=== PATIENT | female | born 1980 | race Caucasian/White ===

== ENCOUNTER 2023-07-13 19:59 | Outpatient (REF) | payer MEDICAID, SELFPAY ==
[2023-07-18 08:10] LABS: Age Gdln ACOG Testing Note (.); HPV Aptima Negative (Negative); IGP, Aptima HPV, rfx 16/18,45 Note (.)
== END 2023-07-13 20:00 | disposition home or self-care (01) ==
LOC: LAB 19:59
PROVIDERS: Visit Provider Obstetrics & Gynecology
DX: Z01.419 Encounter for gynecological examination (general) (routine) without abnormal findings (principal)
CPT/HCPCS: 87624; G0145

== ENCOUNTER 2024-06-13 12:45 | Outpatient (OUT) | payer MEDICAID, SELFPAY ==
--- NOTE | 2024-06-13 | XR_ITS ---
The [address] [address] Patient Name: MARY JANE EUCEDA MRN: [id number] date: 1980 Sex: F Assigned Patient Location: Current Patient Location: Accession/Order Number: [id number] Exam Date: 06/13/2024 15:10 Report Date: 06/13/2024 16:04 At the request of: PERI CLARKE Procedure: XR knee RITO 4V EXAMINATION: XR knee RITO 4V HISTORY: BILATERAL KNEE PAIN COMPARISON: No relevant comparison available. FINDINGS: RIGHT FINDINGS: BONES: Normal. No significant arthropathy or acute abnormality. SOFT TISSUES: Negative. No visible soft tissue swelling. OTHER: Negative. LEFT FINDINGS: BONES: Medial compartment chondrocalcinosis. No acute fracture or dislocation. Mild marginal osteophyte formation SOFT TISSUES: Negative. No visible soft tissue swelling. OTHER: Negative. XR/XR knee RITO 4V IMPRESSION: RIGHT CONCLUSION: Normal LEFT CONCLUSION: Mild degenerative change Electronically authenticated by: NICOLLE QUINTANA Date: 06/13/2024 16:04
--- OUTSIDE RECORDS SUMMARY | 2024-06-13 13:06 | XMS_ITS | CCD ---
Author Organization [facility] Inform ion Partnership [facility] Care Team Providers Care Remarketing Manager Name Role Phone Albino Brown Unavailable DR MENA BRIDGES Attending Unavailable DR MENA BRIDGES Consulting Unavailable DR MENA BRIDGES Admitting Unavailable JANINA DAMIAN Attending Unavailable Allergies Allergy Classification Reported Allergen(s) Allergy Type Date of Onset Reaction(s) Facility (1 source) [facility] Allergy rash Get Satisfaction Other (1 source) [facility] Drug Allergy [facility] Repository Medications Current Medications Medication Drug Class(es) Dates Sig (Normalized) Sig (Original) gabapentin (1 source) Anti-epileptic Agent Gabapentin Active ondansetron 4 mg disintegrating oral tablet (1 source) Serotonin-3 Receptor Antagonist Start: 08-03-2021 take 1 tablet by mouth every eight hours Ondansetron 4 MG 1 tablet on the tongue and allow to dissolve Orally every 8 hours for 3 day(s) Jul, Active Problems Active Problems Problem Classification Problem Date Documented Date Episodic/Chronic Immunizations and screening for infectious disease (2 sources) Contact with and (suspected) exposure to other viral communicable diseases; Translations: [Encounter for screening for human papillomavirus (HPV)] Onset: 08-03-2021 Resolved: 08-03-2021 Episodic Other screening for suspected conditions (not mental disorders or infectious disease) (4 sources) Encounter for screening for malignant neoplasm of cervix; Translations: [ENC SCREENING MALIG NEOPLASM CERV] Onset: 06-13-2022 Episodic Past or Other Problems Problem Classification Problem Date Documented Da te Episodic/Chronic Intestinal infection (1 source) Viral intestinal infection, unspecified Onset: 08-03-2021 Resolved: 08-03-2021 Episodic Results Test Name Value Interpretation Reference Range Facility PAP ACOG PANEL 2: 30 to 65on 06-19-2022 . . Normal [facility] Comment on above: Result Comment: Perf ormed at: WB Performed By: #### [id number] #### [facility] [address] [place] [address] Dr. Lina Lewis Age Gdln ACOG Testing 30-65 Normal [facility] Comment on above: Performed By: #### 4 [id number] #### [facility] [address] [place] [address] Dr. Lina Lewis DIAGNOSIS: Comment Normal [facility] Comment on above: Result Comment: NEGA TIVE FOR INTRAEPITHELIAL LESION OR MALIGNANCY. PREDOMINANCE OF COCCOBACILLI CONSISTENT WITH SHIFT IN VAGINAL YADIEL IS PRESENT. Performed at: WB Performed By: #### 4 [id number] #### [facility] [address] [place] [address] Dr. Lina Lewis HPV Aptima Negative Normal Negative [facility] Comment on above: Result Comment: This nucleic acid amplification test detects fourteen high-risk HPV types (16,18,31,33,35,39,45,51,52,56,58,59,66,68) without differentiation. Performed at: =G Performed By: #### 4 [id number] #### [facility] [address] [place] [address] Dr. Lina Lewis Methodology: Comment Normal [facility] Comment on above: Result Comment: This liquid based ThinPrep(R) pap test was screened with the use of an image guided system. Performed at: WB Performed By: #### 4 [id number] #### [facility] [address] [place] [address] Dr. Lina Lewis Note: Comment Normal [facility] Comment on above: Result Comment: The Pap smear is a screening test designed to aid in the detection of premalignant and malignant conditions of the uterine cervix. It is not a diagnostic procedure and should not be used as the sole means of detecting cervical cancer. Both false-positive and false-negative reports do occur. . Performed at: WB Performed By: #### 4 [id number] #### [facility] [address] [place] [address] Dr. Lina Lewis Performed by: Comment Normal [facility] Comment on above: Result Comment: Beulah Adames, Side Seam Envelope Machine Operator (ASCP) Performed at: WB Performed By: #### 4 [id number] #### [facility] [address] [address] [address] Lina Lewis Specimen adequacy: Comment Normal [facility] Comment on above: Result Comment: Sati sfactory for evaluation. Performed at: WB Performed By: #### 4 [id number] #### [facility] [address] [address] [address] Lina Lewis MRI Shoulder w/o Righton MRI Shoulder w/o Right HISTORY: Right posterior shoulder pain with numbness and tingling for many years. TECHNIQUE: Routine non-contrast MRI of the right shoulder COMPARISON: Radiograph 03/21/2022. RESULT: Rotator Cuff Tendons: Mild tendinosis involving supraspinatus and infraspinatus, without tear. Subscapularis and teres minor appear intact. Long Head Biceps Tendon: Intact with appropriate location. Muscle: Muscle bulk and signal intensity are within normal limits. Labrum: Appears intact. Bones and Marrow: No evidence of fracture or bone marrow replacing process. Glenohumeral Joint: Cartilage within normal limits. No joint effusion or synovitis. Acromioclavicular Joint: Mild degenerative changes. Downsloping of the acromion. Other: No other significant abnormality. IMPRESSION: Mild rotator cuff tendinosis without tear Report reported and signed by Rambo Quinones on 03/31/2022 1300 Normal [facility] [employer] XR Shoulder Complete Right*o n 03-21-2022 XR Shoulder Complete Right* HISTORY: Generalized right shoulder pain FINDINGS: Moderate to severe downsloping acromion. Mild hook morphology. Minimal osteophyte formation involves the AC joint. No fracture or dislocation or rotator cuff calcification is seen. Upper chest is clear. IMPRESSION: 1. Downsloping acromion morphology, probable impingement. 2. No significant AC separation or fracture. Report reported and signed by Tree Barahona on 03/24/2022 1032 Normal [facility] XR Spine Cervical Complete w /Flex AND [place] 03-21-2022 XR Spine Cervical Complete w/Flex AND Ext FINDINGS: Cervical vertebral bodies are preserved in height and are relatively normally aligned. Minimal disc space loss with no significant osteophyte formation throughout the cervical spine. Mild diffuse facet arthropathy. No significant neural foraminal compromise. No fracture or focal soft tissue swelling is seen. Prevertebral soft tissues are normal. FLEXION AND EXTENSION: C1/2: Normal alignment, no change. C2/3 - C5/6: 0 mm with extension, 1 mm anterolisthesis with flexion. C6/7: Normal alignment, no change. IMPRESSION: 1. Minimal arthritis, normal alignment. 2. No significant instability with flexion and extension maneuvers. Report reported and signed by Tree Barahona on 03/24/2022 1026 Normal [facility] SCREENING MAMMOGRAM W/TERESITA, BILATERAL*on 03-14-2022 SCREENING MAMMOGRAM W/TERESITA, BILATERAL* COMPARISON: Dating back to February 12, 2021 and July 23, 2020. TECHNIQUE: 2D and 3D Tomosynthesis of the right and left breasts was performed. FINDINGS: Breast composition demonstrates scattered fibroglandular densities. Stable. Typical benign calcifications. No suspicious microcalcifications, dominant mass lesions, or distortion is present. IMPRESSION: BI-RADS 2- Benign Mammogram Board Certified Radiologist. Accredited by the ACR and FDA. MAMMOGRAPHY IS VERY IMPORTANT TO YOUR HEALTH. THE CURRENT [place] [employer] AND [employer] GUIDELINES RECOMMENDS ANNUAL MAMMOGRAPHY BEGINNING AT AGE 40 THIS FACILITY USES A REMINDER SYSTEM TO ENSURE ALL PATIENTS RECEIVE REMINDER NOTIFICATIONS AT THE APPROPRIATE TIME BASED ON THE RECOMMENDATIONS OF THIS EXAM. Report reported and signed by Tree Barahona on 03/14/2022 1555 Normal [facility] Q - SUSANAN SCREEN IFA W/RFL TIT ER AND PATTERNon 12-09-2021 SUSANNA SCREEN, IFA Positive Abnormal NEGATIVE [facility] Comment on above: Order Comment: [facility] performed at: [employer] [employer] [facility], [address] [place] [address], [address] [place] [address], [phone], Client Integration Manager: Nura Saxena MD [facility] Date/Time: [id number] [facility] Results Received Date/Time: [facility] Reported Date/Time: FASTING: NO Result Comment: SUSANNA IFA is a first line screen for detecting the presence of up to approximately 150 autoantibodies in various autoimmune diseases. A positive SUSANNA IFA result is suggestive of autoimmune disease and reflexes to titer and pattern. Further laboratory testing may be considered if clinically indicated. For additional information, please refer to http://education.[place]/faq/TPN830 (This link is being provided for informational/ educational purposes only.) Performed By: #### 1 [id number], 7065X, 926 #### [facility] [address] [place] [address] Q - C-REACTIVE PROTEINon CRP [Mass/Vol] 0.6 mg/L Normal <8.0 [facility] [place] Comment on above: Order Comment: [facility] performed at: [employer], [employer] [facility], [address] [place] [address], [address] [place] [address], [phone], Client Integration Manager: Nura Saxena MD [facility] Date/Time: [facility] Results Received Date/Time: [facility] Reported Date/Time: FASTING: UNKNOWN Performed By: #### 8 99, 249, 104517X, 42989S, 61739H, ESR, 4420, 968T, 42A #### [facility] [address] [place] [address] Q - CBC W/DIFF AND PLTon BASOABS 58 cells/uL Normal 0-200 [facility] Specialist Comment on above: Order Comment: [facility] performed at: [employer] [facility], [address] [place] [address], [address] [place] [address], [phone], Client Integration Manager: Nura Saxena MD [facility] Date/Time: [facility] Results Received Date/Time: [facility] Reported Date/Time: FASTING: UNKNOWN Performed By: #### 8 99, 249, [id number], 79374X, 94948G, ESR, 4420, 968T, 42A #### [facility] [address] [place] [address] Basophils/100 WBC (Bld) 0.6 % Normal [facility] Special[facility] Comment on above: Order Comment: [facility] performed at: [employer] [facility], [address] [place] [address], [address] [place] [address], [address] [place] [address], Client Integration Manager: Nura Saxena MD [facility] Date/Time: [facility] Results Received Date/Time: [facility] Reported Date/Time: FASTING: UNKNOWN Performed By: #### 8 99, 249, [id number], 08196R, 47450A, ESR, 4420, 968T, 42A #### [facility] [address] [place] [address] EOSABS 221 cells/uL Normal 15-500 [facility] Specialist Comment on above: Order Comment: [facility] performed at: [employer], [employer] [facility], [address] [place] [address], [address] [place] [address], [address] [place] [address], Client Integration Manager: Nura Saxena MD [facility] Date/Time: [facility] Results Received Date/Time: [facility] Reported Date/Time: FASTING: UNKNOWN Performed By: #### 8 99, 249, 999267N, 64578N, 79717C, ESR, 4420, 968T, 42A #### [facility] [address] [place] [address] Eosinophils/100 WBC (Bld) 2.3 % Normal [facility] Special[facility] Comment on above: Order Comment: [facility] performed at: [employer] [facility], [facility], [address] [place] [address], [address] [place] [address], Client Integration Manager: Nura Saxena MD [facility] Date/Time: [facility] Results Received Date/Time: [facility] Reported Date/Time: FASTING: UNKNOWN Performed By: #### 8 99, 249, 418063B, 86737N, 19264M, ESR, 4420, 968T, 42A #### [facility] [address] [place] [address] Erythrocyte distribution width (RBC) [Ratio] 11.5 % Normal 11.0-15.0 [facility] Comment on above: Order Comment: [facility] performed at: [employer] [facility], [address] [place] [address], [address] [place] [address], [address] [place] [address], Client Integration Manager: Nura Saxena MD [facility] Date/Time: [facility] Results Received Date/Time: [facility] Reported Date/Time: FASTING: UNKNOWN Performed By: #### 8 99, 249, 904839V, 63218P, 40605X, ESR, 4420, 968T, 42A #### [facility] [address] [place] [address] Hematocrit (Bld) [Volume fraction] 43.8 % Normal 35.0-45.0 [facility] Comment on above: Order Comment: [facility] performed at: [employer], [employer] [facility], [address] [place] [address], [address] [place] [address], [address] [place] [address], Client Integration Manager: Nura Saxena MD [facility] Date/Time: [facility] Results Received Date/Time: [facility] Reported Date/Time: FASTING: UNKNOWN Performed By: #### 8 99, 249, 670580R, 19806Z, 84493I, ESR, 4420, 968T, 42A #### [facility] [address] [place] [address] Hemoglobin (Bld) [Mass/Vol] 14.9 g/dL Normal 11.7-15.5 [facility] [employer] Comment on above: Order Comment: [facility] performed at: [facility] [facility], [address] [place] [address], [address] [place] [address], [address] [place] [address], Client Integration Manager: Nura Saxena MD [facility] Date/Time: [facility] Results Received Date/Time: [facility] Reported Date/Time: FASTING: UNKNOWN Performed By: #### 8 99, 249, 984210D, 26895T, 02917G, ESR, 4420, 968T, 42A #### [facility] [address] [place] [address] Lymphocytes (Bld) [#/Vol] 2.947 10*3/uL Normal 850-3900 [facility] Comment on above: Order Comment: [facility] performed at: [facility], [employer] [facility], [address] [place] [address], [address] [place] [address], [address] [place] [address], Client Integration Manager: Nura Saxena MD [facility] Date/Time: [facility] Results Received Date/Time: [facility] Reported Date/Time: FASTING: UNKNOWN Performed By: #### 8 99, 249, 469288D, 86415F, 84059L, ESR, 4420, 968T, 42A #### [facility] [address] [place] [address] Lymphocytes/100 WBC (Bld) 30.7 % Normal [facility] Comment on above: Order Comment: [facility] performed at: [facility], [employer] [facility], [address] [place] [address], [address] [place] [address], [address] [place] [address], Client Integration Manager: Nura Saxena MD [facility] Date/Time: [facility] Results Received Date/Time: [facility] Reported Date/Time: FASTING: UNKNOWN Performed By: #### 8 99, 249, 399272U, 83137F, 97831C, ESR, 4420, 968T, 42A #### [facility] [address] [place] [address] MCH (RBC) [Entitic mass] 31.3 pg Normal 27.0-33.0 [facility] [employer] Comment on above: Order Comment: [facility] performed at: [employer], [employer] [facility], [address] [facility], [address] [place] [address], [address] [place] [address], Client Integration Manager: Nura Saxena MD [facility] Date/Time: [facility] Results Received Date/Time: [facility] Reported Date/Time: FASTING: UNKNOWN Performed By: #### 8 99, 249, 320920J, 90665W, 59782P, ESR, 4420, 968T, 42A #### [facility] [address] [place] [address] MCHC (RBC) [Mass/Vol] 34.0 g/dL Normal 32.0-36.0 [facility] Special[facility] Comment on above: Order Comment: [facility] performed at: [employer], [employer] [facility], [address] [place] [address], [address] [place] [address], [address] [place] [address], Client Integration Manager: Nura Saxena MD [facility] Date/Time: [facility] Results Received Date/Time: [facility] Reported Date/Time: FASTING: UNKNOWN Performed By: #### 8 99, 249, 673863Y, 28593O, 95336P, ESR, 4420, 968T, 42A #### [facility] [address] [place] [address] MCV (RBC) [Entitic vol] 92.0 fL Normal 80.0-100.0 [facility] Comment on above: Order Comment: [facility] performed at: [employer], [employer] [facility], [address] [place] [address], [address] [place] [address], [phone], Client Integration Manager: Nura Saxena MD [facility] Date/Time: [facility] Results Received Date/Time: [facility] Reported Date/Time: FASTING: UNKNOWN Performed By: #### 8 99, 249, 941961Y, 81590Z, 94048N, ESR, 4420, 968T, 42A #### [facility] [address] [place] [address] MONOABS 518 cells/uL Normal 200-950 [facility] [employer] Comment on above: Order Comment: [facility] performed at: [employer], [employer] [facility], [address] [place] [address], [address] [place] [address], [address] [place] [address], Client Integration Manager: Nura Saxena MD [facility] Date/Time: [facility] Results Received Date/Time: [facility] Reported Date/Time: FASTING: UNKNOWN Performed By: #### 8 99, 249, 241837B, 61972D, 88355A, ESR, 4420, 968T, 42A #### [facility] [address] [place] [address] Monocytes/100 WBC (Bld) 5.4 % Normal [facility] Specialist Comment on above: Order Comment: [facility] performed at: [employer], [employer] [facility], [address] , [address] [place] [address], [address] [place] [address], Client Integration Manager: Nura Saxena MD [facility] Date/Time: [facility] Results Received Date/Time: [facility] Reported Date/Time: FASTING: UNKNOWN Performed By: #### 8 99, 249, 468930Z, 58828J, 10890G, ESR, 4420, 968T, 42A #### [facility] [address] [place] [address] Neutrophils (Bld) [#/Vol] 5.856 10*3/uL Normal 6838-1078 [facility] [employer] Comment on above: Order Comment: [facility] performed at: [employer], [employer] [facility], [address] , [address] [place] [address], [address] [place] [address], Client Integration Manager: Nura Saexna MD [facility] Date/Time: [facility] Results Received Date/Time: [facility] Reported Date/Time: FASTING: UNKNOWN Performed By: #### 8 99, 249, 997354J, 90175T, 63570T, ESR, 4420, 968T, 42A #### [facility] [address] [place] [address] Neutrophils/100 WBC (Bld) 61 % Normal [facility] Specialist Comment on above: Order Comment: [facility] performed at: [employer], [employer] [facility], [address] , [address] [place] [address], [address] [place] [address], Client Integration Manager: Nura Saxena MD [facility] Date/Time: [facility] Results Received Date/Time: [facility] Reported Date/Time: [id number] FASTING: UNKNOWN Performed By: #### 8 99, 249, 911622I, 48319J, 03053Z, ESR, 4420, 968T, 42A #### [facility] [address] [place] [address] Platelet mean volume (Bld) [Entitic vol] 13.9 fL High 7.5-12.5 [facility] Comment on above: Order Comment: [facility] performed at: [employer], [employer] [facility], [address] [facility], [address] [place] [address], [address] [place] [address], Client Integration Manager: Nura Saxena MD [facility] Date/Time: [facility] Results Received Date/Time: [facility] Reported Date/Time: FASTING: UNKNOWN Performed By: #### 8 99, 249, 338437B, 17035E, 31651J, ESR, 4420, 968T, 42A #### [facility] [address] [place] [address] Platelets (Bld) [#/Vol] 195 10*3/uL Normal 140-400 [facility] Comment on above: Order Comment: [facility] performed at: [employer], [employer] [facility], [address] [facility], [address] [place] [address], [address] [place] [address], Client Integration Manager: Nura Saxena MD [facility] Date/Time: [facility] Results Received Date/Time: [facility] Reported Date/Time: FASTING: UNKNOWN Performed By: #### 8 99, 249, 002078O, 55202C, 88291Y, ESR, 4420, 968T, 42A #### [facility] [address] [place] [address] RBC (Bld) [#/Vol] 4.76 10*6/uL Normal 3.80-5.10 [facility] Specialist Comment on above: Order Comment: [facility] performed at: [employer], [employer] [facility], [address] [facility], [address] [place] [address], [address] [place] [address], Client Integration Manager: Nura Saxena MD [facility] Date/Time: [facility] Results Received Date/Time: [facility] Reported Date/Time: FASTING: UNKNOWN Performed By: #### 8 99, 249, 510473U, 78511U, 91461R, ESR, 4420, 968T, 42A #### [facility] [address] [place] [address] WBC (Bld) [#/Vol] 9.6 10*3/uL Normal 3.8-10.8 [place] [employer] Comment on above: Order Comment: [facility] performed at: [employer], [employer] [facility], [address] [place] [address], [address] [place] [address], [address] [place] [address], Client Integration Manager: Nura Saxena MD [facility] Date/Time: [facility] Results Received Date/Time: [facility] Reported Date/Time: FASTING: UNKNOWN Performed By: #### 8 99, 249, 239954O, 01944J, 41248H, ESR, 4420, 968T, 42A #### [facility] [address] [place] [address] Q - COMPREHENSIVE METABOLIC PANEL W/EGFRon 12-09-2021 Albumin [Mass/Vol] 4.3 g/dL Normal 3.6-5.1 [place] [facility] [place] [employer] Comment on above: Order Comment: [facility] performed at: [employer], [employer] [facility], [address] [facility], [address] [place] [address], [address] [place] [address], Client Integration Manager: Nura Saxena MD [facility] Date/Time: [facility] Results Received Date/Time: [facility] Reported Date/Time: FASTING: UNKNOWN Performed By: #### 8 99, 249, 588583O, 73856V, 54238U, ESR, 4420, 968T, 42A #### [facility] [address] [place] [address] Albumin/Globulin [Mass ratio] 1.6 {ratio} Normal 1.0-2.5 [facility] [place] [employer] Comment on above: Order Comment: [facility] performed at: [employer], [employer] [facility], [address] [place] [address], [address] [place] [address], [address] [place] [address], Client Integration Manager: Nura Saxena MD [facility] Date/Time: [facility] Results Received Date/Time: [facility] Reported Date/Time: FASTING: UNKNOWN Performed By: #### 8 99, 249, 338899A, 22637H, 78935V, ESR, 4420, 968T, 42A #### [facility] [address] [place] [address] ALP [Catalytic activity/Vol] 74 U/L Normal 31-125 [facility] [employer] Comment on above: Order Comment: [facility] performed at: [employer], [employer] [facility], [address] [place] [address], [address] [place] [address], [address] [place] [address], Client Integration Manager: Nura Saxena MD [facility] Date/Time: [facility] Results Received Date/Time: [facility] Reported Date/Time: FASTING: UNKNOWN Performed By: #### 8 99, 249, 781237G, 50803X, 96021J, ESR, 4420, 968T, 42A #### [facility] Default [address] [place] [address] ALT [Catalytic activity/Vol] 12 U/L Normal 6-29 [facility] [employer] Comment on above: Order Comment: [facility] Testing performed at: [employer], [employer] [facility], [address] [place] [address], [address] [place] [address], [address] [place] [address], Client Integration Manager: Nura Saxena MD [facility] Collection Date/Time: [facility] Results Received Date/Time: [facility] Reported Date/Time: FASTING: UNKNOWN Performed By: #### 8 99, 249, 124049E, 33905I, 90285Q, ESR, 4420, 968T, 42A #### [facility] Default [address] [place] [address] AST [Catalytic activity/Vol] 12 U/L Normal 10-30 [facility] Comment on above: Order Comment: [facility] Testing performed at: [employer], [employer] [facility], 5 [facility], [address] [place] [address], [address] [place] [address], Client Integration Manager: Nura Saxena MD [facility] Collection Date/Time: [facility] Results Received Date/Time: [facility] Reported Date/Time: FASTING: UNKNOWN Performed By: #### 8 99, 249, 988168F, 69020G, 19139W, ESR, 4420, 968T, 42A #### [facility] Default [address] [place] [address] BUN/CREA 14 NOT APPLICABLE Normal 6-22 [facility] [employer] Comment on above: Order Comment: [facility] Testing performed at: [employer], [employer] [facility], 5 [facility], [address] [place] [address], [address] [place] [address], Client Integration Manager: Nura Saxena MD [facility] Collection Date/Time: [facility] Results Received Date/Time: [facility] Reported Date/Time: FASTING: UNKNOWN Performed By: #### 8 99, 249, 018018W, 54419G, 56079W, ESR, 4420, 968T, 42A #### [facility] Default [address] [place] [address] Calcium [Mass/Vol] 9.8 mg/dL Normal 8.6-10.2 [facility] Specialist Comment on above: Order Comment: [facility] Testing performed at: [employer], [employer] [facility], [address] [facility], [address] [place] [address], [address] [place] [address], Client Integration Manager: Nura Saxena MD [facility] Date/Time: [facility] Results Received Date/Time: [facility] Reported Date/Time: FASTING: UNKNOWN Performed By: #### 8 99, 249, 635576F, 90376S, 24229R, ESR, 4420, 968T, 42A #### [facility] Default [address] [place] [address] Chloride [Moles/Vol] 103 mmol/L Normal 98-110 [facility] [employer] Comment on above: Order Comment: [facility] Testing performed at: [employer], [employer] [facility], [address] [place] [address], [address] [place] [address], [address] [place] [address], Client Integration Manager: Nura Saxena MD [facility] Collection Date/Time: [facility] Results Received Date/Time: [facility] Reported Date/Time: FASTING: UNKNOWN Performed By: #### 8 99, 249, 146508O, 20808L, 04177A, ESR, 4420, 968T, 42A #### [facility] Default [address] [place] [address] CO2 [Moles/Vol] 28 mmol/L Normal 20-32 [place] [employer] Comment on above: Order Comment: [facility] Testing performed at: [employer], [employer] [facility], [address] [place] [address], [address] [place] [address], [address] [place] [address], Client Integration Manager: Nura Saxena MD [facility] Collection Date/Time: [facility] Results Received Date/Time: [facility] Reported Date/Time: FASTING: UNKNOWN Performed By: #### 8 99, 249, 070887U, 98144N, 79320G, ESR, 4420, 968T, 42A #### [facility] Default [address] [place] [address] Creatinine [Mass/Vol] 0.59 mg/dL Normal 0.50-1.10 [facility] [employer] Comment on above: Order Comment: [facility] Testing performed at: [employer], [employer] [facility], [address] [place] [address], [address] [place] [address], [address] [place] [address], Client Integration Manager: Nura Saxena MD [facility] Collection Date/Time: [facility] Results Received Date/Time: [facility] Reported Date/Time: FASTING: UNKNOWN Performed By: #### 8 99, 249, 024746C, 00249I, 77955F, ESR, 4420, 968T, 42A #### [facility] Default [address] [place] [address] eGFRAA (Quest) 133 mL/min/1.73m2 Normal > OR = 60 [facility] Comment on above: Order Comment: [facility] Testing performed at: [employer] [employer] [facility], [address] [place] [address], [address] [place] [address], [phone], Client Integration Manager: Nura Saxena MD [facility] Collection Date/Time: [facility] Results Received Date/Time: [facility] Reported Date/Time: FASTING: UNKNOWN Performed By: #### 8 99, 249, 989406E, 90031L, 99776W, ESR, 4420, 968T, 42A #### [facility] Default [address] [place] [address] eGFRNAA (Quest) 115 mL/min/1.73m2 Normal > OR = 60 [facility] Comment on above: Order Comment: [facility] Testing performed at: [employer] [employer] [facility], [address] [facility], [address] [place] [address], [phone], Client Integration Manager: Nura Saxena MD [facility] Collection Date/Time: [facility] Results Received Date/Time: [facility] Reported Date/Time: FASTING: UNKNOWN Performed By: #### 8 99, 249, 900014W, 02026V, 28176L, ESR, 4420, 968T, 42A #### [facility] Default [address] [place] [address] Globulin (S) [Mass/Vol] 2.7 g/dL Normal 1.9-3.7 [facility] [employer] Comment on above: Order Comment: [facility] Testing performed at: [employer] [employer] [facility], [address] [place] [address], [address] [place] [address], [phone], Client Integration Manager: Nura Saxena MD [facility] Collection Date/Time: [facility] Results Received Date/Time: [facility] Reported Date/Time: FASTING: UNKNOWN Performed By: #### 8 99, 249, 188262S, 50118R, 93456P, ESR, 4420, 968T, 42A #### [facility] Default [address] [place] [address] Glucose [Mass/Vol] 82 mg/dL Normal 65-99 [place] [employer] Comment on above: Order Comment: [facility] Testing performed at: [employer] [employer] [facility], [address] [place] [address], [address] [place] [address], [address] [place] [address], Client Integration Manager: Nura Saxena MD [facility] Date/Time: [facility] Results Received Date/Time: [facility] Reported Date/Time: FASTING: UNKNOWN Result Comment: Fasting reference interval Performed By: #### 8 99, 249, 337209D, 42654F, 58612C, ESR, 4420, 968T, 42A #### [facility] Default [address] [place] [address] Potassium [Moles/Vol] 4.2 mmol/L Normal 3.5-5.3 [facility] [employer] Comment on above: Order Comment: [facility] Testing performed at: [employer] [facility], [address] [place] [address], [address] [place] [address], [address] [place] [address], Client Integration Manager: Nura Saxena MD [facility] Collection Date/Time: [facility] Results Received Date/Time: [facility] Reported Date/Time: FASTING: UNKNOWN Performed By: #### 8 99, 249, 005877J, 48113G, 64261E, ESR, 4420, 968T, 42A #### [facility] Default [address] [place] [address] Protein [Mass/Vol] 7.0 g/dL Normal 6.1-8.1 [place] [employer] Comment on above: Order Comment: [facility] Testing performed at: [employer] [employer] [facility], [address] [place] [address], [address] [place] [address], [address] [place] [address], Client Integration Manager: Nura Saxena MD [facility] Collection Date/Time: [facility] Results Received Date/Time: [facility] Reported Date/Time: FASTING: UNKNOWN Performed By: #### 8 99, 249, 733903Y, 21026V, 28345Z, ESR, 4420, 968T, 42A #### [facility] [address] [place] [address] Sodium [Moles/Vol] 138 mmol/L Normal 135-146 [facility] Comment on above: Order Comment: [facility] Testing performed at: [employer] [employer] [facility], [address] [place] [address], [address] [place] [address], [address] [place] [address], Client Integration Manager: Nura Saxena MD [facility] Collection Date/Time: [facility] Results Received Date/Time: [facility] Reported Date/Time: FASTING: UNKNOWN Performed By: #### 8 99, 249, 412914D, 36372F, 56469Z, ESR, 4420, 968T, 42A #### [facility] Default [address] [place] [address] TBIL <0.3 Normal 0.2-1.2 [facility] Specialist Comment on above: Order Comment: [facility] Testing performed at: [employer] [employer] [facility], [address] [place] [address], [address] [place] [address], [address] [place] [address], Client Integration Manager: Nura Saxena MD [facility] Collection Date/Time: [facility] Results Received Date/Time: [facility] Reported Date/Time: FASTING: UNKNOWN Performed By: #### 8 99, 249, 777781Q, 40548E, 29398J, ESR, 4420, 968T, 42A #### [facility] Default [address] [place] [address] Urea nitrogen [Mass/Vol] 8 mg/dL Normal 7-25 [facility] [employer] Comment on above: Order Comment: [facility] Testing performed at: [employer] [employer] [facility], [address] [place] [address], [address] [place] [address], [address] [place] [address], Client Integration Manager: Nura Saxena MD [facility] Collection Date/Time: [facility] Results Received Date/Time: [facility] Reported Date/Time: FASTING: UNKNOWN Performed By: #### 8 99, 249, 411024C, 23252S, 40051K, ESR, 4420, 968T, 42A #### [facility] Default [address] [place] [address] Q - Lipid Panelon 12-09-2021 Cholesterol [Mass/Vol] 242 mg/dL High <200 [facility] [employer] Comment on above: Order Comment: [facility] Testing performed at: [employer] [facility], [address] [place] [address], [address] [place] [address], [address] [place] [address], Client Integration Manager: Nura Saxena MD [facility] Collection Date/Time: [facility] Results Received Date/Time: [facility] Reported Date/Time: FASTING: UNKNOWN Performed By: #### 8 99, 249, 126547D, 67001L, 11378P, ESR, 4420, 968T, 42A #### [facility] Default [address] [place] [address] Cholesterol in HDL [Mass/Vol] 59 mg/dL Normal > OR = 50 [facility] [employer] Comment on above: Order Comment: [facility] Testing performed at: [employer] [facility], [address] [place] [address], [address] [place] [address], [address] [place] [address], Client Integration Manager: Nura Saxena MD [facility] Collection Date/Time: [facility] Results Received Date/Time: [facility] Reported Date/Time: FASTING: UNKNOWN Performed By: #### 8 99, 249, 101593P, 02144F, 43366A, ESR, 4420, 968T, 42A #### [facility] Default [address] [place] [address] Cholesterol in LDL [Mass/Vol] 160 mg/dL High [facility] [employer] Comment on above: Order Comment: [facility] Testing performed at: [employer] [facility], [address] [place] , [address] [place] [address], [address] [place] [address], Client Integration Manager: Nura Saxena MD [facility] Collection Date/Time: [facility] Results Received Date/Time: [facility] Reported Date/Time: FASTING: UNKNOWN Result Comment: Refe rence range: <100 Desirable range <100 mg/dL for primary prevention; <70 mg/dL for patients with CHD or diabetic patients with > or = 2 CHD risk factors. LDL-C is now calculated using the Eladia calculation, which is a validated novel method providing better accuracy than the Friedewald equation in the estimation of LDL-C. Daniel SS et al. CARLA. 2013;310(19): 5873-9758 (http://education.Actifi/faq/ACD135) Performed By: #### 8 99, 249, 490677K, 39373P, 46608P, ESR, 4420, 968T, 42A #### [facility] Default [address] [place] [address] Cholesterol.total/ Cholesterol in HDL [Mass ratio] 4.1 {ratio} Normal <5.0 [facility] [employer] Comment on above: Order Comment: [facility] Testing performed at: [employer] [facility], [address] [facility], [address] [place] [address], [address] [place] [address], Client Integration Manager: Nura Saxena MD [facility] Collection Date/Time: [facility] Results Received Date/Time: [facility] Reported Date/Time: FASTING: UNKNOWN Performed By: #### 8 99, 249, 766666I, 97394B, 31456B, ESR, 4420, 968T, 42A #### [facility] Default [address] [place] [address] NON HDL CHOLESTEROL 183 mg/dL (calc) High <130 [facility] [employer] Comment on above: Order Comment: [facility] Testing performed at: [employer] [employer] [facility], [address] [facility], [address] [place] [address], [address] [place] [address], Client Integration Manager: Nura Saxena MD [facility] Date/Time: [facility] Results Received Date/Time: [facility] Reported Date/Time: FASTING: UNKNOWN Result Comment: For patients with diabetes plus 1 major ASCVD risk factor, treating to a non-HDL-C goal of <100 mg/dL (LDL-C of <70 mg/dL) is considered a therapeutic option. Performed By: #### 8 99, 249, 458706U, 92179Z, 55176X, ESR, 4420, 968T, 42A #### [facility] Default [address] [place] [address] Triglyceride [Mass/Vol] 112 mg/dL Normal <150 [facility] Specialist Comment on above: Order Comment: [facility] Testing performed at: [employer] [employer] [facility], [address] [place] [address], [address] [place] [address], [phone], Client Integration Manager: Nura Saxena MD [facility] Date/Time: [facility] Results Received Date/Time: [facility] Reported Date/Time: FASTING: UNKNOWN Performed By: #### 8 99, 249, 573339X, 09022W, 07390I, ESR, 4420, 968T, 42A #### [facility] Default [address] [place] [address] Q - PTH,INTACT W/O CALCIUMon 12-09-2021 PARATHYROID HORMONE, INTACT 20 pg/mL Normal 16-77 [facility] [employer] Comment on above: Order Comment: [facility] Testing performed at: [employer] [facility], [address] [place] [address], [address] [place] [address], [phone], Client Integration Manager: Nura Saxena MD [facility] Date/Time: [facility] Results Received Date/Time: [facility] Reported Date/Time: FASTING: UNKNOWN Result Comment: Interpretive Guide Intact PTH Calcium ------- Normal Parathyroid Normal Normal Hypoparathyroidism Low or Low Normal Low Hyperparathyroidism Primary Normal or High High Secondary High Normal or Low Tertiary High High Non-Parathyroid Hypercalcemia Low or Low Normal High Performed By: #### 8 99, 249, 396688L, 43010D, 20995L, ESR, 4420, 968T, 42A #### [facility] Default [address] [place] [address] Q - RFon 12-09-2021 RF <14 Normal <14 [facility] [employer] Comment on above: Order Comment: [facility] performed at: [employer] [employer] [facility], [address] [place] [address], [address] [place] [address], [phone], Client Integration Manager: Nura Saxena MD [facility] Date/Time: [facility] Results Received Date/Time: [facility] Reported Date/Time: FASTING: UNKNOWN Performed By: #### 8 99, 249, 901996L, 48138K, 60803S, ESR, 4420, 968T, 42A #### [facility] Default [address] [place] [address] Q - TSHon 12-09-2021 TSH Qn 1.06 m[IU]/L Normal [facility] [employer] Comment on above: Order Comment: [facility] Testing performed at: [employer] [employer] [facility], [address] [place] [address], [address] [place] [address], [phone], Client Integration Manager: Nura Saxena MD [facility] Date/Time: [facility] Results Received Date/Time: [facility] Reported Date/Time: FASTING: UNKNOWN Result Comment: Refe rence Range > or = 20 Years 0.40-4.50 Ranges First trimester 0.26-2.66 Second trimester 0.55-2.73 Third trimester 0.43-2.91 Performed By: #### 8 99, 249, 018898B, 20361Y, 49727O, ESR, 4420, 968T, 42A #### [facility] Default [address] [place] [address] RBC Sedimentation Rateon ESR (Bld) [Velocity] 6 mm/h Normal < OR = 20 [facility] [employer] Comment on above: Order Comment: [facility] performed at: [employer] [employer] [facility], [address] [place] [address], [address] [place] [address], [address] [place] [address], Client Integration Manager: Nura Saxena MD [facility] Date/Time: [facility] Results Received Date/Time: [facility] Reported Date/Time: FASTING: NO Performed By: #### 1 7306X, 7065X, 926 #### [facility] Default [address] [place] [address] Q - VITAMIN B12 AND FOLATE,S ERUMon 10-14-2021 Cobalamin (Vitamin B12) [Mass/Vol] 448 pg/mL Normal 200-1100 [facility] [employer] Comment on above: Order Comment: [facility] performed at: [employer] [employer] [facility], [address] [place] [address], [address] [place] [address], [address] [place] [address], Client Integration Manager: Nura Saxena MD [facility] Date/Time: [facility] Results Received Date/Time: [facility] Reported Date/Time: FASTING: NO Performed By: #### 1 7306X, 7065X, 926 #### [facility] Default [address] [place] [address] Folate [Mass/Vol] 10.6 ng/mL Normal [facility] [employer] Comment on above: Order Comment: [facility] performed at: [employer] [employer] [facility], [address] [place] [address], [address] [place] [address], [address] [place] [address], Client Integration Manager: Nura Saxena MD [facility] Date/Time: [facility] Results Received Date/Time: [facility] Reported Date/Time: FASTING: NO Result Comment: Refe rence Range Low: <3.4 Borderline: 3.4-5.4 Normal: >5.4 Performed By: #### 1 7306X, 7065X, 926 #### [facility] Default [address] [place] [address] Q - VITAMIN B6, PLASMAon VITAMIN B6, PLASMA 3.2 ng/mL Normal 2.1-21.7 [facility] [employer] Comment on above: Order Comment: [facility] performed at: [facility], [employer], [address], [place], [place], , Client Integration Manager: Matthew Boston M.D.,PhD [facility] Date/Time: [facility] Results Received Date/Time: [facility] Reported Date/Time: [id number] FASTING: NO Result Comment: Ciara min supplementation within 24 hours prior to blood draw may affect the accuracy of the results. This test was developed and its analytical performance characteristics have been determined by [employer] [place], [place]. It has not been cleared or approved by the U.S. Food and Drug Administration. This assay has been validated pursuant to the CLIA regulations and is used for clinical purposes. Performed By: #### 1 7306X, 7065X, 926 #### [facility] Default [address] [place] [address] Q - VITAMIN D 25-OH Total IA on 10-14-2021 VIT D 25 OH 25 ng/mL Low 30-100 [facility] [employer] Comment on above: Order Comment: [facility] performed at: [facility], [employer] [facility], [address] [place] [address], [address] [place], [address], Client Integration Manager: Nura Saxena MD [facility] Date/Time: [facility] Results Received Date/Time: [facility] Reported Date/Time: FASTING: NO Result Comment: Ciara min D Status 25-OH Vitamin D: Deficiency: <20 ng/mL Insufficiency: 20 - 29 ng/mL Optimal: > or = 30 ng/mL For 25-OH Vitamin D testing on patients on D2-supplementation and patients for whom quantitation of D2 and D3 fractions is required, the QuestAssureD(TM) 25-OH VIT D, (D2,D3), LC/MS/MS is recommended: order code 63796 (patients >2yrs). See Note 1 Note 1 For additional information, please refer to http://education.[employer]/faq/JTM743 (This link is being provided for informational/ educational purposes only.) Performed By: #### 1 7306X, 7065X, 926 #### [facility] Default [address] [place] [address] COVID Quick Testingon 2020 Result Negative Get Satisfaction Other Physical Therapy Noteon 10-29 Physical Therapy Note [id number] [id number] [facility] Coding Summaryon 10-26-2020 Coding Summary HTMLBase 64 YgegtmxvISm1eNj+PGhlY WQ+IG6BYCUtO32meGGvzM 0WM3oHJX0ZZPLUSHOMFX8 GHV9ajHA4ZDxyA9RzuoUe DjxuoHPiPQ99LPz3JCX2l GdeSXcezZ6xwPAhZ6x7Ry BeWW54uD41IKhwDUXtZaU 3LjZpbjsgbWFy X4ijTjNwiJBaKit+PHRhY mxlIHdpZHRoPScxMDAlJy JbpXshBA8tOd5nTHYsBWC vbGxhcHNlOiBj j2yzHFBhDNzqEM0ieRufL 9QivWU6QPBtz6n0Bw22jO I+IQSqEZS4yRdjDJwsx13 0KmSlc6viCWI8 kTZzEZdoYUF0S80qw2R2A WIhRRWdGTY4bCC8yA0asW fxloddR2IghSPaCtJ9RMU 1jSZafV9spJmu wptvpI2sZwn+U33SRU2HA YPJXB8EXft8I6OuLnnwrL I+HO88FGDuIL54xNOanUH ee6kwoDu8YoYk EHDtESG0eRduCEnlx8NfM TTuZ97zfUBrq9B2YWDnxQ snfWMhYcCetLI4zQ6xKRb xvfxzv7mqblmj Euhys9texz04dX34R35pR AmmREZvCLR7HTEeNOYmoT lqyw1cgM1sHp8+DVfxg9a cv1cmrYy1UqGx EBVgguVhsCttUHH8b0XnJ l47A2ZzvOehz1VnIpb7ja 37cSRnt9I4bOY5UHrlVDV ndV5zRSbdQaW7 AKSiRyHylM33jXRxOBvvF j1lhAcwvNxvDR7bXNSqqq rqCHUecH7kIBXabNGymSv fXV0pNFNsraar p310UxSnJOH1CFWrmTYuL 6KstM2xCfAyIHYiOELsP9 NwxIRcPMcnT037RWzhKfG 1GUHsvfHxA0Jy HYGzcArkTwS7e0H1Av5Ah 8TzjbroPSR4ILihZBEoAb C2SbYyVuZ9U9RtJbs5UJO tfXwvTE0zV9Rc GVXsebtbqqprlSR2CCFxG ONjnV11sJAlJGsjLz4kv0 H9b512IUTlHORneN39Jo9 udDogMTBwdCBU lY2ezzcxk4vfxffcVlOcK FYzGQy6JUo6IVYutYilJn OhQGB4WyG7QGL4aFIwiG4 usOucmjttoQ9m Oyc+J53vnP0bIRQ4DVI0s kukCFQylpOrZR35UQ95J8 RyPjwvdGFibGU+PGRpdiB ayDvfNS9yIcQt i3wct5OpUKlxD0SbOAEgG UmlXcp9ZGZsDWC2eQC9vQ 3cYUUfAYrlp7J2rPH4D2N tfpOtbj7yq9mq XKGlQVgdB49bgDNpo9X2K RXqtRD5CZMveOmgRkQhvU 93Oyc+YEUleIuqe6MsSsh ks2xvh3sakPr4 ZbBbZJCibpVxfXewAMG5t 7NsDq17Z71vOTwtVGIuNN SvRJOzSKDakOxuyr7kzA2 wIi8+PGNvbCB3 yZM0mN5fDIQfCdR1LIxgQ 878PbAleVBsXyyvo2ycx0 jbbKb7CgOxJKXyasJtcSq hAQG2n6AbNe86 M87xWJcfVUXyDNAaJFVgH RQolWtnjl4sxF9nNg8+PC 5lm5xztb36oX69hME+PHR lDCA5kNaeQGfd TUTuiC1uKSahJwD9PAYiH uHxrE43uZClJGinAc8avK fvhUlsXU7wBKSbhmqkf14 0MrYfi8jqYOEx kWIzUTgpYFA5P04ln5H8Y HYsBGGyVNY9sGH0sB4wfS lnbjogbGVmdDsgdmVydGl bSThnZOasL016 IHRvcDsnPlBhdGllbnQgT aZpRVy8D9WeYvx4QAJoyI qkRF2zlISuSLauGc0ykEa crJtxVF6vQGCt jjkpj343IdUrd2wtIGItc KWiYPbyUEA0J12vc3L9QF KrDUAhCYV0pED7aT7xzGc nbjogbGVmdDsg yvKcgJoePKwiMOmsY973G HRvcDsnPkJpcnRoIERhdG L2HW22PZ46cDGhn8G3sOT 3L7UsJWAqzehx rupphKS4VOXbQZTspM73Q m0wrCxwJo1oNMFjMLN0VF CqzZCfF9KwiK6mFqNhVEO fLVCqG9AjkNPj VXqlR738EEquYoH8LKUuv sKtN4DdRPGmjVyxBkQ8r1 Z8Nb0UT9A7ZX98XQ24cCU cw6Y4lJG9R4Cz AKCedrqwcolhuDP2CMNrW AHowL39Aw8buCjvYc6yKD RxZCR0NMTvyVXlU8QiaB9 yOiAjMDAwMDAw I5GvaOMqAErnP452YDuhW fZ9JBMlvzTfQ1BwRVLywI imKrG5k2A0Yf4INOd2UP4 6MN07rTFlt8P3 xWY0I2EeRLQtboivqodqy JB4HMNqHFTkpF19Yc8ibK ccDo4cZETqTJA5JSIxkJZ jS6WajH8xTuPf VIWuFHHkE2VqwBAjBTlsP 765QLzzQwY7UOKmcvXrA3 VrJUGheOdePiZ8b0F8Qp4 NVBAdZD96ZIN4 dNC4GR78XK54T2YsGvura GFibGU+PHRhYmxlIHdpZH RoPScxMDAlJyBzdHlsZT0 qBd8nLAVtWHNm eYallBEnCoNvi5dgVYYkG EwjUP8ggKvyK8ZziUB2KA Tnl7a6Hi29E75oA3RepWF +SJVmxDE0fDE5 nS3aQuQlLuH5RLpmZ536Z zIiuFLkSwgue8huq1uerY j5FbH2CTBhhvXmiZkpXIJ 2q3OkMw13P89s IHdpZHRoPSIxNSUiIHZhb Ssfae0skU9eEp3+PGNvbC T3bUE3cY3pWcLaKtG4DYn dJ041LlRubEBu Cewvm3ncf3tqcZy6BiNaH SHcsdBkrWbuLJZ7z8DtWw 66F4SpoVcrz0FzQus5xl0 2lZDfh5X6mPD3 Z1EcOAEiqqzeaQKdwBayG J6lLLIajqdxPKWxaG4sNI CzR6x4NsGkWrO8SKguS2F noaJ2QYZgrBUb VWbrXRO9I74au1P1MKDuQ ZAhXNF2oKH0wZ9weJwkoe ogbGVmdDsgdmVydGljYWw kEHowZ119RCVm oMmwSXWmfT2oNRXzkKLls TsqTA2bSSIlsyztTn0OVJ rPNRUcMBZDQ0OWFGITMN7 8MN75sAIkf1A2 eTE9Y3UxSWDzdpdmbchuq RY7JULnKSZwsC46wHKzKT nfOi3js0T4x379NCYoILU ctX58As8inHyw UWIbmKSBtD4fdztih8oat udsVnPjCIXmRMk8EQj4XU EoyGscSvKhODD1JdM9NPY 1yDGbaP7vlXqu fhxlfB1wFxb+MDQvMTgvM Aj9IXoxwKN+PVXkUQG5jB cxKRxnQVEflU6cNNKuG5j 9NkGyPeG5WLim I5LfNOEqobseZz32oT8kU jFgSsY6NEitS0VkdiG8UU XayYZpUVqvYMK6N78xk2T 8GXScTLZvIFX5 jUC3pF7vsOjrmfjgsLTlo DsgdmVydGljYWwtYWxpZ2 33LKKxmLqaCnT9BHnlMQI kHF62LE91dRLf r1P3gSQ1N6RzZAHycheiq tsauPB0VFDeLYUtrM83oX NmFGpfXl5aw8H3l815AUA oSIZuvE40Gl6b gRxiLVQgeDAKpF9bvegmq 6lineiiVkGiFPXaTJx6UR s8METldMtfKdUjXCP3MtU 2BAZ6qJQisS1w oFtxdnsssS9gMgf+RkVNQ HfFIJ31CO01iRXzh1W8vB R9W3LfDIOpngyvntkasIY 6WJBlLMWemU18 sJQbKIguQt9td4H6z905T BXcBWVnyD78Eu7nvKatZG BauEDCrU2qrwcqo4iebnv gIzAwMDAwMDt0 YTw2JNVhsNcbJmAiBNN0V yN4TCQ2eKDsgO4fpYowhu repD9qIhv+UmVjdXJyaW5 fUL81aYNznJfh qmN9O8XfIethgVZ+PC90Y YEnEW16dVQmtOUum5xgsQ o5OqNjRSVcOCW3dVgfSBi jt7MwPFTgC90q aZNwx8E7HGSewOnenIUbF nOoqBZ3hH8zIFzmzddvq5 flxgwzMixlh9limi02hM0 8B76lJXtwCITp IQKzMXRqBLXzmWrvve6xj G9wIi8+DQXrpCT2cMX2qM 6pDrVxKzV4LJonS422VaW iyNDcOrzvi2eq p3exzGz9EwIeTPNccsGfx VryMBL1s4KwQp27W60fZV dpZHRoPSIyMCUiIHZhbGl lve6ifN6lQp0+ YT0ki8sbar66qU76gSK+P QUpQQD5kTapBVliPLSwtB 2kCLwvEgK0FODwZgVgpQ8 5iNFzNMhpMx7f oNzszKzbTZ9vJAOvjxkid 480VfZwt8svVUOqpKGiUU nnPXV7Y91fm6G9NWSqJPM rPSR2nOA4cD0x bGlnbjogbGVmdDsgdmVyd TreGOekSNtbX670JMKpeW klFjKimDLdR9jjvaYHCB5 lOjwvdGQ+PHRk AQY4rXbbEUgeCKPsvI9nZ NYbJ8f1GgStBhR7MGmvA5 CojxI7CWHyaPLwUFRpqCL CpU0iqqiuz7vn jyutFqGdBFKmLKa3TQk3X UJuyWvcCtWiOEB7RhT2EF T0xYIfuV7iaZsgqstwqP2 wOyc+RklOOjwv dGQ+CYQoWST2vJleDEzuJ RSxgK4kTDHvI6e6DzSdCe P2IAubG0XwrvL8JDUoxCU bSMFbfKWRsI7t odncf1svbtowPpFeNFNlJ Uz9OUd3YMXhpZfhAfIdKY D6LeS0CYX3uLRwqV7qfFr wbpzmpA1nCuj+ TVJOOjwvdGQ+FEKlLHK8n GslCKiqLRPwgX6jTTIlK9 z2JlKiYwA3JQxpH7RfncK 6IGJvbGQgMTBw tAOTeB9einbky7layzseU eHbLEShVNf8VKp6WEOwzJ uoLnAxWJL9LoJ3YYV7dTU uiG0pjGuyhskq tO6dRbs+UOD8CPL8WH32F D20B7ZeLkjdcDOtsMC+PH RhYmxlIHdpZHRoPScxMDA pOnKoxXxmZE2c Gq4fMXUlOKYhfRbkqJSmT gBpo1dsNOHeNCltRB1byC awS7RkjXV8BRGht2r0Lo0 3U38tJ5TqeXJ+ PEGdgGE2uOG8jI8zQyUwY uB8WCihS657XmWsvXXgOa mms0aoo5kouIr8UsXjWAN gdmFsaWduPSJ0 d2KvEn27K12gCNfqXTKcO JMqBIEoFRRtnMazbm5uvC 9wIi8+XXKygSU4wBP5gX4 gJiDvTzT2UPml M083ScJygQBtBmlyJ80rH 3JvdXA+JOWsPls4OKWdjT btJF0waKUdJYwxOm8tFAQ 0OiAwLjIwMGlu F0LbSTUakghodyrupNO3F UJcIPGdfL54Ar3jkHdnGQ FteLDSmI4jhngun5occkp gIzAwMDAwMDt0 VWi6HZHynRkiHbWhDVG8A qF1WIP5dNRruL3kfMoyxg xufI4qO9QxWHCkvsgxWr2 1wP8bVwNwCqK5 MGluOyc+Ay3PJVRITZWNI 9vIZI07NE87mZOgw8E5tC L4Q1WgVFYefgcmplwgaSN 1ZKZpZXUcnI18 mSRtTUswKn1ej9T2g212D SWsKTGrtS03Ef0ldAqyDQ BlwYHVyP1mgcexi4hmjpp gIzAwMDAwMDt0 DNs7JHMwqLzkNdVmSMM4S oR3CZM0bCDdbF4vmMpqkj vwcI2uPvl+MzAzNDkyMzU 1I1IrBqj1YDTh aSwxVC7waDZdXVwwOj9sl OkgvSoyIT3hJGMcxsvlMS UrzH2jURRgxENyfGsoJZ0 tBXEhqzpff261 LfKxOPQ3WCGjcWHlF4Ybz H4iDjNsFYDsQVFpV0VblE WoRFooH911ZXmwVxW1ATN tfjNnT1OkMVBu lQesKwP7x5U5Ku8lEy7bH T12UpvauKE+NQMjPMK7gE ihXQmhVGZldZ3oNHYxM6v 3WiFoLpB3JOcz S3WmHURtfrhqQb11nO7uN vGzHoJ5VIioN2PsrrI8HK MnxLGjNAzuPVK4E50xa5Z 0ALBlVRCqEJF4 rXW6eE0auPuottkwrAUup DsgdmVydGljYWwtYWxpZ2 40JAQdmGcwFn7vTXloAHc kIEhNTzwvdGQ+ BP94ii28H9BvYysdQgb9X MFbLVG5kWD8rQ8zAFKqPR hsx5Z6mXC6T4GubbFido4 bf5irOXPyMJbw U10dqLWij6E8PPPnaBX2C KOdzXjuTxQdvL30Zgh+PG LguCagg0EkCwmdo4izr6s fjAw5XaVxHKAc dwJlnWagJGH7a3JjJu90Q 29sIHdpZHRoPSIzMCUiIH VawTbtxa5zfS3dUs5+PGN otSP4vCS3gM9b FwDxDnH1KKyhV142YoSwp PExQlirz9etm1dpsNx0Mq AvSESvzmGqtObeYID2z5B fSi26J2VwzQni c8JeOxe5bb53mVYsi3W1o JN4R4OvHRMpldycoUCnhO ffBY7jIYYpximvIPWmqG5 jQBDiY4n1EtBo DaM4FUqzE2RhfhK2JZRcy JJtNNRdmSTXoY0jyxtmg9 ntfwuaSdDtPOGhRAg4MVh 0LWFsaWduOiBs AOM5AxR6MCG8cRJtiD2oi GvriyrokU0oTtb+RmFjaW trdZv7LO43UM44ePTfs2B 0vOE1M4ZiYALo lnotnxdtfXQ1XDKqDYTvl X32Ww9iaPlkCk5iTRBqPB V7ELQrkWOcC0AguJ7yDqA cARUwEXMoF9Xx lXHfGHfsB209EDglTzK8U IIouiGkY9QiXNVdbAdxTo Y4c9G9Js4OmQYywUYvS8P xONoyxP1ieNXq c805SF78IV38tEHey8I2t EB4O1YrSPKmxatuhunwvT E6VITuLBCsrG57Zl6adMj uWh3gTAShUVV8 VBKtxDMbJ9ZjyS1bWcHuT SHaWQZhE2YraSAoYGohP3 90QWirKdM0GNCdtjWcC9G sLWFsaWduOiB0 x5U7Uu6KYM4jmGDLIZJwM jwvdGQ+XTBuGGM0aYvrNL zjHAVyyI4mNPNpG3l7GpG qOzJ1GBfqN5Qp ndN0BJHozBWfYIWbvWZHe L3eixdkf4tzykfnDvNnWS XiRFk2IEb5LINjwBqyBgS rVJQ5QsI0YCT2 dFNsnO0szScmtxzifT0nY yc+WVbkW5kfrwpqBYKxpP D4YL85NZ36M2OyGrstrND ibGU+PHRhYmxl IHdpZHRoPScxMDAlJyBzd OyrVH7tJc6dSIIwUHQaaZ ifrZDyIsMwg8hnYAUrRZj vSS3ddAqyU0Nu qBU4TXNzi8l4An80K61gF 3JvdXA+TBFraTQ6fMR9bW 9vCcYiCpV2XFvjI985JfO agSVcMcotq9ke s9ihiKq7YtZsROVbxxXrs LugADD5a9AqHu68R38kNI dpZHRoPSIyMCUiIHZhbGl fdc1xoU8pXd1+ SPGvwYS0uOD6vU7fTmKgD eS7KQmsU595AnSsyWSvWt seF54hL5PjtPD+PHRyPjx 8OWDnyEjfSN3i gOEfGCjfSj8tPGZ6NmKjK fYwTDqxI7JoTNFudbafkd qrwGC2HXNzDKAfbA82Fv4 udDogMTBwdCBU iB8pvwkqs3svjhmoRnEbJ KYpVKe2USy3TVRmaZjtFa TaGWB8BqE8PUI0vYCbwO5 tjNurbiqhpD6p P7OcXCPxkkitQb00eW5pW hIiBgK1IFroRoq+TWFncn FqSIGeYX8ewTa8VTf0Q7F tTir6GLPeeRmr OG6rhXWpFCooHa7dyAjrz DatJL8xISXahhmqNPKopU 2lEQFsyAUsiSipWZ7vKFQ ojrvzg999VnWx QTT4GLQlcMXuQ4QysK0jJ cDzOJSnGWShW7DgwOFvKA hbG306SXrvOoM4LECesdF lF4WcRRIzgHjh MvS8k6H5Lj39I2CoQym2V QOysGsiTI8ikRGlHLryMk 2bsYtluXrdKG5wCNWurfq iEBZwbT2gFLUi kJOcvXfaFX1yGHCfnxpda 209GyHhIMY4TRQatJPjB4 XmgH5jWsTkJSNkSZBqR3F jgDYhGFlaQ801 HRycDgX7IAFarfScA6PsI ZOqbOzwEeU7k4Q1Fb4tMp 5mOa1uVYWxUI53JK94tPW nr4N4gNV4Q4Ps MBRmhquhpypkrMP3VRJeY KPreH53xJCcFFatJy6zv7 R4x089KHLmNKVxdA58Zi5 udDogMTBwdCBU wL4umkfpx4axiuykVfNhJ VTzERp6XCw2RNMynSapKx IuQXX1VuE7WTQ1oKXmsT1 sqNjvtbbeoN2v Oyc+VQ94DN49Y9SjXiwfi GFibGU+RA2asDV+PHRhYm xlIHdpZHRoPScxMDAlJyB znJvsSL1rPg5n ZGVyLWJvdHRvbToxcHggc 49sqPXeKwwtJ7a2CCPini Dvmi3bu3pfMUNvJBtkL68 iyKRvr2R7CTNg pMS7LCCjdOsuIkBsnG22I yc+EMNuvPbch1RaTysoa2 aeq4heqFa8PmCuXEWyRST rxWlsdc4rmM4n Ii8+HM7kr1pcpw89pJ44y HI+PHRkPjxici8+PC90ZD 55C6MyAbi9sn91mYVvy4F 9bKJ9P6DpgoE5 NKQblVRxESLziIJKtL3mg scnu4xbhtytPxAcOMXnIF x1DJo2TWHwoWbbDdSpXI3 4MCI9BNDpbjPo Q0JkODSsuGwuZxJ2j5U6E l2EEu5MYISQOR63XN85G2 RyPjwvdGFibGU+PHRhYmx lIHdpZHRoPScx MEBlKdVjtIjyTX9gSz8yJ GVyLWJvdHRvbToxcHggc2 2whIGdXgaoO7l7MGApctN rev9qa7csXMOx UEnxS87fxIVww9R0QWFdo WP0VFTiuCvbIhSrgO48Ru c+QNAhvCpxz0DhZxxos5l tu5dkpKf2LnQs DHGhDHRchAlkof0egJ3tM i8+BR3em7uoky63mU92nS I+PHRkPjxici8+WP23RH9 5C4SeMwr0tq37 nHNuz5N0oMO2W9SzvkM7U MGqqBJfLERmeNARlP0vvp imt2lugzglXmHdVGJlXNh 4GQw9ZOUeoPou EuQnZO50PYJ3GVDrpxCsX 3JxYPTtvJbjLcL1u7T0Rf 4YMKTFVk5APKB0B0EvKeh vdHI+AD79OIJc YH58kQUvzPBvv2swtMm2A qSgVYSoJYM6cLwdYMtxn3 BhXVQgM25bwLVbq4E7JDP vbGxhcHNlOyBl qTW0zW9iCQlpwancu7otd hygJffhp4hvpq40wX36Y3 9sIHdpZHRoPSIxNSUiIHZ xiOilye3gqH2u Ii8+EWZhrZB6iYU6rI6vQ NLdJrF3NBvgL374GmLppZ ZpQofiv1ibt4phqFk5CxY 3JSIgdmFsaWdu CFM2i9SyXg21U34oPJtzF HRoPSIxMyUiIHZhbGlnbj 6orU2sGc9+CN2vj4igih2 7pU66fVQ+PHRk PBX1oHnxMHsyWKKdsU7zL MftEqA9ZLJjXlOkmF18qC QuELyxFv9vxCeqbByqHY1 kSDYhgfxoc285 CwKpx7ksKJLidDDjTRofY TN9G75fh3C7EZEpKHTrNP D3oCR7yI8enMpeujwpsQI mdDsgdmVydGlj XVjvMGiwT567CWBogHeuH qNaJCY1E9XoQbx1GJBcbQ ofYC2wqLKlMVnoTh9gbPu dqMlpVR5zQCVf exrmg031WqUry1buZSYnl UVuOPudFVH4W55on2K5MQ TgKZFmIOV3lKL6nQ8gpJv nbjogbGVmdDsg czIjnGqvVBxtIKtmX082U HRvcDsnPlBPQTwvdGQ+PH TxDNN5qHhfHUhnPLUfqX3 zNYNwH3g7HoRm SjD2WVhjT7BtcyE2PAEvk LSgLUYqbLKWzM2weeuxx4 xeqythBnAiNNXhXXx1MKg 0LWFsaWduOiBs SHF5SrP9CLG0kEWfzT2sf PpjcclumA7eKem+RGVzY3 NhuVKog671G5QzBwi8NXP dmOtzSX0isPPu TIhzYm6gnUeppZsfUY4rL GVnjkzna688TfTyd6wrIZ CqmHUgBNsjOTE2C00pi4G 2NEVnRHFdCYC6 eZG0wL6qfRbjfdcciRDak DsgdmVydGljYWwtYWxpZ2 26EWCxjChfXzM7xPW7X7G kPjwvdHI+PC90 IIXwWX23kOSkvOKgd2fbw Rm7IaZcUYKlRXS0kYokOM jjl1NyRKOoL93mnLRsh6V 6IGNvbGxhcHNl PqEvdKF6gF5wYVojewcgv 3btiubvYusob0vadk67iD 77V68tGYnwCYThTDTfTDU gRBWneKiali4k iV7kMe3+ZXTreJM5kQC6k Z2sCWLgKhC5QVrtP558Rs TpgUEpYoown6tyz4epcJc 3CaY1HZZmziAd xQdeLDK7z9RyYb52A76yK HdpZHRoPSIxMyUiIHZhbG utof2pnH5kEm1+ZX3mx6c net43eQ55oAO+ TAWcZYY0gGbuVAtfUWOvx G0iFQnyDfB7EXHyYdLwaJ 42yUVbAYnyEw2vsGmivVu sKC8uPFFmxyei c695EzIjHSD5KWHybYDrF 8SazT5sEdFhZLZsMEJzM2 AolDDxNFppJ589JJutQoF 1XOAxyeVoL2Se WQHmaMwkWdT0q9M6Mw1IG nLzETY4L0AjQio6OY42I4 MvEma4VVXegMrlTQ0jyKX tGHjtCt7lrIpd rHheZM5zGFNnairmh342B dDnSNX2DTGgbXFsW1YroP 5kMvLmVVSnMUTkK7LkvLD eCRmvC961NOqi EkF5THPgpnYuB5DeTTIiz TcdSnN5o0P3Yj0KbJ9jTQ JvbWFsYWNpYSBwYXRlbGx hZSwgcmlnaHQg l99lQYzryQY+XQPgMJV4q OwmHEmwXPNnsR9pGOWiQ5 b8LvAbZgA1OWwgE2TxiiW 6IDEwcHQgVGlt CUE7L95xq2Q8ZTYoQMXuX XU4fQI6hZ1qmUsighddlY VmdDsgdmVydGljYWwtYWx lP417EIDemLdk PlJGVjwvdGQ+ER93qn70M 3RdSzaaDjm5WVQuHPD7gD W5iQ6iPMGdOFlwh7Q8sQZ 1D5RlwoHjqi4g x5ifBJQoAJcxH50mkTVsz 2P5OIWhxGP1MQBcxIpgJf DysX05Vei+IYPjoQddq3B aIjrzo9lqv6ot rQz0ObV6CBGuvzEidFkfO NO2a7ZiBo08D36kCIqxVJ RoPSIxNSUiIHZhbGlnbj0 gsI9zWa5+PGNv xWB1kTN7rL2eXDlwDqP2Y SfbE440PlRqoXPtHawla4 sag7kxlUp2WeEyKVRlnqM mbYjuXOO9q6Vu Nu53Y7RjxNugm4CpQtn3p f18pXWhw8Z0gHM3K4YbSX KmmyywaSTbqSptQT3wHZU tsgvfLDLjlW0o WQQkI1q7RwFdOsX9KIzvC 7SuzdE6UZQftCVuWZucNF L6T26xp3G2MAGeMEFaGSK 3zBC5rQ3arCni bjogbGVmdDsgdmVydGljY XfgZGioN439XSKjgKdvJy 9sZh80UvxxwIT+PHRkPjw vdGQ+PHRkIHN0 xMzvPJfiZPUjxV6jCYLxE 7x5WnMzEjG0NVxoU7Sihr L5LQZbcMKrPIncGEJ6V38 cr3I9NBJkWCTe AUO4fBG9hG4gsUhgwxvdo GVmdDsgdmVydGljYWwtYW ubB233RSUazVtrWwUcj58 bqn5sSUygW8sz WOGtkLAkzUAiQNTeBJN9B WkiKQO9X3AmQrs7MYQwsO zaFK5qhTUqFHqmKq4lgMe alUlyZV4fDJPk kdvve427AvRhOQH6PQKvb ZZiA3QjnO9lInAmWCRiGX AkR0CnpRVcQDymH452QHx eJoG8JUFocxPh Q6QzKONnfBidQkB0m7K9Q x8JGzM7Q9UsKejzvJG+PC 52FUBpCY19bLNkoVSvo3a cbVo6TwSgYFDe ZCI3yVruENqwy9DeWVVoF 15wpQXbf5U6YBLpwLsmlZ DvAkTlnTT0zO1nCQsbmqt hu0cwfrggAen4 au23aGJjw4D9dSD3DhMlQ SNxrS6xKBgvGuA4YGZuDz OqiN00kEQcRAeoOt4voSz gyOrdOA2lTVGy huzmw866FyIqx5thJZEzp MOpZHbzHBG2F74mo0A5IY DvEJScSBJ6YkCat6heg6B dNGxzF6HiLYVc AMy1OOc7MZNbdHbcCgBcO FZ5MwE7YIS9cERspI7dyN xusfjdaM2wEkl+UHJpbmN ziAZgRR85HA87 Q4OfMdiigGNquSJ+PHRhY mxlIHdpZHRoPScxMDAlJy YizOdrYS6aWg0mRDSyNLD vbGxhcHNlOiBj t9goJOTfJEzkEF8xpNnuR 1NunCQ1PCCbh5x5Sn68D4 3oZ5IuiTU+IYTiqDZ8eXJ 2uH8tXPKwDpH1 ZYhoN544ZuIdtGQyPzrlj 8awr0qujKe6TiK6DAOjgv CuiDppOQS0o3JoBm16T97 sIHdpZHRoPSI1 YkYgZMSfmAhfyc7urP1kW i8+NXEfiRQ6dPX7uI3bDZ BrXdI9HUvvG384TgYlbRQ pGcbcP58aK3Vx dXA+RLGlLpd7AKTicMmkH T0efFXnHVquYj6vIEI4Wy MsLyLlJQxbE3NuDXTimww hjtkkiUC2FWRe TAYwrO09Js3vtNfeTAKjz NDHnK6sxmbxf7wqdylbHa PaVUKxIFt5GUk8MJHbfIj cGlIiJTI5VxN8 MXO1zCGiwB3uuEyqofbzk G9wOyc+SUZlJrRzCV75QZ 93lZHog0R4aOM2Q3LfQDS pbmctcmlnaHQ6 YQWjCGTkuZ68Tj3roQlgC ZXpxFOFtW1ubcqyh0wwls khCsXkUHRxQHz9VSg9LHZ saWduOiBsZWZ0 TyJ6IYL6lBCfoE3gpAadz qhbmM7fItg+IQ85XM78eA Wbb5Y9bXL0H8GqHGLmchl lapbudOL5DRNz BRYsbP63Wm4esRtfFDWre PQNlQ3vxbmql4isnspwCd FiJOSwBLa8NWk8GMNlnKz jNuUcXBC8BvV2 VLV7oVFsfK1cmQepymiuq G9wOyc+T5clwmCnn02xoI IrhWXqxTS7XJodKBPhSYJ vH6u8VZptCVE0 C0DpJpt4HSPjlAedFS0af LKnGSmoKq1jvNhtkIxmTO 1nRLIbsjbcw229WeOkZVJ 8VHIdlOClN7Ee dO8hAqCuVUDgWGCpH6Peg NSlKLbdR522SDcyMlM0IY VokhUcX8LsEVWhtGwsBkH 6g1C9Hk6XgT7s bDwvdGQ+UI88ut75I0PwE pvtPzz0MGIkEQN9rHN4cU 4yJUZrWBpvu7Q4kKO1L8B qezObzq3fy6uv UOFhQRhsJ63wlKIgr2Z3M QQajQD9KBVazMuxVhDvxB 93Oyc+SQXtMsm8DQDzwGn yAN6wALCbFBNh wkfblAYocCouLZ9nARIui qkcLHTysE6oJKIwM3c5Xk BkJvM4THvqZ8EfirN6FYD vbGQgMTBwdCBU hI0fxogzm9zuvktpZoEjB JWaKShxPYBkF2YtzW8qCl LpKRQkCUAqB1IhqCNaMQf bK677OOneXrQ6 RCKpklQhF7IrIPCupIbbZ kC8k8T2Uy2UHLSbhuJnxw i8O5EtThwwxQW+XR11PEP kFU39bSGlmFXg s9pnpVb2RgDcFYHiNPV2k ZydEZbrh4TtPWAqD74mtB Hix8O9IAMufQcooWIvWpV vfCN7iO1tCPit kpyft4uzfvmvUdtqi5guf e47bV95R18rGVmxFZSlYS EsRKKxEZDbsInnae8xdQ7 wIi8+PGNvbCB3 nKH1iF4fNCPoXgY1QIryM 855IwBtgAJtPuvvo8ixx4 wtuLb2IgP9WFPajcCqsSl qAKI7a5ReOf68 N42eUYyuOAMvVOMaQtPiF AInrBgtkp1kyK0iPq3+PC 1iz2ykrz64rV60oOH+PHR hCGK5zQexFSzw KUSbnW1xIChzQdL2NAKeW cLcoK58gLMjZAtjTn7yyN jphMhyQS9cRROsyhcew79 8VlOdRDM3RNUo rTLxT4DnoJ0gEoPmTVNfZ URiC3YffWCcLPcfO351BW evGeV1ZOCuwrUaF8HkBQH qjHkiLhF7f0B4 Jj1QEuAwKRK3G3YaJoz7E JHfzLitEN1lkXNkSRdfHz 6quTtbzWbbZD3pJHBwkqf kh385PgFwATA3 PJSfyLQhV2MwsZ3hQbRvO OVbOYUmC6UwiUIuZJeuT2 20AGmoAbI7SQSqzgZgA3Y sLWFsaWduOiB0 f7V1Ln72G3GbRhh0ZMNuq IdxVF5noERmEWueDc5vlP fjlMjoTD7zIDLsychhh13 8BuMbUBA8URBn nYFoG4FasF0lWsKwRBIlJ KCbR9EcqHWsMUwdK262BE rtNkD0MVSfazYwT0EiHEI faYyeGmQ0m1L8 Pa1LxR1jHDZavBFhXUUsD SBwYXRlbGxhZSwgbGVmdC QvdeYlBI41VJ40zWUfz1L 8wCN5S6QcCMGy kwibvpjkhYU9WEEvLXLfe U69Yw4agYyaHKXfuTXErL 0vjiyre8izyznjNtRcMRV lUCf5SWi9FNZe eCqjZbGzEUH1GjN4BUU2h JKckS0fdEtqevxzfH7vEp c+OucxOEa8T1LkTvstkVR +WX51FRZqEP24 eNHfqVMye2cujNk9LbXoQ XVkQGW6fIccBAeei3DxCM KrPw00rJ7cYgVlcQZhp3t pZCBibGFjazsg Ir5kZPRxHRCqdLqpwQBtX vSga3nuENJaWPunGO9ccQ ayX0ViaJH0LBQlp6k9Nt1 0I73uQ6KveDZ+ VKQlmNP6cWN1tS0tPWItG XZbndPatZmzUTS0t7CpOs 42I0JnxUwhs0VqLfo3md8 8dGQ+CRDgSb97 C9WvUckqaDS+BMCkGge6L APhvUwcKE2cKt8opPqrGr 3iWWWbGBF8VMUoqPSaD8N heJ8eEiKdQKTv JHFpI3NocWJaRObtM709L GNlbnRlcjsgdmVydGljYW tdDLwpA336LBKaqScrDfJ RL5LUDKPAPEzs dGQ+DS63ip09C6DgBboqC jxici8+XFToGc54aNMjkQ Vqe4mfjRp3MeAgURQwGZO 1rSvmFWzrb2Ai BIBnU44paATvk9I0HTCsl NgetHZeYbMpaGL5rT8dZN hcwbwbw6iyrdxgMmewx7y pqy43kB70F27i PXypWVVyYHMkMODhTjF8A FrlN640HzUcyNPkVtgrO5 7iZ7HoeMI+XNWtIxo3TFN xvXvoHU2uhKBj JEigDi6hYLG6SfJwZsYpY QxmH2UvWSLobdjggbinzI Q3QPCyYKIlrJ19Lg9cyQf hHVHvsRKCvA6t mhcbj1wilmkzZnGuGDEmK Mx1QWa3YLEqaKtrOwJmWQ S8NeY5GUX6oTVcuP4amYi diekduP6xJau+ In3MNBarCRakBLXoCIZot zYaTxLcOXHxd5sgcdZbJE 9zoGCnXGJylKciXRYsO1H sTT13QRLwOAdw S12ii4apLPGfRW1yufAse t1dQFU0ntSqpR9qyMoiUV BhdGllbnQncyBjaGFydC4 zAV97JUZivfwq vMzzSM8hypLqdZw8NGXyd DRmw9UqjPUhunCmXERxos 4yUHHrSDBmz3Czimdau80 mdHdhcmUgbWF5 IGFwcGVhciBhYmJyZXZpY ILpAUfyc5DcfyCyyQl5KK ypJQDaoWshyVq4ATNiMeB exeJhyQN6PJRw nB1uoM2qmI92T8NkWptbn HI+DX85WBBbQW43HdOgBx xici8+SY21yq67G5NuFih rQga0CMRvTHE9 cYG3iI9kMCHxVMekg7Z7e XR3S5JljxLdns9zw1aoMG IlGGonO24vhTAgg6N0VEK kzMP2XLNtzBda QfYooJ84Gkn+PGNvbGdyb 7EaDrpav4qyn7yuvIv0Ey JsTRQrowFfxDugDPD2g8Y cUf99Z32qVKum MFSqWRC3VTSfDKUqhVwql p0hcU3qNm0+MI9mq0xcsi 41gK67oJB+PHRkPjwvdGQ +LJKiCLO5lYsj NGcyrEHvMMdfPq5hnSagt JffTE6bVVQtjisov453Jv BmRGB7LOZkeHVqJ6OxkN9 yOiAjMDAwMDAw L4SmfBDxKArmO104RUacI hF4VRBuxkAiU8LdJFAkpX psLrS4m6V1El6Vj0QzVUG CeTogIEJvbHlh wyZoYYukfe6lEyUnAE77M W59Y5EaYaciiWDdbRC+PH RhYmxlIHdpZHRoPScxMDA vBdDzzOksLJ2m Tb4uQTVrRXHgoGuvfRVoB oGah8ekZUXiJNsvAA4guM qqG0TbnQX0FQMab1k9Tw8 4B50kS6IjhAT+ EBHfcEI9mSO7dX7rDaPyZ yE6SNfkQ657YyTfoYStRb low4ttm9emxDz2KtEtRTK gdmFsaWduPSJ0 d4PiHw11N8GcvHbuy7KtJ cu8zm51gUW+QW71BC75vZ Fbn7B0pCW1CeVnKESigB9 wZNPzM9b2WhLe UdR9RKreS6QpxwH7RNFch OPnVIwqCFP8W23kq4A0ZJ VlHJTeHVO3wQZ3eH0cjGo nbjogbGVmdDsg eiQpbQfvXPbtHSwyS126W QDjcFgrOhFhdHQoJ0R9OW X5JUYpUe7qXh2tVQKvQHK bKqVyHQKfJH95 AX55Y9YzRgslsSLhnYA+P NUvQy44PfMkTljbgWJvbO 4= [facility] Provider Orderson 10-24-2020 Provider Orders [id number] [facility] Vital Signs Date Time Vital Sign Value Performing Clinician Facility 08-03-2021 12:15-0500 Body height 175.26 cm Alb[facility] Other [facility] Other 08-03-2021 12:15-0500 Body mass index (BMI) [Ratio] 25.1 kg/m2 Alb[facility] Brown Other [facility] Other 08-03-2021 12:15-0500 Body temperature 97.7 [degF] [facility] Other [facility] Other 08-03-2021 12:15-0500 Body weight 77.11 kg Albino Brown Other [facility] Other 08-03-2021 12:15-0500 Respiratory rate 18 /min Albino Brown Other [facility] Other 08-03-2021 12:15-0500 SaO2% (BldA) [Mass fraction] 98 % Albino Brown Other [facility] Other Encounters Encounter Date Encounter Type Care Provider Facility Start: 07-13-2023 End: 07-13-2023 ambulatory JANINA DAMIAN Not Available Start: 06-13-2022 End: 06-13-[address] MENA BRIDGES Facility: Start: 08-03-2021 End: 08-03-2021 ambulatory Albino Brown Other [facility] Other Start: 08-03-2021 Office [facility] Payers Date Payer Category Payer Medicaid [id number] 1980 Unknown [id number] 1980 Unknown [id number] 1959 Unknown [id number] Social History Date Type Detail Facility Sex Assigned At [facility] Other Evaluation note 08-03-2021 Note Date & Type Note Facility 08-03-2021 Evaluation note Encounter Date Diagnosis Assessment Notes Jul, Contact with and (suspected) exposure to other viral communicable diseases (ICD-10 - Z20.828) Jul, Viral gastroenteritis (ICD-10 - A08.4) Nausea can be caused because of symptoms of other illnesses, gastro related viruses, headaches, etc. Use medication as directed. Encourage fluid intake and try to start with small sips of fluid. Watch for signs and symptoms of dehydration including decrease in urine output, dry mucus membranes, etc. Fluid intake is more important than food intake. Follow up with primary care provider if no improvement of symptoms within the next few days. Seek emergency treatment if signs of dehydration occur such as decrease in urine, dry mouth, etc. I considered/dis cussed prescription medication with the patient. There is no evidence of acute abdomen on exam. Will give prescription for zofran. Educated about red flag symptoms and if she does develop red flag symptoms, she is advised to go to the ER. Pt understands and agrees with the plan. Jul, Other Additional time spent conducting pre-visit phone call, screening for symptoms, instructions on social distancing, application and removal of PPE, and cleaning of examination room, equipment and supplies was preformed. Patient education given for testing methodology and results. Patient care instructions given in writting by [facility] document. [facility] Other History general Narrative - Reported Note Date & Type Note Facility History general Narrative - Reported Type Medical History fibromyalgia [facility] Other Summary Purpose Family History No Family History Records FoundNo Family History Records FoundNo Family History Records FoundNo Family History Records Found Advance Directives No Advanced Directives Records FoundNo Advanced Directives Records FoundNo Advanced Directives Records FoundNo Advanced Directives Records Found Additional Source Comments INFORMATION SOURCE (unrecogn ized section and content) DATE CREATED AUTHOR 11/09/2020 [facility] DATE CREATED AUTHOR AUTHOR'S ORGANIZ ATION 04/02/2022 [facility] DATE CREATED AUTHOR AUTHOR'S ORGANIZ ATION 06/27/2022 [facility] DATE CREATED AUTHOR AUTHOR'S ORGANIZ ATION 07/14/2023 [facility] EPIC REASON FOR VISIT (unrecogniz ed section and content) #10 WHITE, N/V, DIARRHEA FOR RECORDS PERTAINING TO PATIENTS WHO ARE OR HAVE BEEN ENROLLED IN A CHEMICAL DEPENDENCY/SUBSTANCEABUSE PROGRAM, SOME INFORMATION MAY BE OMITTED. This clinical summary was aggregated from multiple sources. Caution should be exercised in using it in the provision of clinical care. This summary normalizes information from multiple sources, and as a consequence, information in this document may materially change the coding, format and clinical context of patient data. In addition, data may be omitted in some cases. CLINICAL DECISIONS SHOULD BE BASED ON THE PRIMARY CLINICAL RECORDS. [employer] provides no warranty or guarantee of the accuracy or completeness of information in this document.
== END 2024-06-13 12:46 | disposition home or self-care (01) ==
LOC: EC 12:46
PROVIDERS: Visit Provider Student in an Organized Health Care Education/Training Program
DX: M25.562 Pain in left knee (principal)
CPT/HCPCS: 73564

== ENCOUNTER 2024-06-28 14:56 | Outpatient (OUT) | payer MEDICAID, SELFPAY ==
--- NOTE | 2024-06-28 15:11 | MR_ITS ---
The [address] [address] Patient Name: MARY JANE EUCEDA MRN: [id number] date: 1980 Sex: F Assigned Patient Location: MRI Current Patient Location: Accession/Order Number: [id number] Exam Date: 06/28/2024 15:40 Report Date: 06/30/2024 08:10 At the request of: PERI CLARKE Procedure: MR knee RT wo con EXAMINATION: MR knee RT wo con HISTORY: Right Knee Pain COMPARISON: No relevant comparison available. TECHNIQUE: A complete multi-planar MRI was performed. FINDINGS: MEDIAL COMPARTMENT MEDIAL MENISCUS: Subtle linear echogenic abnormality involving the anterior and posterior horn of the medial meniscus best seen on sagittal image 5 coronal image 18 CARTILAGE: No visible defect. BONES: No marrow pathology, fracture, or significant arthropathy. MCL AND MEDIAL CAPSULE: Normal medial collateral ligament and medial capsule. LATERAL COMPARTMENT LATERAL MENISCUS: No visible tear or significant degeneration. CARTILAGE: No visible defect. BONES: No marrow pathology, fracture, or significant arthropathy. LCL/POSTEROLAT COMPLEX: Normal lateral collateral ligament, fascicles, lateral capsule and ligaments. ANTERIOR COMPARTMENT PATELLA: No marrow pathology, fracture, or significant arthropathy. 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 EFFUSION: None. No synovitis or loose bodies. ACL: Normal appearing ligament. PCL: Normal appearing ligament. MENISCOFEMORAL: Normal meniscofemoral ligaments. OTHER: Negative. MR/MR knee RT wo con IMPRESSION: Horizontal tear primarily within the posterior horn of the medial meniscus with a component likely extending to the anterior horn Electronically authenticated by: NICOLLE QUINTANA Date: 06/30/2024 08:10
== END 2024-06-28 14:57 | disposition home or self-care (01) ==
LOC: MRI 14:59
PROVIDERS: Visit Provider Student in an Organized Health Care Education/Training Program
DX: M25.561 Pain in right knee (principal); S83.241A Other tear of medial meniscus, current injury, right knee, initial encounter
CPT/HCPCS: 73721

== ENCOUNTER 2024-07-18 21:29 | Outpatient (REF) | payer MEDICAID, SELFPAY ==
--- OUTSIDE RECORDS SUMMARY | 2024-07-18 21:33 | XMS_ITS | CCD ---
Author Organization [facility] Inform ion Partnership [facility] Care Team Providers Care Director Of Retail Marketing Name Role Phone Albino Brown Unavailable DR MENA BRIDGES Attending Unavailable DR MENA BRIDGES Consulting Unavailable DR MENA BRIDGES Admitting Unavailable JANINA DAMIAN Attending Unavailable Allergies Allergy Classification Reported Allergen(s) Allergy Type Date of Onset Reaction(s) Facility (1 source) [facility] Allergy rash Doodle Other (1 source) [facility] Drug Allergy [facility] Repository Medications Current Medications Medication Drug Class(es) [...] to 65on 06-19-2022 . . Normal [facility] Comment on above: Result Comment: Perf ormed at: WB Performed By: #### [id number] #### [facility] [address] [place] [address] Dr. Lina Lewis Age Gdln ACOG Testing 30-65 Normal [facility] Comment on above: Performed By: #### 4 [id number] #### [facility] [address] [place] [address] Dr. Lina Lewis DIAGNOSIS: Comment Normal [facility] Comment on above: Result Comment: NEGA TIVE FOR INTRAEPITHELIAL LESION OR MALIGNANCY. PREDOMINANCE OF COCCOBACILLI CONSISTENT WITH SHIFT IN VAGINAL YADIEL IS PRESENT. Performed at: WB Performed By: #### 4 [id number] #### [facility] [address] [place] [address] Dr. Lina Lewis HPV Aptima Negative Normal Negative [facility] Comment on above: Result Comment: This nucleic acid amplification test detects fourteen high-risk HPV types (16,18,31,33,35,39,45,51,52,56,58,59,66,68) without differentiation. Performed at: =G Performed By: #### 4 [id number] #### [facility] [address] [place] [address] Dr. Lina Lewis Methodology: Comment Normal [facility] Comment on above: Result Comment: This liquid based ThinPrep(R) pap test was screened with the use of an image guided system. Performed at: WB Performed By: #### 4 [id number] #### [facility] [address] [place] [address] Dr. Lina Lewis Note: Comment Normal [facility] Comment on above: Result Comment: The Pap smear is a screening test designed to aid in the detection of premalignant and malignant conditions of the uterine cervix. It is not a diagnostic procedure and should not be used as the sole means of detecting cervical cancer. Both false-positive and false-negative reports do occur. . Performed at: WB Performed By: #### 4 [id number] #### [facility] [address] [place] [address] Dr. Lina Lewis Performed by: Comment Normal [facility] Comment on above: Result Comment: Beulah Adames, Media Center Assistant (ASCP) Performed at: WB Performed By: #### 4 [id number] #### [facility] [address] [address] [address] Lina Lewis Specimen adequacy: Comment Normal [facility] Comment on above: Result Comment: Sati sfactory for evaluation. Performed at: WB Performed By: #### 4 [id number] #### [facility] [address] [address] [address] Lina Lewis MRI Shoulder w/o Righton [...] by Rambo Quinones on 03/31/2022 1300 Normal [facility] Assistant XR Shoulder Complete Right*o n 03-21-2022 XR [...] by Tree Barahona on 03/24/2022 1032 Normal [facility] XR Spine Cervical Complete w /Flex AND Harrell 03-21-2022 XR Spine Cervical Complete w/Flex AND [...] by Tree Barahona on 03/24/2022 1026 Normal [facility] SCREENING MAMMOGRAM W/TERESITA, BILATERAL*on 03-14-2022 [...] VERY IMPORTANT TO YOUR HEALTH. THE CURRENT [employer] AND [employer] GUIDELINES RECOMMENDS ANNUAL MAMMOGRAPHY BEGINNING AT AGE 40 THIS FACILITY USES A REMINDER SYSTEM TO ENSURE ALL PATIENTS RECEIVE REMINDER NOTIFICATIONS AT THE APPROPRIATE TIME BASED ON THE RECOMMENDATIONS OF THIS EXAM. Report reported and signed by Tree Barahona on 03/14/2022 1555 Normal [facility] Q - SUSANNA SCREEN IFA W/RFL TIT ER AND PATTERNon 12-09-2021 SUSANNA SCREEN, IFA Positive Abnormal NEGATIVE [facility] Comment on above: Order Comment: [facility] performed at: [employer], [facility], [address] [place] [address], [address] [place] [address], [phone], [employer] Supervisor: Nura Saxena MD [facility] Collection Date/Time: [id number] [facility] Results Received Date/Time: [facility] Reported Date/Time: FASTING: NO Result Comment: SUSANNA IFA is a first line screen for detecting the presence of up to approximately 150 autoantibodies in various autoimmune diseases. A positive SUSANNA IFA result is suggestive of autoimmune disease and reflexes to titer and pattern. Further laboratory testing may be considered if clinically indicated. For additional information, please refer to [email or web address].[email or web address]/faq/[email or web address] (This link is being provided for informational/ educational purposes only.) Performed By: #### 1 [id number], 7065X, 926 #### [facility] [address] [place] [address] Q - C-REACTIVE PROTEINon CRP [Mass/Vol] 0.6 mg/L Normal <8.0 [facility] Comment on above: Order Comment: [facility] performed at: [employer], [facility], [address] [place] [address], [address] [place] [address], [phone], [employer] Supervisor: Nura Saxena MD [facility] Date/Time: [facility] Results Received Date/Time: [facility] Reported Date/Time: FASTING: UNKNOWN Performed By: #### 8 99, 249, [id number], 80467S, 18847S, ESR, 4420, 968T, 42A #### [facility] [address] [place] [address] Q - CBC W/DIFF AND PLTon BASOABS 58 cells/uL Normal 0-200 [facility] Specialist Comment on above: Order Comment: [facility] performed at: [employer] [facility], [address] [place] [address], [address] [place] [address], [phone], [employer] Supervisor: Nura Saxena MD [facility] Date/Time: [facility] Results Received Date/Time: [facility] Reported Date/Time: FASTING: UNKNOWN Performed By: #### 8 99, 249, 511390N, 04241Q, 76747Q, ESR, 4420, 968T, 42A #### [facility] [address] [place] [address] Basophils/100 WBC (Bld) 0.6 % Normal [facility] Comment on above: Order Comment: [facility] performed at: [employer] [facility], [address] [place] [address], [address] [place] [address], [address] [place] [address], [employer] Supervisor: Nura Saxena MD [facility] Date/Time: [facility] Results Received Date/Time: [facility] Reported Date/Time: FASTING: UNKNOWN Performed By: #### 8 99, 249, 062967L, 74340T, 58056H, ESR, 4420, 968T, 42A #### [facility] [address] [place] [address] EOSABS 221 cells/uL Normal 15-[address] [facility] Specialist Comment on above: Order Comment: [facility] performed at: [employer], [facility], [address] [place] [address], [address] [place] [address], [address] [place] [address], [employer] Supervisor: Nura Saxena MD [facility] Date/Time: [facility] Results Received Date/Time: [facility] Reported Date/Time: FASTING: UNKNOWN Performed By: #### 8 99, 249, 708403E, 36919M, 22436U, ESR, 4420, 968T, 42A #### [facility] [address] [place] [address] Eosinophils/100 WBC (Bld) 2.3 % Normal [facility] Comment on above: Order Comment: [facility] performed at: [employer] [facility], [address] [facility], [address] [place] [address], [address] [place] [address], [employer] Supervisor: Nura Saxena MD [facility] Date/Time: [facility] Results Received Date/Time: [facility] Reported Date/Time: FASTING: UNKNOWN Performed By: #### 8 99, 249, 491717Y, 97874R, 62603Y, ESR, 4420, 968T, 42A #### [facility] [address] [place] [address] Erythrocyte distribution width (RBC) [Ratio] 11.5 % Normal 11.0-15.0 [facility] Comment on above: Order Comment: [facility] performed at: [employer] [facility], [address] [place] [address], [address] [place] [address], [address] [place] [address], [employer] Supervisor: Nura Saxena MD [facility] Date/Time: [facility] Results Received Date/Time: [facility] Reported Date/Time: FASTING: UNKNOWN Performed By: #### 8 99, 249, 991922W, 12513G, 67241E, ESR, 4420, 968T, 42A #### [facility] [address] [place] [address] Hematocrit (Bld) [Volume fraction] 43.8 % Normal 35.0-45.0 [facility] Assistant Comment on above: Order Comment: [facility] performed at: [employer], [facility], [address] [place] [address], [address] [place] [address], [address] [place] [address], [employer] Supervisor: Nura Saxena MD [facility] Date/Time: [facility] Results Received Date/Time: [facility] Reported Date/Time: FASTING: UNKNOWN Performed By: #### 8 99, 249, 599651G, 68574M, 26491Y, ESR, 4420, 968T, 42A #### [facility] [address] [place] [address] Hemoglobin (Bld) [Mass/Vol] 14.9 g/dL Normal 11.7-15.5 [facility] Assistant Comment on above: Order Comment: [facility] performed at: [employer] [facility], [address] [place] [address], [address] [place] [address], [address] [place] [address], [employer] Supervisor: Nura Saxena MD [facility] Date/Time: [facility] Results Received Date/Time: [facility] Reported Date/Time: FASTING: UNKNOWN Performed By: #### 8 99, 249, 126578T, 02846F, 76449S, ESR, 4420, 968T, 42A #### [facility] [address] [place] [address] Lymphocytes (Bld) [#/Vol] 2.947 10*3/uL Normal 850-3900 [facility] Assistant Comment on above: Order Comment: [facility] Testing performed at: [facility], [facility], [address] [place] [address], [address] [place] [address], [address] [place] [address], [employer] Supervisor: Nura Saxena MD [facility] Date/Time: [facility] Results Received Date/Time: [facility] Reported Date/Time: FASTING: UNKNOWN Performed By: #### 8 99, 249, 810699O, 64704D, 76881L, ESR, 4420, 968T, 42A #### [facility] [address] [place] [address] Lymphocytes/100 WBC (Bld) 30.7 % Normal [facility] Lab Assistant Comment on above: Order Comment: [facility] Testing performed at: [facility], [facility], [address] [place] [address], [address] [place] [address], [address] [place] [address], [employer] Supervisor: Nura Saxena MD [facility] Date/Time: [facility] Results Received Date/Time: [facility] Reported Date/Time: FASTING: UNKNOWN Performed By: #### 8 99, 249, 614498B, 86261Y, 04713S, ESR, 4420, 968T, 42A #### [facility] [address] [place] [address] MCH (RBC) [Entitic mass] 31.3 pg Normal 27.0-33.0 [facility] Assistant Comment on above: Order Comment: [facility] performed at: [employer], [facility], [address] [facility], [address] [place] [address], [address] [place] [address], [employer] Supervisor: Nura Saxena MD [facility] Date/Time: [facility] Results Received Date/Time: [facility] Reported Date/Time: FASTING: UNKNOWN Performed By: #### 8 99, 249, 973915F, 74023I, 16127S, ESR, 4420, 968T, 42A #### [facility] [address] [place] [address] MCHC (RBC) [Mass/Vol] 34.0 g/dL Normal 32.0-36.0 [facility] Special[facility] Comment on above: Order Comment: [facility] performed at: [employer], [facility], [address] [place] [address], [address] [place] [address], [address] [place] [address], [employer] Supervisor: Nura Saxena MD [facility] Date/Time: [facility] Results Received Date/Time: [facility] Reported Date/Time: FASTING: UNKNOWN Performed By: #### 8 99, 249, 328233E, 03445U, 44200C, ESR, 4420, 968T, 42A #### [facility] [address] [place] [address] MCV (RBC) [Entitic vol] 92.0 fL Normal 80.0-100.0 [facility] Assistant Comment on above: Order Comment: [facility] performed at: [employer], [facility], [address] [place] [address], [address] [place] [address], [phone], [employer] Supervisor: Nura Saxena MD [facility] Date/Time: [facility] Results Received Date/Time: [facility] Reported Date/Time: FASTING: UNKNOWN Performed By: #### 8 99, 249, 661517P, 67361S, 51304I, ESR, 4420, 968T, 42A #### [facility] [address] [place] [address] MONOABS 518 cells/uL Normal 200-950 [facility] Computer Lab Assistant Comment on above: Order Comment: [facility] Testing performed at: [employer], [facility] [employer] [facility], [address] [place] [address], [address] [place] [address], [address] [place] [address], [employer] Supervisor: Nura Saxena MD [facility] Date/Time: [facility] Results Received Date/Time: [facility] Reported Date/Time: FASTING: UNKNOWN Performed By: #### 8 99, 249, 745194C, 36643D, 44181J, ESR, 4420, 968T, 42A #### [facility] [address] [place] [address] Monocytes/100 WBC (Bld) 5.4 % Normal [facility] Specialist Comment on above: Order Comment: [facility] Testing performed at: [employer], [facility], [address] , [address] [place] [address], [address] [place] [address], [employer] Supervisor: Nura Saxena MD [facility] Date/Time: [facility] Results Received Date/Time: [facility] Reported Date/Time: FASTING: UNKNOWN Performed By: #### 8 99, 249, 741255O, 36413O, 09741J, ESR, 4420, 968T, 42A #### [facility] [address] [place] [address] Neutrophils (Bld) [#/Vol] 5.856 10*3/uL Normal 0423-9180 [facility] Assistant Comment on above: Order Comment: [facility] Testing performed at: [employer], [facility], [address] , [address] [place] [address], [address] [place] [address], [employer] Supervisor: Nura Saxena MD [facility] Date/Time: [facility] Results Received Date/Time: [facility] Reported Date/Time: FASTING: UNKNOWN Performed By: #### 8 99, 249, 663098L, 19308E, 10684T, ESR, 4420, 968T, 42A #### [facility] [address] [place] [address] Neutrophils/100 WBC (Bld) 61 % Normal [facility] Specialist Comment on above: Order Comment: [facility] performed at: [employer], [facility], [address] , [address] [place] [address], [address] [place] [address], [employer] Supervisor: Nura Saxena MD [facility] Date/Time: [facility] Results Received Date/Time: [facility] Reported Date/Time: [id number] FASTING: UNKNOWN Performed By: #### 8 99, 249, 723671Y, 45800X, 17870A, ESR, 4420, 968T, 42A #### [facility] [address] [place] [address] Platelet mean volume (Bld) [Entitic vol] 13.9 fL High 7.5-12.5 [facility] Lab Assistant Comment on above: Order Comment: [facility] Testing performed at: [employer], [facility], [address] [facility], [address] [place] [address], [address] [place] [address], [employer] Supervisor: Nura Saxena MD [facility] Date/Time: [facility] Results Received Date/Time: [facility] Reported Date/Time: FASTING: UNKNOWN Performed By: #### 8 99, 249, 533874N, 00472X, 31836W, ESR, 4420, 968T, 42A #### [facility] [address] [place] [address] Platelets (Bld) [#/Vol] 195 10*3/uL Normal 140-400 [facility] Lab Assistant Comment on above: Order Comment: [facility] Testing performed at: [employer], [facility], [address] [facility], [address] [place] [address], [address] [place] [address], [employer] Supervisor: Nura Saxena MD [facility] Date/Time: [facility] Results Received Date/Time: [facility] Reported Date/Time: FASTING: UNKNOWN Performed By: #### 8 99, 249, 351887X, 74519J, 58746U, ESR, 4420, 968T, 42A #### [facility] [address] [place] [address] RBC (Bld) [#/Vol] 4.76 10*6/uL Normal 3.80-5.[address] [facility] Specialist Comment on above: Order Comment: [facility] Testing performed at: [employer], [facility], [address] [facility], [address] [place] [address], [address] [place] [address], [employer] Supervisor: Nura Saxena MD [facility] Date/Time: [facility] Results Received Date/Time: [facility] Reported Date/Time: FASTING: UNKNOWN Performed By: #### 8 99, 249, 355376B, 74880E, 31915R, ESR, 4420, 968T, 42A #### [facility] [address] [place] [address] WBC (Bld) [#/Vol] 9.6 10*3/uL Normal 3.8-10.8 [place] [facility] [place] [facility] Assistant Comment on above: Order Comment: [facility] performed at: [employer], [facility], [address] [place] [address], [address] [place] [address], [address] [place] [address], [employer] Supervisor: Nura Saxena MD [facility] Date/Time: [facility] Results Received Date/Time: [facility] Reported Date/Time: FASTING: UNKNOWN Performed By: #### 8 99, 249, 439704M, 06901I, 38311U, ESR, 4420, 968T, 42A #### [facility] [address] [place] [address] Q - COMPREHENSIVE METABOLIC PANEL W/EGFRon 12-09-2021 Albumin [Mass/Vol] 4.3 g/dL Normal 3.6-5.1 [facility] [place] [facility] Assistant Comment on above: Order Comment: [facility] performed at: [employer], [facility], [address] [facility], [address] [place] [address], [address] [place] [address], [employer] Supervisor: Nura Saxena MD [facility] Date/Time: [facility] Results Received Date/Time: [facility] Reported Date/Time: FASTING: UNKNOWN Performed By: #### 8 99, 249, 389357U, 13550O, 98457N, ESR, 4420, 968T, 42A #### [facility] [address] [place] [address] Albumin/Globulin [Mass ratio] 1.6 {ratio} Normal 1.0-2.5 [facility] [place] [facility] Assistant Comment on above: Order Comment: [facility] Testing performed at: [employer], [facility], [address] [place] [address], [address] [place] [address], [address] [place] [address], [employer] Supervisor: Nura Saxena MD [facility] Date/Time: [facility] Results Received Date/Time: [facility] Reported Date/Time: FASTING: UNKNOWN Performed By: #### 8 99, 249, 383478Q, 11533C, 51231M, ESR, 4420, 968T, 42A #### [facility] [address] [place] [address] ALP [Catalytic activity/Vol] 74 U/L Normal 31-125 [facility] Lab Assistant Comment on above: Order Comment: [facility] Testing performed at: [employer], [facility], [address] [place] [address], [address] [place] [address], [address] [place] [address], [employer] Supervisor: Nura Saxena MD [facility] Date/Time: [facility] Results Received Date/Time: [facility] Reported Date/Time: FASTING: UNKNOWN Performed By: #### 8 99, 249, 990708W, 58970L, 46130W, ESR, 4420, 968T, 42A #### [facility] [address] [place] [address] ALT [Catalytic activity/Vol] 12 U/L Normal 6-29 [facility] Lab Assistant Comment on above: Order Comment: [facility] Testing performed at: [employer], [facility], [address] [place] [address], [address] [place] [address], [address] [place] [address], [employer] Supervisor: Nura Saxena MD [facility] Date/Time: [facility] Results Received Date/Time: [facility] Reported Date/Time: FASTING: UNKNOWN Performed By: #### 8 99, 249, 070985P, 81520V, 95483I, ESR, 4420, 968T, 42A #### [facility] Default [address] [place] [address] AST [Catalytic activity/Vol] 12 U/L Normal 10-30 [facility] Comment on above: Order Comment: [facility] Testing performed at: [employer], [facility] [employer] [facility], [address] [facility], [address] [place] [address], [address] [place] [address], [employer] Supervisor: Nura Saxena MD [facility] Date/Time: [facility] Results Received Date/Time: [facility] Reported Date/Time: FASTING: UNKNOWN Performed By: #### 8 99, 249, 939649B, 59359U, 64620O, ESR, 4420, 968T, 42A #### [facility] [address] [place] [address] BUN/CREA 14 NOT APPLICABLE Normal 6-22 [facility] Computer Lab Assistant Comment on above: Order Comment: [facility] Testing performed at: [employer], [facility], [address] [facility], [address] [place] [address], [address] [place] [address], [employer] Supervisor: Nura Saxena MD [facility] Date/Time: [facility] Results Received Date/Time: [facility] Reported Date/Time: FASTING: UNKNOWN Performed By: #### 8 99, 249, 590470W, 32376G, 87353A, ESR, 4420, 968T, 42A #### [facility] Default [address] [place] [address] Calcium [Mass/Vol] 9.8 mg/dL Normal 8.6-10.2 [facility] Specialist Comment on above: Order Comment: [facility] performed at: [employer], [facility] [employer] [facility], [address] [facility], [address] [place] [address], [address] [place] [address], [employer] Supervisor: Nura Saxena MD [facility] Date/Time: [facility] Results Received Date/Time: [facility] Reported Date/Time: FASTING: UNKNOWN Performed By: #### 8 99, 249, 296345Y, 55101Y, 86199E, ESR, 4420, 968T, 42A #### [facility] [address] [place] [address] Chloride [Moles/Vol] 103 mmol/L Normal 98-110 [facility] Lab Assistant Comment on above: Order Comment: [facility] Testing performed at: [employer], [facility], [address] [place] [address], [address] [place] [address], [address] [place] [address], [employer] Supervisor: Nura Saxena MD [facility] Date/Time: [facility] Results Received Date/Time: [facility] Reported Date/Time: FASTING: UNKNOWN Performed By: #### 8 99, 249, 908836O, 96591Y, 14276E, ESR, 4420, 968T, 42A #### [facility] [address] [place] [address] CO2 [Moles/Vol] 28 mmol/L Normal 20-32 [place] [facility] Assistant Comment on above: Order Comment: [facility] performed at: [employer], [facility], [address] [place] [address], [address] [place] [address], [address] [place] [address], [employer] Supervisor: Nura Saxena MD [facility] Date/Time: [facility] Results Received Date/Time: [facility] Reported Date/Time: FASTING: UNKNOWN Performed By: #### 8 99, 249, 365653H, 27656F, 22880G, ESR, 4420, 968T, 42A #### [facility] [address] [place] [address] Creatinine [Mass/Vol] 0.59 mg/dL Normal 0.50-1.10 [facility] Computer Lab Assistant Comment on above: Order Comment: [facility] Testing performed at: [employer], [facility], [address] [place] [address], [address] [place] [address], [address] [place] [address], [employer] Supervisor: Nura Saxena MD [facility] Collection Date/Time: [facility] Results Received Date/Time: [facility] Reported Date/Time: FASTING: UNKNOWN Performed By: #### 8 99, 249, [id number], 46780P, 54065M, ESR, 4420, 968T, 42A #### [facility] Default [address] [place] [address] eGFRAA ([facility]) 133 mL/min/1.73m2 Normal > OR = 60 [facility] Comment on above: Order Comment: [facility] Testing performed at: [employer], [facility], [address] [place] [address], [address] [place] [address], [phone], [employer] Supervisor: Nura Saxena MD [facility] Collection Date/Time: [facility] Results Received Date/Time: [facility] Reported Date/Time: FASTING: UNKNOWN Performed By: #### 8 99, 249, 542004E, 44663F, 18799W, ESR, 4420, 968T, 42A #### [facility] [address] [place] [address] eGFRNAA ([facility]) 115 mL/min/1.73m2 Normal > OR = 60 [facility] Comment on above: Order Comment: [facility] Testing performed at: [employer], [facility], [address] [facility], [address] [place] [address], [phone], [employer] Supervisor: Nura Saxena MD [facility] Collection Date/Time: [facility] Results Received Date/Time: [facility] Reported Date/Time: FASTING: UNKNOWN Performed By: #### 8 99, 249, 548717C, 90960Z, 16810S, ESR, 4420, 968T, 42A #### [facility] [address] [place] [address] Globulin (S) [Mass/Vol] 2.7 g/dL Normal 1.9-3.7 [facility] Computer Lab Assistant Comment on above: Order Comment: [facility] Testing performed at: [employer], [facility], [address] [place] [address], [address] [place] [address], [phone], [employer] Supervisor: Nura Saxena MD [facility] Collection Date/Time: [facility] Results Received Date/Time: [facility] Reported Date/Time: FASTING: UNKNOWN Performed By: #### 8 99, 249, 840653Y, 92822R, 17336W, ESR, 4420, 968T, 42A #### [facility] [address] [place] [address] Glucose [Mass/Vol] 82 mg/dL Normal 65-99 [place] [facility] [place] Computer Lab Assistant Comment on above: Order Comment: [facility] Testing performed at: [employer], [facility], [address] [place] [address], [address] [place] [address], [address] [place] [address], [employer] Supervisor: Nura Saxena MD [facility] Collection Date/Time: [facility] Results Received Date/Time: [facility] Reported Date/Time: FASTING: UNKNOWN Result Comment: Fasting reference interval Performed By: #### 8 99, 249, 935602B, 69911Y, 91696T, ESR, 4420, 968T, 42A #### [facility] [address] [place] [address] Potassium [Moles/Vol] 4.2 mmol/L Normal 3.5-5.3 [facility] Assistant Comment on above: Order Comment: [facility] Testing performed at: [employer] [facility], [address] [place] [address], [address] [place] [address], [address] [place] [address], [employer] Supervisor: Nura Saxena MD [facility] Collection Date/Time: [facility] Results Received Date/Time: [facility] Reported Date/Time: FASTING: UNKNOWN Performed By: #### 8 99, 249, 645495I, 35815M, 06399Z, ESR, 4420, 968T, 42A #### [facility] [address] [place] [address] Protein [Mass/Vol] 7.0 g/dL Normal 6.1-8.1 [place] [facility] [place] Computer Lab Assistant Comment on above: Order Comment: [facility] Testing performed at: [employer], [facility], [address] [place] [address], [address] [place] [address], [address] [place] [address], [employer] Supervisor: Nura Saxena MD [facility] Collection Date/Time: [facility] Results Received Date/Time: [facility] Reported Date/Time: FASTING: UNKNOWN Performed By: #### 8 99, 249, 111484F, 81435D, 52652P, ESR, 4420, 968T, 42A #### [facility] [address] [place] [address] Sodium [Moles/Vol] 138 mmol/L Normal 135-146 [facility] Comment on above: Order Comment: [facility] Testing performed at: [employer], [facility], [address] [place] [address], [address] [place] [address], [address] [place] [address], [employer] Supervisor: Nura Saxena MD [facility] Collection Date/Time: [facility] Results Received Date/Time: [facility] Reported Date/Time: FASTING: UNKNOWN Performed By: #### 8 99, 249, 783634L, 35318K, 15191S, ESR, 4420, 968T, 42A #### [facility] [address] [place] [address] TBIL <0.3 Normal 0.2-1.2 [facility] Specialist Comment on above: Order Comment: [facility] Testing performed at: [employer], [facility], [address] [place] [address], [address] [place] [address], [address] [place] [address], [employer] Supervisor: Nura Saxena MD [facility] Collection Date/Time: [facility] Results Received Date/Time: [facility] Reported Date/Time: FASTING: UNKNOWN Performed By: #### 8 99, 249, 592352Y, 45959E, 94793O, ESR, 4420, 968T, 42A #### [facility] [address] [place] [address] Urea nitrogen [Mass/Vol] 8 mg/dL Normal 7-25 [facility] Lab Assistant Comment on above: Order Comment: [facility] Testing performed at: [employer], [facility], [address] [place] [address], [address] [place] [address], [address] [place] [address], [employer] Supervisor: Nura Saxena MD [facility] Collection Date/Time: [facility] Results Received Date/Time: [facility] Reported Date/Time: FASTING: UNKNOWN Performed By: #### 8 99, 249, [id number], 85282D, 86350Y, ESR, 4420, 968T, 42A #### [facility] [address] [place] [address] Q - Lipid Panelon 12-09-2021 Cholesterol [Mass/Vol] 242 mg/dL High <200 [facility] Computer Lab Assistant Comment on above: Order Comment: [facility] Testing performed at: [employer] [facility], [address] [place] [address], [address] [place] [address], [address] [place] [address], [employer] Supervisor: Nura Saxena MD [facility] Collection Date/Time: [facility] Results Received Date/Time: [facility] Reported Date/Time: FASTING: UNKNOWN Performed By: #### 8 99, 249, 710630S, 30617Y, 59038N, ESR, 4420, 968T, 42A #### [facility] [address] [place] [address] Cholesterol in HDL [Mass/Vol] 59 mg/dL Normal > OR = 50 [facility] Computer Lab Assistant Comment on above: Order Comment: [facility] Testing performed at: [employer] [facility], [address] [place] [address], [address] [place] [address], [address] [place] [address], [employer] Supervisor: Nura Saxena MD [facility] Collection Date/Time: [facility] Results Received Date/Time: [facility] Reported Date/Time: FASTING: UNKNOWN Performed By: #### 8 99, 249, 776491O, 79144I, 97037Y, ESR, 4420, 968T, 42A #### [facility] [address] [place] [address] Cholesterol in LDL [Mass/Vol] 160 mg/dL High [facility] Computer Lab Assistant Comment on above: Order Comment: [facility] Testing performed at: [employer] [facility], [address] [place] , [address] [place] [address], [address] [place] [address], [employer] Supervisor: Nura Saxena MD [facility] Collection Date/Time: [facility] [...] LDL-C. Daniel SS et al. CARLA. 2013;310(19): 1047-0655 (http://education.Freshmilk NetTV/faq/HBN661) Performed By: #### 8 99, 249, 797858N, 90033W, 30438T, ESR, 4420, 968T, 42A #### [facility] [address] [place] [address] Cholesterol.total/ Cholesterol in HDL [Mass ratio] 4.1 {ratio} Normal <5.0 [facility] Computer Lab Assistant Comment on above: Order Comment: [facility] Testing performed at: [employer] [facility], [address] [facility], [address] [place] [address], [address] [place] [address], [employer] Supervisor: Nura Saxena MD [facility] Collection Date/Time: [facility] Results Received Date/Time: [facility] Reported Date/Time: FASTING: UNKNOWN Performed By: #### 8 99, 249, 063905T, 98330K, 04066Z, ESR, 4420, 968T, 42A #### [facility] [address] [place] [address] NON HDL CHOLESTEROL 183 mg/dL (calc) High <130 [facility] Computer Lab Assistant Comment on above: Order Comment: [facility] Testing performed at: [employer], [facility], [address] [facility], [address] [place] [address], [address] [place] [address], [employer] Supervisor: Nura Saxena MD [facility] Collection Date/Time: [facility] Results Received Date/Time: [facility] Reported Date/Time: FASTING: UNKNOWN Result Comment: For patients with diabetes plus 1 major ASCVD risk factor, treating to a non-HDL-C goal of <100 mg/dL (LDL-C of <70 mg/dL) is considered a therapeutic option. Performed By: #### 8 99, 249, 658456C, 00276D, 78517E, ESR, 4420, 968T, 42A #### [facility] [address] [place] [address] Triglyceride [Mass/Vol] 112 mg/dL Normal <150 [facility] Specialist Comment on above: Order Comment: [facility] Testing performed at: [employer], [facility], [address] [place] [address], [address] [place] [address], [phone], [employer] Supervisor: Nura Saxena MD [facility] Collection Date/Time: [facility] Results Received Date/Time: [facility] Reported Date/Time: FASTING: UNKNOWN Performed By: #### 8 99, 249, 466874T, 23113A, 58785H, ESR, 4420, 968T, 42A #### [facility] [address] [place] [address] Q - PTH,INTACT W/O CALCIUMon 12-09-2021 PARATHYROID HORMONE, INTACT 20 pg/mL Normal 16-77 [facility] Computer Lab Assistant Comment on above: Order Comment: [facility] Testing performed at: [employer] [facility], [address] [place] [address], [address] [place] [address], [phone], [employer] Supervisor: Nura Saxena MD [facility] Collection Date/Time: [facility] Results Received Date/Time: [facility] Reported Date/Time: FASTING: UNKNOWN Result Comment: Interpretive Guide Intact PTH Calcium ------- Normal Parathyroid Normal Normal Hypoparathyroidism Low or Low Normal Low Hyperparathyroidism Primary Normal or High High Secondary High Normal or Low Tertiary High High Non-Parathyroid Hypercalcemia Low or Low Normal High Performed By: #### 8 99, 249, 297958W, 78031L, 78770O, ESR, 4420, 968T, 42A #### [facility] [address] [place] [address] Q - RFon 12-09-2021 RF <14 Normal <14 [facility] Assistant Comment on above: Order Comment: [facility] Testing performed at: [employer], [facility], [address] [place] [address], [address] [place] [address], [phone], [employer] Supervisor: Nura Saxena MD [facility] Collection Date/Time: [facility] Results Received Date/Time: [facility] Reported Date/Time: FASTING: UNKNOWN Performed By: #### 8 99, 249, 617801W, 73397U, 93162W, ESR, 4420, 968T, 42A #### [facility] [address] [place] [address] Q - TSHon 12-09-2021 TSH Qn 1.06 m[IU]/L Normal [facility] Computer Lab Assistant Comment on above: Order Comment: [facility] Testing performed at: [employer], [facility], [address] [place] [address], [address] [place] [address], [phone], [employer] Supervisor: Nura Saxena MD [facility] Collection Date/Time: [facility] Results Received Date/Time: [facility] Reported Date/Time: FASTING: UNKNOWN Result Comment: Refe rence Range > or = 20 Years 0.40-4.50 Ranges First trimester 0.26-2.66 Second trimester 0.55-2.73 Third trimester 0.43-2.91 Performed By: #### 8 99, 249, 687439E, 65131D, 95838L, ESR, 4420, 968T, 42A #### [facility] Default [address] [place] [address] RBC Sedimentation Rateon ESR (Bld) [Velocity] 6 mm/h Normal < OR = 20 [facility] Computer Lab Assistant Comment on above: Order Comment: [facility] Testing performed at: [employer], [facility], [address] [place] [address], [address] [place] [address], [address] [place] [address], [employer] Supervisor: Nura Saxena MD [facility] Collection Date/Time: [facility] Results Received Date/Time: [facility] Reported Date/Time: FASTING: NO Performed By: #### 1 7306X, 7065X, 926 #### [facility] Default [address] [place] [address] Q - VITAMIN B12 AND FOLATE,S ERUMon 10-14-2021 Cobalamin (Vitamin B12) [Mass/Vol] 448 pg/mL Normal 200-1100 [facility] Computer Lab Assistant Comment on above: Order Comment: [facility] Testing performed at: [employer], [facility], [address] [place] [address], [address] [place] [address], [address] [place] [address], [employer] Supervisor: Nura Saxena MD [facility] Collection Date/Time: [facility] Results Received Date/Time: [facility] Reported Date/Time: FASTING: NO Performed By: #### 1 7306X, 7065X, 926 #### [facility] Default [address] [place] [address] Folate [Mass/Vol] 10.6 ng/mL Normal [facility] Computer Lab Assistant Comment on above: Order Comment: [facility] Testing performed at: [employer], [facility], [address] [place] [address], [address] [place] [address], [address] [place] [address], [employer] Supervisor: Nura Saxena MD [facility] Collection Date/Time: [facility] Results Received Date/Time: [facility] Reported Date/Time: FASTING: NO Result Comment: Refe rence Range Low: <3.4 Borderline: 3.4-5.4 Normal: >5.4 Performed By: #### 1 7306X, 7065X, 926 #### [facility] Default [address] [place] [address] Q - VITAMIN B6, PLASMAon VITAMIN B6, PLASMA 3.2 ng/mL Normal 2.1-21.7 [facility] Comment on above: Order Comment: [facility] Testing performed at: [facility], [facility], [address], [place], [place], , [employer] Supervisor: Matthew Boston M.D.,PhD [facility] Collection Date/Time: [facility] Results Received Date/Time: [facility] Reported Date/Time: [id number] FASTING: NO Result Comment: Ciara min supplementation within 24 hours prior to blood draw may affect the accuracy of the results. This test was developed and its analytical performance characteristics have been determined by [facility] [place], [place]. It has not been cleared or approved by the U.S. Food and Drug Administration. This assay has been validated pursuant to the CLIA regulations and is used for clinical purposes. Performed By: #### 1 7306X, 7065X, 926 #### [facility] Default [address] [place] [address] Q - VITAMIN D 25-OH Total IA on 10-14-2021 VIT D 25 OH 25 ng/mL Low 30-100 [facility] Computer Lab Assistant Comment on above: Order Comment: [facility] Testing performed at: [facility], [facility], [address] [place] [address], [address] [place], [address], [employer] Supervisor: Nura Saxena MD [facility] Collection Date/Time: [facility] [...] D, (D2,D3), LC/MS/MS is recommended: order code 74311 (patients >2yrs). See Note 1 Note 1 For additional information, please refer to http://education.Quantapore.Clctin/faq/[email or web address] (This link is being provided for informational/ educational purposes only.) Performed By: #### 1 7306X, 7065X, 926 #### [facility] Default [address] [place] [address] COVID Quick Testingon 2020 Result Negative Doodle Other Physical Therapy Noteon 10-29 Physical Therapy Note [id number] [email or web address] [facility] Coding Summaryon 10-26-2020 Coding Summary HTMLBase 64 JmypfwukDEe1nMx+PGhlY WQ+FI9KSVSoE38ekONqmY 3UV1sBKT1HJGVMJOPJDH3 WLG3inKW0VFydJ3DnsdEf OzflmLQyQA67BKd0KSH3m KtcVQiylZ9acATrY4o7Dv MnXO87oZ35CAumGTHqIyV 3LjZpbjsgbWFy E8czPrKnmUIxVjs+PHRhY mxlIHdpZHRoPScxMDAlJy KhmPeaPH0wTv3kSTLlTYU vbGxhcHNlOiBj k3ptOKKgYVoyOV2ycLqzN 8PjsLE0FFOrr0w7Lx50eD I+HQMpAUO8iUckYKscu05 0DqZbe5cuRHQ8 uSDvIWbsCHS0G22ye2G9L SOsNOFwPVY9sPU0uZ6neY yljxuqT0EboXPwOiS5PIE 0kJKmbV1urQmq xtmklZ2hXzq+A94HHT2TF LFXAY6BEtn1N3DrHlzqkG I+SC19OFGeZS20gVSucNI hr0cstMt1SfYb BYCfPFY5mJxuSBwym7AnP WZkD60ytKAkj9F9ASNbnN bnoJYrRsJagMA9uL4gJCh ikhqxo7cdeolk Cmaov6tvve76lE58M65uN TteABYoKXE0KXGoYDQqwE ggtq2vmZ3hPa3+ILkok1a do2dkjLl3AfFn SQRlhsHxpStfGOF4s6NrD h02I6BdgEqzy6AmVrv4ci 12mCZmw5E5zIX4KEozSQY sxQ8nRTqdKpK7 JYSfYoOcbK36wRFiVYqdF e7ksEivcMngYJ7bASVzmc rwYVWsvQ9jQZSubVVmzIj zMU9pYGDqcprd u385LhBfOOZ8HJNopDLfK 2CeuA6fQoTgQWOpQTKxZ5 LjaWLdVOpaK109QDsdBcW 5CHHnvhJwN0Wr ZPBcjSmvSmO2l1M4Sk3Qh 9JvsvwaJSV1YCenPUXoKo X7TdLbDpC7K7EcXsx7YYM pnEpcXO4kA2Ab JBAfdqxidgstfVQ6QIFnL IJjdB06qTXcTGzxOh7pn4 A8o083CEVkTQThnK86Sr5 udDogMTBwdCBU aK1wkaljj9ugvatbKpCeE PIiFEn7MFi8BGHesFuzQl IeJXS6PhD3RJR3gCZbgN3 idKakdjsmhI7r Oyc+P33bvO7lZSG6FRA7j wmcONYcliBrLG29BI37Q7 RyPjwvdGFibGU+PGRpdiB rqTnfIS2cAfJw w9pto2OhGRixG9QiXHYhP TykGhw1QAZzITV8qNU9qV 7cGDUuPRvsg3I5cKD4G2G yolRdae2hk7rj XOCfQRiwN19esTLgq3H0H XWkrSX8JORrqCtgLgSnsB 93Oyc+SHLlgCvmi6XfUpu lf0ieq6yewQt3 JjYtHZOwffGuzEfyNQW7s 8YbEl34L58bNOhxLZKvDG RiBTBfYBCfuZkqkx2fhE7 wIi8+PGNvbCB3 sGW6mB5rVIQySmL7EBckN 100WhPsaISfZqfmt5aud8 plpMq3HzPaCTSerhEqfWo rOHZ6c7BzYo76 F17kORroZBHlLWTbPPUkZ SQvoOvgkg5ydE4yLh8+PC 4pc6ievb41aL18hEO+PHR oDWK0lIasFBnl OBMmxQ1lIUpqGlZ0YPTnT jHcxN65eMWpVQtcQj9evX efgBmaKE1uCUMrshduz20 7WeVze8foWZXh iPVpEVtkVRB9V99vg9E4V ZSmZQMyRND3zFJ0oX8lbR lnbjogbGVmdDsgdmVydGl vTLreCBzrC898 IHRvcDsnPlBhdGllbnQgT eCkBOh7W9FlOom1ZVIqvG wlRE5ihMTbAPrhCd8xcWt npUawQL4jHNIy taysi404DeMbd8ouGLYgc HBqUQylCOV7U59na8P6WT TeWTIgRCK5jDH5uP9ziBi nbjogbGVmdDsg zsTrlIrrHYzjGVjuD608O HRvcDsnPkJpcnRoIERhdG A2WL82EW30vBXpe3W6hKX 7K0FfRRWyrghd ezacnBJ7SYIqMGHcsY92E g7lmMxwRy0hDKMtLBG7JU EyiAYgR5HvtY9uLbAvCMT kHGDkJ1OrmSGd PCddV667KKcqDiG2VDAzf kYnB5CoNLTkaNehAtA1b8 H2Hy6PZ7W1DX42QU20bUE qu8H4jGE2W5Dp AWRqyzlfrxvcdJT8CBZjQ FFkqL03Hy6txGyuXg1lVN KbONA1RTCihAFvZ6BuoI1 yOiAjMDAwMDAw R2AouLWwSClmN286QMvxC nY5KCTrwvVmP3FgYJCxiT ywOdP7b2K6Qa9WNBa0AG3 6CJ28zNWeq4P5 yKE3D5JtQGSwyakiinxkf PZ6WPDkSUUskB45Rf0vrY osPq4yYWWyPFS2XEZosVM qV8IldA8mSdJd CLXsLUPxN7LxhIVdKRtzB 350VOyrIzI6XDFpzyPgC5 NdEXTlbCckArY7m6Y1Ip9 VQRLsLL45DWB8 tSY9YM40UM84W2EiTmxif GFibGU+PHRhYmxlIHdpZH RoPScxMDAlJyBzdHlsZT0 xDw4rLFXxLDWi yOehqTWpScYja9tkNSXmJ SevEV5bwXhzB6GvyGW8GV Cow7d5Uc00J25zE1GoyEZ +TFGeaBV1xAA9 pN6aDuSfVzU8WOhkR909Y xGihPRmZrwyh3ycv5qppV u4DsL5LXSlqlTmlPknOCB 9g3QaCp25F79y IHdpZHRoPSIxNSUiIHZhb Tkdkv1mbV8aDj6+PGNvbC M8kLE2uX6zRkYqHrC2EVd xT117OhBpnWTg Pvfhp3byb2wmwUm3MvEzJ GCngjVnzEqwUAH8i3EpDq 26I2UhyQkko3BtNgs1rp2 9wJGcw4A2zTS4 R8KtKTJthfgorXOfjYtvI K0nTYLlkoopUCTcbJ9dGS SmO7c2GeFdGgX4UZvfB3O owcG2GIXwcDRh TVkpADA8B84li9X1GBFmI JZcMVE8mHW3rI7evIbage ogbGVmdDsgdmVydGljYWw hVAogW433QALx gOizSRObzA2oWSLovIRpp DhpSP4mIHQgejzjBx0WGM vTAVWnMHGQL6NETNNMSW8 3BR84zVDmz1L8 nAO9X3NoHZVlgygarfkmt QJ4UCPsWHRycG58qEHyQM weBi2ew7U0l104UYMgXLO feM90Ns3nrRtw LNFyiHXDbR5uhbeaw5hqb nqsVqQsCWWfGJt7DTw2BF BggRhkArKiODR2ZsZ9JIM 6nJLwtS0glUrm xqwziY7sIln+MDQvMTgvM Bo1SLsrrVS+UAUcIDR6sB wzHEecTXPjzJ5tWZUzS2i 0FtQoXbP5OZcq H4YtZCTuwmouWm71kN0uX pFvOoV7GNmcC8VbqeA4RT DaqTEcBLavCPP5S09ix1O 9KSHkAEQpQHM0 dSD2cZ9nnSmeywniqKInm DsgdmVydGljYWwtYWxpZ2 38KGCbuEkpXbM3CXscWEM xHN13GJ27aKJr p8G2hUZ1G4UwCUUydcbsf wzcwHJ4TIGoDAJplK65zY FnYKcsCl7vc6S2n096LYH lOWKvsL80Gh0f pNtbPJDnlDLYbR1jmztox 1tpuqooWjUgIVIhETo4VC l4UFXyoEklJgSwZYM2UrV 4SIS7iCVybJ4p cJurnyazmR0gCyk+RkVNQ LlGRQ70LO94iQHeh3R1rB T4G0MpOFHxbwwwgxaxvBA 0HPKpFQCuwX84 pBOjYOcaPv8ck2H8h941H ZJcSUGjwT07Ch1dhOqyOM TdwBUSbU2ewylgq5hjjvq gIzAwMDAwMDt0 JIu9GUHctKefXcDsAUP7K aY8VMQ7jLKcnK5ypFvahg gieQ0oOjg+UmVjdXJyaW5 aDD61cTBdcEmb njJ2H4TtGemoaMG+PC90Y SOeWW93fECvtOYsw4kppA z4GkGtRAAtVKK6yTwkWAv nn3WgJOIsZ13q cPJko9I6XFNwrIumpOUqM aCdrUE3lO1cDPpjkfgqy1 olqoyuOxbhq8ugmd29xT2 9T74jCAygSCBw IAXrRJLlOWLmjYsbzf1rf G9wIi8+DNKhuZW6sAS2jE 6iZkOwSoR5CIjoH649GwB uhVBlVptuz4zt j7fwdYf7NoZgVATrliBjp ShvXST2t6XkSq99B20uTD dpZHRoPSIyMCUiIHZhbGl sox2ykJ2uIg8+ LF8zv3qkut81kF56vAF+P JNjLPO3zZoxROnxTGCieM 1zSPhyQzF1ZBLqXxFrlU2 3sONiVJtrEn2h rKojrPjyVS8jPWSzrzntr 844CjCpa2kkYLUslSDuJD zgHFQ3O83yf3T2JTWtAVW qDTJ8xGV2hS3o bGlnbjogbGVmdDsgdmVyd GuuXVroIMsmI283WJOwzG gcKfByeOQyI8iujnYIYD1 lOjwvdGQ+PHRk DXL3zTklYHzfYRHvjT2wK KGtD1d7IfNdNeV3WQxbY4 LhfcU1AZYrmRPcJRNciNJ MpY0zogpun0mz isieUkImMHHlCFi0ZXu5X NTroGmwZzAiGKL9ArZ7WA E5nTNsaX5wlGryebodxU8 wOyc+RklOOjwv dGQ+WBSsRIO0xVfrWVkbS QWyoR2sXQHaD3j1VjDcJu X0GNfmU8AewlZ7ZYIeaJS vLWJirRDDbK0i cfjqv5qeszrwNaJvEOGzE Ee4JJi7QQLywLpwKaUvZX C0DuE6HHA6zRYswP3aoAl qkknynL0mTgp+ TVJOOjwvdGQ+VMTsCKJ1b HikPQjiECOsqW0kVONiD4 o5EoJiWcG6LSkfJ7WefvA 6IGJvbGQgMTBw yMWDoY8nwfldk5jmovgkY sNfSDYqOEb3KDu7BTThiP fkShKbELA0ZtA5ZKW9wVL edC8tbPkradsg zW1lSyu+MZM3ZVG0VN01C P65I2WmPxntbIDlsMX+PH RhYmxlIHdpZHRoPScxMDA rRfEirLexAZ4g Vo5aOQUiOGWsqAialPDfA sWgi5qjQRQmKGewLB3flL jkJ9LldGT4TSWhc4j8Og4 7G08qR9LdwNA+ SJQuiVD4iIN6iI5uOnJcR cA0KEmmX688NpRlqMXoZh qcm9imv6plkDm3RqRwCNP gdmFsaWduPSJ0 k1QtHo51P19xARjwRZQqE ZOnJCNgMNSlaAkhti3qcF 9wIi8+VXRpcGD3kOX2jC3 wBqDsDuY0NJmd D988VlAlvKAxEnwvJ55mN 3JvdXA+TISxSez4ZZGcxL gaYA0wdELcQFbmSv6xRTP 0OiAwLjIwMGlu Y0AvYCRmbmtmswntxAA0L AEbQAVzkR35Sw9hdJoxMZ NmqXGMkS4sxlqlw5nlydi gIzAwMDAwMDt0 FDc3OEDjmAsfFwVyQPP6D mP9TXP1jJThtN0apLfhdl xstF9oQ4GwGBQstferXt4 3bE3oTrGgOoO0 MGluOyc+As7ZSHCYIJYAX 9jPTY05YG46lEPeu4U1dD D9C4PiNDKkmstqabsplAY 3WCXpVDUiwJ72 fPPrHXbwSv7yf7Q6r679D NHpNQVjcB87Ny5qbKvtKQ MajCEHaA2juejbz6visag gIzAwMDAwMDt0 OUp2FOUmrCobDaWgPIU5G rF2PDU4gQCugV7kjDhvrx qaiB6wWue+MzAzNDkyMzU 9M6DkJof2GEOp aWftDH8eqJCgPKzrMl2vv PhkuJgaQL1sQNZjedrrOI HgyR8iPSQomCZxhMtnGU1 gCOFlafkwx655 UrIiPSG7BPTsbIYzN3Hsb Y9nCaHzNNAoAROgZ6KmdS HzSIewZ053PIixYeT6TMF adzRjU8JeFKLa eOaiFvQ9r6Q8Zs5dFs7bI Q65WibfrDY+AGQhAUE9wY nbLOboSXOoyJ8hBUYlI1h 0KhEvMzS6SFro A8TjFPUacjnaTz19cC2fN jEaDgP3RQasS7HlqiL5AP FoxLYbVIajSVU1S17gm1Q 1DUBnEPJjYJA2 uVR0oD7vpCrcgxkngLThi DsgdmVydGljYWwtYWxpZ2 64TMAamAldWp4wPXplMEm kIEhNTzwvdGQ+ VK84el09H7DhZwqgJtx1H PGiEDV1zOJ7kY2nPIFcVU pzd3W1sGO0I6UfnhQddd9 uk0riVZTaRLmv I70piASeb7Q5JKNjwOX9L OWakTsqWsHbdB09Raf+PG AyiVpyw9EbXaxgr8ouc6g pxSo3KaHkDVOu aaZghBdmHKA5w3IrFk79E 29sIHdpZHRoPSIzMCUiIH HsbHhqli7ppQ9jQd9+PGN leSO3gQH7eP6g DoUqXjP7FGjpU411EiSvb HUlLprzs1gws0dhgIr5Ik JxCSLzilLgaFysQOE1q2L sYu09J7AeiKqd t7VzQia7wh79aXQes7G1s NF8H1DfTAPqrmirpTRksD akSA3oXNMplzgoZSIovA6 xMVKyJ6x1FvYp PfQ2QHhiA9JpbsU9SRPsb OShEYYeiIWRrY6szksdh9 kmhteqZkRnRZHfICy9TRq 0LWFsaWduOiBs WSJ1FxZ8RIS8hRJkgM0fv XiczrlulG1pAkm+RmFjaW ripKh1IZ81WQ49kUIec7N 8mSV4F1FgBMAm zxllzeybjLY7IZIhNYWnp D46Jk7qlUqrGs0lDWIfKO P2IXCsyMGyY4FgrP6wNsF pKXOyWPZmR7Aw cTDtFMnrD211JMkvRbL1Z QLlwnGiC0QiQEApwFpvEy I0z9I3Nj9YtSFsrCBlB8Z jPKjwdY5nlTSu c937ID13NX72zTBko4K1o RM4J7PpNFKfdbtaxzvkmP E0BBDgFRCspR33Fs8qjZg xFg8yOZLhZKK1 HXLjcCGyT3QxfV8gDfCkJ ZCbXYPwS4XiiUMpBRxbY9 70BWcnMbE5JUYiciAdE1M sLWFsaWduOiB0 e7C1Lx9QCM8unOELQNTkR jwvdGQ+EMMwYQT9dBxhNO iqOTFugH7aEGBlD9r0UkG xEjD2YGdiM3Ge xjD8QBQmxWVdYUNilBPLa Z4ocqbtj0fgjmozXeLqIE SaXTe3VXo5HABcyUyiLbS kKTF9VgM0CGX5 jCFduK2hvDbujhczkC5sW yc+KBdwD4llgtydQSLvcU U3EW24YL87U3WkRolmsLI ibGU+PHRhYmxl IHdpZHRoPScxMDAlJyBzd TlvCB5sRx3fXJWsGCVjvP bmjJEgSpEss7giAYPsBYj cDZ7hdSzaU1Sy sJA1AKYwd1j3Rb02K99sH 3JvdXA+FZQxyZE9bXA0eD 0aUoMuUdB1KTutB608AyQ iuSXmRowyi7ve t8rbqMi1UeHdFZTebbKqd SfxVSF1b9WnIb08D16eRG dpZHRoPSIyMCUiIHZhbGl rlm6jcA7qVi2+ QVUobEZ4jFA9xX6eNhPdR cF6GNfvF669KyThmJNcVp qwB90aM2WtrYE+PHRyPjx 6QGMfhAykOT9h bDTzOVghPu4mRVF4PfEfO oBuDIdmF8VdCYLmfosadu nlyNR8UASsODMbxA52Xf5 udDogMTBwdCBU gA6jxdikz7trdrfgAiKcG RWtPMp8ZCw7AXKwdZeoHt ZiWSF9FvC9BYL6uDCufL7 mzJskwltclE4p C7AzSGClitpuXd50fQ9gZ dYkFeT2NKcwSoa+TWFncn BgVZOvPD8dxDe7TQa8L2G zNnc2AXHuaCmx VA6zuNFeATeeIz8fpXciq RjkWY8dWIDlvvtzZLPfhT 5sCEHycNQxwYlgVC6yHGU rfvelu510RfNk NPH7ABMnkRZpA4XcbS0jN wYhNTHkMEDzZ4EboELwKB ooU215RUbwTiM4PGIbteL lL6TnWKZesTjo MlO1z3K6Ye01D7IyNdz9U FOdkIpeFH7acMIlPFlpWn 1foDxxjZhvBP0uSSZmzsy gHOAptC4dCAEc xGAvzIbuSP2tDSKunkylt 475PgUmBFM0LJZndDAoM9 UvgU6hKyTtIACbHSWnH1W hnHSvTVoyU141 CBmjEzZ2MUIoutTsX3HtF CNgoYimLlO4g0Q2Wr1eNq 5nZk2aMRWmPN95VB79oKJ mk5L9qBS6W2Dc YROabgwwqgferOV9DJBiJ VYdnM84fETtWYgmAa0tb9 K6y285XPByQBGdlL57Je8 udDogMTBwdCBU pH7wmftoo9dafgsmMwJiO XYjVRr1GLi3PAXjfJzrWn OkWSL8RyE9TDX9iYLyuQ3 btTyqexeakH7a Oyc+OC57ZW16N4DyKdugp GFibGU+SS5laCM+PHRhYm xlIHdpZHRoPScxMDAlJyB yqNtyRE1gQo1u ZGVyLWJvdHRvbToxcHggc 14xvCUmRhmwC9o4XDIejc Ntfl5wl8ynLIMwLEguE72 oeWUeo5T1HJVf cLK8RYQxiOpsYaRupH07D yc+KHGqqFtos2TtHdffm8 qkg9mjhBm2BxEdZUWoOTF evUxxqj6avO8k Ii8+ID6rv8cvtb73zR11w HI+PHRkPjxici8+PC90ZD 63J6AoZhf0uj36yUPus7M 1lJS8P1FmmcH6 IHAzmJEkWFWlpTFAgG6qf tkho7fhitjwUxIjGSPhCI j4ELd7ZNKlxVdzSgOwQZ2 9KXE6CLWmqvOl Q9HaTLNnqJpaEfS9i9T9K w0KSt6KUHLGKV59UP75U7 RyPjwvdGFibGU+PHRhYmx lIHdpZHRoPScx JOWtHdWfiLzxBV5jLs5yT GVyLWJvdHRvbToxcHggc2 6hsWKfHwxjB0r3YTRpgwD egh6jf4ngGSQw WSgkV65abQZcm0O6DAVji ZY0UCGrxNkqUfHuhK30Pv c+ALCtgSdhh1SnTqubx8j zh7kivUa5ByNk CERlUADchNjltg5idH7oB i8+OL6bz0yoez31oT14eE I+PHRkPjxici8+KZ85TW3 8C3DwWjf1en13 cIBna3R0qJX8L8HqpfI4M OJheDEpIWXhoQQZrH7vdw xmk1bnpqsmUiEhPNXlIQl 8DXi5TPSvlPpu JlHsUW23DEG3KEOwegSuL 1RuGTMrwBhtKsY9g3X0Hl 8MLIDPOh8OSPL0Y8OxRbs vdHI+SN63QBTf HL10zCSpnCOdr2cmvQi9Z aJiDIAdTXJ2zNnnJQuan6 HgTRJvR45gjHHpc7C6XEX vbGxhcHNlOyBl jVC4kD3vFUqlqnrni6twi zuySjbbt8ualx89qT89Z5 9sIHdpZHRoPSIxNSUiIHZ laPtczt2wgT5i Ii8+FFNnbHR5pNJ2mQ9kQ HXvUzO9UMxfQ439UoOpaH NmZwtvn9tqu6kcwJr4HiK 3JSIgdmFsaWdu QWL4j0WyRi71N01rBLmjK HRoPSIxMyUiIHZhbGlnbj 4gnZ9qAp8+RC3wz9lmxe7 9xU65rKT+PHRk RGE4jCnpCTjhDQNvfL1lC BsxObZ2HJZjWqPhoC82bN QnRUhpMt3tuWrtxXloHH9 kKWQpbwwpb202 BfUjm1rnBBHatXBbWThjQ MD0E65ng0A5WZCjOBZxBH X3mYB6eS4uvVqbztixjII mdDsgdmVydGlj RYctVCyoC280IHRepDfdD gCxFPB5N6WyDbp8DZBpbW ujYW2neOErZVgvTg4psZc voTkbSQ0iEPLb ijqso710DbQgq3tvULHcl ZClIAfyUXU1G65tt6M3EG TyREYzZBK7fWC7yG3wdBd nbjogbGVmdDsg fjPnePvcDQxzAVtzC048K HRvcDsnPlBPQTwvdGQ+PH KvNSQ4wMpxPLofZVWiiS5 lDMOkO2q6PaMq RrT0PBywQ1ZofhQ7VSTen CHsDSIwlNPUfR8zbqakm3 pupsviZaBkZSUaRNi6DKm 0LWFsaWduOiBs JDZ1PyO9HMQ5kAZqrG7sg InouwykfQ4aFiu+RGVzY3 LqaFEvc622F5NvMki6SDA yxKfpCL1itSDr ELqdVh5enTeqdPbfCG7bY ASzifmrd695KlLql9vmWB MgiIZeLWzvIZB3A00zc3P 2JAQtIFJcPPX5 xDK9oZ3uxXnstxkxmGRlr DsgdmVydGljYWwtYWxpZ2 28NNPvxMupUzJ2pXG4E6R kPjwvdHI+PC90 CEPlEU29oQZatUApv5qqr Qn7GyCmUXHxKNE8hPomKH xlw7OiFDWxC25oaJVql1T 6IGNvbGxhcHNl UqLgyFP2zM8jEIhbaeexc 5dutrnhKyzrv6gupf62mL 97S72dREafUGPtAISzKVU sGQXdmPicmj8h vZ4aRj6+GFSmqGT0fMG6i P6nIYBvZiT1AIlsZ538Tu DqhRArHxqxb9zxr9hqlEq 2EoD0UNXqwnPh xEexKGD9l4CkRa95Q73tW HdpZHRoPSIxMyUiIHZhbG bbec6qhD4jIm4+OX3ib7x oey33qT08eHJ+ LANdOYX5pSpdUOywAEBgv V6gSZpxGcV5HFEgPiObxU 67lDQfMTtwVb9ueEefwYo pNY2hKGSruqnw i239PpRlMYH8OKJaoGLiI 1VylG1bGbMaFAPgGHIbX7 LevPFnOLbzU469SLzrDnU 9LUYovwVgE6Rs PTNvoAstYfC3r8F5Hb7EG uDnYYR0Q9XiCdn5NE94Z5 PuQhl8LIOgxHydNO3vwGX uPEbdSj5buBxg dRzfRF2rWAPrwlpoy550P jMsNSS4DFVlrIIiB4GtsK 0fAkGiXQPzDTPmP3TvuDG pVJadZ194YNsq YmX5FUZfwvTtU0AaGGUhw EshJrY9d2O0Sr2ZcA7hWZ JvbWFsYWNpYSBwYXRlbGx hZSwgcmlnaHQg o38tNLojzNF+TKAfMKX8x IeeASxcAQJnhA8rUETrX3 b0GbXoZrQ1YHhzV4JjfhE 6IDEwcHQgVGlt JRR1P03km7K9BXKoFSIkE JR2xUC4jS4xyMctevvcvW VmdDsgdmVydGljYWwtYWx dP505EGTcvEkh PlJGVjwvdGQ+MY28mt46A 5ZbCpyaGms8HELaDVW6qF C9gN4dSLRoNZedo3I1mOG 0S2IeptUxuc8d c1jkRMXaQOgdP63faCRmo 4K8FGOqeFD0LLEttRdrWm LruH79Nhe+RAQidPxlp2L lQgqxo0ecg9xl lHm0EgO2ETHppmUbrXodK ML4p9EeKg24L32cMFspBN RoPSIxNSUiIHZhbGlnbj0 klK7iUh4+PGNv tOD9oVW0cL2nBDaaDtP1C ZmwJ715IfXvyNHmFuuku6 pmh3rnkLt8GmTcSDXycqK eeLxgPIF0x5Vv Jx53U1AbjHqlh8YnAoe1s v50hJPbm3U1bOL8D5OiRF GhmsgydJCbxHghDM5mSFT lgpuhKTYjsD0t RCHjF6z2HoDfEjM4DLeeX 7DeqiI7XGPkaVLaSEekKE Q4B55nd9L7AGHmQKKeBUA 0eBO3dZ2niKid bjogbGVmdDsgdmVydGljY ZvtFDfvL762RFQxrWsnOx 3jFl46PbnlkSM+PHRkPjw vdGQ+PHRkIHN0 eLwkJZoaMHKgzB5eATIeU 0m3UcNbFwS1KQmaP1Fkgz Q5LROmnUBvZZclJPF6M58 cp5N6UAMtNAWs WLG4rGS8uK4ibDwmhkkdb GVmdDsgdmVydGljYWwtYW voF533NQUpoGmrVxZfl49 mmr5mETwtB5fk TRGefEAfxLTyVOGtGGN6C WugMZZ0L5GuDvw0FYKteN cvLG0ecLWzKIngZb6miHw dnErzRJ4tAPHq lmrha818BnSwPYV6MWGrt ZFiE4GcoY2uLkTeBAHwUA NlZ0TnuLKwRRhdX492YXl fTrT0RRDsdnLp U4RxMTVjwZcfXiL2p8W1V d7HGeM2V9MpQqptqEP+PC 56DSNcHV22cASygQPfj3l ggEb3SsWkAEVf EHI1mUihVAhij5GrMIRwP 19jqERdl0T3AUCriDslxZ RyOqMsnCV0mP9zXDngqmb dt5yirtpjDfx0 fm79wPMmc4I0dUT5UxEmM BKbqB4oMRpcDiB9SYUsHa CnrR60fSCdNLtzGg6ubSw wbEgnNG1qJAJw kevur589AjSkc3vfKGPva FAsLWilOAO9T58px9K4XP AxDKLfEPE4ZhSbx8kvq4U bOAxkV0UvQBRv JJh2DGs9HFQqsFnsUdJmN QR1OsV7ZTE2mWKarC7igK hcyvgntO1gBup+UHJpbmN isAEmFP31WP41 X2IwSmxbiHOqhRG+PHRhY mxlIHdpZHRoPScxMDAlJy UtyAzcGX4hQo1iRZZdJLO vbGxhcHNlOiBj r9hsAKMaFVfvAE0jvTzwG 3LmdQD4QYPmc5w8Sl82J0 7tU9NjzJV+RIGynIT9uQO 0rC6cIFGrIdN4 TCjaJ675OpDhrVHrQjezn 5npz4wcyLd7ZoF4UHTqjc UsyHjgFDT6f3FbVu73Z97 sIHdpZHRoPSI1 PgPxRANgrIqxmr5rvE2dR i8+EIKlpDO8eOJ8sX2fOD CbIaP9YKjjF769ArDudEH jMqsaS47aL7Gi dXA+DJUuXvh2XCLooHffH W2khEAaCUqaNr5wFWZ4Dp DmDoCzWEodH3IpTQOcnak tigeoyDZ3DCQx ACQxiL21Eb8tgMhtFJWje ZPYtD4tshiqu2ezxszlYr ZjLCMvHGd8RWi9PUWbzXm lMpMlIOU8QkN3 ZRI6qINsiR1wjCiqodyeo G9wOyc+KXKrPcOqHU21BT 96sLUem9T0nZZ0G6MzGCY pbmctcmlnaHQ6 PEIeXMWedL55Ty6qqKfcJ EDmtPJFeJ3ebblzn0wwao npNoMoHGQtMIt3UNk6TOH saWduOiBsZWZ0 XbN8GOR7lXFlhX6tfPytc dihhC7tNwf+BU79GF19dH Bad3T3eZL0L6CqJRZtbfa anrdweOO3YIVa XUTxmU70Xn9vcGfbWNEbk XNPzR1hubfqv8gzordxWj NiFKEqFSg4QYt0MUTvvBj bMcGgPPQ3DkU0 JOK0nQKiyG8unRxgscpcu G9wOyc+A4tqdyKqq48liK KzoEVvnWO6QHypXXUjTMT tM5d3XFfbKUB2 P2EoUid7ZBHhgMdeFW9hg OHvIPckKe4ftFsbdEytMN 8bZMIilzwxa930KrTjSWU 4IADaiSKqZ4Qi zI9hQvYkFXAwCYCdO3Dqe NWlTUrnH606GBwgLlU8CY LkjcQnA7PmMXNefOxnCsN 4b6I0Tz7UsE9v bDwvdGQ+MU66ny28C9JpZ kvqAsv3XVAaGHQ5fEN5sA 0kESHgVIbnu3X7wVI1I3D xmcYuql3bc8vt KULdRFehM06npRRxl8S9E YOlyCW1HLSfrQpvNyHxhP 93Oyc+KZSlWzx5PUCkbMa wFV4iXJBaXIIh dzkxyPNllYtcNP9wWANhn ktbKHJjyL0oKXJlG2r7Gd DqTqY8XHluV4AptwE6CWY vbGQgMTBwdCBU kX8sotiqa0arnftpBuGnM SXoBOxuEZYzY1BfxW2bBh TzOKZaGLWjC3YcvXVjLRy vW849OZupIgC4 USSwsnKhU5EkTMKhrAbkF yS7h5S3Ha5XVCJqdbCegt m9H8JjDcjbnXK+QF74PUM lMO43fUTrbFMq k4dvuNm4IgFiUIMzVZA2v ZxbNQpld2PgVOZjQ52xmV Mrc8J6YTItmMkreCTnEoY pxLY5bR1pNDxc dhyvb9exrmvxNfeqs4rve n28aH79H85wOWxhMLTeEB DbNXEfEKXaxKntbl1tfM7 wIi8+PGNvbCB3 gYA1cW8aROFbKcD8FNpwY 839XmRykJRrYfxdw0fmz9 ibfQl3JkX0AGMgnkKikLw mEOT5g4ZuDq80 Y88gQZlzALMeRIPpGwErE IDvrTwgbq1chB7pPd6+PC 7qx7yzfr82pT63uBO+PHR aFYM7lPyaMJwj AKMjmE5eTHxnPtX9DHDmL sSzmB61cHYhCSgzCo3jwZ vcpOamXH2yNZDowrfny60 4QgGpPXG7BWGw jGPoT9OveC8vBoVcWJYoY AGtK1EedNSqNLjcA114EZ fwYbB9RQPqvsAdK2YfWJE ccFugSaZ6j0S2 Pu2RBhIqLKO9B2GcLku2U LNhkIsfDK7ztIQvZHsmBy 0tmXhwrNjzBL0cPODagpr sk110EzRjXLQ7 OHOuqTTtK1QejZ6uLcYyO JFbFEAfN8LssVCdSGfuR5 64XYjaQnG4YTZqjiOtA0O sLWFsaWduOiB0 o5T7Ie28D5KuFvs0NLYqg UxoCZ6xzRYyLZleOk0loX ucvYpeRY1cTTPsuktcj09 2NdKwKKK8TEJh gGFqS2YdyC1jHxJsXASyU ABsZ9NseQSpXHsyT298GB cfUyC3CLEfrdBaQ4VdFLY zuZimSsK9r6J5 Ad8PpR6pFUJfpLXnEKWsS SBwYXRlbGxhZSwgbGVmdC VfwlJkTN26GX85kPJwv3Z 5hCH4Y5DoYHIv fgcwkfmxuAD6MOPhQNYko J26Vj0jwNmjTXMgdBEVjV 4puvlms9hgwjzpJbNqJTM fNZg3YPa8VQJu lSivEiBbJOE3PcK5ZTT8y BCkhS0glIxjdstwiM3iJn c+QjihGKg2E4ZuOfdzqTD +KI92FULfMJ36 xXKywTPsd0pzuWo7IfDpY AFsIVZ4hQaiGXqtp1ZzPG WmAs23mO0iHxQfvCIof7u pZCBibGFjazsg Od8xDTNpOOZueEvdcCRiA uRrx7htIKDzOCbyQN0wnX bvJ5NlyTP1SSNaa3k3Ak5 9U91gW2BljER+ XCHyvCZ2cJV7lJ5nZAFzM XEvhxTxpVliKIY1d1UoPe 74A0JeyKxly0BhMqr3bl8 8dGQ+OPSlJs37 L1TtBjvrgFL+UVXpWhv5N USrbAblXN5nVj4wgIntCq 2hHDByHIX9BYAssRUdP3O skE6hTjMnFSZb QCGmU5RliTLwDRaqN133A GNlbnRlcjsgdmVydGljYW gnGWkzY093BLFcuFkxXoK BF8EBWMLIJLra dGQ+NC63kp44I7WdQoajE jxici8+CHPiDt07iCBdvT Gwg4ndnXi9NqJkKXFkHXH 0qDoeYPzdm6Es JUSyD71juYGsn6V2ZTInp BvrpWScDbOqgTB2gF4nOA uvzwmdx5uihejxBpwbv2i fdj33rJ68V27c MBilUABnESRgJTCmCzM8S AduP755LeMriIVaSzzgO1 2oT1PavVE+LWZqKml5NHL ctTlrHS0jiMCv PPxsPl1sVOV3RjQkFmXuK HhaU2QtXOVoiprbyigdbO M0RUQnNRJqlI58Ve3wtLe hNNThrTGCpP4l kktzm7vrwvvpEqMdJVApQ Ls4VGw9DRIkkNlsWwHdPU G5YrI9HYF8kKPklR5rfFa jcojfqX7pNly+ Nj1XNByeDSlnQMYkITVtc fBsAaMoNHZas9bxwgUaTM 9wnLXbYQYxvWmmIEAvC7M iVK02WZOxWAol W95ut4jcNKFeGY6emgGnq z4iTMR3bxCvlE0psBxdHO BhdGllbnQncyBjaGFydC4 jAT87LNPbuxcv sZzbBE9oxfZynXv3PEJfj OMur3LiqDDnafPdMDVgcg 1uIHTgCPYhh4Ljhzccn72 mdHdhcmUgbWF5 IGFwcGVhciBhYmJyZXZpY CWwXTutz7VofkNliLm3BU ckEPQdvEdidWm4FQPnMtV owoDvwYS2PLDz bQ0vsQ2mgT94S9EnYmoay HI+LP04LSNyJA69KmWlVa xici8+UO16ym34J1KdFfm wIpw2JBLdTHB2 dZS1yX1xVNMuGBtly9X6h OL4L3RraeAnac6dc5geCD ZgZGnbX88ujYVjy8R2HOO ygJQ6BFVkcUzr TrBlpS10Ift+PGNvbGdyb 3PsYwtdr5yke5zioCl9Gl RyWPDcxeHcnKxiDNM3o4K zRn24F95xYUdq CFKdCRC6ROTrNMAjrBrtr k8kxO7cHt2+TY7ra8pjzi 19kL03lCW+PHRkPjwvdGQ +SQXjLED7pFpp SBanfVLeQCclFn4bwLnvu AhcAW0bXUQbmhoat638Wz OcGYJ8JCPhsFImP6NvqP3 yOiAjMDAwMDAw M9SacIGjXHopM274IMloF jA4KCFmmyUiV6KtWUGmcZ doPhI3w6D2Xl1Of8BcFMF CeTogIEJvbHlh rwIcXBrgqx2rVfTxBS87C T13B3VzSynziJDroRR+PH RhYmxlIHdpZHRoPScxMDA kBsXqpBztGD9y Mn9uIHBjZGNbbJfpkDHpU fIbl2wmOQEmJQjyNK9lwM pxA8XhuWR0TIYjw0v3Vq8 7A07iM8DzcYV+ GHFnlZO7tHF3bV2iYoYxY uB9AKxwK389UaMmdAWbRe dkj7wjk2fzcLo0YpVuBMH gdmFsaWduPSJ0 b4VcQi50Z5GgeFuck3JhC ro4sr42iRP+YQ23BQ33nM Ybj3V1wWE1QhJdGUCmlL6 eDZBkK7k8CpVm XdJ4ZUllE3YtyeC1BWOvv GQbFSxyDTC8F76lo6R8YL QdJEHxASW9lBF5fE5hlYv nbjogbGVmdDsg giSopOuoZFqrGTgsV983N IFdzWvbPiDrgBRdL4V7TR B8YGViSv6sSl2dEQUnGFT oYgFwPDFmFO92 OP31Q4HmWhmadWHgoDM+P VFjOv27WsCoBjcxyJXuyV 4= [facility] Provider [facility] 10-24-2020 Provider Orders [id number] [facility] Vital Signs Date Time Vital Sign Value Performing Clinician Facility 08-03-2021 12:15-0500 Body height 175.26 cm [facility] 08-03-2021 12:15-0500 Body mass index (BMI) [Ratio] 25.1 kg/m2 [facility] 08-03-2021 12:15-0500 Body temperature 97.7 [degF] [facility] Other [facility] 08-03-2021 12:15-0500 Body weight 77.11 kg Albino Brown Other [facility] 08-03-2021 12:15-0500 Respiratory rate 18 /min Albino Brown Other [facility] 08-03-2021 12:15-0500 SaO2% (BldA) [Mass fraction] 98 % Alb[facility] Other [facility] Encounters Encounter Date Encounter Type Care Provider Facility Start: 07-13-2023 End: 07-13-2023 ambulatory JANINA DAMIAN Not Available Start: 06-13-2022 End: 06-13-[address] MENA BRIDGES Facility: Start: 08-03-2021 End: 08-03-2021 ambulatory Albino [facility] Other [facility] Start: 08-03-2021 Office [facility] ne [facility] 30 [facility] Payers Date Payer Category Payer Medicaid [id number] 1980 Unknown [id number] 1980 Unknown [id number] 1959 Unknown [id number] Social History Date Type Detail Facility Sex Assigned At [facility] Evaluation note 08-03-2021 Note Date & [...] Patient care instructions given in writting by [facility] document. [facility] Other History general Narrative - Reported Note Date & Type Note Facility History general Narrative - Reported Type Medical History fibromyalgia [facility] Other Summary Purpose Family History No Family [...] DATE CREATED AUTHOR AUTHOR'S ORGANIZ ATION 04/02/2022 [facility] DATE CREATED AUTHOR AUTHOR'S ORGANIZ ATION 06/27/2022 [facility] DATE CREATED AUTHOR AUTHOR'S ORGANIZ ATION 07/14/2023 [facility] EPIC REASON FOR VISIT [...] BE BASED ON THE PRIMARY CLINICAL RECORDS. [employer] provides no warranty or guarantee of the accuracy or completeness of information in this document.
== END 2024-07-18 21:30 | disposition home or self-care (01) ==
LOC: LAB 21:29
PROVIDERS: Visit Provider Obstetrics & Gynecology
DX: Z01.419 Encounter for gynecological examination (general) (routine) without abnormal findings (principal)
CPT/HCPCS: 87624; 88175

== ENCOUNTER 2024-10-05 07:55 | Outpatient (OUT) | payer MEDICAID, SELFPAY ==
--- OUTSIDE RECORDS SUMMARY | 2024-10-05 08:02 | XMS_ITS | CCD ---
Author Organization [facility] Care Team Providers Care Research Assistant Professor Name Role Phone Albino Brown Unavailable YULIANA, DR SAN Attending Unavailable YULIANA, DR SAN Consulting Unavailable YULIANA, DR SAN Admitting Unavailable Marce Hyatt MD Primary Care Provider [phone] JANINA GARRIDO Attending Unavailable LUCIO BOWDEN Attending Unavailable A, UNKNOWN PRACTICE Referring Unavailable DAMIEN WEISS Attending Unavailable A, UNKNOWN PRACTICE Referring Unavailable DAMIEN WEISS Attending Unavailable A, UNKNOWN PRACTICE Referring Unavailable DAMIEN WEISS Attending Unavailable A, UNKNOWN PRACTICE Referring Unavailable Allergies Allergy Classification Reported Allergen(s) Allergy Type Date of Onset Reaction(s) Facility (12 sources) [facility] Allergy 8 rash, Unknown [facility] (1 source) [facility] Allergy [facility] Repository Medications Current Medications Medication Drug Class(es) Dates Sig (Normalized) Sig (Original) gabapentin (1 source) Anti-epileptic Agent Gabapentin Active meloxicam 15 mg oral tablet (10 sources) Nonsteroidal Anti-inflammatory Drug take 1 tablet by mouth once daily meloxicam (Mobic) 15 MG tablet Take 15 mg by mouth Daily Active ondansetron 4 mg disintegrating oral tablet (1 source) Serotonin-3 Receptor Antagonist Start: 08-03-2021 take 1 tablet by mouth every eight hours Ondansetron 4 MG 1 tablet on the tongue and allow to dissolve Orally every 8 hours for 3 day(s) Jul, Active rimegepant 75 mg disintegrating oral tablet (10 sources) Start: 03-10-2023 take 1 tablet by mouth in the morning Nurtec 75 MG tablet dispersible Indications: Migraine with aura and with status migrainosus, not intractable (CMS/HCC) Take 75 mg by mouth in the morning. 30 tablet 11 03/10/2023 Active Completed/Discontinued Medications Medication Drug Class(es) Dates Sig (Normalized) Sig (Original) acetaminophen 250 mg / aspirin 250 mg / caffeine 65 mg oral tablet (3 sources) Platelet Aggregation Inhibitor, Nonsteroidal Anti-inflammatory Drug, Central Nervous System Stimulant, Methylxanthine End: 07-18-2024 take 1 tablet by mouth once daily aspirin-acetaminoph en-caffeine (Excedrin Migraine) 250-250-65 MG tablet Take 1 tablet by mouth 1 (one) time each day at the same time. 07/18/2024 Discontinued cholecalciferol 0.05 mg oral capsule (3 sources) Vitamin D End: 07-18-2024 take 1 capsule by mouth once daily cholecalciferol (Vitamin D-3) 50 MCG (1999 UT) capsule TAKE 1 CAPSULE BY MOUTH ONCE DAILY FOR 30 DAYS 07/18/2024 Discontinued magnesium oxide 400 mg oral tablet (3 sources) Start: 12-10-2022 End: 07-18-2024 magnesium oxide (Mag-Ox) 400 MG tablet 1 (one) time each day at the same time. 12/10/2022 07/18/2024 Discontinued tryptophan 500 mg oral tablet (3 sources) Start: 07-22-2023 End: 07-18-2024 L-Tryptophan 500 MG tablet Indications: Vaginitis due to Trichomonas Patient to take 2 gram as a single dose. 4 tablet 07/22/2023 07/18/2024 Discontinued Problems Active Problems Problem Classification Problem Date Documented Date Episodic/Chronic Anxiety disorders (11 sources) Anxiety; Translations: [Anxiety disorder, unspecified] Onset: 07-17-2020 03-10-2023 Chronic Headache; including migraine (11 sources) Migraine with aura; Translations: [Migraine with aura, not intractable, with status migrainosus] Onset: 03-10-2023 03-10-2023 Chronic Immunizations and screening for infectious disease (2 sources) Contact with and (suspected) exposure to other viral communicable diseases; Translations: [Encounter for screening for human papillomavirus (HPV)] Onset: 08-03-2021 Resolved: 08-03-2021 Episodic Joint disorders and dislocations; trauma-related (11 sources) Derangement of right knee; Translations: [Unspecified internal derangement of right knee] Onset: 07-22-2024 07-22-2024 Chronic Menopausal disorders (11 sources) Menorrhagia; Translations: [Excessive bleeding in the premenopausal period] Onset: 03-10-2023 03-10-2023 Chronic Menstrual disorders (11 sources) Irregular periods; Translations: [Irregular menstruation, unspecified] Onset: 03-10-2023 03-10-2023 Chronic Mood disorders (11 sources) Bipolar I disorder; Translations: [Bipolar disorder, unspecified] Onset: 03-10-2023 03-10-2023 Chronic Other non-traumatic joint disorders (11 sources) Pain in right knee; Translations: [Pain in joint, lower leg] Onset: 07-22-2024 07-22-2024 Episodic Other nutritional; endocrine; and metabolic disorders (11 sources) Hypomagnesemia; Translations: [Hypomagnesemia] Onset: 03-10-2023 03-10-2023 Chronic Other nutritional; endocrine; and metabolic disorders (11 sources) Pseudohypoparathyroid ism; 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] Onset: 03-10-2023 03-10-2023 Chronic Other screening for suspected conditions (not mental disorders or infectious disease) (6 sources) Encounter for screening for malignant neoplasm of cervix; Translations: [Patient encounter status] Onset: 06-13-2022 Episodic Other upper respiratory disease (11 sources) Allergic rhinitis; Translations: [Allergic rhinitis, unspecified] Onset: 03-10-2023 03-10-2023 Chronic Past or Other Problems Problem Classification Problem Date Documented Da te Episodic/Chronic Intestinal infection (1 source) Viral intestinal infection, unspecified Onset: 08-03-2021 Resolved: 08-03-2021 Episodic Other connective tissue disease (11 sources) Fibromyalgia; Translations: [Fibromyalgia] Onset: 10-17-2020 03-10-2023 Episodic Results Test Name Value Interpretation Reference Range Facility IGP,APTIMA HPV,AGE GDLNon AGE GDLN ACOG TESTING Note . [facility] Comment on above: TESTS RESULT FLAG UN ITS REF RANGE LAB Clinician Provided Cytology Information Source.............Vagina No. of containers..01 ThinPrep Vial Age Parris ARMENTA Elvi... 3065 01 FLAG LEGEND: L-Low Normal,H-High Normal,LL-Alert Low,HH-Alert High <-Panic Low,>-Panic High,A-Abnormal,AA-Critical Abnormal Performed at: 01 =[address] [address] Montserrat Wiseman MD, HPV APTIMA Negative Negative [facility] Comment on above: This nucleic acid am plification test detects fourteen high- risk HPV types (16,18,31,33,35,39,45,51,52,56,58,59,66,68) without differentiation. Performed at: =[address] [id number] Dress Shoe Inspector: Montserrat Wiseman MD, Phone: [phone] Performed at: [address] [id number] Dress Shoe Inspector: Montserrat Wiseman MD, Phone: [phone] IGP, APTIMA HPV, RFX 16/18,45 Note . [facility] Comment on above: TESTS RESULT FLAG UN ITS REF RANGE LAB DIAGNOSIS: 02 NEGATIVE FOR INTRAEPITHELIAL LESION OR MALIGNANCY. Specimen adequacy: 02 Satisfactory for evaluation. Performed by: 02 Bayron Laura, Phys Ther (ASCP) . 02 Note: Note 02 The Pap smear is a screening test designed to aid in the detection of premalignant and malignant conditions of the uterine cervix. It is not a diagnostic procedure and should not be used as the sole means of detecting cervical cancer. Both false-positive and false-negative reports do occur. Test Methodology: Note 02 The Borro Prep(R) Duct Layer Helper was unable to read this specimen. Therefore a manual review was performed. FLAG LEGEND: L-Low Normal,H-High Normal,LL-Alert Low,HH-Alert High <-Panic Low,>-Panic High,A-Abnormal,AA-Critical Abnormal Performed at: 02 WB [facility] [address] [address] Montserrat Wiseman MD, HPV Genotype Reflex Note 02 Criteria not met, HPV Genotype not performed. Criteria not met, HPV Genotype not performed. SPATULA-ALONE VAGINA [facility] PAP ACOG PANEL 2: 30 to 65on 06-19-2022 . . Normal [facility] Comment on above: Result Comment: Perf ormed at: WB Performed By: #### 4 [id number] #### [facility] [address] [place], [place] [address] Dr. Lina Lewis Age Gdln ACOG Testing 30-65 Normal [facility] Comment on above: Performed By: #### 4 [id number] #### [facility] [address] [place], [place] [address] Dr. Lina Lewis DIAGNOSIS: Comment Normal [facility] Comment on above: Result Comment: NEGA TIVE FOR INTRAEPITHELIAL LESION OR MALIGNANCY. PREDOMINANCE OF COCCOBACILLI CONSISTENT WITH SHIFT IN VAGINAL YADIEL IS PRESENT. Performed at: WB Performed By: #### 4 [id number] #### [facility] [address] [place] [address] Dr. Lina Lewis HPV Aptima Negative Normal Negative [facility] Comment on above: Result Comment: This nucleic acid amplification test detects fourteen high-risk HPV types (16,18,31,33,35,39,45,51,52,56,58,59,66,68) without differentiation. Performed at: =G Performed By: #### 4 [id number] #### [facility] [address] [place] [address] Dr. Lina Lewis Methodology: Comment Normal [facility] Comment on above: Result Comment: This liquid based ThinPrep(R) pap test was screened with the use of an image guided system. Performed at: WB Performed By: #### 4 [id number] #### [facility] [address] [place] [address] Dr. Lina Lewis Note: Comment Normal [facility] Comment on above: Result Comment: The Pap smear is a screening test designed to aid in the detection of premalignant and malignant conditions of the uterine cervix. It is not a diagnostic procedure and should not be used as the sole means of detecting cervical cancer. Both false-positive and false-negative reports do occur. . Performed at: WB Performed By: #### 4 [id number] #### [facility] [address] [place] [address] Dr. Lina Lewis Performed by: Comment Normal [facility] Comment on above: Result Comment: Beulah Adames Phys Ther (ASCP) Performed at: WB Performed By: #### 4 [id number] #### [facility] [address] [place] [address] Dr. Lina Lewis Specimen adequacy: Comment Normal [facility] Comment on above: Result Comment: Sati sfactory for evaluation. Performed at: WB Performed By: #### 4 [id number] #### [facility] [address] [place] [address] Dr. Lina Lewis MRI Shoulder w/o Righton [...] by Rambo Quinones on 03/31/2022 1300 Normal [facility] Specialist XR Shoulder Complete Right*o n 03-21-2022 XR [...] by Tree Barahona on 03/24/2022 1032 Normal [facility] XR Spine Cervical Complete w /Flex AND [place] 03-21-2022 XR Spine Cervical Complete w/Flex AND [...] VERY IMPORTANT TO YOUR HEALTH. THE CURRENT [employer] GUIDELINES RECOMMENDS ANNUAL MAMMOGRAPHY BEGINNING AT AGE 40 THIS FACILITY USES A REMINDER SYSTEM TO ENSURE ALL PATIENTS RECEIVE REMINDER NOTIFICATIONS AT THE APPROPRIATE TIME BASED ON THE RECOMMENDATIONS OF THIS EXAM. Report reported and signed by Tree Barahona on 03/14/2022 1555 Normal [facility] Community Relations Assistant Q - SUSANNA SCREEN IFA W/RFL TIT ER AND PATTERNon 12-09-2021 SUSANNA SCREEN, IFA Positive Abnormal NEGATIVE [facility] Comment on above: Order Comment: [facility] performed at: [employer] [facility], [facility] [address], [address] [place] [address], [address], Reel And Rewinder Operator: Nura Saxena MD [facility] Date/Time: [id number] [facility] Results Received Date/Time: [facility] Reported Date/Time: FASTING: NO Result Comment: SUSANNA IFA is a first line screen for detecting the presence of up to approximately 150 autoantibodies in various autoimmune diseases. A positive SUSANNA IFA result is suggestive of autoimmune disease and reflexes to titer and pattern. Further laboratory testing may be considered if clinically indicated. For additional information, please refer to http://education.[place]/faq/ESQ436 (This link is being provided for informational/ educational purposes only.) Performed By: #### 1 [id number], [id number], 926 #### [facility] Default [address] [place] [address] Q - C-REACTIVE PROTEINon CRP [Mass/Vol] 0.6 mg/L Normal <8.0 [facility] Community Relations Assistant Comment on above: Order Comment: [facility] performed at: [employer] [facility], [address] [place] [address], [address] [place] [address], [address] [place] [address], Reel And Rewinder Operator: Nura Saxena MD [facility] Date/Time: [facility] Results Received Date/Time: [facility] Reported Date/Time: FASTING: UNKNOWN Performed By: #### 8 99, 249, [id number], 18439H, 38838F, ESR, 4420, 968T, 42A #### [facility] Default [address] [place] [address] Q - CBC W/DIFF AND PLTon BASOABS 58 cells/uL Normal 0-200 [facility] Specialist Comment on above: Order Comment: [facility] performed at: [employer], [employer] [facility], [address] [place] [address], [address] [place] [address], [address] [place] [address], Reel And Rewinder Operator: Nura Saxena MD [facility] Date/Time: [facility] Results Received Date/Time: [facility] Reported Date/Time: FASTING: UNKNOWN Performed By: #### 8 99, 249, 122423V, 55920S, 43558K, ESR, 4420, 968T, 42A #### [facility] Default [address] [place] [address] Basophils/100 WBC (Bld) 0.6 % Normal [facility] Specialist Comment on above: Order Comment: [facility] performed at: [employer] [facility], [address] [place] [address], [address] [place] [address], [address] [place] [address], Reel And Rewinder Operator: Nura Saxena MD [facility] Date/Time: [facility] Results Received Date/Time: [facility] Reported Date/Time: FASTING: UNKNOWN Performed By: #### 8 99, 249, 354407Y, 44598Y, 16891S, ESR, 4420, 968T, 42A #### [facility] Default [address] [place] [address] EOSABS 221 cells/uL Normal 15-500 [facility] Community Relations Assistant Comment on above: Order Comment: [facility] performed at: [employer], [employer] [facility], [address] [place] [address], [address] [place] [address], [address] [place] [address], Reel And Rewinder Operator: Nura Saxena MD [facility] Date/Time: [facility] Results Received Date/Time: [facility] Reported Date/Time: FASTING: UNKNOWN Performed By: #### 8 99, 249, 294121T, 44391V, 09503F, ESR, 4420, 968T, 42A #### [facility] [address] [place] [address] Eosinophils/100 WBC (Bld) 2.3 % Normal [facility] Community Relations Assistant Comment on above: Order Comment: [facility] performed at: [employer], [employer] [facility], [address] [place] [address], [address] [place] [address], [address] [place] [address], Reel And Rewinder Operator: Nura Saxena MD [facility] Date/Time: [facility] Results Received Date/Time: [facility] Reported Date/Time: FASTING: UNKNOWN Performed By: #### 8 99, 249, 452627L, 99576F, 22936E, ESR, 4420, 968T, 42A #### [facility] [address] [place] [address] Erythrocyte distribution width (RBC) [Ratio] 11.5 % Normal 11.0-15.0 [facility] Community Relations Assistant Comment on above: Order Comment: [facility] performed at: [employer], [employer] [facility], [address] [place] [address], [address] [place] [address], [address] [place] [address], Reel And Rewinder Operator: Nura Saxena MD [facility] Date/Time: [facility] Results Received Date/Time: [facility] Reported Date/Time: FASTING: UNKNOWN Performed By: #### 8 99, 249, 518855Q, 11249N, 04600S, ESR, 4420, 968T, 42A #### [facility] [address] [place] [address] Hematocrit (Bld) [Volume fraction] 43.8 % Normal 35.0-45.0 [facility] Community Relations Assistant Comment on above: Order Comment: [facility] performed at: [employer], [employer] [facility], [address] [place] [address], [address] [place] [address], [address] [place] [address], Reel And Rewinder Operator: Nura Saxena MD [facility] Date/Time: [facility] Results Received Date/Time: [facility] Reported Date/Time: FASTING: UNKNOWN Performed By: #### 8 99, 249, 808862K, 92612G, 63072K, ESR, 4420, 968T, 42A #### [facility] [address] [place] [address] Hemoglobin (Bld) [Mass/Vol] 14.9 g/dL Normal 11.7-15.5 [facility] Community Relations Assistant Comment on above: Order Comment: [facility] performed at: [employer], [employer] [facility], [facility], [address] [place] [address], [phone], Reel And Rewinder Operator: Nura Saxena MD [facility] Date/Time: [facility] Results Received Date/Time: [facility] Reported Date/Time: FASTING: UNKNOWN Performed By: #### 8 99, 249, 317562P, 84226Z, 12959D, ESR, 4420, 968T, 42A #### [facility] [address] [place] [address] Lymphocytes (Bld) [#/Vol] 2.947 10*3/uL Normal 850-3900 [facility] Community Relations Assistant Comment on above: Order Comment: [facility] performed at: [employer], [employer] [facility], [facility], [address] [place] [address], [address], Reel And Rewinder Operator: Nura Saxena MD [facility] Date/Time: [facility] Results Received Date/Time: [facility] Reported Date/Time: FASTING: UNKNOWN Performed By: #### 8 99, 249, 917140O, 14189S, 53743R, ESR, 4420, 968T, 42A #### [facility] [address] [place] [address] Lymphocytes/100 WBC (Bld) 30.7 % Normal [facility] Community Relations Assistant Comment on above: Order Comment: [facility] performed at: [employer], [employer] [facility], [address] [place] [address], [address] [place] [address], [address] [place] [address], Reel And Rewinder Operator: Nura Saxena MD [facility] Date/Time: [facility] Results Received Date/Time: [facility] Reported Date/Time: FASTING: UNKNOWN Performed By: #### 8 99, 249, 096375U, 13310D, 65602V, ESR, 4420, 968T, 42A #### [facility] [address] [place] [address] MCH (RBC) [Entitic mass] 31.3 pg Normal 27.0-33.0 [facility] Community Relations Assistant Comment on above: Order Comment: [facility] performed at: [employer], [employer] [facility], [address] [place] [address], [address] [place] [address], [address] [place] [address], Reel And Rewinder Operator: Nura Saxena MD [facility] Date/Time: [facility] Results Received Date/Time: [facility] Reported Date/Time: FASTING: UNKNOWN Performed By: #### 8 99, 249, 808204T, 62405K, 29952P, ESR, 4420, 968T, 42A #### [facility] Default [address] [place] [address] MCHC (RBC) [Mass/Vol] 34.0 g/dL Normal 32.0-36.0 [facility] Community Relations Assistant Comment on above: Order Comment: [facility] performed at: [employer], [employer] [facility], [address] [place] [address], [address] [place] [address], [address] [place] [address], Reel And Rewinder Operator: Nura Saxena MD [facility] Date/Time: [facility] Results Received Date/Time: [facility] Reported Date/Time: FASTING: UNKNOWN Performed By: #### 8 99, 249, 243765O, 02972F, 65755L, ESR, 4420, 968T, 42A #### [facility] Default [address] [place] [address] MCV (RBC) [Entitic vol] 92.0 fL Normal 80.0-100.0 [facility] Specialist Comment on above: Order Comment: [facility] performed at: [employer], [employer] [facility], [address] [facility], [address] [place] [address], [address], Reel And Rewinder Operator: Nura Saxena MD [facility] Date/Time: [facility] Results Received Date/Time: [facility] Reported Date/Time: FASTING: UNKNOWN Performed By: #### 8 99, 249, 929518S, 69383F, 55340L, ESR, 4420, 968T, 42A #### [facility] [address] [place] [address] MONOABS 518 cells/uL Normal 200-950 [facility] Community Relations Assistant Comment on above: Order Comment: [facility] performed at: [employer], [employer] [facility], [address] [place] [address], [address] [place] [address], [address] [place] [address], Reel And Rewinder Operator: Nura Saxena MD [facility] Date/Time: [facility] Results Received Date/Time: [facility] Reported Date/Time: FASTING: UNKNOWN Performed By: #### 8 99, 249, 411826U, 03664L, 73373X, ESR, 4420, 968T, 42A #### [facility] Default [address] [place] [address] Monocytes/100 WBC (Bld) 5.4 % Normal [facility] Community Relations Assistant Comment on above: Order Comment: [facility] performed at: [employer], [employer] [facility], [address] [facility], [address] [place] [address], [address] [place] [address], Reel And Rewinder Operator: Nura Saxena MD [facility] Date/Time: [facility] Results Received Date/Time: [id number] [facility] Reported Date/Time: FASTING: UNKNOWN Performed By: #### 8 99, 249, 434321E, 63434R, 23329N, ESR, 4420, 968T, 42A #### [facility] Default [address] [place] [address] Neutrophils (Bld) [#/Vol] 5.856 10*3/uL Normal 9944-0105 [facility] Community Relations Assistant Comment on above: Order Comment: [facility] performed at: [employer], [employer] [facility], [facility], [address] [place] [address], [address] [place] [address], Reel And Rewinder Operator: Nura Saxena MD [facility] Date/Time: [facility] Results Received Date/Time: [facility] Reported Date/Time: FASTING: UNKNOWN Performed By: #### 8 99, 249, 494299O, 51600C, 68248F, ESR, 4420, 968T, 42A #### [facility] Default [address] [place] [address] Neutrophils/100 WBC (Bld) 61 % Normal [facility] Community Relations Assistant Comment on above: Order Comment: [facility] performed at: [employer], [employer] [facility], [address] [place] [address], [address] [place] [address], [address] [place] [address], Reel And Rewinder Operator: Nura Saxena MD [facility] Date/Time: [facility] Results Received Date/Time: [facility] Reported Date/Time: FASTING: UNKNOWN Performed By: #### 8 99, 249, 965649A, 53841Y, 57963L, ESR, 4420, 968T, 42A #### [facility] Default [address] [place] [address] Platelet mean volume (Bld) [Entitic vol] 13.9 fL High 7.5-12.5 [facility] Community Relations Assistant Comment on above: Order Comment: [facility] performed at: [employer], [employer] [facility], [address] [place] [address], [address] [place] [address], [address] [place] [address], Reel And Rew[employer] Operator: Nura Saxena MD [facility] Date/Time: [facility] Results Received Date/Time: [facility] Reported Date/Time: FASTING: UNKNOWN Performed By: #### 8 99, 249, 408418Y, 69067W, 31047E, ESR, 4420, 968T, 42A #### [facility] Default [address] [place] [address] Platelets (Bld) [#/Vol] 195 10*3/uL Normal 140-400 [facility] Comment on above: Order Comment: [facility] performed at: [employer], [employer] [facility], [address] , [address] [place] [address], [address], Reel And Rewinder Operator: Nura Saxena MD [facility] Date/Time: [facility] Results Received Date/Time: [facility] Reported Date/Time: FASTING: UNKNOWN Performed By: #### 8 99, 249, 774094W, 08632F, 91182D, ESR, 4420, 968T, 42A #### [facility] Default [address] [place] [address] RBC (Bld) [#/Vol] 4.76 10*6/uL Normal 3.80-5.10 [facility] Comment on above: Order Comment: [facility] performed at: [employer] [facility] [facility], [address], [address] [place] [address], [phone], Reel And Rewinder Operator: Nura Saxena MD [facility] Collection Date/Time: [facility] Results Received Date/Time: [facility] Reported Date/Time: FASTING: UNKNOWN Performed By: #### 8 99, 249, [id number], 45288M, 65935A, ESR, 4420, 968T, 42A #### [facility] Default [address] [place] [address] WBC (Bld) [#/Vol] 9.6 10*3/uL Normal 3.8-10.8 [facility] Comment on above: Order Comment: [facility] Testing performed at: [employer], [facility], [address] , [address] [place] [address], [address] [place] [address], [employer]el And Rewinder Operator: Nura Saxena MD [facility] Collection Date/Time: [facility] Results Received Date/Time: [facility] Reported Date/Time: FASTING: UNKNOWN Performed By: #### 8 99, 249, 245630E, 47684Z, 08180D, ESR, 4420, 968T, 42A #### [facility] Default [address] [place] [address] Q - COMPREHENSIVE METABOLIC PANEL W/EGFRon 12-09-2021 Albumin [Mass/Vol] 4.3 g/dL Normal 3.6-5.1 [facility] Community Relations Assistant Comment on above: Order Comment: [facility] Testing performed at: [employer], [facility], [address] [facility], [address] [place] [address], [address] [place] [address], [employer] Rew[employer] Operator: Nura Saxena MD [facility] Collection Date/Time: [facility] Results Received Date/Time: [facility] Reported Date/Time: FASTING: UNKNOWN Performed By: #### 8 99, 249, 195986N, 28334P, 71510G, ESR, 4420, 968T, 42A #### [facility] Default [address] [place] [address] Albumin/Globulin [Mass ratio] 1.6 {ratio} Normal 1.0-2.5 [facility] Community Relations Assistant Comment on above: Order Comment: [facility] Testing performed at: [employer], [facility], [address] , [address] [place] [address], [address] [place] [address], Reel And Rew[employer] Operator: Nura Saxena MD [facility] Collection Date/Time: [facility] Results Received Date/Time: [facility] Reported Date/Time: FASTING: UNKNOWN Performed By: #### 8 99, 249, 026147V, 04626Q, 83852D, ESR, 4420, 968T, 42A #### [facility] Default [address] [place] [address] ALP [Catalytic activity/Vol] 74 U/L Normal 31-125 [facility] Community Relations Assistant Comment on above: Order Comment: [facility] Testing performed at: [facility], [facility], [address] [place] [address], [address] [place] [address], [address] [place] [address], Reel And Rewinder Operator: Nura Saxena MD [facility] Collection Date/Time: [facility] Results Received Date/Time: [facility] Reported Date/Time: FASTING: UNKNOWN Performed By: #### 8 99, 249, 949181C, 67951I, 54964G, ESR, 4420, 968T, 42A #### [facility] Default [address] [place] [address] ALT [Catalytic activity/Vol] 12 U/L Normal 6-29 [facility] Community Relations Assistant Comment on above: Order Comment: [facility] Testing performed at: [facility], [facility], [address] [place] [address], [address] [place] [address], [address] [place] [address], Reel And Rew[employer] Operator: Nura Saxena MD [facility] Collection Date/Time: [facility] Results Received Date/Time: [facility] Reported Date/Time: FASTING: UNKNOWN Performed By: #### 8 99, 249, 283934W, 86526I, 71633X, ESR, 4420, 968T, 42A #### [facility] Default [address] [place] [address] AST [Catalytic activity/Vol] 12 U/L Normal 10-30 [facility] Community Relations Assistant Comment on above: Order Comment: [facility] Testing performed at: [employer], [facility], [address] [place] [address], [address] [place] [address], [address] [place] [address], Reel And Rewinder Operator: Nura Saxena MD [facility] Collection Date/Time: [facility] Results Received Date/Time: [facility] Reported Date/Time: FASTING: UNKNOWN Performed By: #### 8 99, 249, 151933H, 23082R, 05041B, ESR, 4420, 968T, 42A #### [facility] Default [address] [place] [address] BUN/CREA 14 NOT APPLICABLE Normal 6-22 [facility] Specialist Comment on above: Order Comment: [facility] Testing performed at: [employer], [facility], [address] [place] [address], [address] [place] [address], [address] [place] [address], Reel And Rew[employer] Operator: Nura Saxena MD [facility] Collection Date/Time: [facility] Results Received Date/Time: [facility] Reported Date/Time: FASTING: UNKNOWN Performed By: #### 8 99, 249, 965495Q, 72827D, 84768C, ESR, 4420, 968T, 42A #### [facility] Default [address] [place] [address] Calcium [Mass/Vol] 9.8 mg/dL Normal 8.6-10.2 [facility] Comment on above: Order Comment: [facility] Testing performed at: [employer], [facility], [address] [place] [address], [address] [place] [address], [address] [place] [address], Reel And Rew[employer] Operator: Nura Saxena MD [facility] Collection Date/Time: [facility] Results Received Date/Time: [facility] Reported Date/Time: FASTING: UNKNOWN Performed By: #### 8 99, 249, 532904K, 79941V, 22464R, ESR, 4420, 968T, 42A #### [facility] Default [address] [place] [address] Chloride [Moles/Vol] 103 mmol/L Normal 98-110 [facility] Comment on above: Order Comment: [facility] Testing performed at: [employer], [facility], [address] [place] [address], [address] [place] [address], [address] [place] [address], Reel And Rew[employer] Operator: Nura Saxena MD [facility] Collection Date/Time: [facility] Results Received Date/Time: [facility] Reported Date/Time: FASTING: UNKNOWN Performed By: #### 8 99, 249, 190890U, 49700C, 80559A, ESR, 4420, 968T, 42A #### [facility] Default [address] [place] [address] CO2 [Moles/Vol] 28 mmol/L Normal 20-32 [facility] Community Relations Assistant Comment on above: Order Comment: [facility] Testing performed at: [employer], [facility], [address] [place] [address], [address] [place] [address], [phone], Reel And Rewinder Operator: Nura Saxena MD [facility] Collection Date/Time: [facility] Results Received Date/Time: [facility] Reported Date/Time: FASTING: UNKNOWN Performed By: #### 8 99, 249, 193766Y, 26017P, 93777D, ESR, 4420, 968T, 42A #### [facility] Default [address] [place] [address] Creatinine [Mass/Vol] 0.59 mg/dL Normal 0.50-1.10 [facility] Community Relations Assistant Comment on above: Order Comment: [facility] Testing performed at: [employer], [facility], [address] [place] [address], [address] [place] [address], [address], Reel And Rewinder Operator: Nura Saxena MD [facility] Collection Date/Time: [facility] Results Received Date/Time: [facility] Reported Date/Time: FASTING: UNKNOWN Performed By: #### 8 99, 249, 391022D, 24345Q, 80045A, ESR, 4420, 968T, 42A #### [facility] Default [address] [place] [address] eGFRAA (Quest) 133 mL/min/1.73m2 Normal > OR = 60 [facility] Comment on above: Order Comment: [facility] Testing performed at: [employer], [facility], [address] [place] [address], [address] [place] [address], [address], Reel And Rewinder Operator: Nura Saxena MD [facility] Collection Date/Time: [facility] Results Received Date/Time: [facility] Reported Date/Time: FASTING: UNKNOWN Performed By: #### 8 99, 249, 667955V, 38662P, 80527G, ESR, 4420, 968T, 42A #### [facility] Default [address] [place] [address] eGFRNAA (Quest) 115 mL/min/1.73m2 Normal > OR = 60 No [facility]thern [place] Community Relations Assistant Comment on above: Order Comment: [facility] Testing performed at: [employer], [facility], [address] [facility], [address] [place] [address], [address] [place] [address], Reel And Rewinder Operator: Nura Saxena MD [facility] Collection Date/Time: [facility] Results Received Date/Time: [facility] Reported Date/Time: FASTING: UNKNOWN Performed By: #### 8 99, 249, 996128R, 49303D, 17675E, ESR, 4420, 968T, 42A #### [facility] Default [address] [place] [address] Globulin (S) [Mass/Vol] 2.7 g/dL Normal 1.9-3.7 [facility] Specialist Comment on above: Order Comment: [facility] Testing performed at: [employer] [facility], [address] [place] [address], [address] [place] [address], [address] [place] [address], Reel And Rew[employer] Operator: Nura Saxena MD [facility] Collection Date/Time: [facility] Results Received Date/Time: [facility] Reported Date/Time: FASTING: UNKNOWN Performed By: #### 8 99, 249, 099809U, 24478N, 20666N, ESR, 4420, 968T, 42A #### [facility] Default [address] [place] [address] Glucose [Mass/Vol] 82 mg/dL Normal 65-99 [facility] Specialist Comment on above: Order Comment: [facility] Testing performed at: [employer], [facility], [address] [place] [address], [address] [place] [address], [address] [place] [address], [employer] Rew[employer] Operator: Nura Saxena MD [facility] Collection Date/Time: [facility] Results Received Date/Time: [facility] Reported Date/Time: FASTING: UNKNOWN Result Comment: Fasting reference interval Performed By: #### 8 99, 249, 325429C, 59786H, 16893C, ESR, 4420, 968T, 42A #### [facility] Default [address] [place] [address] Potassium [Moles/Vol] 4.2 mmol/L Normal 3.5-5.3 [facility] Community Relations Assistant Comment on above: Order Comment: [facility] Testing performed at: [employer], [facility], [address] [place] [address], [address] [place] [address], [address], Reel And Rew[employer] Operator: Nura Saxena MD [facility] Collection Date/Time: [facility] Results Received Date/Time: [facility] Reported Date/Time: FASTING: UNKNOWN Performed By: #### 8 99, 249, 170415Q, 90357M, 57189H, ESR, 4420, 968T, 42A #### [facility] Default [address] [place] [address] Protein [Mass/Vol] 7.0 g/dL Normal 6.1-8.1 [facility] Community Relations Assistant Comment on above: Order Comment: [facility] Testing performed at: [employer] [facility], [address] [place] [address], [address] [place] [address], [phone], Reel And Rew[employer] Operator: Nura Saxena MD [facility] Collection Date/Time: [facility] Results Received Date/Time: [facility] Reported Date/Time: FASTING: UNKNOWN Performed By: #### 8 99, 249, 444606U, 15978T, 92344Q, ESR, 4420, 968T, 42A #### [facility] Default [address] [place] [address] Sodium [Moles/Vol] 138 mmol/L Normal 135-146 [facility] [place] Community Relations Assistant Comment on above: Order Comment: [facility] Testing performed at: [facility], [facility], [address] [place] [address], [address] [place] [address], [address] [place] [address], Reel And Rew[employer] Operator: Nura Saxena MD [facility] Collection Date/Time: [facility] Results Received Date/Time: [facility] Reported Date/Time: FASTING: UNKNOWN Performed By: #### 8 99, 249, 546690O, 32011N, 85406U, ESR, 4420, 968T, 42A #### [facility] Default [address] [place] [address] TBIL <0.3 Normal 0.2-1.2 [facility] Community Relations Assistant Comment on above: Order Comment: [facility] Testing performed at: [employer], [facility], [address] [place] [address], [address] [place] [address], [address] [place] [address], Reel And Rewinder Operator: Nura Saxena MD [facility] Collection Date/Time: [facility] Results Received Date/Time: [facility] Reported Date/Time: FASTING: UNKNOWN Performed By: #### 8 99, 249, 535161A, 86066B, 22046H, ESR, 4420, 968T, 42A #### [facility] Default [address] [place] [address] Urea nitrogen [Mass/Vol] 8 mg/dL Normal 7-25 [facility] Community Relations Assistant Comment on above: Order Comment: [facility] Testing performed at: [employer], [facility], [address] [place] [address], [address] [place] [address], [address] [place] [address], Reel And Rew[employer] Operator: Nura Saxena MD [facility] Collection Date/Time: [facility] Results Received Date/Time: [facility] Reported Date/Time: FASTING: UNKNOWN Performed By: #### 8 99, 249, 977481T, 07313E, 51731S, ESR, 4420, 968T, 42A #### [facility] Default [address] [place] [address] Q - Lipid Panelon 12-09-2021 Cholesterol [Mass/Vol] 242 mg/dL High <200 [place] Community Relations Assistant Comment on above: Order Comment: [facility] Testing performed at: [employer], [facility], [address] [facility], [address] [place] [address], [address] [place] [address], Reel And Rew[employer] Operator: Nura Saxena MD [facility] Collection Date/Time: [facility] Results Received Date/Time: [facility] Reported Date/Time: FASTING: UNKNOWN Performed By: #### 8 99, 249, 004550S, 29285K, 50173N, ESR, 4420, 968T, 42A #### [facility] Default [address] [place] [address] Cholesterol in HDL [Mass/Vol] 59 mg/dL Normal > OR = 50 [facility] Community Relations Assistant Comment on above: Order Comment: [facility] Testing performed at: [employer], [facility], [address] [facility], [address] [place] [address], [address] [place] [address], [employer] Operator: Nura Saxena MD [facility] Collection Date/Time: [facility] Results Received Date/Time: [facility] Reported Date/Time: FASTING: UNKNOWN Performed By: #### 8 99, 249, 626611K, 56812V, 91626P, ESR, 4420, 968T, 42A #### [facility] Default [address] [place] [address] Cholesterol in LDL [Mass/Vol] 160 mg/dL High [facility] Community Relations Assistant Comment on above: Order Comment: [facility] Testing performed at: [employer], [facility], [address] [place] [address], [address] [place] [address], [address] [place] [address], [employer] Rew[employer] Operator: Nura Saxena MD [facility] Collection Date/Time: [facility] Results Received Date/Time: [facility] Reported Date/Time: FASTING: UNKNOWN Result Comment: Refe rence range: <100 Desirable range <100 mg/dL for primary prevention; <70 mg/dL for patients with CHD or diabetic patients with > or = 2 CHD risk factors. LDL-C is now calculated using the Daniel-Au calculation, which is a validated novel method providing better accuracy than the Friedewald equation in the estimation of LDL-C. Daniel FLOWERS et al. CARLA. 2013;310(19): 3947-8058 (http://education.Penango/faq/WFX745) Performed By: #### 8 99, 249, 922855P, 51319X, 49216A, ESR, 4420, 968T, 42A #### [facility] Default [address] [place] [address] Cholesterol.total/ Cholesterol in HDL [Mass ratio] 4.1 {ratio} Normal <5.0 [facility] Community Relations Assistant Comment on above: Order Comment: [facility] Testing performed at: [facility], [address] [place] [address], [address] [place] [address], [address] [place] [address], [employer] Operator: Nura Saxena MD [facility] Collection Date/Time: [facility] Results Received Date/Time: [facility] Reported Date/Time: FASTING: UNKNOWN Performed By: #### 8 99, 249, 059350O, 26079D, 65964A, ESR, 4420, 968T, 42A #### [facility] Default [address] [place] [address] NON HDL CHOLESTEROL 183 mg/dL (calc) High <130 [facility] Community Relations Assistant Comment on above: Order Comment: [facility] Testing performed at: [employer], [facility], [address] [place] [address], [address] [place] [address], [phone], [employer] Operator: Nura Saxena MD [facility] Collection Date/Time: [facility] Results Received Date/Time: [facility] Reported Date/Time: FASTING: UNKNOWN Result Comment: For patients with diabetes plus 1 major ASCVD risk factor, treating to a non-HDL-C goal of <100 mg/dL (LDL-C of <70 mg/dL) is considered a therapeutic option. Performed By: #### 8 99, 249, 559486U, 19219F, 16652C, ESR, 4420, 968T, 42A #### [facility] Default [address] [place] [address] Triglyceride [Mass/Vol] 112 mg/dL Normal <150 [place] Community Relations Assistant Comment on above: Order Comment: [facility] Testing performed at: [employer] [facility], [address] [place] [address], [address] [place] [address], [address] [place] [address], [employer] Rew[employer] Operator: Nura Saxena MD [facility] Collection Date/Time: [facility] Results Received Date/Time: [facility] Reported Date/Time: FASTING: UNKNOWN Performed By: #### 8 99, 249, 602243L, 97161U, 96485O, ESR, 4420, 968T, 42A #### [facility] Default [address] [place] [address] Q - PTH,INTACT W/O CALCIUMon 12-09-2021 PARATHYROID HORMONE, INTACT 20 pg/mL Normal 16-77 [facility] Community Relations Assistant Comment on above: Order Comment: [facility] Testing performed at: [employer] [facility], [address], [address] [place] [address], [address] [place] [address], [employer] Operator: Nura Saxena MD [facility] Collection Date/Time: [facility] Results Received Date/Time: [facility] Reported Date/Time: FASTING: UNKNOWN Result Comment: Interpretive Guide Intact PTH Calcium ------- Normal Parathyroid Normal Normal Hypoparathyroidism Low or Low Normal Low Hyperparathyroidism Primary Normal or High High Secondary High Normal or Low Tertiary High High Non-Parathyroid Hypercalcemia Low or Low Normal High Performed By: #### 8 99, 249, 390460T, 83959P, 08041E, ESR, 4420, 968T, 42A #### [facility] Default [address] [place] [address] Q - RFon 12-09-2021 RF <14 Normal <14 [place] Community Relations Assistant Comment on above: Order Comment: [facility] Testing performed at: [employer], [facility], [address] [place] [address], [address], [employer] Operator: Nura Saxena MD [facility] Collection Date/Time: [facility] Results Received Date/Time: [facility] Reported Date/Time: FASTING: UNKNOWN Performed By: #### 8 99, 249, 689761Q, 87922A, 34579S, ESR, 4420, 968T, 42A #### [facility] Default [address] [place] [address] Q - TSHon 12-09-2021 TSH Qn 1.06 m[IU]/L Normal [facility] Comment on above: Order Comment: [facility] Testing performed at: [employer], [facility], [address] [facility], [address] [place] [address], [address] [place] [address], [employer] Operator: Nura Saxena MD [facility] Collection Date/Time: [facility] Results Received Date/Time: [facility] Reported Date/Time: FASTING: UNKNOWN Result Comment: Refe rence Range > or = 20 Years 0.40-4.50 Ranges First trimester 0.26-2.66 Second trimester 0.55-2.73 Third trimester 0.43-2.91 Performed By: #### 8 99, 249, 748855A, 50608K, 78336P, ESR, 4420, 968T, 42A #### [facility] Default [address] [place] [address] RBC Sedimentation Rateon ESR (Bld) [Velocity] 6 mm/h Normal < OR = 20 [facility] Comment on above: Order Comment: [facility] Testing performed at: [employer], [facility], [address] [facility], [address] [place] [address], [address], [employer] Operator: Nura Saxena MD [facility] Collection Date/Time: [facility] Results Received Date/Time: [facility] Reported Date/Time: FASTING: NO Performed By: #### 1 7306X, 7065X, 926 #### [facility] Default [address] [place] [address] Q - VITAMIN B12 AND FOLATE,S ERUMon 10-14-2021 Cobalamin (Vitamin B12) [Mass/Vol] 448 pg/mL Normal 200-1100 [facility] Community Relations Assistant Comment on above: Order Comment: [facility] Testing performed at: [employer], [facility], [address] [facility], [address] [place] [address], [address] [place] [address], [employer] Operator: Nura Saxena MD [facility] Collection Date/Time: [facility] Results Received Date/Time: [facility] Reported Date/Time: FASTING: NO Performed By: #### 1 7306X, 7065X, 926 #### [facility] Default [address] [place] [address] Folate [Mass/Vol] 10.6 ng/mL Normal [facility] Community Relations Assistant Comment on above: Order Comment: [facility] Testing performed at: Q, [facility], [address] [facility], [address] [place] [address], [address] [place] [address], [employer] Operator: uNra Saxena MD [facility] Collection Date/Time: [facility] Results Received Date/Time: [facility] Reported Date/Time: FASTING: NO Result Comment: Refe rence Range Low: <3.4 Borderline: 3.4-5.4 Normal: >5.4 Performed By: #### 1 7306X, 7065X, 926 #### [facility] Default [address] [place] [address] Q - VITAMIN B6, PLASMAon VITAMIN B6, PLASMA 3.2 ng/mL Normal 2.1-21.7 [facility] Community Relations Assistant Comment on above: Order Comment: [facility] Testing performed at: [facility], [facility] Re[facility] by [facility], [address] [address], [place], [place], , [employer] Rew[employer] Operator: Matthew Boston M.D.,PhD [facility] Date/Time: [id number] [facility] Results Received Date/Time: [id number] [facility] Reported Date/Time: [id number] FASTING: NO Result Comment: Ciara min supplementation within 24 hours prior to blood draw may affect the accuracy of the results. This test was developed and its analytical performance characteristics have been determined by [facility] [place], [place]. It has not been cleared or approved by the U.S. Food and Drug Administration. This assay has been validated pursuant to the CLIA regulations and is used for clinical purposes. Performed By: #### 1 7306X, 7065X, 926 #### [facility] Default [address] [facility] [place] [address] Q - VITAMIN D 25-OH Total IA on 10-14-2021 VIT D 25 OH 25 ng/mL Low 30-100 [facility] Community Relations Assistant Comment on above: Order Comment: [facility] Testing performed at: Q, [facility], [address] [place] [address], [address] [place] [address], [address], [employer] Rew[employer] Operator: Nura Saxena MD [facility] Date/Time: [id number] [facility] Results Received Date/Time: [facility] Reported Date/Time: [...] D, (D2,D3), LC/MS/MS is recommended: order code [id number] (patients >2yrs). See Note 1 Note 1 For additional information, please refer to http://education.Nextworth.InterpretOmics/faq/PQS889 (This link is being provided for informational/ educational purposes only.) Performed By: #### 1 7306X, 7065X, 926 #### [facility] Default [address] [facility] [place] [address] COVID Quick Testingon 2020 Result Negative ClaimReturn Other Physical Therapy Noteon 10-29 Physical Therapy Note [id number] .[id number] [facility] Coding Summaryon 10-26-2020 Coding Summary HTMLBase 64 RgfcoppjGOk5wZt+PGhlY WQ+RB2JDSXjP45cxRGudA 6IL5nDIJ6HOIXVBDNQEP7 SYU6wpTX9JVlwP6FeyrFl MmhunJIcMF07KAy3JPN4b UsoWRtfpT1czYFcV1r9Vs EwXL73yH23OMzbSMGpZxR 3LjZpbjsgbWFy W3baGoPzaTSbLvj+PHRhY mxlIHdpZHRoPScxMDAlJy XntWjtYW8jZs1jKGPkSEI vbGxhcHNlOiBj t2lrJGBqKKjsMH6cqWotN 4VdmIG5AZKga2a9Pb35zV I+NCQnGWM4hUkbDZpqf59 0HrExd8zzVLO8 xXXnFRoaFWT3L01rv8A3W EBgUWXrYFF3kPS5pL4pgQ kqayngA2CwdUFdNgM9XKF 9gDWyuK7fjAnj zmarpI2yHgz+U34HQS7JZ EDZRU4MRaf4S5KlAqplyA I+ZK37FKHwUF99uFSmbQF fj8hhlHn8CbHk DXXbUBC2wFicKSwdq9KmK BFiE00gqCHdf0V3GZWlkP hduKXyYjXwiIU6yW7iHCg uzyppi5eswlxt Dcbia3rduu73zG43A18tM PxtDVSeGSZ7LCPfCTDpdB qovl3ppU6dUa8+XPubl9d jn7ezhPf9TbDo JPJsxqPetNrcRUK3u1EfA v52J3AzoBvaw3SoPjq0vq 20rCMqg8A6wVT1ARyfPSC xeZ5dZUwhPfY9 AIHuFrGejK60dVIjKWqqX u7oqEvmzGopHI4kEIIbsk meJUYvfL3xPSFhdDQglCg tBD3wQUDlrmfd g126ClHiCFY8SSQfkAKqY 3GrtY7yZwZdGGYeFATwX2 RbpQCbCZqzN633XEidCeA 7ELAdxrHyV1Pz QYUetKypIlM1q9F4Ec9Cu 0CgxxhdFFQ8YXbrQKWiHd J4PnArYwR8Q7FqWbz3DEG ouLqsXL1gE6Xn XVDmyksgomixgGR3BWDsB ZFbrU76xSTrOLsoCq3dg6 O8a909SCRzMLFiyQ98Os7 udDogMTBwdCBU aB0fpirtx9xtefcfYyAzM VVlPNt3HCi4FPEhrAinMe HoAZW7QaM1XFO0uGQxhU4 xkHqugpnclY6m Oyc+M10uqQ5gKTR9BAH6w glrPOMlhlHzFY62PF76Z0 RyPjwvdGFibGU+PGRpdiB kkRizXD5bEdWu g0iis2XyZTmhH0JzRTDoO BhfQpx9AUQuEBD1bAZ3dM 8bPVPrOYqum5I3ySK7M2B ggoZilq7jf4lh IQXeAUvhH19btMKeb1X4H VPbyFO1GXOpiAhhFuZdkM 93Oyc+BASpiYobn7YuVrz wm4osx2kjlBl4 RjRoEWCbskTahWtpQOY0z 6HfIi21E62kABjsBEJlRG KoIELtDERfmMqtrk9mhK0 wIi8+PGNvbCB3 kUF5cW5hAJDgTpJ1LVfiH 540EgMiiEQuAouyu4zcl2 ripAl5YjJaRYUxcoAtsVp zBNZ4z0YwXf47 E50kYTpyMZMmYDCnVEJmR XEcjHnguo5agU1lWi0+PC 9qs6ihdf17bW42jHR+PHR sVWH9pDgfXOfe JLJbwU6xSYtmVtJ2EPShJ wXwqQ99kIYkRKdpEk1evT uhmQdlDC1jHOJalnofx03 2LoMch9syLNLr sXXuSBmiYBN6T83gu3F8U UTgXSKgWDC6kAH3oV2fvG lnbjogbGVmdDsgdmVydGl sEIqzZWspL919 IHRvcDsnPlBhdGllbnQgT kQpHNb9P6XtAid6NXKnxN npJE0zxSDjBOtcAg8noEd kwWavML8jAXDf bzjrm696UeKki7sdARLiz JGbGHugYVL9H85fj3U5TP EwBGSbTYB1sRW1jU8rjLe nbjogbGVmdDsg apYqiPmsAQokATrbC407J HRvcDsnPkJpcnRoIERhdG V3XU91OQ71pSZpn9Q6jHZ 0N6AjJKZhpxgi ldgccBZ3TTBtCMKrgA69J w6lcDorGn2jCGFnSVL2XC ByoDVrC3SrfK7wBsTjRSG uXMRrZ7OhgPJt YWlgV557KYgmXcH0FSBbf uItI7LsHABpwKxpOkU2z4 D5Bt3ID3L8MU22VN15vII zc2Y2vXA9E6Dl YEZzudkuxskmmLO6QSYlQ NDmwN39Gk5ckOirZf6kSU QnMBS0CNJsjCEhM2WvaA6 yOiAjMDAwMDAw H8ExjEPaDKimP225YYbcB bC5PMOrvdKmL5KgZXGryU mhReN2u1Q3Ls0QNMv3LE6 3KT91dMWzw0E5 xPU7K9UaDDJwyrnfkyjue UM7FNRsSHNyzH95Jj7yqR exEe5fMSKmHWF5WPKqsRL pI6KrtO8aXcMc IHGcIOUaY0YspQOyXNqeR 022SJieKyP5SDPfkhNiS7 PjJCPqrSsdRjH1j2H5Cd4 FRPXjBD72SDZ4 uQA8NI62PK98K4WrIeisl GFibGU+PHRhYmxlIHdpZH RoPScxMDAlJyBzdHlsZT0 nBc2gQZMlLGLj iDscoETdObXhy8jgGDMtN BfrFJ8zmSxhY5AfhBJ2UH Lfg9d8Kf03Q55rI1XecZV +SKSqyBD6bZF3 cZ5wGhKdCuH6IRnmP078J iVepFLaQponb0mzh7fifS d7JkY3LIImjhBstCfwXGX 6a6NbBm74M89o IHdpZHRoPSIxNSUiIHZhb Aqucm2bkL8wPr1+PGNvbC P8hMK1gJ9mUmXlMoO2PGq fX745GtKvqEUd Noksq9qdl4bxyGp3WqVrA LCoqhIhpIleHAD2t7PzAs 63I5ObeMbql9GrDwy1rc3 3qTJsm1J8cNM4 E8OmBQZhazbenQKndVfdN U1bOUAwieklDCJwiE6dAK SzG3d0CgZsNtB6XAihV4L qsiS8FMEudLSx LEbhGBW1Q07hf5P5CFXnD WSaCRT6eQV9dM1vmUpfeh ogbGVmdDsgdmVydGljYWw hGAdhJ925PJTa sQxwFJRgdG9sYNWyjGWxu IuxRF5xRUEprohlIr7YTV tVWLPkPOJOT3EGCSVTIE3 1LN85rGLrz9A6 aUN4E9KcMRTrpivxxaarb JU1LLWvKTSzlI77yWZnYH fgVn5zp0V5o164DBMqZMA spR99Jh4skViv HQHgiWRCiK6zlouxu0zzs imcKaEgJLZzELf4TOo7OV FjyLyuAsVfUZQ6YbQ0YSG 5lZWabU3ekMrd yrtiwK2vElw+MDQvMTgvM Xl2SLselSQ+LRBnMFI6kX fwBYurGYNfjL0bLYOyM0u 0BvHtPtO9LSdy F4HlAHWjblroNn29gN9gZ tQnEvM7CYxxU3DtawE3HH IorLOxPYfwGGW8W23qf9U 1XMByEYEbIHK1 vEH3rC4loKitudghjOScm DsgdmVydGljYWwtYWxpZ2 22LUCixChnKpG0IYzmQLY fTJ75FC03fOMi h4J5yVN5X6MvAEPeuxqcu ukbpPV2MRXePOOfwS15tY EsVTesFp3ym2J5e599WZH qVPCkxK74Si7z oAgyPUCriDMMoQ7sbupdz 4hjuncuDzUhRCEoHRf1PO y5NPExzZmcSeJuUUK9DnX 1TFR5jGAciT4v qPokgnewvO0xAey+RkVNQ SyNHP93SO72hNEpl9U1iW Z7J7NeQKAelzrduuczgGG 9BURzVXUbgI27 lWJuNOnzPw0wx3Z8j189U LTyIPEzgQ82Aw7plJjhGX FbdVBAqV9bempls7smnmc gIzAwMDAwMDt0 EVh9UQTfxDyqPkTrABW3Z gJ7ELM8cMHfjJ8dcXqyiv sryE4nCdj+UmVjdXJyaW5 iFP70cOOoeTvt trE0C7XvZiapuHM+PC90Y EWtPC60xVYfbZIms2sawP h5CiTxQJKgQZI2gUylBCe sp6HaGBNgR78f uPSmf2B9GSQuzBouxJZzK jYzbIL0cF3eXOxvqrfsz7 ssjfdkRsbhi0upwz00bL7 3V43aMUuhNCIv QMCaHTSmZYWvkKqjtw2pq G9wIi8+FVZfvNO4fDP6pI 6gJcBtTkG1AXuaP521WyT rtRTcLzqcy7zh b0joaDm4HrTxIGGamhPhz HniHWD5f2WfIg81B36cCZ dpZHRoPSIyMCUiIHZhbGl bgj3idQ3xRc3+ RL9sc9tzwq89rQ00rGG+P HHuESC7rYsyJSgePYUhjI 8bAIabSfN2BDMuUjLrvQ2 2uCLtSDlzKv8x hLbhrUdfQP1lSEZgnfypm 083JdOvr3dpRXVrhYYlID dsLDH8T09jj6F8ORZiNNI zPGQ9gBT6fC2m bGlnbjogbGVmdDsgdmVyd RrvUZmyQThfB366MRYvcM inEjIomXSgB4pkudPESC6 lOjwvdGQ+PHRk GYE3iRsgGOxqOYBuaT8qD JRsR4k3GsOuLoL1EYuuQ0 TaaoH9NZQkeUOvBYAleWY DsQ2gzqtzy1yg osypDlDlJWNlODq2GLg5B BIqdBwlEtNhRFC3CgA6FZ Z4aUWnxN0csJlrtykpiG6 wOyc+RklOOjwv dGQ+ZGAuGQL8mScnLAxiR OSczZ3fPNMbN9w9GyWnNg M6QPmeA4SwtzV5KFOvsNP aPWJxbWLCuU4f skqwh4tmivdxSsOcQDRcV Gh4MNz3YMXhbZziJoXsRT F2MuU8PRV4qNAtnE6dwVo ozvlohB6kVuz+ TVJOOjwvdGQ+EQPoPPH0y AmyXKewOGIxdM9oLMOkU0 s9WvOqTiV1OShyP7CogwF 6IGJvbGQgMTBw eKPSwW5gtgixx5jjdtprU nEoXGZxIZf0GUc2WOSqrY drYeQeYNF8OiI5XWY3rHU twY8ftEarkbpj kV4eRwn+RZM1TER8UN18H Y89P0NlNgdzjGGtmAV+PH RhYmxlIHdpZHRoPScxMDA hSiOroNohCD8a Mm0tOCYvZXYewMxvuRRrF aLtq6xrZLYcAGttCB1uvL hnP0VchVW8GBMjt9h5Bv4 0C86gD4RnxHN+ PDXzhPC1gFO3eI8mLtDcH nP6WUodV207UoIcuRZcSt ajz4cap0rndKz4FnSwFFU gdmFsaWduPSJ0 i1LwZc21T62wNZahFBHeV ZExAOFtEZCkcSmahi3ysT 9wIi8+LJDniUD4oWZ3aP1 pOkJtXrS8KTry J428GtRfdPYrJoroI99oD 3JvdXA+QMOxCnj8NWIenJ ntTK8ksEWkXAkhLx3dRIR 0OiAwLjIwMGlu D0KfISXdmzvgqkblxPN6D CUlUJZpgK46Fv5gfDcuIS SnlQTSfA3mzzmtd2eyrbc gIzAwMDAwMDt0 REx6SDUlaAmhAaKrJSO4D nZ7CSA5pYJqyY4tfDaduo msmC5xV2XyEXShksqjEk9 6iD8lBtFaQmZ0 MGluOyc+Dh6AUWPJDSKBV 6rYPQ15TH20aUGwi6I2cD R2N0QxVPTahnfoqbaajKU 3GKGiHBBjsQ90 sUYdKDqxLg9kv5Q5i419Q MCxBVAioF42Zx3ehQkdVT NkeAHSlS0hgogrn4gvgur gIzAwMDAwMDt0 VKt7UWBqgVgiCuDxLKO3A pB0ZEG5eSPawT2maUadce firQ1nWjn+MzAzNDkyMzU 4X3PlRna1EJWu bCmmOO2phNAuONksSs4le BrgyZrnQQ2iZAVlgwjrJE XjxP5vHIVzbRGmbJbxED9 zELRkgszfb417 WbLuIXS4IXJfrAPzP3Mqj Z5sKmEpALIxZABlY3OphI LpMGxfW369YAxoSkI0NIM yzjRfY9IgALYp wQkkZzX4t9A2Ry0bPl6nS N63OjrtnSU+TOKoGJL7jM cfVBnuCZFsjL4iFAWbN8f 3CzAgIaB2EZeh K1GlILIxxhuiSn69zM4qR gWgVtM3IIzwM6RzkhC1GH YnxGYkKFjnWUX1P67gt2N 3PHExWFLgEAC7 dPR5kC5qhQrdsflyqSHxj DsgdmVydGljYWwtYWxpZ2 79EQQsvTeaLn6cCJwcFBj kIEhNTzwvdGQ+ FM11bj87M3NfLjimByd4J AGlMVU2uGY3uL2iJHSwRK gig1G1lTL7I8DmswLpel5 ix3erTIGvIVgw R76qnNDzv8A2ZNFbqMX8K BCdfRopKePosP87Juh+PG HbgFvpj1FoAkzec6ptk1l qjNr5OyJpNPGh xaJtbBjnEZB5g1QqHf10D 29sIHdpZHRoPSIzMCUiIH BpiTfaro8fvF4iYu6+PGN lkLC3dPU4sT2a PpDhJgI7QGzvY386FeMik BTzBzhpp0edn5knaRm2Ma GtYMPbbpXpbHxvMLG8b1S xVu02Y3CrzCzq l2TvAlj6ha62pIHwh4O1j LL1R6EuGOSrgkptiLExyX awKG6pVPNdacmeZLXiuI0 xFSMlZ3y0NaWo VzI0KFmaS7OkduZ2HPHgt LNuWMYcrRCXwE4ayrdsz8 emoeavLqJgFNKlXYm0JTr 0LWFsaWduOiBs BIE7HkH0RFB1bEWyhF5dj LwuaqemaS0xBxq+RmFjaW kqkPo3PP87SB68vJGcw0B 4rWN7P5MtJXUb kdpkdxdkiQT7ZBXsWLEmb Z06Xj7rkIovBc3dPWBiNR L9EKDmkYFnE6CxaN2wVbF yFYBkOSTdA0Fw gJWvITrjA787ZZvhKsN6B WWxtkReT9WkWKLmlDljIr P4t7R4Vg1MyDFaeDItU6N bATchlS8ltPCo f533NF28ER63xBKcu7J0k ZJ3S9AqZWHdztjotadfkR X1VWNyOECycK00Hg2arCm yTh2sPHNfJPF2 AKSieBNaT1BohR5jCzZjT LZwGNHeY4RkhMArLJueS3 92JUqsYsL7PNMkefSkX6P sLWFsaWduOiB0 r3E3Ul9YVF3mlXUMNPJkV jwvdGQ+AIMqGDG7xQvmGM ztSSTtiL5cZWUkO2s2BsG aYpD6VPoiQ3Pm uiE9MZFveJZkFDTikEEDz C0imesqw8tzanteVbTjEE KaIHo8XJd6QXFcqFizWbV tEQV2RcY1WWA5 mNMjdR9iuXojwgewqE6iP yc+OMawA7kspcpyXHBlbB D8DK53VE75S4QsTrskjHL ibGU+PHRhYmxl IHdpZHRoPScxMDAlJyBzd MtgXN6nUb8dIBVcUWVsqX qpzJJjEoIhj3ecMWNfTEs pRP3jrWgjA7Ag kLS2WBZvv4u7Kg42F22wB 3JvdXA+AIXdiAP6aHW0qN 4yCsUrIpW7FAfaZ816PiL fcLWxLrpmm6rt s0iqyDi8UgWwSPRvzmPyw QvaCEM2l3TqRr74K69bEK dpZHRoPSIyMCUiIHZhbGl iir8esB6aGp2+ PPKiwXY3pVN5fT4hPlUuZ cE2NDugN204HdThdGHqBh jsG91wL6XobGR+PHRyPjx 2ETZdpBqdOU7f eANzUNijOb0cMTS6QkJyU wHpRXqyQ3JfYAKyigkjcn ilfCW7LXJcOPJesH23Ms9 udDogMTBwdCBU sV4slrlrw1nxvhfxMaUjL UVtCSb7WJc9FNMdtVprEs SbMXE0QeP6KVX1wNIeiU4 ncTvgxeqkyB4z A3IaFSIcqyzmAk51jV2fA hQeNbK6NBruVld+TWFncn SpNNOyDH7qsSu4VAo0I9T uHec6KVZuoOqk ZP1moHJwPVugZu3nrZlfy JbeZD9fRVGqnkfaGFShsZ 2kLPWrcTGgmMtvEL8wAWM ejsyou728YcGa PKO7PUPajVQgO9PwhO1xX nNoKXZhONGdX4BfvLMmVY fhI054TSclOiD2TIVorbU dS8PwSUYraNqi SlI4t2V0Ow98N9RtYsm8F DWppHmpUE6vjNHwTXxiZo 4bsRwqnRllIR4ePOMboha zHSUsjP5wMQSe dXEsyBzyEF4hRMHygtkcv 363GaZwJEH8WIQpsQFfF9 IbgL2iJmGfXUYeKLUkI7D rzPOzYJppB375 AHdxDdX0BCTrzdXeI7AvK ZVofFeiZbP0e0Y3Iq8wYj 8hAn3mWOXlNO56XB60qBM rs6F5fTP2J2Ks DXBnalxxdqjnqQQ3HXUaS DDtdV97yNCwHMkhHh6zm9 R5b503QBEtLTLqlI45Al7 udDogMTBwdCBU oF5bmeywj9hksunbUjCcB CJiBFh9TVk4WZBbrQmkYq SrUTU5DiU9NYS4yWVinO7 luAwitavbvZ8b Oyc+MF60YG70L3RrUrify GFibGU+JY6snJL+PHRhYm xlIHdpZHRoPScxMDAlJyB odOowHS7oCf6a ZGVyLWJvdHRvbToxcHggc 29fcZCeVqjcK6m1SHFphg Gzoc3qu8cnENLjUMniD72 rjTNlz8M4SEFy zFL5BYDuwTvjSvJsuD81B yc+FRGmnOkno1FkKllih8 ano6xmkXk7PvYoAZKbVTW gkRyaiz8guB2a Ii8+RP6dt6tzcz92qC44y HI+PHRkPjxici8+PC90ZD 26K0AwTmb3rd02uGHxn2L 5pHK0R7NpvaI2 XNWnkZVsARIvySIUjO6ps hxyc2sohujbSwBkPTVkBS w5DPl4DRUfgTitGgCkGU5 8IHM7JPBrlsAf V2TxFRRuzQifErW6k0O9O m6COu3FFMMBUX76QU53X8 RyPjwvdGFibGU+PHRhYmx lIHdpZHRoPScx IYFiGpWhiVksQB7yLb9oV GVyLWJvdHRvbToxcHggc2 6tsUTmYgtuD7x5KKCykzJ mge4iz7fuAQUe HPawM08tgAGhf5C5MINpm TO8UUIftIxeTxKpjN54Fj c+JJIsxMiib6HeFbhqt9d kp3iwjBw8ZsAh XDMpKLXegEiqim7quF3nY i8+BI9mq9aouw53vW14yX I+PHRkPjxici8+AG18PA3 9X9KdBsm9bm71 aYPue3U6vHD4U3JkdsM6Z NBjcJLoKFCymTKPuN6uvs lpi0gxiiicTeRwCYZxIFy 7HJr6KLIgxFcl AgCgGL66TMB0UPYfjgAxO 6GpTVFleAmtUaL3e3P7Ke 5LUZVRVm6VYQC1L1KvLqm vdHI+QB18ONXy EI49hWExxSQgi9zwlSu2L kVmWCVpPSX2cUbdAZnae7 ItTHChD17ryJHqx4H1TEF vbGxhcHNlOyBl uAM9nL8wRWxcdcpvc1obn jthUrntn3gkhv39fP04N8 9sIHdpZHRoPSIxNSUiIHZ joStbkj3ffW7r Ii8+QPRkdXI4tUK9eH8pK MMdSbC6WVghM030CmVgtC UzOmfxm9bco0zodCd3TuD 3JSIgdmFsaWdu VHF9s9PjPn08S75lZCcjQ HRoPSIxMyUiIHZhbGlnbj 5wnV1tNl2+GJ2kj3nxdl5 6pC03bGE+PHRk QUZ0uDgaHBvlAWBltP2pG MosZdG0GAOaHyBulM67cJ CcZHbmEm3ewQagmIrzRB9 kGGOjvpakz631 ToKei8idZZFtmUKwHUkbJ NC3G40lw4T9LWEmCJTvFI Q3xXZ4jA3laGfdbnruuPA mdDsgdmVydGlj SCsyAJdnD235SUGryVapC fLhLKG1Y6WyGsb3EDCrjE ieSO1nkAUjHAtdUk1boUk sxEjuFT4dHTRy mypvv161YqYte3qiXEIjm ZPbUTqhVHV9O41cc8N5DL EbCMScARI7fSW2jE3cbGz nbjogbGVmdDsg piUcdTaoKYbhVHxgL295Z HRvcDsnPlBPQTwvdGQ+PH QnTEI3rOnxHEinEGVguC1 vFQIbB0x3QaHf PmF6DRhpS7PscwH9YAGbx PCtPYXbdCCJhD9fiqwhq6 tvmtrhNzGeVWEnMJs6JIs 0LWFsaWduOiBs UZU0OoL4KBW3zAVihL6su QzkyaovoM6jHtq+RGVzY3 IotBUlo561X2UfCdf5NHX hoEutUY0xwRDg APxwGb5vaJotxUvhZR5wR CNnhwbfz254XqBuy5tgXD ZcwDKqQSucVRL5R88yt0X 4FKMgXZOrUMF7 sJC3sN0oaNfvrtqbhFAsg DsgdmVydGljYWwtYWxpZ2 26WNMyhGlyAhL3uQM7G4W kPjwvdHI+PC90 ALMuBQ39tHUlyWYic5sox Fa9MoCzWPMqREO5hPhwSB vio7UrKWMzQ06miVVwj6R 6IGNvbGxhcHNl LmLjdFS8tU2lLFvruoggk 9ikiitnIwllx2ldnu04eO 28R33sDEadBTEaONYvIIE mRTMltLjfbf8l xX1nHa9+VCHgzIX9lJD0i J7jWIQdFpI2ZQqrY250Bu IsxIFqQqyjg0wxr1uemLi 8ImC3SRUxpoDz oLdwZFM6r8NeZr23J89hZ HdpZHRoPSIxMyUiIHZhbG umxo7qcS8xHo1+OB1vy1u jhg83rA20eMR+ UQUuYTO3oLhnTUauGXJuo C1cAQxcLeG1YXNiUiQclZ 81gPTeGQenLg4boKpezUf hNL6cQVSlvomm r431IhHkRPA1ZPJkdCBoH 6NquV1lZzHfPRUtMRHrZ8 PmpRJvBYmwF629SCdrMrK 7RQQqimDlI3Eg ECApsBexPlS5n7M5Lh3DU cWeVPY1L3JzKjv4NM29R0 IsQlg4CWRthQidND0haRI fOBerWe9biUlg pCdjZA1dXRFdqpait187L gMzPXM3LFKueIYhQ6RtsY 4sYhMjWWNeSTWcY5PcxNG kYSyvO696ZTsn RuU3IPHpvzWpJ3HqMKKfv VflJrX2c9R5Gf4QeU0hLB JvbWFsYWNpYSBwYXRlbGx hZSwgcmlnaHQg e63xWPkxqSX+QDYtKTW9e QrdFKaoQYJqqF7kHHOfF4 h9RhBrFnY9HOdqN7InahK 6IDEwcHQgVGlt HRQ3L82ys1Z4WJHqJFFhV FX6tYJ5jM9tgTirayvspD VmdDsgdmVydGljYWwtYWx jL131LFThsYty PlJGVjwvdGQ+FY62ab35S 7VxWxzaVkd8IRYpQSI6xT H9wZ7kSNFcQSfug2S7yNV 4F6YjakJorr3k u7ujFPJtURykJ06lqBTen 9H8DOFruTU4CUGiqMmfBj LcbR55Jdw+SMOpaJbie1Z cByhsd8wad7jc iBw9FrT9TALwejBszCuaC JH9e4NxVx21F08gUUhtFR RoPSIxNSUiIHZhbGlnbj0 xlT6xAu7+PGNv nUF6lXS8yF7wPXyoYsV0B IzaH915GzPkrWGmXkqpu3 rup7yvdNp0TgEhDOFndjV naYzkASN7k2Op Gq78S7EwpGska0WgCxq9x v58fJCoh1N6dEZ8H7WjJH HtvjamwSHpbCeaXS4qWEG birguADFbdC8c KXXoJ0d7ThJqCfM9IRcuA 1BegjM6NVLboYOqMMgtRA J2X36kb7J1CFYcBBXnIVI 9mTM5gD2smBrg bjogbGVmdDsgdmVydGljY KwbGMnaH165AZLaiTfpEr 4xWs14MulrbJA+PHRkPjw vdGQ+PHRkIHN0 jFqmWUwkWHGndU0iAKTyR 2z9EoHlKgP3IWxzG3Clge C8GBZnkUNuLMppREN8F72 nf7S8QUTaDXEn CUM2yFM2hL9ngLpbegixw GVmdDsgdmVydGljYWwtYW brA623CJTtxObePqSev47 ozg8aGHymB2qf SXBexSComEBzWGOwSVW1N DcoFKO3S8KsFug7KAJeiP yoBB6hiPKfKJsaLt0ebAj khVxtRD8pHVJx wzmki051BzFnTSL8HEPje KAuS9DnwT2jJkGfDKBrKZ JlK4NpkYNlDCtxI557OKx xEmH9NXAbdvPh L9HlQVJkrBzfAuB1e6O2V e6SShD1D6PxFgetzPP+PC 16XHSmBW44gNMplNGrw0t qpCi3XfXzQGTz TEU1dIwbUWjft3PkUVGwT 55ekYIsl9G3SQJgsZomkG MuUnKabHG9vZ8jZZypbtz zd8hdyegoNfa4 he83kTRzy5A7mVQ6ZbUuR YLyuU2dSLcbVjP9YMCeQu FtfY35fHIiXGorQi7ncDo ztBkzXN4oQSUc mywth662SnFjz7ajDLXkc COmBIkjQVA4M83ym9S2IC NoSXWyMKY7HsCsr2nye1G dZTlhS5RpQKHq YYh9GBi7GOJfnEvoVlUrO OZ8RkC1ZKD1cTFhyV8faE glwxgtcM2uWgd+UHJpbmN kjYGaTF19QJ33 M7RnBqgqtYGnaNK+PHRhY mxlIHdpZHRoPScxMDAlJy GoiAnrDI1fAi8fXWJuVAV vbGxhcHNlOiBj l7vwEDChIQmuUK7mxPlbE 0RrgRN1FYVaj6e1Pa73X1 3hF2ZhqOY+YNOpfEG2bUF 6hZ3wRYNgHgG3 ZYczR161XtGicWQvCzxmz 6sxx7rrlBm4XbW6YGOsmz OgbRpwUPB7w1AsBy78V26 sIHdpZHRoPSI1 RfHkFTIzkBleny0llQ8wE i8+VZZubFP3dRB0aM0wEC XfDzR6KLmsY633IfVjdMJ uRwysY35rS3Df dXA+GRNsIqk8MPGxsEmzH H3tjXRnMRawLw7dRCQ1Hz XvToPnDQvyQ3MeROGkpzx sfzsujSD5ANLd KJCfbQ13Ll4dxJxeVAHeu UPZzY7vdprej4bruixvVf RjFWWvBXy5IWs3MEVbjNi kTvCiZTP3RcW8 PMV1aAYbaM0eeGaxoqmfa G9wOyc+SMEnKnOrAU22SE 97bEHpw4D5iXV5E5HuXCV pbmctcmlnaHQ6 NORiURJknB25Rz7wtZoxL UVwlQODxA4ymegez6kagw ubPtQgYJIzEVy9ONb2VMZ saWduOiBsZWZ0 PuL7ZFY4pNCfqB7bzGfmg bgvcN6lVjh+WH72WV74bT Fhu8Y8iVY3Q5MfLMEzznx pvgjefJT9VOXl IMOvtY92Au1tcOocNLEah QHDeM5sifbkv1odoiykYf GlZXKdNZb3EQj3XEUzmFm rIjQbBMR4CdU5 GHI9bAFhvR8lwRwtakpmh G9wOyc+R1mvloRov88icG MnpMFxuBC8LGhiFNEqCPV rX4z5QWscPOK4 D0AjAtz0QBZteZazUT3gg SMcLPraUd0gjKuguTozLD 5tFZKzvqpwz208EyCsXXA 3CVEllRBxA1Mj bW3oJgGvKKByREDvY9Ywq KUtUQmeW440RIdbDfP6WZ PrxcXrB8RuCCKnuPlhCuU 2e7V0Ad5UyQ6y bDwvdGQ+AB94vw60K8DxC xggXnz7WJTbXFQ1hGT9eS 3gMYNyAGvuv7V4mVR5K5X kyjNdof8ef6gy ACUdCYusS10xvNOgl9Z0X GUpyQB9ILMngNgaZlInuT 93Oyc+CTTjJog3JUEhvJh jOW7aKKBbZHPg mzvkwAPpmMrvZB9eZQBjv pjuKQHjlL8wEQOxE0p8Ib VwQlB6NAqlA3JuzuH3IKZ vbGQgMTBwdCBU iP4wneqjc0texdfjLoMfP LLkTRjbMJRjV6XefU0bPt VgCVIgCTXaP9EzoULiYYs gP170UUfaNdP6 PNEuxcNxE6XkTBPumVrsA lA8m7D6Ak0RQXPoxtUxlq x1D3ZwXudncBK+WG02GGC gGV87hBNojRTb n3eqfMb5LeYcMGDaBOZ9o TqvELogf8IvASXfT05ybY Mxv3V1JMDlzDlpiKOfFmM kvFC5gF5lTXsc qafxx3htetakKcfcc7lqd g31zA42W62vRKtjQKDkRN VdEZCxXNNuuMqcqb9qpN1 wIi8+PGNvbCB3 qFT9hF1yWNLyQlM3AAsfQ 210GiRncNZxHznaw0euk0 vulEt3IuH1VHCmidVodZs qZJO9h3MvFt98 A39gRWrgKIPiJKAuEnSkL LUrnHrjgw7osL8jTp6+PC 5wp3hrzi64hD67wJZ+PHR yXIU4kWdoXBxf XWTyhT4lGEteKlR2NGLfD lKfkM00bDLjACutJx2pzM pgrFddYD6qIQAgpmhrl72 4RsToYPS0HBWc kRVtV2OodW5wKsTnULBiI GSxL2OqqXHbXVlxS082XT glTeD4NELsznXpE6QhVUI qnFhhPuC7y8B8 Zm1IKxYwDHU3A3DbIaw7K RGozCllSV9cbDGjSNxdWe 4tgGkbyDjwBU0iAVKsxyw xv019GhDcRXY3 WMWdvGCjD2DeuL6jVkAaC KAkTYVxV9SgaGYyJWxlV3 79ZVnpFyA3QEHhomWfN3J sLWFsaWduOiB0 y8G7Wk04O0NnDao5VKUwj CcxQT6ujYPzAFedDv4gjT kubWchUE3nPCNscacmu51 5ObIuQVQ8LRCr vGHdN9ZzfH5xAfSlQBSeI KLeI9JegMRlPRoeK694HP koNbE8QWHfmvClB9VhTPK faIhsOxT5u2L7 Ua7ChL4fJJOuqMTfWZVrG SBwYXRlbGxhZSwgbGVmdC KyjeNjYX87XW72uXInh4A 0xNF6U5EcOHFq voptnxdknKI9JTEdVBPml K04Nj6nwCkaMIDnhLRLzO 8hvzqyv6bvxvorHfTrHIN kDCb2UNn7PRIt dKlsLuTiEBH6HrQ1XUW4x PDszF6ptSbaqujjlJ1cBt c+IcivGEo0B4KfBrctgKS +GW05BABeGT41 xVNbpOJwc4kymXv8ZeCmO EQrXEW8hYocWVizr8OoBD OdVb20eD1gWlCdlGYwc3s pZCBibGFjazsg Lg9yWNYhDNTblXebpRUpG eWdm1qvUPXiSGyuWH0ubT ruY1JzlPR9JSKcj6j2Zr0 5X55wU4FwaLP+ JMDomDC6xXR4xB1fBOOrG TFteaWvwWqgOLI9m5LyOc 84G6JtiHdph6JzGot8nh0 8dGQ+VAWjNw51 D1XjTpngrGZ+DXMpIyj9R BGdiPjlVR7hWz2hlLstMy 4bSZZlHXH9UNBgrZUoN5L pjI5jWsXdDFXw UKAeL6JojMWpVJlaR945A GNlbnRlcjsgdmVydGljYW gzNPxcC052AQSpaRqvQnN OL4QLUHVEBDsj dGQ+QN84qh63F8VrHzetA jxici8+CPWaGi71lWCpbT Kam3uijZd4MuYpYXBsBCM 9uCgjLVqbl0Oh DMGmD64yaITkr8T9ENQlb HissZGcJaAlvDN5uA9pGP tamkiov0gmdfbvWqdxs7t xqj58aN22X18s DHjuXDHtUDOuOTNcUsU9R UofH556YnGclDVxUxldD8 1xF3TwwPC+VEEyMbm5OPB olRnbAZ9ajWZa DMuvYn4iHPR9AoWhSnLzC LgxD1GlXDCgykjqwyuhwI O1SIAaJKXmyN21Lh5dtWg yVJComITIxG0q dcmpr3avniugCsTkRSErU Hh9FRa4EIZmrKaxZhPlDF H9MzP4JBY8nLJqgC5vmMf dczlkkK4iAnm+ Du1EWCtjZYesTMNrICRjv nVmDfAbICQry8vmhjTcPA 2ecQEaSWAseGrrKVNcB3Z xVT79QHMvXDvq T04mk5xiWMOpAY6qrpVab i7oUVS7lxHvmQ7waDstFD BhdGllbnQncyBjaGFydC4 dQE41TZOzrbis kSlwIF6kpdSkvYv8KIXpd NLbi4IqbNWugdYvARWien 8fYNRiNHOjq2Byatjwn93 mdHdhcmUgbWF5 IGFwcGVhciBhYmJyZXZpY RAyCVubi9DevkTauEb0RV kxFPRzjYjlrRa7LRRqFdN mvaLwaNK7NTXd cT9vzP1unK72T7PuBhzrt HI+TL24IBCpBG14IjBnEf xici8+NX15tc41Z5LoKsu wOop3UNAwPRU7 kNM3xJ0dOFIkWGlql2F3l JY6W8SrlrRqmv1tq3osGG ApMYkaU79cgTIfl6W6ACC ytKC5GBUnjMlp GzEjdC53Dos+PGNvbGdyb 1GsNwwxd7zpq5nmvFf0Pd QoXHOkhtHslUpcYUW8l6H oBl65C63rFAqj VISwKKZ9FSOmTNMsfHdkj l4afN0pQn8+LI5vw5dddj 07wF21iSN+PHRkPjwvdGQ +DCTdUKN5eAuv HTfsnSLpBVloWt7abLoql HrcDU0kKIFtuzrjj530Bs RpBUI7NKUoqWZyC0VjpO5 yOiAjMDAwMDAw U2VsgFIiONicQ216ICesO xG8KWQnbkHiX4WrKUBiqD zxByF5b3Q8Fy2Bu5ZrHYZ CeTogIEJvbHlh zuArFVnfik7rYnCrCV19F M11V0EoAlswwPIpcXG+PH RhYmxlIHdpZHRoPScxMDA kLkNhmVtlOO9p Sb5tBTHrVXQrxBdvvFReY aCim4kaGWBpRAssZF4xrW sdV9BzaNK7UCEzr9x3Co7 9K89uT3MdoIS+ WJGdgKC7bCL4qI9cJkWdM dZ1XFziT810TqUjhAStOe zqj4gqs7mrbGv7VsFiURH gdmFsaWduPSJ0 f1JnOy25D9RmeSmtx8XdQ qz9ms72kUO+FM50QK19hR Enp7F1fKL3HiDzAAPboQ3 vCBLaI6w0UfEy TzK8CWgtT4BqonB4COUsd QGpIPejERD4P81fy1K6CJ ExODToZHK9iVB2pB7vtYb nbjogbGVmdDsg uhAzcSfqVZlpNZllU180I HMixIchGeAvuDHtZ0O2OH K4PJNjDp9aXl6fDSCrNRS hTbJgXNTvPN55 QX84X3VfLlyfkBOvqLA+P QOuTb16MqXxFaxebDDzvR 4= [facility] Provider Orderson 10-24-2020 Provider Orders [id number] [facility] Vital Signs Date Time Vital Sign Value Performing Clinician Facility 07-18-2024 11:27-0500 Body mass index (BMI) [Ratio] 25.86 kg/m2 Janina Radhika [employer] Work Phone: [facility] 07-18-2024 11:27-0500 Body weight 79.43 kg Janina Radhika DO Work Phone: [facility] 07-18-2024 11:27-0500 Diastolic blood pressure 64 mm[Hg] Janina Radhika DO Work Phone: [facility] 07-18-2024 11:27-0500 Systolic blood pressure 116 mm[Hg] Janina Radhika DO Work Phone: [facility] 08-03-2021 12:15-0500 Body height 175.26 cm Albino Brown Other [employer] Other 08-03-2021 12:15-0500 Body mass index (BMI) [Ratio] 25.1 kg/m2 Albino Brown Other [employer] Other 08-03-2021 12:15-0500 Body temperature 97.7 [degF] Albino Brown Other [employer] Other 08-03-2021 12:15-0500 Body weight 77.11 kg Albino Brown Other [employer] Other 08-03-2021 12:15-0500 Respiratory rate 18 /min Albino Brown Other [employer] Other 08-03-2021 12:15-0500 SaO2% (BldA) [Mass fraction] 98 % Albino Brown Other [employer] Other Encounters Encounter Date Encounter Type Care Provider Facility Start: 08-16-2024 End: 08-17-2024 ambulatory Damienarabella Weiss [employer] Work Phone: [facility] Comment on above: Chronic pain of righ t knee (Primary Dx); Internal derangement of right knee Start: 08-16-2024 End: 08-16-2024 Bamboo flowsheet Damien Weiss [employer] Work Phone: [facility] Start: 08-16-2024 End: 08-16-2024 Bamboo flowsheet Damien Weiss [employer] Work Phone: [facility] Start: 08-09-2024 End: 08-09-2024 ambulatory Damien Weiss [employer] Work Phone: [facility] Comment on above: Chronic pain of righ t knee (Primary Dx); Internal derangement of right knee Start: 08-04-2024 End: 08-04-2024 Bamboo flowsheet Soha Garcia PT Work Phone: [facility] Start: 08-04-2024 End: 08-04-2024 Bamboo flowsheet Soha Garcia PT Work Phone: [facility] Start: 07-26-2024 End: 07-26-2024 ambulatory Damien Weiss [employer] Work Phone: [facility] Comment on above: Chronic pain of righ t knee (Primary Dx); Internal derangement of right knee Start: 07-22-2024 End: 07-22-2024 Bamboo flowsheet Lucio J Nori PT Work Phone: [facility] Start: 07-22-2024 End: 07-22-2024 Bamboo flowsheet Lucio J Nori PT Work Phone: [facility] Start: 07-22-2024 End: 07-22-2024 ambulatory Lucio J Nori PT Work Phone: [facility] Comment on above: Chronic pain of righ t knee (Primary Dx); Internal derangement of right knee Start: 07-18-2024 End: 07-18-2024 Bamboo flowsheet Janina Radhika DO Work Phone: [facility] Start: 07-18-2024 End: 07-26-2024 Bamboo flowsheet Janina Radhika DO Work Phone: [facility] Start: 07-18-2024 End: 07-26-2024 Clinisync Result Encounter Janina Muhammado DO Work Phone: [facility] Unsolicited Start: 07-18-2024 End: 07-18-2024 Patient encounter procedure Janina Muhammado DO Work Phone: [facility] Work Phone: Start: 07-18-2024 End: 07-18-2024 Periodic preventive med est patient 40-64yrs Janina Muhammado DO Work Phone: [facility] Comment on above: Well woman exam with routine gynecological exam; Breast cancer screening by mammogram Start: 07-18-2024 End: 07-18-2024 ambulatory JANINA GARRIDO Not Available Start: 06-13-2022 End: 06-13-[address] MENA BRIDGES Facility: Start: 08-03-2021 End: 08-03-2021 ambulatory Albino Brown Other [place] [employer] Other Start: 08-03-2021 Office outpatient ne w 30 minutes Albino Brown [facility] Procedures Date Procedure Procedure Detail Performing Clinician Start: 07-18-2024 IGP,APTIMA HPV,AGE GDLN Janina Muhammado DO Work Phone: Start: 03-14-2022 Mammography Lucio Cope gs PT Work Phone: Plan of Treatment Date Care Activity Detail Author Start: 07-31-2025 End: 07-31-2025 Patient encounter procedure 07/31/2025 11:00 AM EST Office Visit [facility] [address] [place] [address] Janina Garrido, DO [address] [place] [address] [facility] Start: 08-18-2024 End: 08-18-2024 ambulatory 08/18/2024 5:00 PM EST Treatment [facility] [address] [place] [address] Lucio Bowden, PT [address] [place] [address] [facility] Start: 08-11-2024 End: 08-11-2024 ambulatory [facility] Start: 08-09-2024 End: 08-09-2024 ambulatory 08/09/2024 11:00 AM EST Treatment [facility] [address] [place] [id number] Damien Weiss, [employer] [address] [place] [address] [facility] Start: 08-04-2024 End: 08-04-2024 ambulatory [facility] Comment on above: Chronic pain of righ t knee (Primary Dx); Internal derangement of right knee Start: 08-02-2024 End: 08-02-2024 ambulatory 08/02/2024 11:30 AM EST Treatment [facility] [address] [place] [id number] Meaghan Coyle PTA [facility] Start: 07-26-2024 End: 07-26-2024 ambulatory 07/26/2024 11:30 AM EST Treatment [facility] [address] [place] [id number] Damien Weiss, [employer] [address] [place] [address] [facility] Start: 07-18-2024 End: 09-17-2025 MG Breast - bilateral Screening Bilateral screening mammogram Imaging Routine Breast cancer screening by mammogram Expected: 07/18/2024 (Approximate), Expires: 09/17/2025 [facility] Work Phone: Comment on above: Expected: 07/18/2024 (Approximate), Expires: 09/17/2025 Start: 05-01-2024 Influenza vaccination Influenza Vacc ine (#1) [facility] Start: 03-14-2023 Screening for malignant neoplasm of breast Mammogram [facility] THIN PREP TIS PAP AN D HR HPV DNA THIN PREP TIS PAP AND HR HPV DNA Pathology and Cytology Routine Well woman exam with routine gynecological exam Ordered: 07/18/2024 [facility] Comment on above: Ordered: 07/18/2024 Payers Date Payer Category Payer Medicaid [facility] [id number] 2022 Medicaid [id number] 1980 Unknown [id number] 1980 Unknown [id number] 1980 Unknown [id number] 1980 Unknown [id number] 1980 Unknown [id number] 1980 Unknown [id number] 1959 Unknown [id number] Social History Date Type Detail Facility Start: 03-10-2023 End: 09-18-2023 Sex Assigned At [facility] [employer] Other Start: 03-10-2023 [facility] History of tobacco use Cigarette Smoker [facility] Start: 03-10-2023 Tobacco use and exposure User of smokeless tobacco [facility] Start: 07-18-2024 Alcoholic beverage intake Current drinker of alcohol (finding) [facility] Start: 03-10-2023 End: 07-18-2024 Alcoholic beverage intake [facility] How often to you hav e a drink containing alcohol? 2-4 times a month [facility] How many standard drinks containing alcohol do you have on a typical day? 1 or 2 [facility] How often do you hav e 6 or more drinks on 1 occasion? Less than monthly [facility] Start: 03-12-2023 Education 13 [facility] Start: 03-12-2023 Alcohol Comment caffeine intak e : 1-2 cups per day, soda, coffee [facility] Start: 1980 Sex assigned at Not on file N [facility] Clinical Notes 08-03-2021 to 07-26-2024 Damien Weiss, [employer] - 07/26/2024 11:30 AM Leonard Bowden, PT - 07/22/2024 1:00 PM Bella Garrido, DO - 07/18/2024 11:00 AM EST Note Date & Type Note Facility 07-26-2024 History of Presen t illness Narrative Physical Therapy Physical Therapy Evaluation Visit Patient Name: Mary Jane Euceda Today's Date: 07/26/2024 Encounter Diagnoses Name Primary? Chronic pain of right knee Yes Internal derangement of right knee Visit number: 2 Supervised time: 27min Total time: 35min Time in: 11:34am Time out: 12:09pm Subjective Mary Jane Euceda 43 y.o. female presents to physical therapy w/ chief c/o R knee pain. Mechanism of Onset: chronic hx issues before and after scope then had fall ~1 month ago exacerbating s/s worse. Also has issues with L knee. Current deficits: pain, weakness, instability, popping/catching, impaired gait and functional mobility Pain: mod to severe at times Location: R knee mostly medial jt line area Aggravating Factors: prolonged standing/walking, ADLs/self care, work Relieving factors: rest, ice, brace min Imaging: known meniscus tear per Dr note/MRI Occupation: [employer], lifting standing walking Precautions: known meniscus tear, hx of previous scope Objective Gait: mod antalgic like on R knee wearing brace, no AD R knee ROM: 0-110 ERP with both R knee strength: ext= 4/5, flex=4+/5 MMT pain with ext Min decreased HS and calf flexibility LEFS= 63% impaired at IE Treatment Interventions Manual Therapy: STM/massage, PROM PRN Therapeutic Exercise: per TRINA grid, ROM, flexibility, strength as tolerated x 27 min sup fair tolerance Therapeutic Activity: Exercises to improve dynamic activities, functional tasks, functional mobility to return to prior activity level Gait Training: prn for improved quality Modalities: US (50%) 3.0 MHZ 1.1 w/cm2 x 8 min Assessment/Plan R knee pain, decreased ROM, strength causing impaired gait and increased difficulty with ADLs/self care, decreased QOL Pt demos good tolerance to added and increased reps of TRINA promoting R knee strength and mobility. No increased pain reported R knee. Some increased pain L knee throughout session. Continued US and pt declined ice post session. Continue progression as tolerated. Cosigned by Lucio Bowden, PT at 07/26/2024 2:11 PM EST documented in this encounter [facility] 07-22-2024 History of Presen t illness Narrative Images from the original note were not included. Physical Therapy Physical Therapy Evaluation Visit Patient Name: Mary Jane Euceda Today's Date: 07/22/2024 Encounter Diagnoses Name Primary? Chronic pain of right knee Yes Internal derangement of right knee Visit number: 1 Subjective Mary Jane Euceda 43 y.o. female presents to physical therapy w/ chief c/o R knee pain. Mechanism of Onset: chronic hx issues before and after scope then had fall ~1 month ago exacerbating s/s worse. Also has issues with L knee. Current deficits: pain, weakness, instability, popping/catching, impaired gait and functional mobility Pain: mod to severe at times Location: R knee mostly medial jt line area Aggravating Factors: prolonged standing/walking, ADLs/self care, work Relieving factors: rest, ice, brace min Imaging: known meniscus tear per Dr note/MRI Occupation: [employer], lifting standing walking Precautions: known meniscus tear, hx of previous scope Objective Gait: mod antalgic like on R knee wearing brace, no AD R knee ROM: 0-110 ERP with both R knee strength: ext= 4/5, flex=4+/5 MMT pain with ext Min decreased HS and calf flexibility LEFS= 63% impaired at IE Treatment Interventions Education: HEP education with demonstration with handout and review, Educated on Eval Findings and POC x 10 min self care Manual Therapy: STM/massage, PROM PRN Therapeutic Exercise: per TRINA grid, ROM, flexibility, strength as tolerated x 15 min sup fair tolerance Therapeutic Activity: Exercises to improve dynamic activities, functional tasks, functional mobility to return to prior activity level Gait Training: prn for improved quality Modalities: US (50%) 3.0 MHZ 1.1 w/cm2 x 8 min, CP x 10 min end of session Assessment/Plan R knee pain, decreased ROM, strength causing impaired gait and increased difficulty with ADLs/self care, decreased QOL Patient Goals Short Term Goal #1: pt will demo R knee AROM 0 to at least 120 pain free Short Term Goal #2: pt will demo R knee strenght 5/5 MMT pain free Short Term Goal #3: pt will demo normalized quality of gait on R knee including up and down steps Short Term Goal #4: pt will self report impairment less than or equal to 25% per LEFS at DC Short Term Goal #5: pt will be ind with HEP for maintenance and able to avoid further intervention at this time Pt will benefit from skilled PT to address the above impairments for 1-3x/week for 6 weeks pending pt needs/progress. I hereby deem this POC medically necessary. Please sign below. Date: documented in this encounter [facility] 07-18-2024 History of Presen t illness Narrative Reason for Appointment: Patient ID: Mary Jane Euceda is a 43 y.o. female who presents for Well Women Visit Patient presents today for Annual Exam. 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 Bipolar 1 disorder (CMS/HCC) 03/10/2023 Chronic allergic rhinitis 03/10/2023 Resolved Ambulatory Problems Diagnosis Date Noted No Resolved Ambulatory Problems Past Medical History: Diagnosis Date Acute meniscal tear of left knee Arthritis Cataracts, bilateral Cervical cancer (CMS/HCC) chronic migraines Depression (CMS/HCC) GERD (gastroesophageal reflux disease) HISTORY PAST MEDICAL HISTORY SOCIAL HISTORY Past Medical History: Diagnosis Date Acute meniscal tear of left knee chondromalcia Anxiety Arthritis Bipolar 1 disorder (CMS/HCC) Cataracts, bilateral Cervical cancer (CMS/HCC) chronic migraines Depression (CMS/HCC) Fibromyalgia GERD (gastroesophageal reflux disease) Social History Tobacco Use Smoking status: Every Day Current packs/day: 0.25 Types: Cigarettes Smokeless tobacco: Current Vaping Use Vaping status: Every Day Substance Use Topics Alcohol use: Yes Alcohol/week: 6.0 standard drinks of alcohol Types: 6 Standard drinks or equivalent per week Comment: caffeine intake : 1-2 cups per day, soda, coffee Drug use: Never FAMILY HISTORY Family History Problem Relation Name Age of Onset Breast cancer Mother No Known Problems Son SURGICAL HISTORY Past Surgical History: Procedure Laterality Date BI US GUIDED BREAST LOCALIZATION AND BIOPSY LEFT Left 11/23/2015 BI US GUIDED BREAST LOCALIZATION AND BIOPSY LEFT 11/23/2015 CATARACT EXTRACTION, BILATERAL 05/2020, 07/2020 HYSTERECTOMY 04/19/2021 KNEE ARTHROSCOPY W/ ACL RECONSTRUCTION Right 1999 KNEE ARTHROSCOPY W/ ACL RECONSTRUCTION Left 07/2018 PELVIC LAPAROSCOPY TONSILLECTOMY REVIEW OF SYSTEMS Review of Systems: Review of Systems All other systems reviewed and are negative. OBJECTIVE Objective: Physical Exam Constitutional: Appearance: Normal appearance. She is well-developed. Genitourinary: Vulva normal. Vaginal cuff intact. Cervix is absent. Uterus is absent. Breasts: Breasts are soft. Right: Normal. Left: Normal. Cardiovascular: Rate and Rhythm: Normal rate and regular rhythm. Abdominal: General: Bowel sounds are normal. There is no distension. Palpations: Abdomen is soft. Tenderness: There is no abdominal tenderness. There is no guarding or rebound. Musculoskeletal: General: No swelling. Normal range of motion. Right lower leg: No edema. Left lower leg: No edema. Neurological: Mental Status: She is alert and oriented to person, place, and time. Skin: General: Skin is warm and dry. Psychiatric: Mood and Affect: Mood normal. Behavior: Behavior normal. Vitals and nursing note reviewed. Exam conducted with a electrical software engineer present. Vitals: Estimated body mass index is 25.86 kg/m as calculated from the following: Height as of 23: 5' 9 . Weight as of this encounter: 175 lb 1.9 oz. BP: 116/64 No LMP recorded. Patient has had a hysterectomy. ASSESSMENT & PLAN ICD-10-CM 1. Well woman exam with routine gynecological exam Z01.419 THIN PREP TIS PAP AND HR HPV DNA 2. Breast cancer screening by mammogram Z12.31 Bilateral screening mammogram Bilateral screening mammogram Annual: Patient presents today for an annual exam. Patient states she is doing well and has no complaints. Pap was obtained without difficulty and patient given mammogram order to have scheduled/obtained. Orders Placed This Encounter Procedures Bilateral screening mammogram Follow Up: Patient is to return in one year for annual unless needed otherwise. Documented by Luna Mathew LPN on behalf of: Janina Garrido DO documented in this encounter [facility] 08-03-2021 Evaluation note Encounter Date Diagnosis Assessment [...] Patient care instructions given in writting by [facility] At Home document. ClaimReturn Other Evaluation note* Diagnosis Chronic pain of right knee- Primary Internal derangement of right knee documented in this encounter [facility] Healthcare[facility] note* Diagnosis Well woman exam with routine gynecological exam Routine gynecological examination Breast cancer screening by mammogram documented in this encounter [facility]* Diagnosis Chronic pain of right knee- Primary Internal derangement of right knee documented in this encounter [facility]* Diagnosis Chronic pain of right knee- Primary Internal derangement of right knee documented in this encounter [facility] HealthcareHistory general Narrative - Reported* Type Description Date Medical History fibromyalgia ClaimReturn Other Reason for visit Narrative* Rehabilitation - Outpatient (Routine) - Authorized Specialty Diagnoses / Procedures Referred By Laura t Referred To Contact Physical Therapy Diagnoses Other tear of medial meniscus, current injury, right knee, initial encounter Procedures [facility] HIGH COMPLEX 45 MINS A, Unknown Practice [address] [place] [address] Phone: tel: Lucio Bowden, PT [address] [place] [address] Phone: tel: fax: Referral ID Status Reason Start Date Expiration Date V isits Requested Visits Authorized [id number] Authorized 07/13/2024 01/09/2025 30 30 [facility] N[facility]* Rehabilitation - Outpatient (Routine) - Authorized Specialty Diagnoses / Procedures Referred By Contac t Referred To Contact Physical Therapy Diagnoses Other tear of medial meniscus, current injury, right knee, initial encounter Procedures [facility] [facility]UATION HIGH COMPLEX 45 MINS A, Unknown Practice [address] [place], [place] Phone: tel: Lucio Bowden, PT [address] [place] [address] Phone: tel: fax: Referral ID Status Reason Start Date Expiration Date V isits Requested Visits Authorized [id number] Authorized 07/13/2024 08/30/2024 30 30 [facility] Summary Purpose Family History No Family History [...] DATE CREATED AUTHOR AUTHOR'S ORGANIZ ATION 04/02/2022 [facility] DATE CREATED AUTHOR AUTHOR'S ORGANIZ ATION 06/27/2022 [facility] DATE CREATED AUTHOR AUTHOR'S ORGANIZ ATION 08/20/2024 [facility] dical Specialists EPIC REASON FOR VISIT (unrecogniz ed section and content) Reason Comments Well Women Visit Care Teams (unrecognized sec tion and content) Research Assistant Professor Relationship Specialty Start Date End Date Marce Hyatt MD [address] [place] [address] PCP - General Family Medicine 03/09/23 Research Assistant Professor Relationship Specialty Start Date End Date Marce Hyatt MD [address] [place] [address] PCP - General Family Medicine 03/09/23 Research Assistant Professor Relationship Specialty Start Date End Date Marce Hyatt MD [address] [place] [address] PCP - General Family Medicine 03/09/23 Research Assistant Professor Relationship Specialty Start Date End Date Marce Hyatt MD [address] [place] [address] PCP - General Family Medicine 03/09/23 Research Assistant Professor Relationship Specialty Start Date End Date Marce Hyatt MD [address] [place] [address] PCP - General Family Medicine 03/09/23 Research Assistant Professor Relationship Specialty Start Date End Date Marce Hyatt MD [address] [facility] [place] [address] PCP - General Family Medicine 03/09/23 Research Assistant Professor Relationship Specialty Start Date End Date Marce Hyatt MD [address] [facility] [place] [address] PCP - General Family Medicine 03/09/23 Research Assistant Professor Relationship Specialty Start Date End Date Marce Hyatt MD [address] [place] [address] PCP - General Family Medicine 03/09/23 Research Assistant Professor Relationship Specialty Start Date End Date Marce Hyatt MD [address] [facility] [place] [address] PCP - General Family Medicine 03/09/23 FOR RECORDS PERTAINING TO PATIENTS WHO ARE [...] BE BASED ON THE PRIMARY CLINICAL RECORDS. [facility], [facility]. provides no warranty or guarantee of the accuracy or completeness of information in this document.
--- NOTE | 2024-10-05 08:09 | ECG_ITS ---
The [facility] Test Date: 2024-10-05 Pat Name: MARY JANE EUCEDA Department: Room: - Gender: Female Private Pilot: : 1980 Requested By: [id number] Order Number: [id number] Reading MD: CATA BENDER Measurements Intervals [place] Rate: 69 P: 54 VA: 171 QRS: 60 QRSD: 85 T: 59 QT: 372 QTc: 399 Interpretive Statements SINUS RHYTHM No previous ECG available for comparison Electronically Signed On 10-05-2024 21:10:00 EST by CATA BENDER
--- NOTE | 2024-10-05 08:09 | XR_ITS ---
The [address] [address] Patient Name: MARY JANE EUCEDA MRN: [id number] date: 1980 Sex: F Assigned Patient Location: [facility] Current Patient Location: [facility] Accession/Order Number: [id number] Exam Date: 10/05/2024 08:54 Report Date: 10/07/2024 09:38 At the request of: PERI CLARKE Procedure: XR chest 2V PROCEDURE: XR chest 2V DATE: 10/05/2024 8:54 AM EST COMPARISONS: None. CLINICAL INDICATION: 43 years Female Preop exam FINDINGS: The cardiomediastinal silhouette and pulmonary vasculature are within normal limits. The lungs are clear. There is no evidence of pleural effusion or pneumothorax. XR/XR chest 2V IMPRESSION: Chest radiograph is within normal limits. Electronically authenticated by: JOEY SHERIDAN Date: 10/07/2024 09:38
--- NOTE | 2024-10-05 08:53 | PM.PRESUREVA ---
History of Present Illness History of Present Illness Chief complaint: TEAR OF MEDICAL MENISCUS RIGHT KNEE Narrative: Patient presents for presurgical testing. The patient has a long history of bilateral knee pain. She states sometime this past fall she had an injury to her right knee and has had increase in pain and instability ever since. She has had injections and physical therapy as well as bracing and activity modification with no relief of her symptoms. She states she did take meloxicam intermittently but did not find relief. The patient states she has a history of migraines with 2 episodes of seizure-like activity, facial paresthesia, and near syncope in 2014. She has a history of fibromyalgia, anxiety, and asthma. She uses e-cigarettes and smokes marijuana daily. She denies numbness, tingling, weakness, or any other complaints. Review of Systems ROS Narrative REVIEW OF SYSTEMS: Negative except as stated in HPI, ten or more systems reviewed. Constitutional: No fever, chills, weakness ENT: No sore throat or epistaxis Cardiovascular: No edema, chest pain, palpitations, or activity intolerance Respiratory: No shortness of breath, cough, or wheezing Gastrointestinal: No abdominal pain, constipation, diarrhea, or vomiting Genitourinary: No dysuria or hematuria Neurological: No numbness, tingling, or weakness Psychiatric: No mood changes [facility] Medical History (Updated 10/05/24 @ 08:51 by Ira Veliz NP) Facial paresthesia (~2014) ?R20.2 - Paresthesia of skin (ICD-10) Left knee pain ?M25.562 - Pain in left knee (ICD-10) Cannabis abuse, daily use ?F12.10 - Cannabis abuse, uncomplicated (ICD-10) Electronic cigarette use ?Z78.9 - Other specified health status (ICD-10) Near syncope (~2014) ?R55 - Syncope and collapse (ICD-10) Seizure-like activity (~2014) ?R56.9 - Unspecified convulsions (ICD-10) Neck pain ?M54.2 - Cervicalgia (ICD-10) Fibromyalgia ?M79.7 - Fibromyalgia (ICD-10) Arthritis ?M19.90 - Unspecified osteoarthritis, unspecified site (ICD-10) Depression ?F32.A - Depression, unspecified (ICD-10) Panic attacks ?F41.0 - Panic disorder [episodic paroxysmal anxiety] (ICD-10) Anxiety ?F41.9 - Anxiety disorder, unspecified (ICD-10) Asthma ?J45.909 - Unspecified asthma, uncomplicated (ICD-10) Restless leg ?G25.81 - Restless legs syndrome (ICD-10) Migraine ?G43.909 - Migraine, unspecified, not intractable, without status migrainosus (ICD-10) Kidney stones ?N20.0 - Calculus of kidney (ICD-10) IBS (irritable bowel syndrome) ?K58.9 - Irritable bowel syndrome, unspecified (ICD-10) GERD (gastroesophageal reflux disease) ?K21.9 - Gastro-esophageal reflux disease without esophagitis (ICD-10) Palpitations ?R00.2 - Palpitations (ICD-10) Cervical cancer ?C53.9 - Malignant neoplasm of cervix uteri, unspecified (ICD-10) Cataract ?H26.9 - Unspecified cataract (ICD-10) Back pain ?M54.9 - Dorsalgia, unspecified (ICD-10) Abnormal uterine bleeding ?N93.9 - Abnormal uterine and vaginal bleeding, unspecified (ICD-10) Anemia ?D64.9 - Anemia, unspecified (ICD-10) Right knee pain ?M25.561 - Pain in right knee (ICD-10) Tear of medial meniscus of right knee ?S83.241A - Other tear of medial meniscus, current injury, right knee, initial encounter (ICD-10) Surgical History (Updated 10/05/24 @ 08:32 by Ira Veliz NP) History of breast biopsy ?Z98.890 - Other specified postprocedural states (ICD-10) S/P cataract extraction and insertion of intraocular lens ?Z98.49 - Cataract extraction status, unspecified eye (ICD-10) ?Z96.1 - Presence of intraocular lens (ICD-10) History of laparoscopy ?Z98.890 - Other specified postprocedural states (ICD-10) History of arthroscopy of knee ?Z98.890 - Other specified postprocedural states (ICD-10) History of tonsillectomy ?Z90.89 - Acquired absence of other organs (ICD-10) History of section ?Z98.891 - History of uterine scar from previous surgery (ICD-10) History of tubal ligation ?Z98.51 - Tubal ligation status (ICD-10) History of dilation and curettage ?Z98.890 - Other specified postprocedural states (ICD-10) History of dilation and curettage ?Z98.890 - Other specified postprocedural states (ICD-10) History of hysterectomy ?Z90.710 - Acquired absence of both cervix and uterus (ICD-10) Family History (Updated 10/05/24 @ 08:28 by Ira Veliz NP) Other Carotid artery aneurysm Family history of cancer Family history of hypertension Social History (Updated 10/05/24 @ 08:25 by Ira Veliz NP) Within the past year, how often did you have a drink containing alcohol: 2-4 times a month Smoking status: Former smoker Do you use any of these nicotine containing products: vaping products Non-prescribed substance use: cannabis (any form) Previous occupational history: Temporary Administrative Assistant Highest level of school completed/degree received: Associate degree: occupational, technical, vocational program Meds Home Medications and Allergies Home Medications ?Medication ?Instructions ?Recorded ?Confirmed ?Type albuterol sulfate 90 mcg/actuation 2 inh inhalation Q6H PRN shortness 10/05/24 10/05/24 History aerosol inhaler (Ventolin HFA) of breath or wheezing Allergies Allergy/AdvReac Type Severity Reaction Status Date / Time metronidazole (From Flagyl) Allergy Hives Verified 10/05/24 08:22 Exam Narrative Exam Narrative: Constitutional: Awake, alert, comfortable, well-appearing, nontoxic, interactive, vital signs as charted Head: Normocephalic, atraumatic Eyes: Conjunctiva and lids normal to inspection, pupils normal Respiratory: No respiratory distress, breath sounds clear Cardiovascular: Regular rate and rhythm, strong and regular heart tones Musculoskeletal: Normal gait, no swelling or edema, medial right knee tenderness with light palpation, limited range of motion due to pain Skin: No rashes or induration, no lesions, only visible skin inspected Neuro: No neurological deficits, normal sensation Psychiatric: Oriented ?3, normal affect Assessment and Plan Assessment and Plan (1) Tear of medial meniscus of right knee: (2) Right knee pain: Plan Right knee arthroscopy with partial medial meniscectomy scheduled with Dr. Yan October 10, 2024.
[2024-10-05 08:56] LABS: Basophils Percent Auto 0.4 % (0.2-2.0); Eosinophils Absolute Auto 0.1 10^3/uL (0.0-0.7); Eosinophils Percent Auto 1.7 % (0.9-7.0); Hematocrit 44.2 % (36.0-48.0); Hemoglobin 14.7 g/dL (12.0-16.0); Immature Granulocytes Abs Auto 0.01 10^3/uL (0.00-0.03); Immature Granulocytes Pct Auto 0.1 % (0.0-0.5); Lymphocytes Absolute Auto 2.2 10^3/uL (1.2-3.8); Lymphocytes Percent Auto 30.2 % (20.5-60.0); Mean Corpuscular HGB Conc 33.3 g/dL (29.9-35.2); Mean Corpuscular Hemoglobin 30.8 pg (26.7-34.0); Mean Corpuscular Volume 92.5 fL (81.0-99.0); Mean Platelet Volume 12.8 fL (9.5-13.5); Monocytes Absolute Auto 0.5 10^3/uL (0.3-0.8); Monocytes Percent Auto 6.8 % (1.7-12.0); Neutrophils Absolute Auto 4.4 10^3/uL (1.4-6.5); Neutrophils Percent Auto 60.8 % (43.0-75.0); Platelet Count 195 10^3/uL (150-450); Red Blood Count 4.78 10^6/uL (4.20-5.40); Red Cell Distribution Width 11.9 % (11.0-15.0); White Blood Count 7.2 10^3/uL (4.0-11.0)
[2024-10-05 09:12] LABS: Anion Gap 11.1; BUN Creatinine Ratio 16.2; Calcium 8.8 mg/dL (8.5-10.1); Carbon Dioxide 32.1 mmol/L (21.0-32.0); Chloride 101 mmol/L (98-107); Estimated GFR (African America >60 (>=60 mL/min/1.73m^2); Estimated GFR (Non-African Ame >60 (>=60 mL/min/1.73m^2); Glucose 89 mg/dL (74-106); Potassium 4.2 mmol/L (3.5-5.1); Sodium 140 mmol/L (136-145)
== END 2024-10-05 07:56 | disposition home or self-care (01) ==
LOC: PST 07:57
PROVIDERS: PCP Family Medicine; Visit Provider Student in an Organized Health Care Education/Training Program
DX: Z01.810 Encounter for preprocedural cardiovascular examination (principal); Z01.812 Encounter for preprocedural laboratory examination; Z01.818 Encounter for other preprocedural examination; S83.241A Other tear of medial meniscus, current injury, right knee, initial encounter
CPT/HCPCS: 71046; 80048; 85025; 87081; 93005; G0463

== ENCOUNTER 2025-08-01 16:32 | Outpatient (REF) | payer MEDICAID, SELFPAY ==
--- OUTSIDE RECORDS SUMMARY | 2025-08-01 09:20 | XMS_ITS | Encounter Summary ---
Author Organization [facility] Address [address] [place] [address] Care Team Providers Care Regional Owner Operator Truck Driver Name Role Phone Marce Hyatt MD Primary Care Provider [phone] Reason for Visit * ReasonCommentsWell Women Visit Encounter Details DateTypeDepartmentCare Team (Latest Contact Info)Zsllugjcddd48/02/2025 9:20 AM ESTOffice Visit [facility] [address] [place] [place] [address] Tang Garrido DO [address] [place] [address] Well woman exam with routine gynecological exam; Breast cancer screening by mammogram Social History Tobacco UseTypesPacks/DayYears UsedDateSmoking Tobacco: Passive Smoke Exposure - Never SmokerCigarettes0.330Smokeless Tobacco: CurrentAlcohol UseStandard Drinks/WeekCommentsNot Currently6 (1 standard drink = 0.6 oz pure alcohol) caffeine intake : 1 energy drink dailyAUDIT-CAnswerDate RecordedQ1: How often do you have a drink containing alcohol?2-4 times a month03/10/2023Q2: How many drinks containing alcohol do you have on a typical day when you are drinking?1 or Q3: How often do you have six or more drinks on one occasion?Less than oimmwvl0003/10/2023HQ-2AnswerDate RecordedPatient Health Questionnaire-2 Xszgm126EducationAnswerDate RecordedWhat is the highest level of school you have completed or the highest degree you have received?High school graduate 3CommentsNoSex and Gender InformationValueDate RecordedSex Assigned at BirthNot on fileLegal PunVtvgse87/15/2023 7:06 PM EDTGender Identity Not on fileSexual OrientationNot on filedocumented as of this encounter Last Filed Vital Signs Vital SignReadingTime TakenCommentsBlood Mkedtidg146/6408/01/2025 9:39 AM EST Pulse--Temperature--Respiratory Rate--Oxygen Saturation--Inhaled Oxygen Concentration--Naldqk82.1 kg (192 lb)08/01/2025 9:39 AM ESTHeight--Body Mass Index28.35002/02/2025 8:09 AM EDTdocumented in this encounter Plan of Treatment DateTypeDepartmentCare Team (Latest Contact Info)Hpfaqqpkoul87/23/2026 8:00 AM ESTOffice Visit [facility] [address] [place] [phone] Luiza Rosa NP [address] [place] [address] 08/07/2026 10:00 AM ESTProcedure Visit [facility] [address] [place] [address] Tang Garrido DO [address] [facility] [address] [place] [address] NameTypePriorityAssociated DiagnosesOrder ScheduleBilateral screening mammogram ImagingRoutine Breast cancer screening by mammogram Expected: 08/01/2025 (Approximate), Expires: 10/02/2026THIN PREP TIS PAP AND HR HPV DNAPathology and CytologyRoutine Well woman exam with routine gynecological exam Ordered: 08/01/2025documented as of this encounter Visit Diagnoses Diagnosis Well woman exam with routine gynecological exam Routine gynecological examination Breast cancer screening by mammogram documented in this encounter Care Teams Team MemberRelationshipSpecialtyStart DateEnd Date Marce Hyatt MD [address] [place], [place] [id number] PCP - GeneralFamily Medicine03/09/23documented as of this encounter
--- OUTSIDE RECORDS SUMMARY | 2025-08-01 16:37 | XMS_ITS | Encounter Summary ---
Author Organization [facility] Address [address] [facility] [place] [address] Care Team Providers Care Stick Inserter Name Role Phone Marce Hyatt MD Primary Care Provider [phone] Encounter Details DateTypeDepartmentCare Team (Latest Contact Info)Duplmbpcthj19/02/2025amboo flowsheet [facility] [address] [place] [address] Tang Garrido, [address] [place], [facility] Social History Tobacco UseTypesPacks/DayYears UsedDateSmoking Tobacco: Passive [...] or more drinks on one occasion?Less than vuwxjvg0103/10/2023HQ-2AnswerDate RecordedPatient Health Questionnaire-2 Nbwyc761EducationAnswerDate RecordedWhat is the highest level of school you have completed or the highest degree you have received?High school graduate 03/12/2023CommentsNoSex and Gender InformationValueDate RecordedSex Assigned at BirthNot on fileLegal NgyYzmhdp89/15/2023 7:06 PM EDTGender Identity Not on fileSexual OrientationNot on filedocumented as of this encounter Plan of Treatment DateTypeDepartmentCare Team (Latest Contact Info)Zgidhdjdkzq14/23/2026 8:00 AM ESTOffice Visit [facility] [address] [facility] [place] [phone] Luiza Rosa NP [address] [facility] [place], [place] [address] 08/07/2026 10:00 AM ESTProcedure Visit [facility] [address] [place] [address] Tang Garrido DO [address] [facility] [address] [place] [address] documented as of this encounter Visit Diagnoses Not on filedocumented in this encounter Care Teams Team MemberRelationshipSpecialtyStart DateEnd Date Marce Hyatt MD [address] [facility] [place], [place] [phone] PCP - GeneralFamily Medicine03/09/23documented as of this encounter
--- OUTSIDE RECORDS SUMMARY | 2025-08-01 16:37 | XMS_ITS | Encounter Summary ---
Author Organization [facility] Address [address] [place] [address] Care Team Providers Care Oxyhydrogen Welder Name Role Phone Marce Hyatt MD Primary Care Provider [phone] Encounter Details DateTypeDepartmentCare Team (Latest Contact Info)Zdlkdvdhnip83/28/2025Travel Social History Tobacco UseTypesPacks/DayYears UsedDateSmoking Tobacco: Passive [...] or more drinks on one occasion?Less than kedmqzx29/11/2023PHQ-2AnswerDate RecordedPatient Health Questionnaire-2 Mbjql196EducationAnswerDate RecordedWhat is the highest level of school you have completed or the highest degree you have received?High school graduate 3CommentsNoSex and Gender InformationValueDate RecordedSex Assigned at BirthNot on fileLegal BdeWxyrik37/15/2023 7:06 PM EDTGender Identity Not on fileSexual OrientationNot on filedocumented as of this encounter Plan of Treatment DateTypeDepartmentCare Team (Latest Contact Info)Haszlthbnpk02/23/2026 8:00 AM ESTOffice Visit [facility] [address] [facility] [place] [address] Luiza Rosa NP [address] [facility] [address] [place], [place] [address] 08/07/2026 10:00 AM ESTProcedure Visit [facility] [place] [facility] [address] [place] [address] Tang Garrido DO [address] [facility] [place] [address] documented as of this encounter Visit Diagnoses Not on filedocumented in this encounter Care Teams Team MemberRelationshipSpecialtyStart DateEnd Date Marce Hyatt MD [address] [facility] [address] [place], [place] [phone] PCP - GeneralFamily Medicine03/09/23documented as of this encounter
--- OUTSIDE RECORDS SUMMARY | 2025-08-01 16:37 | XMS_ITS | Encounter Summary ---
Author Organization [facility] Address [address] [place] [address] Care Team Providers Care Mail Carrier Technician Name Role Phone Marce Hyatt MD Primary Care Provider [phone] Encounter Details DateTypeDepartmentCare Team (Latest Contact Info)Wvalukminst04/26/2025Telephone [facility] [address] [place] [address] Sofi Suggs MA Social History Tobacco UseTypesPacks/DayYears UsedDateSmoking Tobacco: Passive [...] or more drinks on one occasion?Less than dwxsryo10/11/2023PHQ-2AnswerDate RecordedPatient Health Questionnaire-2 Ifjau287EducationAnswerDate RecordedWhat is the highest level of school you have completed or the highest degree you have received?High school graduate 3CommentsNoSex and Gender InformationValueDate RecordedSex Assigned at BirthNot on fileLegal CinKmpuvz79/15/2023 7:06 PM EDTGender Identity Not on fileSexual OrientationNot on filedocumented as of this encounter Miscellaneous Notes * Telephone Encounter - Sofi Suggs MA - 07/26/2025 4:01 PM EST Left message to have pt come in for lab work documented in this encounter Plan of Treatment DateTypeDepartmentCare Team (Latest Contact Info)Hdzrzczypeb51/23/2026 8:00 AM ESTOffice Visit [facility] [address] [place] [phone] Luiza Rosa NP [address] [place], [place] [phone] 08/07/2026 10:00 AM ESTProcedure Visit [facility] [place] [facility] [address] [place] [address] Tang Garrido DO [address] [place] [address] documented as of this encounter Visit Diagnoses Not on filedocumented in this encounter Care Teams Team MemberRelationshipSpecialtyStart DateEnd Date Marce Hyatt MD [address] [facility] [place], [place] [phone] PCP - GeneralFamily Medicine03/09/23documented as of this encounter
--- OUTSIDE RECORDS SUMMARY | 2025-08-01 16:37 | XMS_ITS | Clinical Summary ---
Author Organization [facility] Address [address] [place] [address] Care Team Providers Care High Risk Case Manager Name Role Phone Marce Hyatt MD Primary Care Provider [phone] Allergies Active AllergyReactionsCriticalityNoted DateCommentsMetronidazoleRash,UnknownLow 07/19/2018 STATE SHE BREAKS OUT WITH RASH AFTER SHE TAKES THE LAST DOSE XbgmygmKfeziautoDpmeed73/05/2025 Medications MedicationSigDispense QuantityRefillsLast FilledStart DateEnd DateStatus Rimegepant Sulfate (Nurtec) 75 MG tablet dispersible Indications:Migraine with aura and with status migrainosus, not intractableTake 75 mg by mouth Daily as needed (migraines) 90 tablet 5Active meloxicam (Mobic) 15 MG tablet Indications:Chronic pain of right kneeTake 1 tablet (15 mg) by mouth Daily 90 tablet Discontinued Active Problems ProblemNoted DateDiagnosed DateCarpal tunnel syndrome of right wrist01/26/2025 Current zzbnnb4601/26/2025Disorder of calcium njbxyvlxak18/29/2025Loose body in knee, left knee01/26/2025hondromalacia of left csxexwq7201/26/2025Urge incontinence of urine01/26/2025Vaginal jfrthank39/29/2025Vitamin D deficiency 01/26/2025hronic pain of right knee07/22/2024Internal derangement of right knee 07/22/20243015Gjcivignawacub99/11/2023Migraine with aura and with status migrainosus, not dinqaqndbyb14/11/2770Fymocbgeyyqbujpzdnkiqyjm90/11/2023ipolar 1 lwmzubhh55/11/2023hronic allergic robqzpaa11/11/2592Koomakgjcpfv91/17/2021 Jocsrdvbbu53/17/5249Ikcoipa12/17/6309Syuerjexqa20/17/2020 Resolved Problems ProblemNoted DateDiagnosed DateResolved DateExcessive bleeding in premenopausal xeerow68/Irregular menstrual mogtykxz38/ Encounters DateTypeDepartmentCare IbmhDlsqafsfgwj02/02/2025 9:20 AM ESTOffice Visit [facility] [address] [facility] [place] [address] Tang Garrido, Well woman exam with routine gynecological exam; Breast cancer screening by ollbrwmnd52/02/2025amboo flowsheet [facility] [place] [facility] [address] [facility] [place] [address] Tang Garrido DO 07/28/20253198Ivydph22/26/2025Telephone [address] [place] [phone] Sofi Suggs MA 06/23/2025 8:00 AM EDTOffice Visit General acute hospital Medicine [address] [place] [phone] Luiza Rosa NP Migraine with aura and with status migrainosus, not intractable (Primary Dx); Vitamin D deficiency; Pure hypercholesterolemia; Zvginlahqnof05/24/2025amb flowsheet [address] [place] [phone] Luiza Rosa NP 06/23/2025Travelfrom Last 3 Months Immunizations ImmunizationAdministration DatesNext TeaDltd3512/15/2010 Family History Medical HistoryRelationNameCommentsHeart diseaseFatherEdwinHypertensionFather Edwintriple bypassFatherEdwinArthritisMaternal GrandmotherVirginiaBreast cancer MotherTinaCOPDMotherTinaCancerMotherTinaDepressionMotherTinaMental illnessMother TinaArthritisPaternal GrandmotherNaomiLearning disabilitiesSonChristianRelation NameStatusCommentsFatherEdwinAliveMaternal GrandmotherVirginiaAliveMotherTina AlivePaternal GrandmotherNaomiAliveSonChristianAlive2 sons Social History Tobacco UseTypesPacks/DayYears UsedDateSmoking Tobacco: Passive Smoke Exposure - Never SmokerCigarettes0.330Smokeless Tobacco: Current Tobacco Cessation:Ready to Q uit: Not Asked; Counseling Given: Not Answered Alcohol UseStandard Drinks/WeekCommentsNot Currently6 (1 standard drink = 0.6 oz pure alcohol)caffeine intake : 1 energy drink dailyAUDIT-CAnswerDate RecordedQ1: How often do you have a drink containing alcohol?2-4 times a month03/10/2023Q2: How many drinks containing alcohol do you have on a typical day when you are drinking?1 or Q3: How often do you have six or more drinks on one occasion?Less than rpzsiri4603/10/2023HQ-2AnswerDate RecordedPatient Health Questionnaire-2 Qzjmu567EducationAnswerDate RecordedWhat is the highest level of school you have completed or the highest degree you have received?High school ajlhnjna83/13/2023CommentsNoSex and Gender InformationValueDate RecordedSex Assigned at BirthNot on fileLegal KzfXafvvc81/15/2023 7:06 PM EDT Gender IdentityNot on fileSexual OrientationNot on file Last Filed Vital Signs Vital SignReadingTime TakenCommentsBlood Suktvtqt495/6412 9:39 AM EST Qiwcv102806/23/2025 8:05 AM NPVEejwlbnzsmb57.3 ??C (97.3 ??F)01/26/2025 1:55 PM EDTRespiratory Ogun893203/10/2023 10:07 AM EDTOxygen Mdsuvlrpou39%06/23/2025 8:05 AM EDTInhaled Oxygen Concentration--Xtegdt19.1 kg (192 lb)08/01/2025 9:39 AM EST Wigjlz688.3 cm (5' 9 )02/02/2025 8:09 AM EDTBody Mass Index28.3506 8:09 AM EDT Plan of Treatment DateTypeDepartmentCare Team (Latest Contact Info)Tretasbnzcn48/23/2026 8:00 AM ESTOffice Visit [facility] [address] [place] [phone] Luiza Rosa NP [address] [place], [place] [address] 08/07/2026 10:00 AM ESTProcedure Visit [facility] [place] [facility] [address] [facility] [place] [address] Tang Garrido DO [address] [facility] [place] [address] Health MaintenanceDue DateLast DoneCommentsCOVID-19 Vaccine (2024- season) 2025Influenza Vaccine (#1)05/01/20253597Elhfdwlmj28, 03/14/2022, 02/12/2021, Additional history existsHPV/CotestDiscontinued 07/18/2020Cervical Cancer ScreeningDiscontinuedPap KfvmhVaydtttwmzbf54/18/2024 Pneumococcal Vaccine: Pediatrics (0 to 5 Years) and At-Risk Patients (6 to 64 Years)Aged OutNo longer eligible based on patient's age to complete this topic Procedures Procedure NamePriorityDate/TimeAssociated DiagnosisCommentsBI MAMMOGRAM SCREENING TOMOSYNTHESIS AMBEVIISTGxhtxkz38/10/2025 4:14 PM EDT Breast cancer screening by mammogram PAP XVMRBSjslxjn18/18/2024 12:00 AM ESTfrom Last 3 Months or Most Recently Relevant to Health Maintenance Results * Bilateral screening mammogram with tomosynthesis (02/07/2025 4:14 PM EDT) Anatomical RegionLateralityModalityBreastBilateralMammographySpecimen (Source) Anatomical Location / LateralityCollection Method / VolumeCollection Time Received Time02/08/2025 12:23 PM EDT Impressions 02/08/2025 12:32 PM EDT Impression: No specific evidence of malignancy seen in either breast. BIRADS 2 - Benign Findings DENSITY: There are scattered areas of fibroglandular density. FOLLOW-UP: Routine Screening Mammogram ELECTRONICALLY SIGNED BY: Austyn Tafoya M.D. Narrative 02/08/2025 12:32 PM EDT Examination: BI MAMMOGRAM SCREENING TOMOSYNTHESIS BILATERAL Clinical History: screen for breast cancer Technique: Screening digital mammography study of both breasts was performed with 2-D and 3-D tomosynthesis imaging. Study was compared to the prior exam dated 03/14/2022. Findings: There is no evidence of interval dominant spiculated mass, grouped microcalcifications, or skin thickening which would be suggestive of malignancy. ?? A postbiopsy clip is seen on the left, similar to the prior study. Axillary lymph nodes are noted on the left which appear grossly unremarkable Procedure Note Austyn Tafoya MD - 02/08/2025 Examination: BI MAMMOGRAM SCREENING TOMOSYNTHESIS BILATERAL Clinical History: screen for breast cancer Technique: Screening digital mammography study of both breasts wasperformed with 2-D and 3-D tomosynthesis imaging. Study was compared tothe prior exam dated 03/14/2022. Findings: There is no evidence of interval dominant spiculated mass,grouped microcalcifications, or skin thickening which would be suggestiveof malignancy. A postbiopsy clip is seen on the left, similar to the prior study.Axillary lymph nodes are noted on the left which appear grosslyunremarkable IMPRESSION: Impression: No specific evidence of malignancy seen in either breast. BIRADS 2 - Benign Findings DENSITY: There are scattered areas of fibroglandular density. FOLLOW-UP: Routine Screening Mammogram ELECTRONICALLY SIGNED BY: Austyn Tafoya M.D. Authorizing ProviderResult TypeResult StatusCorey Radhika [facility] PROCEDURESFinal Result * Pap Smear (07/18/2024 12:00 AM EST)Specimen (Source)Anatomical Location / LateralityCollection Method / VolumeCollection TimeReceived TimeSwabCervical swab / Unknown Narrative Authorizing ProviderResult TypeResult StatusCorey Radhika [facility] CYTOLOGY ORDERABLESFinal ResultPerforming OrganizationAddressCity/State/ZIP CodePhone Number EXTERNAL LAB from Last 3 Months or Most Recently Relevant to Health Maintenance Insurance Care Teams Team MemberRelationshipSpecialtyStart DateEnd Date Marce Hyatt MD [address] [place] [address] PCP - GeneralFamily Medicine03/09/23
--- OUTSIDE RECORDS SUMMARY | 2025-08-01 16:38 | XMS_ITS | CCD ---
Author Organization [facility] Care Team Providers Care Routing Machine Operator Name Role Phone Albino Brown Unavailable YULIANA, DR SAN Attending Unavailable YULIANA, DR SAN Consulting Unavailable YULIANA, DR SAN Admitting Unavailable Marce Hyatt MD Primary Care Provider Latoya Lunsford MD Primary Care Pr ovider Robert Ordonez DO Attending Provider Latoya Lunsford MD Primary Care Pr ovider Robert Ordonez DO Attending Provider Latoya Lunsford Primary Care Un available Robert Ordonez Attending Unavailable Robert Ordonez Admitting Unavailable Robert Ordonez Admitting Unavailable Latoya Lunsford Primary Care Un available Robert Ordonez Attending Unavailable INGRID ACEVES Attending Unavailab INGRID Ramon Attending Unavailab INGRID Ramon Referring Unavailab INGRID Ramon Attending Unavailab TANG Hood Referring Unavailable LUIZA GRAHAM Attending Unavailable TANG GARRIDO Attending Unavailable LUCIO BOWDEN Attending Unavailable A, UNKNOWN PRACTICE Referring Unavailable SARITA WEISS Attending Unavailable A, UNKNOWN PRACTICE Referring Unavailable SARITA WEISS Attending Unavailable A, UNKNOWN PRACTICE Referring Unavailable SARITA WEISS Attending Unavailable A, UNKNOWN PRACTICE Referring Unavailable Allergies Allergy ClassificationReported Allergen(s)Allergy TypeDate of OnsetReaction(s) Facility (20 sources)metroNIDAZOLEDrug Qpncofc46-79-0449cqzySouth[facility] ([facility] source)metroNIDAZOLEDrug [facility] (1 source)metroNIDAZOLEDrug Bzprxko74-50-7572OadoswjysSycamore Medical Center Repository (6 sources)HMG-CoA reductase inhibitorDrug Qkbcczbhlvj62-40-3074UqmkztkqsDNVV Healthcare Medications Current Medications MedicationDrug Class(es)DatesSig (Normalized)Sig (Original)atorvastatin 10 mg oral tablet (9 sources)HMG-CoA Reductase InhibitorStart: 01-24-2025 End: 74-32-6132sqbr 1 tablet by mouth at bedtimeatorvastatin (Lipitor) 10 MG tablet Indications: Pure hypercholesterolemia (CMS/HCC) Take 1 tablet (10 mg) by mouth at bedtime 90 tablet 01/24/2025 02/02/2025 Discontinued (Side effects) ergocalciferol 1.25 mg oral capsule (10 sources)Provitamin D2 CompoundStart: 01-24-2025 End: 28-18-9490tarw 1 capsule by mouth every weekergocalciferol (Vitamin D-2) 1.25 MG (29129 UT) capsule Indications: Vitamin D deficiency Take 1 capsule (1.25 mg) by mouth 1 (one) time per week 13 capsule 01/24/2025 04/24/2025 Active gabapentin (1 source)Anti-epileptic AgentGabapentin Activemeloxicam 15 mg oral tablet (20 sources)Nonsteroidal Anti-inflammatory DrugStart: 42-48-5412vutx 1 tablet by mouth once dailymeloxicam (Mobic) 15 MG tablet Indications: Chronic pain of right knee Take 1 tablet (15 mg) by mouth Daily 90 tablet 01/19/2025 Active Start: 85-79-2095Qsejpugxo 15 mg tablet Active 15 MG PO October 27, 2024 1:00amtake 1 tablet by mouth once dailymeloxicam (Mobic) 15 MG tablet Take 15 mg by mouth Daily Activeondansetron 4 mg disintegrating oral tablet (1 source)Serotonin-3 Receptor AntagonistStart: 27-98-9265bbdi 1 tablet by mouth every eight hoursOndansetron 4 MG 1 tablet on the tongue and allow to dissolve Orally every 8 hours for 3 day(s) Jul, Activerimegepant 75 mg disintegrating oral tablet (20 sources)Start: 27-65-8861crzh 1 tablet by mouth once daily as needed Rimegepant Sulfate (Nurtec) 75 MG tablet dispersible Indications: Migraine with aura and with status migrainosus, not intractable Take 75 mg by mouth Daily as needed (migraines) 90 tablet 02/13/2025 ActiveStart: 60-00-1776kjhx 1 tablet by mouth once daily as neededRimegepant Sulfate (Nurtec) 75 MG tablet dispersible Indications: Migraine with aura and with status migrainosus, not intractable Take 75 mg by mouth Daily as needed (migraines) 90 tablet 01/24/2025 Active Start: 28-05-8712gnwt 1 tablet by mouth in the morningNurtec 75 MG tablet dispersible Indications: Migraine with aura and with status migrainosus, not int ractable (CMS/HCC) Take 75 mg by mouth in the morning. 30 tablet 03/10/2023 Active Completed/Discontinued Medications MedicationDrug Class(es)DatesSig (Normalized)Sig (Original)acetaminophen 250 mg / aspirin 250 mg / caffeine 65 mg oral tablet (3 sources)Platelet Aggregation Inhibitor, Nonsteroidal Anti-inflammatory Drug, Central Nervous System Stimulant, Methylxanthine End: 33-75-8016nage 1 tablet by mouth once zpxhsgalxbtw-qgqzvgieupuqk-bpwvapvd (Excedrin Migraine) 250-250-65 MG tablet Take 1 tablet by mouth 1 (one) time each day at the same time. 07/18/2024 Discontinuedcholecalciferol 0.05 mg oral capsule (3 sources)Vitamin D End: 32-05-5849ehsf 1 capsule by mouth once dailycholecalciferol (Vitamin D-3) 50 MCG (1999 UT) capsule TAKE 1 CAPSULE BY MOUTH ONCE DAILY FOR 30 DAYS 07/18/2024 Discontinuedmagnesium oxide 400 mg oral tablet (3 sources)Start: 12-10-2022 End: 79-79-8379aylrumzea oxide (Mag-Ox) 400 MG tablet 1 (one) time each day at the same time. 12/10/2022 07/18/2024 Discontinuedtryptophan 500 mg oral tablet (3 sources)Start: 07-22-2023 End: 03-29-5634H-Tryptophan 500 MG tablet Indications: Vaginitis due to Trichomonas Patient to take 2 gram as a single dose. 4 tablet 07/22/2023 07/18/2024 Discontinued Problems Active Problems Problem ClassificationProblemDateDocumented DateEpisodic/ChronicAnxiety disorders (20 sources)Anxiety; Translations: [Anxiety disorder, unspecified]Onset: 508124-21-9704DdnmhapFlxskuqip of lipid metabolism (4 sources)Pure hypercholesterolemia; Translations: [Pure hypercholesterolemia, unspecified]31-06-9119TpvthrtKjsjmxyjijlql symptoms and ill-defined conditions (11 sources)Urge incontinence of urine; Translations: [Urge incontinence]Onset: 834178-30-2182MchcztjBolxffns; including migraine (20 sources)Migraine with aura; Translations: [Migraine with aura, not intractable, with status migrainosus]Onset: 508355-23-3041LavsonnKglkcoui; including migraine (6 sources)Headache; Translations: [Nonintractable headache, unspecified chronicity pattern, unspecified headache type]99-55-0205RpuszifnAsjvofqtcjvzf and screening for infectious disease (2 sources)Contact with and (suspected) exposure to other viral communicable diseases; Translations: [Encounter for screening for human papillomavirus (HPV)] Onset: 08-03-2021 Resolved: 71-86-6206VqodgafpRnfyk disorders and dislocations; trauma-related (20 sources)Derangement of right knee; Translations: [Unspecified internal derangement of right knee]Onset: 470729-19-6747CtawjdpRnino disorders and dislocations; trauma-related (20 sources)Derangement of left knee; Translations: [Unspecified internal derangement of left knee]Onset: 325267-88-9145ZnkdcnjAybn disorders (20 sources)Bipolar I disorder; Translations: [Bipolar disorder, unspecified] Onset: 405090-34-6152AeygjowWfxqysreysi deficiencies (14 sources)Vitamin D deficiency; Translations: [Vitamin D deficiency, unspecified]Onset: 156568-80-6706OeptykwFnill connective tissue disease (20 sources)Fibromyalgia; Translations: [Fibromyalgia]Onset: 10-17-2020 98-92-8826BwwjkihhKgqwl female genital disorders (11 sources)Vaginal bleeding; Translations: [Abnormal uterine and vaginal bleeding, unspecified]Onset: 647936-48-0261JyppbywMpnnd nervous system disorders (11 sources)Carpal tunnel syndrome of right wrist; Translations: [Carpal tunnel syndrome, right upper limb]Onset: 335629-56-2875ZjrlmwmAbdbb nervous system disorders (11 sources)Neuropathy; Translations: [Polyneuropathy, unspecified]Onset: 029984-04-5791ZqxrgzaMpnbc nervous system disorders (4 sources)Numbness of face; Translations: [Anesthesia of skin]01-26-2025 EpisodicOther non-traumatic joint disorders (3 sources)Pain in left knee; Translations: [Pain in joint, lower leg]Onset: 198320-18-7982GgfmcocnVular nutritional; endocrine; and metabolic disorders (20 sources)Hypomagnesemia; Translations: [Hypomagnesemia]Onset: 03-10-2023 68-46-8617UptumauGgkax nutritional; endocrine; and metabolic disorders (20 sources)Pseudohypoparathyroidism; Translations: [Pseudohypoparathyroidism] Onset: 442215-62-8193YrnylcmItbln nutritional; endocrine; and metabolic disorders (11 sources)Disorder of calcium metabolism; Translations: [Unspecified disorder of calcium metabolism]Onset: 195519-73-4318GqzuphtCtqub screening for suspected conditions (not mental disorders or infectious disease) (6 sources)Encounter for screening for malignant neoplasm of cervix; Translations: [Patient encounter status]Onset: 29-54-7461EbcyfapeLwysr upper respiratory disease (20 sources)Allergic rhinitis; Translations: [Allergic rhinitis, unspecified] Onset: 625563-95-7278LpotuimIjifdcli codes; unclassified (2 sources)History of arthroscopy of knee joint; Translations: [Other specified postprocedural states]70-28-0592TvmombhyLzfpcwfc codes; unclassified (3 sources)Other specified postprocedural states; Translations: [Other postprocedural status]Onset: 285119-10-4438QkwdwtkvUgfdexbqx-ojiswph disorders (11 sources)Smoker; Translations: [Nicotine dependence, unspecified, uncomplicated]Onset: hronic Past or Other Problems Problem ClassificationProblemDateDocumented DateEpisodic/ChronicIntestinal infection (1 source)Viral intestinal infection, unspecifiedOnset: 08-03-2021 Resolved: 96-39-2606ZmfuxrquMnciunyjuy disorders (20 sources)Menorrhagia; Translations: [Excessive bleeding in the premenopausal period]Onset: 03-10-2023 Resolved: 082701-82-5671QvxykgnRvjossbwv disorders (20 sources)Irregular periods; Translations: [Irregular menstruation, unspecified]Onset: 03-10-2023 Resolved: 391284-43-5572RxglkrdXpchv non-traumatic joint disorders (20 sources)Pain in right knee; Translations: [Pain in joint, lower leg]Onset: 484757-68-1657Eckglwxr Results Test NameValueInterpretationReference RangeFacilityBI MAMMOGRAM SCREENING TOMOSYNTHESIS BILATERALon 38-92-0289BR MAMMOGRAM SCREENING TOMOSYNTHESIS BILATERALThis is a summary report. The complete report is available in the patient's medical record. If you cannot access the medical record, please contact the sending organization for a detailed fax or copy. Examination: BI MAMMOGRAM SCREENING TOMOSYNTHESIS BILATERAL Clinical History: screen for breast cancer Technique: Screening digital mammography study of both breasts was performed with 2-D and 3-D tomosynthesis imaging. Study was compared to the prior exam dated 03/14/2022. Findings: There is no evidence of interval dominant spiculated mass, grouped microcalcifications, or skin thickening which would be suggestive of malignancy. A postbiopsy clip is seen on the left, similar to the prior study. Axillary lymph nodes are noted on the left which appear grossly unremarkable IMPRESSION: Impression: No specific evidence of malignancy seen in either breast. BIRADS 2 - Benign Findings DENSITY: There are scattered areas of fibroglandular density. FOLLOW-UP: Routine Screening Mammogram ELECTRONICALLY SIGNED BY: Austyn Tafoya M.D.NormalNot AvailableCT HEAD W AND WO IV CONTRASTon 85-77-2746XA HEAD W AND WO IV CONTRASTCT HEAD W AND WO IV CONTRAST REASON FOR STUDY severe headaches left side head/facial area especially left orbital area with numbness to face for a few weeks, no trauma COMPARISON none Technique: Pre and postcontrast transaxial imaging of the head utilizing 50 cc Isovue-300. Findings: There is no intracranial hemorrhage, mass lesion, or mass effect. No abnormal enhancement is seen following IV contrast administration. The visible paranasal sinuses are normally aerated as seen and the mastoids are normally aerated asseen. IMPRESSION: Negative pre and postcontrast CT of the head. Dictated on: 01/30/2025 1:27 PM This report has been electronically signed and approved by the interpreting Radiologist.NormalNot AvailableMR knee LT wo conon 20-79-7345JO knee LT wo con [facility] [place] [address] [place] [address] MRI Report Signed Patient: Ira Euceda MR#: [id number] : 1980 Acct:[id number] Age/Sex: 43 / F ADM Date: 11/23/24 Loc: [facility] Room: Type: [facility] Attending Dr: Robert Ordonez DO Copies to: Robert Ordonez DO Ordering Provider: Robert Ordonez DO Date of Service: 11/23/24 MR/MR knee LT wo con: eval for any internal derangement MRI of the leftKnee without contrast TECHNIQUE: Multiplanar T1 and T2-weighted imaging of the knee obtained without contrast HISTORY: Left of meniscus surgery in 2018. History of left knee scope in 1998. History of left bilateral release 2019. COMPARISON:None BONE MARROW: No infiltrative changes. BONE MARROW EDEMA: None FRACTURE: None BONE TUMOR: None BONY ALIGNMENT: Adequate DEGENERATION: No significant spurring or joint space narrowing. JOINT EFFUSION: No joint effusion MUSCLES: Unremarkable SOFT TISSUES: Unremarkable POPLITEAL CYST: None ANTERIOR CRUCIATE LIGAMENT: Intact POSTERIOR CRUCIATE LIGAMENT: Intact LATERAL COMPARTMENT: LATERAL MENISCUS: Absence of the anterior horn. Absence of the inner half of the body of the meniscus.. No obvious meniscal fragment. May correlate with patient's history of surgery. LATERAL ARTICULAR CARTILAGE: Intact. Focal increased T2 signal changes in the mid weightbearing and posterior portion of the lateral femoral condyle lateral tibial plateau consistent with chondromalacia. No significant underlying bone marrow edema. PROXIMAL TIBIOFIBULAR JOINT: Intact POSTERIOR LATERAL COMPARTMENT: Intact lateral collateral ligament complex. Intact biceps femoris tendon. Intact popliteus tendon. COMMON PERONEAL NERVE: Intact MEDIAL COMPARTMENT: MEDIAL MENISCUS: Intact MEDIAL ARTICULAR SURFACE: No chondromalacia. No subarticular bone marrow edema. POSTERIOR MEDIAL COMPARTMENT: Medial collateral ligament complex intact. The semimembranosus tendon intact. No ramp lesion of the posterior horn of medial meniscus present. PATELLOFEMORAL COMPARTMENT: PATELLOFEMORAL ARTICULAR CARTILAGE: Small focal region of chondromalacia involving the intracondylar notch anteriorly. ANTERIOR LIGAMENTS: Patellar ligament and quadriceps tendon are intact. MR/MR knee LT wo con IMPRESSION: Absence of the anterior horn in the inner half of the body of the lateral meniscus. This is likely consistent with patient's history of surgery and may represent resection of meniscus. No meniscal fragments within the joint space identified. The anterior and posterior cruciate ligaments intact. Medial meniscus intact. 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 Impression dictated by: Eladio Park M.D.11/23/2024 1:51 PM Dictation Location: [facility]-19 Transcribed By: [facility] 11/23/24 1351 Dictated By: Eladio Park DO 11/23/24 1338 Signed By: 11/23/24 1351[facility] Physician GroupSan Carlos Apache Tribe Healthcare Corporationetic resonance imaging reportOrdered By: Eladio Park on 06-94-3566Cezec reportWEXNER MEDICAL CENTER [facility] [place] [address] [place] [address] MRI Report Signed Patient: Ira Euceda MR#: [id number] : 1980 Acct:[id number] Age/Sex: 43 / F ADM Date: 5 Loc: [facility] Room: Type: [facility] Attending Dr: Robert Ordonez DO Copies to: Robert Ordonez DO~ Ordering Provider: Robert Ordonez DO Date of Service: 11/23/24 MR/MR knee LT wo con: eval for any internal derangement MRI of the leftKnee without contrast TECHNIQUE: Multiplanar T1 and T2-weighted imaging of the knee obtained without contrast HISTORY: Left of meniscus surgery in 2017. History of left knee scope in 1998. History of left bilateral release 2020. COMPARISON:None BONE MARROW: No infiltrative changes. BONE MARROW EDEMA: None FRACTURE: None BONE TUMOR: None BONY ALIGNMENT: Adequate DEGENERATION: No significant spurring or joint space narrowing. JOINT EFFUSION: No joint effusion MUSCLES: Unremarkable SOFT TISSUES: Unremarkable POPLITEAL CYST: None ANTERIOR CRUCIATE LIGAMENT: Intact POSTERIOR CRUCIATE LIGAMENT: Intact LATERAL COMPARTMENT: LATERAL MENISCUS: Absence of the anterior horn. Absence of the inner half of the body of the meniscus.. No obvious meniscal fragment. May correlate with patient's history of surgery. LATERAL ARTICULAR CARTILAGE: Intact. Focal increased T2 signal changes in the mid weightbearing andposterior portion of the lateral femoral condyle lateral tibial plateau consistent with chondromalacia. No significant underlying bone marrow edema. PROXIMAL TIBIOFIBULAR JOINT: Intact POSTERIOR LATERAL COMPARTMENT: Intact lateral collateral ligament complex. Intact biceps femoris tendon. Intact popliteus tendon. COMMON PERONEAL NERVE: Intact MEDIAL COMPARTMENT: MEDIAL MENISCUS: Intact MEDIAL ARTICULAR SURFACE: No chondromalacia. No subarticular bone marrow edema. POSTERIOR MEDIAL COMPARTMENT: Medial collateral ligament complex intact. The semimembranosus tendonintact. No ramp lesion of the posterior horn of medial meniscus present. PATELLOFEMORAL COMPARTMENT: PATELLOFEMORAL ARTICULAR CARTILAGE: Small focal region of chondromalacia involving the intracondylar notch anteriorly. ANTERIOR LIGAMENTS: Patellar ligament and quadriceps tendon are intact. MR/MR knee LT wo con IMPRESSION: Absence of the anterior horn in the inner half of the body of the lateral meniscus. This is likely consistent with patient's history of surgery and may represent resection of meniscus. Nomeniscal fragments within the jointspace identified. The anterior and posterior cruciate ligaments intact. Medialmeniscus intact. 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 Impression dictated by: Eladio Park M.D.11/23/2024 1:51 PM Dictation Location: [facility]-19 Transcribed By: [facility] 11/23/24 1351 Dictated By: Eladio Park DO 11/23/24 1338 Signed By: 11/23/24 1351 [facility] CenterX-[facility] reportOrdered By: Edmundo Richardson on 45-06-7132Jcdmp reportFIRRIVERVIEW HEALTH INSTITUTE [facility] [address] [place] [address] XRay Report Signed Patient: Ira Euceda MR#: [id number] : 1980 Acct:[id number] Age/Sex: 43 / F ADM Date: 5 Loc: [facility] Room: Type: REG CLI Attending Dr: Robert Ordonez DO Copies to: Robert Ordonez DO~ Ordering Provider: Robert Ordonez DO Date of Service: 10/27/24 XR/XR knee LT 3V - NOT FOR ER USE: M25.561 - Pain in right knee XR knee LT 3V - NOT FOR ER USE 10/27/2024 10:44 AM SIGNS AND SYMPTOMS: Left PROTOCOL: Frontal, lateral, and sunrise views left knee COMPARISON: 06/13/2024 FINDINGS: There is narrowing of the weightbearing joint spaces greatest medially. There is chondrocalcinosis of the menisci suggesting underlying CPPD. This is similarto the prior exam. The patellofemoral joint space is preserved. No joint effusion. No soft tissue swelling. XR/XR knee LT 3V - NOT FOR ER USE IMPRESSION: No acute bony injury. Mild degenerative changes are redemonstrated in the left knee with findings suggesting underlying CPPD. Impression dictated by: Edmundo Richardson M.D.10/27/2024 10:50 AM Dictation Location: [place] [address] Transcribed By: [facility] 10/27/24 1050 Dictated By: Edmundo Richardson II, MD 10/27/24 1049 Signed By: 10/27/24 1050 [facility] Work Phone: XR knee LT 3V - NOT FOR ER USEon 44-27-7106YV knee LT 3V - NOT FOR [facility]WEX[facility] [address] [place] [address] XRay Report Signed Patient: Ira Euceda MR#: [id number] : 1980 Acct:[id number] Age/Sex: 43 / F ADM Date: 10/27/24 Loc: [facility] Room: Type: REG CLI Attending Dr: Robert Ordonez DO Copies to: Robert Ordonez DO Ordering Provider: Robert Ordonez DO Date of Service: 10/27/24 XR/XR knee LT 3V - NOT FOR ER USE: M25.561 - Pain in right knee XR knee LT 3V - NOT FOR ER USE 10/27/2024 10:44 AM SIGNS AND SYMPTOMS: Left PROTOCOL: Frontal, lateral, and sunrise views left knee COMPARISON: 06/13/2024 FINDINGS: There is narrowing of the weightbearing joint spaces greatest medially. There is chondrocalcinosis of the menisci suggesting underlying CPPD. This is similar to the prior exam. The patellofemoral joint space is preserved. No joint effusion. No soft tissue swelling. XR/XR knee LT 3V - NOT FOR ER USE IMPRESSION: No acute bony injury. Mild degenerative changes are redemonstrated in the left knee with findings suggesting underlying CPPD. Impression dictated by: Edmundo Richardson M.D.10/27/2024 10:50 AM Dictation Location: [place] [address] Transcribed By: [facility] 10/27/24 1050 Dictated By: Edmundo Richardson II, MD 10/27/24 1049 Signed By: 10/27/[address] [place] [address] Physician GroupXR CHEST 2Von [id number] [address] XRay Report Signed Patient: IRA EUCEDA MR#: [id number] : 1980 Acct:[id number] Age/Sex: 43 / F ADM Date: 10/05/24 Loc: [facility] Attending Dr: Adolfo Clarke M.D. Ordering Physician: Adolfo Clarke M.D. Date of Service: 10/05/24 Procedure(s): XR chest 2V Accession Number(s): [id number] cc: LATOYA WILLIAMSON ; Adolfo Clarke M.D. [address] [address] Patient Name: IRA EUCEDA MRN: [id number] date: 1980 Sex: F Assigned [facility] Current [facility]: [facility] Accession/Order Number: [id number] Exam Date: 10/05/2024 08:54 Report Date: 10/07/2024 09:38 At the request of: ADOLFO CLARKE Procedure: XR chest 2V PROCEDURE: XR chest 2V DATE: 10/05/2024 8:54 AM EST COMPARISONS: None. CLINICAL INDICATION: 43 years Female Preop exam FINDINGS: The cardiomediastinal silhouette and pulmonary vasculature are within normal limits. The lungs are clear. There is no evidence of pleural effusion or pneumothorax. XR/XR chest 2V IMPRESSION: Chest radiograph is within normal limits. Electronically authenticated by: STEVIE SHERIDAN Date: 10/07/2024 09:38 Dictated By: Stevie Sheridan M.D. Signed By: 10/07/2440 DD/ 7 TD/TT: [employer] Repairer:TBHRadiology, Radiologist, - 10/07/2024 [place] [address] XRay Report Signed Patient: IRA EUCEDA MR#: [id number] : 1980 Acct:[id number] Age/Sex: 43 / F ADM Date: 10/05/24 Loc: [facility] Attending Dr: Adolfo Clarke M.D. Ordering Physician: Adolfo Clarke M.D. Date of Service: 10/05/24 Procedure(s): XR chest 2V Accession Number(s): [id number] cc: LATOYA WILLIAMSON ; Adolfo Clarke M.D. The [address] [address] Patient Name: IRA EUCEDA MRN: [id number] date: 1980 Sex: F Assigned Patient Location: [facility] Current Patient Location: [facility] Accession/Order Number: [id number] Exam Date: 10/05/2024 08:54 Report Date: 10/07/2024 09:38 At the request of: ADOLFO CLARKE Procedure: XR chest 2V PROCEDURE: XR chest 2V DATE: 10/05/2024 8:54 AM EST COMPARISONS: None. CLINICAL INDICATION: 43 years Female Preop exam FINDINGS: The cardiomediastinal silhouette and pulmonary vasculature are within normal limits. The lungs are clear. There is no evidence of pleural effusion or pneumothorax. XR/XR chest 2V IMPRESSION: Chest radiograph is within normal limits. Electronically authenticated by: STEVIE SHERIDAN Date: 10/07/2024 09:38 Dictated By: Stevie Sheridan M.D. Signed By: 10/07/24939 DD/ 7 TD/TT: Pipe Stem Repairer: [facility] HealthRadiology Study observation (narrative)[facility]XR CHEST 2V Ordered By: Radiologist Radiology on 36-34-7139ICZACarondelet Health Work Phone: all CBC WITH AUTO DIFFon 09-77-0565QWSQPJCYQ ABSOLUTE [id number] HealthcareBasophils/100 WBC (Bld)0.4 %0.2 - 2.0 %[facility] Eosinophils/100 WBC (Bld)1.7 %0.9 - 7.0 %[facility] HealthErythrocyte distribution width (RBC) [Ratio]11.9 %11.0 - 15.0 %[facility] HealthHematocrit (Bld) [Volume fraction]44.2 %36.0 - 48.0 %[facility] HealthHemoglobin (Bld) [Mass/Vol]14.7 g/dL 12.0 - 16.0 g/dLCarondelet HealthIMMATURE GRANULOCYTES ABS AUTO0.01NOHarry S. [facility] Immature granulocytes/100 WBC (Bld)0.1 %0.0 - 0.5 %[facility] HealthLYMPHOCYTES ABSOLUTE AUTO2.2NOMS HealthcareLymphocytes/100 WBC (Bld)30.2 %20.5 - 60.0 %[facility] HealthMCH (RBC) [Entitic mass]30.8 pg26.7 - 34.0 pgNOCox BransonHC (RBC) [Mass/Vol]33.3 g/dL29.9 - 35.2 g/dLCarondelet HealthMCV (RBC) [Entitic vol]92.5 fL 81.0 - 99.0 fLCarondelet HealthMONOCYTES ABSOLUTE AUTO0.5NOMS Healthcare Monocytes/100 WBC (Bld)6.8 %1.7 - 12.0 %NOMS HealthcareNEUTROPHILS ABSOLUTE AUTO 4.4NOMS HealthcareNeutrophils/100 WBC (Bld)60.8 %43.0 - 75.0 %[facility] Platelet mean volume (Bld) [Entitic vol]12.8 fL9.5 - 13.5 fLNOMS HealthcareTBH EO #0.1NOMS HealthcareTBH LFY927VWIC HealthcareTBH RBC4.78NOMS HealthcareTBH WBC 7.2NOMS HealthcareCLINISYNCNOMS HealthcareECG 12-LEADon 81-74-8926[place] [address] Electrocardiograph Report Signed Patient: IRA EUCEDA MR#: [id number] : 1980 Acct:[id number] Age/Sex: 43 / F ADM Date: 10/05/24 Loc: [facility] Attending Dr: Adolfo Clarke M.D. Ordering Physician: Adolfo Clarke M.D. Date of Service: 10/05/24 Procedure(s): ECG 12 lead Accession Number(s): [id number] cc: [facility] Test Date: 2024-10-05 Pat Name: IRA EUCDEA Department: Room: - Gender: Female Day Habilitation Specialist: : 1980 Requested By: 2089 Order Number: [id number] Reading MD: ROBI ESPINO Measurements Intervals [place] Rate: 69 P: 54 ID: 171 QRS: 60 QRSD: 85 T: 59 QT: 372 QTc: 399 Interpretive Statements SINUS RHYTHM No previous ECG available for comparison Electronically Signed On 10-05-2024 21:10:00 EST by ROBI ESPINO Dictated By: Robi Espino D.O. Signed By: 10/05/242109 DD/ TD/TT: Pipe Stem Repairer:TBHRadiology, Radiologist, - 10/05/2024 [facility] [place] [id number] Electrocardiograph Report Signed Patient: IRA EUCEDA MR#: [id number] : 1980 Acct:[id number] Age/Sex: 43 / F ADM Date: 10/05/24 Loc: PST Attending Dr: Adolfo Clarke M.D. Ordering Physician: Adolfo Clarke M.D. Date of Service: 10/05/24 Procedure(s): ECG 12 lead Accession Number(s): [id number] cc: [facility] Test Date: 2024-10-05 Pat Name: IRA EUCEDA Department: Room: - Gender: Female Day Habilitation Specialist: : 1980 Requested By: 2089 Order Number: [id number] Reading MD: ROBI ESPINO Measurements Intervals [place] Rate: 69 P: 54 ID: 171 QRS: 60 QRSD: 85 T: 59 QT: 372 QTc: 399 Interpretive Statements SINUS RHYTHM No previous ECG available for comparison Electronically Signed On 10-05-2024 21:10:00 EST by ROBI ESPINO Dictated By: Robi Espino D.O. Signed By: 10/05/242109 DD/ 0843 TD/TT: Pipe Stem Repairer: ELI HealthcareRadiology Study observation (narrative)[facility] 12-LEAD Ordered By: Radiologist Radiology on 47-82-7700[facility] Work Phone: IGP,APTIMA HPV,AGE GDLNon 49-82-9377JLA GDLN ACOG TESTINGNote.[facility] HealthcareComment on above:TESTS RESULT FLAG UNITS REF RANGE LAB Clinician Provided Cytology Information Source.............Vagina No. of containers..01 ThinPrep Vial Age Algo ACOG Elvi... FLAG LEGEND: L-Low Normal,H-High Normal,LL-Alert Low,HH-Alert High <-Panic Low,>-Panic High,A-Abnormal,AA-Critical Abnormal Performed at: 01 =[address] [address] Montserrat Wiseman MD, HPV APTIMANegativeNegativeNOMS HealthcareComment on above:This nucleic acid amplification test detects fourteen high- risk HPV types (16,18,31,33,35,39,45,51,52,56,58,59,66,68) without differentiation. Performed at: =[address] [id number] Veterans' Counselor: Montserrat Wiseman MD, Phone: [phone] Performed at: [address] [id number] Veterans' Counselor: Montserrat Wiseman MD, Phone: [phone] IGP, APTIMA HPV, RFX 16/18,45Note.NOMS HealthcareComment on above:TESTS RESULT FLAG UNITS REF RANGE LAB DIAGNOSIS: 02 NEGATIVE FOR INTRAEPITHELIAL LESION OR MALIGNANCY. Specimen adequacy: 02 Satisfactory for evaluation. Performed by: 02 Bayron Laura, Order Puller (ASC) . 02 Note: Note 02 The Pap smear is a screening test designed to aid in the detection of premalignant and malignant conditions of the uterine cervix. It is not a diagnostic procedure and should not be used as the sole means of detecting cervical cancer. Both false-positive and false-negative reports do occur. Test Methodology: Note 02 The [employer]R) Sales Att[employer] was unable to read this specimen. Therefore a manual review was performed. FLAG LEGEND: L-Low Normal,H-High Normal,LL-Alert Low,HH-Alert High <-Panic Low,>-Panic High,A-Abnormal,AA-Critical Abnormal Performed at: [address] [address] Montserrat Wiseman MD, HPV Genotype Reflex Note 02 Criteria not met, HPV Genotype not performed. Criteria not met, HPV Genotype not performed. SPATULA-ALONE VAGINA CLINISYNCNOSac[facility] ACOG PANEL 2: 30 to 65on 06-19-2022..NormalThe [facility] Health System East CampusComment on above:Result Comment: Performed at: WBPerformed By: #### [id number] #### [facility] [address] [place] [address] Dr. Lina Greenberg Gdln ACOG Ykjmszp00-28TlafivShtPaulding County HospitalComment on above:Performed By: #### [id number] #### [facility] [address] [place] [address] Dr. Lina LewisDIAGNOSIS:CommentNoCentervilleComment on above: Result Comment: NEGATIVE FOR INTRAEPITHELIAL LESION OR MALIGNANCY. PREDOMINANCE OF COCCOBACILLI CONSISTENT WITH SHIFT IN VAGINAL YADIEL IS PRESENT. Performed at: WBPerformed By: #### [id number] #### [facility] [address] [place] [address] Dr. Lina LewisHPV AptimaNegativeNormalNegativeCity HospitalComment on above:Result Comment: This nucleic acid amplification test detects fourteen high-risk HPV types (16,18,31,33,35,39,45,51,52,56,58,59,66,68) without differentiation. Performed at: =GPerformed By: #### [id number] #### [facility] [address] [place] [address] Dr. Lina LewisMethodology:CommentPike Community Hospital on above: Result Comment: This liquid based ThinPrep(R) pap test was screened with the use of an image guided system. Performed at: WBPerformed By: #### [id number] #### [facility] [address] [place] [address] Dr. Lina LewisNote:CommentPike Community Hospital on above:Result Comment: The Pap smear is a screening test designed to aid in the detection of premalignant and malignant conditions of the uterine cervix. It is not a diagnostic procedure and should not be used as the sole means of detecting cervical cancer. Both false-positive and false-negative reports do occur. . Performed at: WBPerformed By: #### [id number] #### [facility] [address] [place] [address] Dr. Lina LewisPerformed by:CommentNoRegency Hospital Toledo on above: Result Comment: Katty Adames, Order Puller (ASCP) Performed at: WBPerformed By: #### [id number] #### [place] [address] [address] Lina LewisSpecimen adequacy:CommentPike Community Hospital on above:Result Comment: Satisfactory for evaluation. Performed at: WBPerformed By: #### [id number] #### [facility] [address] [place] [address] Dr. Lina LewisMRI Shoulder w/o Righton 31-92-4426ECL Shoulder w/o RightHISTORY: Right posterior shoulder pain with numbness and [...] and signed by Rambo Quinones on 03/31/2022 1300[facility] HospitalXR Shoulder Complete Right*on 64-60-9457YM Shoulder Complete Right*HISTORY: Generalized right shoulder pain FINDINGS: Moderate to severe downsloping acromion. Mild hook morphology. Minimal osteophyte formation involves the AC joint. No fracture or dislocation or rotator cuff calcification is seen. Upper chest is clear. IMPRESSION: 1. Downsloping acromion morphology, probable impingement. 2. No significant AC separation or fracture. Report reported and signed by Tree Barahona on 03/24/2022 1032[facility] HospitalXR Spine Cervical Complete w/Flex AND Victoria 78-99-5218PE Spine Cervical Complete w/Flex AND ExtFINDINGS: Cervical vertebral bodies are preserved in height [...] and signed by Tree Barahona on 03/24/2022 1026[facility] CenterCREENING MAMMOGRAM W/TERESITA, BILATERAL*on 03-14-2022 SCREENING MAMMOGRAM W/TERESITA, BILATERAL*COMPARISON: Dating back to February 12, 2021 and [...] VERY IMPORTANT TO YOUR HEALTH. THE CURRENT MALAGASY COLLEGE OF RADIOLOGY AND NATIONAL COMPREHENSIVE CANCER NETWORK GUIDELINES RECOMMENDS ANNUAL MAMMOGRAPHY BEGINNING AT AGE 40 THIS FACILITY USES A REMINDER SYSTEM TO ENSURE ALL PATIENTS RECEIVE REMINDER NOTIFICATIONS AT THE APPROPRIATE TIME BASED ON THE RECOMMENDATIONS OF THIS EXAM. Report reported and signed by Tree Barahona on 03/14/2022 1555NormalUniversity Hospitals Parma Medical CenterQ - SUSANNA SCREEN IFA W/RFL TITER AND PATTERNon 12-09-2021 SUSANNA SCREEN, IFAPositiveAbnormalNEGATIVEUniversity Hospitals Parma Medical CenterComment on above:Order Comment: [facility] Testing performed at: [facility], [facility], [address] [place] [address], [address] [place] [address], [phone], Java Developer: Nura Saxena MD [facility] Collection Date/Time: [id number] [facility] Results Received Date/Time: [facility] Reported Date/Time: FASTING: NOResult Comment: SUSANNA IFA is a first line screen for detecting the presence of up to approximately 150 autoantibodies in various autoimmune diseases. A positive SUSANNA IFA result is suggestive of autoimmune disease and reflexes to titer and pattern. Further laboratory testing may be considered if clinically indicated. For additional information, please refer to http://education.[employer]/faq/QSE006 (This link is being provided for informational/ educational purposes only.)Performed By: #### [id number], 7065X, 926 #### [facility] Default [address] [place], [place] [address]H - C-REACTIVE PROTEINon 44-04-4361YYX [Mass/Vol]0.6 mg/LNormal <8.0NoCentervilleComment on above:Order Comment: [facility] Testing performed at: [facility], [facility], [address] [place] [address], [address] [place] [address], [phone], Java Developer: Nura Saxena MD [facility] Collection Date/Time: [facility] Results Received Date/Time: [facility] Reported Date/Time: FASTING: UNKNOWNPerformed By: #### 899, 249, 447122Y, 92934J, 08730S, ESR, 4420, 968T, 42A #### [facility] Default [address] [place], [place] [address]S - CBC W/DIFF AND PLTon 27-18-6184KCKRGLF67 cells/uLNormal0-200 [facility] SpecialistComment on above:Order Comment: [facility] Testing performed at: [facility], [facility], [address] [place] [address], [address] [place] [address], [phone], Java Developer: Nura Saxena MD [facility] Collection Date/Time: [facility] Results Received Date/Time: [facility] Reported Date/Time: FASTING: UNKNOWNPerformed By: #### 899, 249, 596294K, 32766P, 65710J, ESR, 4420, 968T, 42A #### [facility] Default [address] [place], [place] [address]Udkkwzapp/100 WBC (Bld)0.6 %Lake Worth BeachNoBarnesville Hospital SpecialistComment on above:Order Comment: [facility] Testing performed at: [employer], [facility], [address] [place] [address], [address] [place] [address], [phone], Java Developer: Nura Saxena MD [facility] Collection Date/Time: [facility] Results Received Date/Time: [facility] Reported Date/Time: FASTING: UNKNOWNPerformed By: #### 899, 249, 446534D, 36868H, 16364N, ESR, 4420, 968T, 42A #### [facility] Default [address] [place], [place] [address]LGSCPB893 cells/vHOaizxk48-465Xqnnakst [place] [employer] Account Representative Comment on above:Order Comment: [facility] Testing performed at: [employer], [facility], [address] [place] [address], [address] [place] [address], [address] [place] [address], Java Developer: Nura Saxena MD [facility] Collection Date/Time: [facility] Results Received Date/Time: [facility] Reported Date/Time: FASTING: UNKNOWNPerformed By: #### 899, 249, 929290I, 63554S, 30874D, ESR, 4420, 968T, 42A #### [facility] Default [address] [place], [place] [address]Jxcxqgeqlmx/100 WBC (Bld)2.3 %NormalNoBarnesville Hospital SpecialistComment on above:Order Comment: [facility] Testing performed at: [facility], [address] [place] [address], [address] [place] [address], Java Developer: Nura Saxena MD [facility] Collection Date/Time: [facility] Results Received Date/Time: [facility] Reported Date/Time: FASTING: UNKNOWNPerformed By: #### 899, 249, 053069D, 53123S, 32011S, ESR, 4420, 968T, 42A #### [facility] Default [address] [place], [place] [address]Dpzqpvtpwpq distribution width (RBC) [Ratio]11.5 %Bkivdk41.0-15.0 [facility] Parma Medical CenterComment on above:Order Comment: [facility] Testing performed at: [email or web address] [facility], [address] [place] [address], [address] [place] [address], [address] [place] [address], Java Developer: Nura Saxena MD [facility] Collection Date/Time: [facility] Results Received Date/Time: [facility] Reported Date/Time: FASTING: UNKNOWNPerformed By: #### 899, 249, 696345D, 65956F, 79311W, ESR, 4420, 968T, 42A #### [facility] Default [address] [place], [place] [address]Xtpgaqrbwi (Bld) [Volume fraction]43.8 %Cnwfth89.0-45.0[facility] SpecialistComment on above:Order Comment: [facility] Testing performed at: [facility], [facility], [address] [place] [address], [address] [place] [address], [address] [place] [address], Java Developer: Nura Saxena MD [facility] Collection Date/Time: [facility] Results Received Date/Time: [facility] Reported Date/Time: FASTING: UNKNOWNPerformed By: #### 899, 249, 676296C, 35524V, 05256G, ESR, 4420, 968T, 42A #### [facility] Default [address] [place], [place] [address]Ykvepaumvf (Bld) [Mass/Vol]14.9 g/hTWlsogl70.7-15.5NoCentervilleComment on above:Order Comment: [facility] Testing performed at: [employer], [facility], [address] [place] [address], [address] [place] [address], [address] [place] [address], Java Developer: Nura Saxena MD [facility] Collection Date/Time: [facility] Results Received Date/Time: [facility] Reported Date/Time: FASTING: UNKNOWNPerformed By: #### 899, 249, 727038L, 97447U, 21460C, ESR, 4420, 968T, 42A #### [facility] Default [address] [place], [place] [address]Qlmtfjpltts (Bld) [#/Vol]2.947 10*3/tYZsgqjs439-6371Focrkcsj [place] [facility] SpecialistComment on above:Order Comment: [facility] Testing performed at: [employer], [facility], [address] [place] [address], [address] [place] [address], [address] [place] [address], Java Developer: Nura Saxena MD [facility] Collection Date/Time: [facility] Results Received Date/Time: [facility] Reported Date/Time: FASTING: UNKNOWNPerformed By: #### 899, 249, 023732D, 38086K, 18543U, ESR, 4420, 968T, 42A #### [facility] Default [address] [place], [place] [address]Gripxixwicm/100 WBC (Bld)30.7 %NormalNoBarnesville Hospital SpecialistComment on above:Order Comment: [facility] Testing performed at: [facility], [facility], [address] [place] [address], [address] [place] [address], [address] [place] [address], Java Developer: Nura Saxena MD [facility] Collection Date/Time: [facility] Results Received Date/Time: [facility] Reported Date/Time: FASTING: UNKNOWNPerformed By: #### 899, 249, 412581I, 74571O, 05017K, ESR, 4420, 968T, 42A #### [facility] Default [address] [place], [place] [address]RDT (RBC) [Entitic mass]31.3 jlAlpheh29.0-33.0NoBarnesville Hospital SpecialistComment on above:Order Comment: [facility] Testing performed at: [facility], [facility], [facility], [address] [place] [address], [address] [place] [address], Java Developer: Nura Saxena MD [facility] Collection Date/Time: [facility] Results Received Date/Time: [facility] Reported Date/Time: FASTING: UNKNOWNPerformed By: #### 899, 249, 283147J, 73856Q, 74839V, ESR, 4420, 968T, 42A #### [facility] Default [address] [place], [place] [address]MRUA (RBC) [Mass/Vol]34.0 g/qMCpmiyu99.0-36.0NoBarnesville Hospital SpecialistComment on above:Order Comment: [facility] Testing performed at: [facility], [facility], [facility], [address] [place] [address], [address] [place] [address], Java Developer: Nura Saxena MD [facility] Collection Date/Time: [facility] Results Received Date/Time: [facility] Reported Date/Time: FASTING: UNKNOWNPerformed By: #### 899, 249, 519945D, 05410L, 67389K, ESR, 4420, 968T, 42A #### [facility] Default [address] [place], [place] [address]EWB (RBC) [Entitic vol]92.0 lJPveaja90.0-100.0[facility] SpecialistComment on above:Order Comment: [facility] Testing performed at: [facility], [address] [place] [address], [address] [place] [address], [address] [place] [address], Java Developer: Nura Saxena MD [facility] Collection Date/Time: [facility] Results Received Date/Time: [facility] Reported Date/Time: FASTING: UNKNOWNPerformed By: #### 899, 249, 836995M, 67829B, 35471P, ESR, 4420, 968T, 42A #### [facility] Default [address] [place], [place] [address]LFNJIKU950 cells/nGBsavzx824-346Moihgeck [place] [employer] Account Representative Comment on above:Order Comment: [facility] Testing performed at: [facility], [address] [place] [address], [address] [place] [address], [address] [place] [address], Java Developer: Nura Saxena MD [facility] Collection Date/Time: [facility] Results Received Date/Time: [facility] Reported Date/Time: FASTING: UNKNOWNPerformed By: #### 899, 249, 420219C, 39449H, 86440S, ESR, 4420, 968T, 42A #### [facility] Default [address] [place], [place] [address]Qqvybbipk/100 WBC (Bld)5.4 %NormalNoBarnesville Hospital SpecialistComment on above:Order Comment: [facility] Testing performed at: [facility], [address] [place] [address], [address] [place] [address], [address] [place] [address], Java Developer: Nura Saxena MD [facility] Collection Date/Time: [facility] Results Received Date/Time: [facility] Reported Date/Time: FASTING: UNKNOWNPerformed By: #### 899, 249, 087568L, 91641A, 65675S, ESR, 4420, 968T, 42A #### [facility] Default [address] [place], [place] [address]Lryxvdrhmtm (Bld) [#/Vol]5.856 10*3/rKYzyuyr6408-6499Pggchunh [place] [facility] SpecialistComment on above:Order Comment: [facility] Testing performed at: [facility], [facility], [address] [place] [address], [address] [place] [address], [address] [place] [address], Java Developer: Nura Saxena MD [facility] Collection Date/Time: [facility] Results Received Date/Time: [facility] Reported Date/Time: FASTING: UNKNOWNPerformed By: #### 899, 249, 555850Q, 13126U, 93394N, ESR, 4420, 968T, 42A #### [facility] Default [address] [place], [place] [address]Nwjezvdrgrf/100 WBC (Bld)61 %NormalNoBarnesville Hospital SpecialistComment on above:Order Comment: [facility] Testing performed at: [facility], [facility], [address] [place] [address], [address] [place] [address], [address] [place] [address], Java Developer: Nura Saxena MD [facility] Collection Date/Time: [facility] Results Received Date/Time: [facility] Reported Date/Time: FASTING: UNKNOWNPerformed By: #### 899, 249, 594805L, 98662W, 09488G, ESR, 4420, 968T, 42A #### [facility] Default [address] [place], [place] [address]Amisawuz mean volume (Bld) [Entitic vol]13.9 fLHigh7.5-12.5 [facility] SpecialistComment on above:Order Comment: [facility] Testing performed at: [employer], [facility], [address] [place] [address], [address] [place] [address], [address] [place] [address], Java Developer: Nura Saxena MD [facility] Collection Date/Time: [facility] Results Received Date/Time: [facility] Reported Date/Time: FASTING: UNKNOWNPerformed By: #### 899, 249, 557785R, 94601U, 23918E, ESR, 4420, 968T, 42A #### [facility] Default [address] [place], [place] [address]Vxugruizr (Bld) [#/Vol]195 10*3/fCSgrwxo549-539Elfricpt [place] [facility] SpecialistComment on above:Order Comment: [facility] Testing performed at: [employer], [facility], [facility], [address] [place] [address], [address] [place] [address], Java Developer: Nura Saxena MD [facility] Collection Date/Time: [facility] Results Received Date/Time: [facility] Reported Date/Time: FASTING: UNKNOWNPerformed By: #### 899, 249, 626282D, 16139Y, 51139C, ESR, 4420, 968T, 42A #### [facility] Default [address], [place] [address]TZX (Bld) [#/Vol]4.76 10*6/uLNormal3.80-5.10NoBarnesville Hospital SpecialistComment on above:Order Comment: [facility] Testing performed at: [employer], [facility], [address] [place] [address], [address] [place] [address], [address] [place] [address], Java Developer: Nura Saxena MD [facility] Collection Date/Time: [facility] Results Received Date/Time: [facility] Reported Date/Time: FASTING: UNKNOWNPerformed By: #### 899, 249, 259678F, 73357Y, 88207K, ESR, 4420, 968T, 42A #### [facility] Default [address] [place], [place] [address]TER (Bld) [#/Vol]9.6 10*3/uLNormal3.8-10.8NoBarnesville Hospital SpecialistComment on above:Order Comment: [facility] Testing performed at: [employer], [facility] [facility], [address] [place] [address], [address] [place] [address], [address] [place] [address], Java Developer: Nura Saxena MD [facility] Collection Date/Time: [facility] Results Received Date/Time: [facility] Reported Date/Time: FASTING: UNKNOWNPerformed By: #### 899, 249, 518244B, 49118R, 49751B, ESR, 4420, 968T, 42A #### [facility] Default [address] [place], [place] [address]M - COMPREHENSIVE METABOLIC PANEL W/EGFRon 38-60-2888Bdlpvjg [Mass/Vol]4.3 g/dLNormal3.6-5.1[facility] SpecialistComment on above: Order Comment: [facility] Testing performed at: [employer], [facility], [address] [place] [address], [address] [place] [address], [address] [place] [address], Java Developer: Nura Saxena MD [facility] Collection Date/Time: [facility] Results Received Date/Time: [facility] Reported Date/Time: FASTING: UNKNOWNPerformed By: #### 899, 249, 377385Z, 14149Z, 24491L, ESR, 4420, 968T, 42A #### [facility] Default [address] [place], [place] [address]Nujypll/Globulin [Mass ratio]1.6 {ratio}Normal1.0-2.5NortOhioHealth Grant Medical Center SpecialistComment on above:Order Comment: [facility] Testing performed at: [employer], [facility], [address] [place] [address], [address] [place] [address], [address] [place] [address], Java Developer: Nura Saxena MD [facility] Collection Date/Time: [facility] Results Received Date/Time: [facility] Reported Date/Time: FASTING: UNKNOWNPerformed By: #### 899, 249, 919680O, 69144N, 12418U, ESR, 4420, 968T, 42A #### [facility] Default [address] [place], [place] [address]DWK [Catalytic activity/Vol]74 U/HEtnurg42-982Jpbszgeh [place] [facility] SpecialistComment on above:Order Comment: [facility] Testing performed at: [facility], [facility], [address] [place] [address], [address] [place] [address], Java Developer: Nura Saxena MD [facility] Collection Date/Time: [facility] Results Received Date/Time: [facility] Reported Date/Time: FASTING: UNKNOWNPerformed By: #### 899, 249, 518782U, 54390J, 81223E, ESR, 4420, 968T, 42A #### [facility] Default [address] [place], [place] [address]CMO [Catalytic activity/Vol]12 U/LNormal6-29NortOhioHealth Grant Medical Center SpecialistComment on above:Order Comment: [facility] Testing performed at: [facility], [facility], [address] [place] [address], [address] [place] [address], [address] [place] [address], Java Developer: Nura Saxena MD [facility] Collection Date/Time: [facility] Results Received Date/Time: [facility] Reported Date/Time: FASTING: UNKNOWNPerformed By: #### 899, 249, 457292D, 54556Q, 12549H, ESR, 4420, 968T, 42A #### [facility] Default [address] [place], [place] [address]PFF [Catalytic activity/Vol]12 U/DNyetcr56-51Vwpekzae [place] Medical SpecialistComment on above:Order Comment: [facility] Testing performed at: [employer], [employer] [facility], [address] , [address] [place] [address], [address] [place] [address], Java Developer: Nura Saxena MD [facility] Collection Date/Time: [facility] Results Received Date/Time: [facility] Reported Date/Time: FASTING: UNKNOWNPerformed By: #### 899, 249, 379828M, 00449P, 05831Q, ESR, 4420, 968T, 42A #### [facility] Default [address] [place], [place] [address]WIW/CREA14 NOT APPLICABLENormal6-22[facility] SpecialistComment on above:Order Comment: [facility] Testing performed at: [employer], [employer] [facility], [address] , [address] [place] [address], [address] [place] [address], Java Developer: Nura Saxena MD [facility] Collection Date/Time: [facility] Results Received Date/Time: [facility] Reported Date/Time: FASTING: UNKNOWNPerformed By: #### 899, 249, 203823Y, 30417C, 87888B, ESR, 4420, 968T, 42A #### [facility] Default [address] [place], [place] [address]Vtqhbim [Mass/Vol]9.8 mg/dLNormal8.6-10.2[facility] [place] Medical SpecialistComment on above:Order Comment: [facility] Testing performed at: [employer], [employer] [facility], [address] , [address] [place] [address], [address] [place] [address], Java Developer: Nura Saxena MD [facility] Collection Date/Time: [facility] Results Received Date/Time: [facility] Reported Date/Time: FASTING: UNKNOWNPerformed By: #### 899, 249, 841505S, 44761Y, 68127Z, ESR, 4420, 968T, 42A #### [facility] Default [address] [place], [place] [address]Pfghlmlw [Moles/Vol]103 mmol/HUobwxz46-498Qcxaesgd [place] Medical SpecialistComment on above:Order Comment: [facility] Testing performed at: [facility] [facility], [address] [place] [address], [address] [place] [address], [address] [place] [address], Java Developer: Nura Saxena MD [facility] Collection Date/Time: [facility] Results Received Date/Time: [facility] Reported Date/Time: FASTING: UNKNOWNPerformed By: #### 899, 249, 606753V, 71728Z, 94904K, ESR, 4420, 968T, 42A #### [facility] Default [address] [place], [place] [address]MS7 [Moles/Vol]28 mmol/FJufojl65-05Exlobyxr [place] Medical SpecialistComment on above:Order Comment: [facility] Testing performed at: [facility], [employer] [facility], [address] [place] [address], [address] [place] [address], [address] [place] [address], Java Developer: Nura Saxena MD [facility] Collection Date/Time: [facility] Results Received Date/Time: [facility] Reported Date/Time: FASTING: UNKNOWNPerformed By: #### 899, 249, 441491O, 15123D, 89356F, ESR, 4420, 968T, 42A #### [facility] Default [address] [place], [place] [address]Mhdeysljye [Mass/Vol]0.59 mg/dLNormal0.50-1.10NoBarnesville Hospital SpecialistComment on above:Order Comment: [facility] Testing performed at: [facility], [employer] [facility], [address] [place] [address], [address] [place] [address], [address] [place] [address], Java Developer: Nura Saxena MD [facility] Collection Date/Time: [facility] Results Received Date/Time: [facility] Reported Date/Time: FASTING: UNKNOWNPerformed By: #### 899, 249, 424850P, 96790C, 70353B, ESR, 4420, 968T, 42A #### [facility] Default [address] [place], [place] [address]yVZELT (Quest)133 mL/min/1.59y2Spnfme> OR = 60[facility] [place] [facility] SpecialistComment on above:Order Comment: [facility] Testing performed at: [employer], [employer] [facility], [address], [address] [place] [address], [address] [place] [address], Java Developer: Nura Saxena MD [facility] Collection Date/Time: [facility] Results Received Date/Time: [facility] Reported Date/Time: FASTING: UNKNOWNPerformed By: #### 899, 249, 382061U, 42123W, 38021M, ESR, 4420, 968T, 42A #### [facility] Default [address] [place], [place] [address]kLQAQFD (Quest)115 mL/min/1.09f8Pyywxm> OR = 60[facility] [place] [facility] SpecialistComment on above:Order Comment: [facility] Testing performed at: [employer], [employer] [facility], [address] , [address] [place] [address], [address], Java Developer: Nura Saxena MD [facility] Collection Date/Time: [facility] Results Received Date/Time: [facility] Reported Date/Time: FASTING: UNKNOWNPerformed By: #### 899, 249, 380050P, 50927Q, 34340S, ESR, 4420, 968T, 42A #### [facility] Default [address] [place], [place] [address]Oswsdjck (S) [Mass/Vol]2.7 g/dLNormal1.9-3.7[facility] [place] [facility] SpecialistComment on above:Order Comment: [facility] Testing performed at: [employer], [employer] [facility], [address] , [address] [place] [address], [address], Java Developer: Nura Saxena MD [facility] Collection Date/Time: [facility] Results Received Date/Time: [facility] Reported Date/Time: FASTING: UNKNOWNPerformed By: #### 899, 249, 820760S, 40716V, 76484F, ESR, 4420, 968T, 42A #### [facility] Default [address] [place], [place] [address]Azivzok [Mass/Vol]82 mg/aCCascjx39-62Lrrpasnb [place] Medical SpecialistComment on above:Order Comment: [facility] Testing performed at: [facility], [facility], [address] [place] [address], [address] [place] [address], [address] [place] [address], Java Developer: Nura Saxena MD [facility] Collection Date/Time: [facility] Results Received Date/Time: [facility] Reported Date/Time: FASTING: UNKNOWNResult Comment: Fasting reference intervalPerformed By: #### 899, 249, 432962L, 40076I, 05975F, ESR, 4420, 968T, 42A #### [facility] Default [address] [place], [place] [address]Luwfkkuim [Moles/Vol]4.2 mmol/LNormal3.5-5.3NortMagruder Memorial HospitalComment on above:Order Comment: [facility] Testing performed at: [facility], [facility], [address] [place] [address], [address] [place] [address], [address] [place] [address], Java Developer: Nura Saxena MD [facility] Collection Date/Time: [facility] Results Received Date/Time: [facility] Reported Date/Time: FASTING: UNKNOWNPerformed By: #### 899, 249, 017540O, 09865G, 53514N, ESR, 4420, 968T, 42A #### [facility] Default [address] [place], [place] [address]Iqwfmnp [Mass/Vol]7.0 g/dLNormal6.1-8.1[facility] SpecialistComment on above:Order Comment: [facility] Testing performed at: [facility], [employer] [facility], [address] [place] [address], [address] [place] [address], [address] [place] [address], Java Developer: Nura Saxena MD [facility] Collection Date/Time: [facility] Results Received Date/Time: [facility] Reported Date/Time: FASTING: UNKNOWNPerformed By: #### 899, 249, 873339R, 38113I, 91525I, ESR, 4420, 968T, 42A #### [facility] Default [address] [place], [place] [address]Dzaeyq [Moles/Vol]138 mmol/GNgmosq424-029Muypmjly [facility] SpecialistComment on above:Order Comment: [facility] Testing performed at: [facility], [employer] [facility], [address] [place] [address], [address] [place] [address], [address] [place] [address], Java Developer: uNra Saxena MD [facility] Collection Date/Time: [facility] Results Received Date/Time: [facility] Reported Date/Time: FASTING: UNKNOWNPerformed By: #### 899, 249, 617402F, 65748Z, 28174F, ESR, 4420, 968T, 42A #### [facility] Default [address] [place], [place] [address]XYOX<0.2Sjfzno8.2-1.2[facility] SpecialistComment on above:Order Comment: [facility] Testing performed at: [facility], [employer] [facility], [address] [place] [address], [address] [place] [address], [address] [place] [address], Java Developer: Nura Saxena MD [facility] Collection Date/Time: [facility] Results Received Date/Time: [facility] Reported Date/Time: FASTING: UNKNOWNPerformed By: #### 899, 249, 015668J, 19431Z, 11766D, ESR, 4420, 968T, 42A #### [facility] Default [address] [place], [place] [address]Dfoc nitrogen [Mass/Vol]8 mg/dLNormal7-25[facility] SpecialistComment on above:Order Comment: [facility] Testing performed at: [employer], [employer] [facility], [address] [place] [address], [address] [place] [address], [address] [place] [address], Java Developer: Nura Saxena MD [facility] Collection Date/Time: [facility] Results Received Date/Time: [facility] Reported Date/Time: FASTING: UNKNOWNPerformed By: #### 899, 249, 573425O, 56774K, 99892W, ESR, 4420, 968T, 42A #### [facility] Default [address] [place], [place] [address]N - Lipid Panelon 12-10-2890Eutkldnaxav [Mass/Vol]242 mg/dLHigh <200[facility] SpecialistComment on above:Order Comment: [facility] Testing performed at: [employer], [employer] [facility], [address] [place] [address], [address] [place] [address], [address] [place] [address], Java Developer: Nura Saxena MD [facility] Collection Date/Time: [facility] Results Received Date/Time: [facility] Reported Date/Time: FASTING: UNKNOWNPerformed By: #### 899, 249, 719506T, 22731N, 90894Z, ESR, 4420, 968T, 42A #### [facility] Default [address] [place], [place] [address]Bzontkaszhq in HDL [Mass/Vol]59 mg/dLNormal> OR = 50[facility] SpecialistComment on above:Order Comment: [facility] Testing performed at: [email or web address] [facility], [address] [place] [address], [address] [place] [address], [address] [place] [address], Java Developer: Nura Saxena MD [facility] Collection Date/Time: [facility] Results Received Date/Time: [facility] Reported Date/Time: FASTING: UNKNOWNPerformed By: #### 899, 249, 299833L, 04137U, 89063Y, ESR, 4420, 968T, 42A #### [facility] Default [address] [place], [place] [address]Ddltpozhfji in LDL [Mass/Vol]160 mg/dLCleveland Clinic Union HospitalComment on above:Order Comment: [facility] Testing performed at: [employer], [employer] [facility], [address] , [address] [place] [address], [address], Java Developer: Nura Saxena MD [facility] Collection Date/Time: [facility] Results Received Date/Time: [facility] Reported Date/Time: FASTING: UNKNOWNResult Comment: Reference range: <100 Desirable range <100 mg/dL for primary prevention; <70 mg/dL for patients with CHD or diabetic patients with > or = 2 CHD risk factors. LDL-C is now calculated using the Daniel-Roe calculation, which is a validated novel method providing better accuracy than the Friedewald equation in the estimation of LDL-C. Daniel FLOWERS et al. CARLA. 2013;310(19): 6082-0433 (http://education.Telinet.[employer]ares [employer]/faq/OAV299)Performed By: #### 899, 249, 072572D, 59092X, 23719F, ESR, 4420, 968T, 42A #### [facility] Default [address] [place], [place] [address]Vmfqrmeeetz.total/Cholesterol in HDL [Mass ratio]4.1 {ratio} Normal<5.0NoCentervilleComment on above:Order Comment: [facility] Testing performed at: [employer], [employer] [facility], [address] , [address] [place], [address], Java Developer: Nura Saxena MD [facility] Collection Date/Time: [facility] Results Received Date/Time: [facility] Reported Date/Time: FASTING: UNKNOWNPerformed By: #### 899, 249, 136818R, 42142B, 94384R, ESR, 4420, 968T, 42A #### [facility] Default [address] [facility] [place] [address]MTF HDL JBPKOUVUSAW272 mg/dL (calc)High<130[facility] SpecialistComment on above:Order Comment: [facility] Testing performed at: [email or web address] [facility], [address] [place] [address], [address] [place] [address], [address], Java Developer: Nura Saxena MD [facility] Collection Date/Time: [facility] Results Received Date/Time: [facility] Reported Date/Time: FASTING: UNKNOWNResult Comment: For patients with diabetes plus 1 major ASCVD risk factor, treating to a non-HDL-C goal of <100 mg/dL (LDL-C of <70 mg/dL) is considered a therapeutic option.Performed By: #### 899, 249, 199671X, 11121R, 35605B, ESR, 4420, 968T, 42A #### [facility] Default [address] [facility] [place] [address]Xynvpsyotihr [Mass/Vol]112 mg/dLNormal<150Nortbannern [facility] SpecialistComment on above:Order Comment: [facility] Testing performed at: [email or web address] [facility], [address] [place] [address], [address] [place] [address], [address] [place] [address], Java Developer: Nura Saxena MD [facility] Collection Date/Time: [facility] Results Received Date/Time: [facility] Reported Date/Time: FASTING: UNKNOWNPerformed By: #### 899, 249, 478568A, 45991G, 50431S, ESR, 4420, 968T, 42A #### [facility] Default [address] [place] [address]N - PTH,INTACT W/O CALCIUMon 98-40-6072OLTNXKYRIJI HORMONE, OTALQU18 pg/lEBbuhux85-41Ctjdwhfw [facility] SpecialistComment on above:Order Comment: [facility] Testing performed at: [email or web address] [facility], [address] [place] [address], [address] [place] [address], [address] [place] [address], Java Developer: Nura Saxena MD [facility] Collection Date/Time: [facility] Results Received Date/Time: [facility] Reported Date/Time: FASTING: UNKNOWNResult Comment: Interpretive Guide Intact PTH Calcium ------- Normal Parathyroid Normal Normal Hypoparathyroidism Low or Low Normal Low Hyperparathyroidism Primary Normal or High High Secondary High Normal or Low Tertiary High High Non-Parathyroid Hypercalcemia Low or Low Normal HighPerformed By: #### 899, 249, 876238D, 55223N, 49244N, ESR, 4420, 968T, 42A #### [facility] Default [address] [place], [place] [address]E - RFon 77-15-1480LE<14Normal<14[place] [employer] Representative Comment on above:Order Comment: [facility] Testing performed at: [email or web address] [facility], [facility], [address] [place] [address], [address] [place] [address], Java Developer: Nura Saxena MD [facility] Collection Date/Time: [facility] Results Received Date/Time: [facility] Reported Date/Time: FASTING: UNKNOWNPerformed By: #### 899, 249, 155625O, 47454Z, 37680I, ESR, 4420, 968T, 42A #### [facility] Default [address] [place], [place] [address]H - TSHon 10-85-1801OWS Qn1.06 m[IU]/LNormalNorthern [place] Medical SpecialistComment on above:Order Comment: [facility] Testing performed at: [email or web address] [facility], [address] [facility], [address] [place] [address], [address] [place] [address], Java Developer: Nura Saxena MD [facility] Collection Date/Time: [facility] Results Received Date/Time: [facility] Reported Date/Time: FASTING: UNKNOWNResult Comment: Reference Range > or = 20 Years 0.40-4.50 Ranges First trimester 0.26-2.66 Second trimester 0.55-2.73 Third trimester 0.43-2.91Performed By: #### 899, 249, 329065D, 48001J, 48890F, ESR, 4420, 968T, 42A #### [facility] Default [address] [place], [place] [address]EFF Sedimentation Rateon 34-67-5772DHJ (Bld) [Velocity]6 mm/h Normal< OR = 20[facility] [place] [facility] SpecialistComment on above:Order Comment: [facility] Testing performed at: [facility], [address] [place] [address], [address] [place] [address], [address] [place] [address], Java Developer: Nura Saxena MD [facility] Collection Date/Time: [facility] Results Received Date/Time: [facility] Reported Date/Time: FASTING: NOPerformed By: #### 548[address]P, 7065X, 926 #### [facility] Default [address] [place], [place] [address]D - VITAMIN B12 AND FOLATE,SERUMon 12-80-4749Pejdchyue (Vitamin B12) [Mass/Vol]448 pg/kQGgoonq907-3142Aomssibu [facility] SpecialistComment on above:Order Comment: [facility] Testing performed at: [employer] [facility], [address] [place] [address], [address] [place] [address], [address] [place] [address], Java Developer: Nura Saxena MD [facility] Collection Date/Time: [facility] Results Received Date/Time: [facility] Reported Date/Time: FASTING: NOPerformed By: #### 78867R, 7065X, 926 #### [facility] Default [address] [place], [place] [address]Wuiecn [Mass/Vol]10.6 ng/mLNormalNorthern Indiana Advertising Account Representative Comment on above:Order Comment: [facility] Testing performed at: [email or web address] [facility], [address], [address] [place], [address], Java Developer: Nura Saxena MD [facility] Collection Date/Time: [facility] Results Received Date/Time: [facility] Reported Date/Time: FASTING: NOResult Comment: Reference Range Low: <3.4 Borderline: 3.4-5.4 Normal: >5.4Performed By: #### 59932J, 7065X, 926 #### [facility] Default [address] [place], [place] [address]C - VITAMIN B6, PLASMAon 89-62-0810ZDEFWNW B6, PLASMA3.2 ng/mL Normal2.1-21.7Nortbannern [facility] Children'S HospitalComment on above:Order Comment: [facility] Testing performed at: [facility], [employer]/[facility], [address], [place], [place], , Java Developer: Matthew Boston M.D.,PhD [facility] Collection Date/Time: [facility] Results Received Date/Time: [id number] [facility] Reported Date/Time: [id number] FASTING: NOResult Comment: Vitamin supplementation within 24 hours prior to blood draw may affect the accuracy of the results. This test was developed and its analytical performance characteristics have been determined by [employer] [place], [place]. It has not been cleared or approved by the U.S. Food and Drug Administration. This assay has been validated pursuant to the CLIA regulations and is used for clinical purposes.Performed By: #### 81661E, 7065X, 926 #### [facility] Default [address] [place], [place] [address]C - VITAMIN D 25-OH Total IAon 63-65-9689UJQ D 25 OH25 ng/mLLow 30-100NortMagruder Memorial HospitalComment on above:Order Comment: [facility] Testing performed at: [facility], [employer] [facility], [address], [address] [place], [address], Java Developer: Nura Saxena MD [facility] Collection Date/Time: [id number] [facility] Results Received Date/Time: [facility] Reported Date/Time: FASTING: NOResult Comment: Vitamin D Status 25-OH Vitamin D: Deficiency: <20 ng/mL Insufficiency: 20 - 29 ng/mL Optimal: > or = 30 ng/mL For 25-OH Vitamin D testing on patients on D2-supplementation and patients for whom quantitation of D2 and D3 fractions is required, the QuestAssureD(TM) 25-OH VIT D, (D2,D3), LC/MS/MS is recommended: order code 56953 (patients >2yrs). See Note 1 Note 1 For additional information, please refer to http://education.Telinet.numares [employer]/faq/VRK574 (This link is being provided for informational/ educational purposes only.)Performed By: #### 56254B, 7065X, 926 #### [facility] Default [address] [place], [place] [address]ETVIP Quick Testingon 41-95-0032LzhqzgUkuprcebCrkcf [employer] Other Physical Therapy Noteon 56-68-2050Jnwukpug Therapy [id number]#1.00[facility] Coding Summaryon 39-63-3406Mpgyfq SummaryHTMLBase 64 AmpfspkaDQa6pKj+PGhlYWQ+SA2YWPWoH98swEBhlG6KQ8cJEJ9VFSHPNDUDUI2KFX8vlXA6DUufZ5Mx biAv [file] LR06X9KlKugyzWOyzYY+LGOuLp39NvRoFjcnaRQzeQ1=IebltcRvkgyshg HospitalProvider Orderson 22-22-9870Vpdnqjzz Orders [id number]#1.00OTPro[facility] Vital Signs Date TimeVital SignValuePerforming PgvfgjdzrHlkkcpml73-14-4770 08:05-0400Body mass index (BMI) [Ratio]26.58 kg/n7Kjwycbeh Swinehart [employer] Work Phone: [facility] HealthEufastykop18-82-4210 08:05-0400Body kyhpmz17.65 kgAshleigh Swinehart [employer] Work Phone: [facility] HealthMfsxgrmflt41-03-7068 08:05-0400Diastolic blood mm[Hg]Luiza Swinehart [employer] Work Phone: [facility] HealthKdowcuvipd36-21-0511 08:05-0400Heart rate77 /min Luiza Swinehart [employer] Work Phone: [facility] HealthJqmxvedolx97-54-7466 08:05-5014GfN1% (BldA) [Mass fraction]97 %Luiza Swinehart [employer] Work Phone: [facility] HealthJsyvxrwsqc71-63-7185 08:05-0400Systolic blood xgkebjwf119 mm[Hg]Luiza Swinehart [employer] Work Phone: [phone] [place], [place] [address]Koqvybhdce98-91-6582 08:09-0400Body egedog907.3 Lex Aceves [employer] Work Phone: [phone] [place], [place] 2954406-05-2025 08:09-0400Body mass index (BMI) [Ratio]27.59 kg/l5DpkjxoxdIngrid Aceves [employer] Work Phone: 1(741)[facility] [place], [place] [address]Qntcdqhxxu98-13-7710 08:09-0400Body citfvk05.73 kgIngrid Aceves [employer] Work Phone: 1(833)[address] [place], [place] 2954406-05-2025 08:09-0400Diastolic blood mm[Hg]Ingrid Aceves [employer] Work Phone: [phone])[address] [place], [place] 2954406-05-2025 08:09-0400Heart rate75 /min Ingrid Aceves [employer] Work Phone: [phone])[address] [place], [place] 2954406-05-2025 08:09-2622VlH3% (BldA) [Mass fraction]97 %Ingrid Aceves [employer] Work Phone: [phone])[address] [place], [place] 2954406-05-2025 08:09-0400Systolic blood ydwdstyh576 mm[Hg]Ingrid Aceves [employer] Work Phone: [phone])[address] [place], [place] 2954405-29-2025 13:55-0400Body mass index (BMI) [Ratio]27.05 kg/t9ObxshrjoIngrid Aceves [employer] Work Phone: 1(850)[address] [place], [place] 2954405-29-2025 13:55-0400Body temperature 97.3 [degF]Ingrid Aceves [employer] Work Phone: [phone])[address] [place], [place] 2954405-29-2025 13:55-0400Body .1 kg Ingrid Aceves [employer] Work Phone: 1(565)[address] [place] [address]-29-2025 13:55-0400Diastolic blood mm[Hg]Ingrid Maryтатьяна [employer] Work Phone: [phone])[address] [place], [place] 2954405-29-2025 13:55-0400Heart rate92 /min Ingrid Aceves [employer] Work Phone: [facility] HealthTtzmxgsrnu77-36-4308 13:55-8242OsH2% (BldA) [Mass fraction]97 %Ingrid Aceves [employer] Work Phone: [facility] HealthQvrvooytvb52-78-2014 13:55-0400Systolic blood wqyqbwrv350 mm[Hg]Ingrid Aceves [employer] Work Phone: [facility] HealthMguacbipuo10-10-6856 10:30-0500Body tbjyaq930.26 cmLatoya Williamson MD Work Phone: [facility]02-27-2025 10:30-0500 Body mass index (BMI) [Ratio]24.7 kg/n5RmqqgvnyLatoya iWlliamson MD Work Phone: [facility]02-27-2025 10:30-0500 Body kvcyrb28.2 kgLatoya Williamson MD Work Phone: [facility]11-18-2024 11:27-0500 Body mass index (BMI) [Ratio]25.86 kg/w0Rdety Radhika DO Work Phone: [facility] HealthPinjyuyavi81-49-4074 11:27-0500Body vpvqzi06.43 kgCorey Radhika DO Work Phone: [facility] HealthKldfvfslqe13-03-9519 11:27-0500Diastolic blood fnkvecyt72 mm[Hg]Tang Radhika DO Work Phone: [facility] HealthLpldxnlatt81-59-6337 11:27-0500Systolic blood wgdnhilb552 mm[Hg]Tang Radhika DO Work Phone: [facility] HealthQmwvacwlug60-07-5083 12:15-0500Body dygnmx391.26 cmThomas [place] Other [place] [employer] Other 12-04-2021 12:15-0500Body mass index (BMI) [Ratio]25.1 kg/z0Memoqq Kevin Other [employer] Other 12-04-2021 12:15-0500Body kodpcnpzkrd82.7 [degF]Albino Brown Other [employer] Other 12-04-2021 12:15-0500Body ftjazs90.11 kgThomas Kevin Other [employer] Other 12-04-2021 12:15-0500Respiratory rate18 /minThomas Kevin Other [employer] Other 12-04-2021 12:15-5251MnM5% (BldA) [Mass fraction]98 % Albino Brown Other [employer]Neoc[employer] Other Encounters Encounter DateEncounter Type[facility] ProviderFacilityStart: 06-23-2025 End: 04-29-0200Kcuipd flowsheetForks Community Hospitalemperatriz Swinehart [employer] Work Phone: noms [facility] MedicineStart: 06-23-2025 End: 52-77-6277Aiflvt flowsheetAstria [facility] Swinehart [employer] Work Phone: noms [facility] MedicineStart: 06-23-2025 End: 21-45-5462Fnvoqy outpatient visit 25 minutesAshleigh Swinehart [employer] Work Phone: noms [facility] MedicineComment on above:Migraine with aura and with status migrainosus, not intractable (Primary Dx); Vitamin D deficiency; Pure hypercholesterolemia; FibromyalgiaStart: 06-23-2025 End: 63-89-3178dyomqnvkjgFCITGJJD SWINEHARTNot AvailableStart: 02-09-2025 End: 53-70-1673Qelqreimf encounterMarce Hyatt MD Work Phone: [facility] FNR FMStart: 02-07-2025 End: 17-69-3896ltkrxkyazaUSIJY FAKELLEEONot AvailableStart: 02-02-2025 End: 29-08-4037Izhqux flowsheetPatricia A [facility] Work Phone: NOPU FNR FMStart: 02-02-2025 End: 69-89-8804Aaiuxq flowsheetPatricia A [place] WINTER INTERN Work Phone: N[facility] FNR FMStart: 02-02-2025 End: 57-85-6765tnjykzeglcGPPKJCFZ A HACKENBURGNot AvailableStart: 02-02-2025 End: 25-39-0698Olbicx outpatient visit [facility]Pat[facility] A [facility] WINTER INTERN Work Phone: NOMS FNR FMComment on above:Nonintractable headache, unspecified chronicity pattern, unspecified headache type (Primary Dx); Migraine with aura and with status migrainosus, not intractable (CMS/HCC); Pure hypercholesterolemia (CMS/HCC)Start: 01-30-2025 End: 78-04-9812Ciuifauml encounterMarce Hyatt MD Work Phone: NOSS FNR FMStart: 01-30-2025 End: 86-66-2080rahgyotesuUZQLBMYI A HAMELYSSAENBURGNot AvailableStart: 01-26-2025 End: 69-84-4848Izgoih outpatient visit 25 minutesPatwin city hospital A [facility] WINTER INTERN Work Phone: N[facility]S FNR FMComment on above:Left facial numbness (Primary Dx); Nonintractable headache, unspecified chronicity pattern, unspecified headache type; Migraine with aura and with status migrainosus, not intractable (CMS/HCC)Start: 01-26-2025 End: 86-03-1457Qndnbqlte Belkis Hyatt MD Work Phone: NOHN FNR FMStart: 01-26-2025 End: 23-03-8795fzpzqdboaaCYEMHJPM A HACKENBURGNot AvailableStart: 01-24-2025 End: 89-87-0303Fknbht Faustino Parikh PASCUAL Work Phone: NOUI FNR FMComment on above:Vitamin D deficiency (Primary Dx)Start: 01-19-2025 End: 12-65-2367mpdkruzdypLKCZJBQD A KASIANot AvailableStart: 11-23-2024 End: 15-18-6801Baldgvd encounter procedureLatoya Williamson MD Work Phone: [facility] [address] Cl[address] Work Phone: Start: 11-23-2024 End: 12-38-7248sdrytahlfiSorpfbgiNikolai Williamson MD Work Phone: [facility] Work Phone: Start: 10-27-2024 End: 01-74-5768Haeqnjy encounter Montana Williamson MD Work Phone: [facility] Work Phone: Start: 10-27-2024 End: 86-21-5147Vmfgjov encounter procedureLatoya Williamson MD Work Phone: [facility] [place] [facility] Start: 10-27-2024 End: 12-94-5611gdmtylbrnsEhvjntkkNikolai Williamson MD Work Phone: [facility] Work Phone: Start: 10-07-2024 End: 28-49-9617Utugiguxh Result EncounterGeneric External Data ProviderNOMS External Department UnsolicitedStart: 10-07-2024 End: 45-43-2771Qqpwitbss Result EncounterGeneric External Data ProviderNOMS External Department UnsolicitedStart: 41-41-7122Quj-patient / Non-visitLatoya Williamson MD Work Phone: [facility] Work Phone: Start: 10-05-2024 End: 11-93-7513Keamenajy Result EncounterGeneric External Data ProviderNOMS External Department UnsolicitedStart: 10-05-2024 End: 29-60-2245Pynlbdpwb Result EncounterGeneric External Data ProviderNOMS External Department UnsolicitedStart: 08-16-2024 End: 86-36-1269cryrxxnufbVxdwyedn Weiss HOSPITAL ACCOUNT MANAGER Work Phone: noms FB PTComment on above:Chronic pain of right knee (Primary Dx); Internal derangement of right kneeStart: 08-16-2024 End: 25-37-0530Flkoff Skopeo.fr Weiss HOSPITAL ACCOUNT MANAGER Work Phone: noms FB PTStart: 08-16-2024 End: 09-85-6132Cbyjbu Skopeo.fr Weiss HOSPITAL ACCOUNT MANAGER Work Phone: noms FB PTStart: 08-09-2024 End: 15-38-0929wswebqigknVuvnkjsv Wright HOSPITAL ACCOUNT MANAGER Work Phone: noms FB PTComment on above:Chronic pain of right knee (Primary Dx); Internal derangement of right kneeStart: 08-04-2024 End: 85-70-6493Ervobo Fátima Garcia PT Work Phone: noms FB PTStart: 08-04-2024 End: 62-01-5649Hkvdjf Fátima Garcia PT Work Phone: noms FB PTStart: 07-26-2024 End: 91-46-9927cgwqjfsqbyZdzdiklc Weiss HOSPITAL ACCOUNT MANAGER Work Phone: noms FB PTComment on above:Chronic pain of right knee (Primary Dx); Internal derangement of right kneeStart: 07-22-2024 End: 14-30-0890Cjyfnv Andrea Bowden PT Work Phone: noms FB PTStart: 07-22-2024 End: 99-80-1795Oinjwr Andrea Bowden PT Work Phone: noms FB PTStart: 07-22-2024 End: 71-90-7178gvozlibeufYlwl Nick MorenoNori PT Work Phone: noms FB PTComment on above:Chronic pain of right knee (Primary Dx); Internal derangement of right kneeStart: 07-18-2024 End: 23-30-2090Tbyjvt flowsheetCorey Radhika DO Work Phone: noms BCP OBStart: 07-18-2024 End: 89-67-6486Bfooon flowsheetCorey Radhika DO Work Phone: noms BCP OBStart: 07-18-2024 End: 72-34-8288Oqfkmztlc Result EncounterCorey Radhika DO Work Phone: noms External Department UnsolicitedStart: 07-18-2024 End: 28-28-4974Tpioxox encounter procedureCorey Radhika DO Work Phone: [facility] Work Phone: Start: 07-18-2024 End: 68-64-8597Icsyyhhg preventive med est patient 40-64yrsCorey Radhika DO Work Phone: noms BCP OBComment on above:Well woman exam with routine gynecological exam; Breast cancer screening by mammogramStart: 07-18-2024 End: 93-60-9196jgbpzspygxNCJDC FAZIONot AvailableStart: 06-13-2022 End: 23-77-4735qmigrpbxpkDD MENA BRIDGESFacility:Q2Plslk: 08-03-2021 End: 66-09-1462zoyjtxkminVcjevz [place] Other [facility] [employer] Other Start: 12-66-4348Qqzhov outpatient new 30 minutes Albino BrwonFPKodi Urgent Care [facility] Procedures DateProcedureProcedure DetailPerforming ClinicianStart: 54-87-9873Umcfgqyhlyf Marce Hyatt MD Work Phone: Start: 01-16-6461GBA of left kneeTaennabida Danii Williamson MD Work Phone: Start: 03-92-6559N-ray of left knee, three views Latoya Danii Williamson MD Work Phone: Start: 81-38-8058LQ CHEST 2VGeneric External Data ProviderStart: 62-32-3824MDT CBC WITH AUTO DIFFGeneric External Data Provider Start: 15-41-0380JMC 12-LEADGeneric External Data ProviderStart: 07-18-2024 IGP,APTIMA HPV,AGE GDLNCorey Radhika DO Work Phone: Start: 35-05-8388JecuqcpkntvOoms Nori PT Work Phone: Plan of Treatment DateCare ActivityDetailAuthorStart: 19-63-5383Wgfhcxvbo for malignant neoplasm of breastMammogramNOCA HealthcareStart: 09-22-2025 End: 43-06-6941Xceieks encounter oghphpdbp39/23/2026 8:00 AM EST Office Visit [facility] [address] [facility] [place] [phone] Luiza Graham NP [address] [place] [address] [facility] 08-01-2025 End: 65-82-1446Gwdklnx encounter procedureNOMS BCP OBStart: 07-31-2025 End: 82-69-0988Rsnshop encounter ztjpfwioe50/01/2025 11:00 AM EST Office Visit [facility] [address] [facility] [place] [phone] Tang Garrido DO [address] [place] [address] [facility] BCP OBStart: 06-23-2025 End: 22-61-0296Imggbax encounter ivqlcqcga82/24/2025 8:00 AM EDT Office Visit [facility] [address] [facility] [place] [address] Luiza Graham NP [address] [place] [place] [address] [facility] HospitalComment on above:Arrived Start: 40-55-6306Pxwrrypxb [facility] HospitalStart: 04-26-2025 End: 371641-vbifaeucwqwfgh D3 [Mass/volume] in Serum or PlasmaVitamin D 25 hydroxy Total Lab Routine Vitamin D deficiency Expected: 04/26/2025 (Approximate), Expires: 01/24/2026[facility] Work Phone: Comment on above:Expected: 04/26/2025 (Approximate), Expires: 01/24/2026Start: 02-07-2025 End: 64-04-5303Jguzzlmusczw / ancillary services /10/2025 4:00 PM EDT Ancillary Procedure [facility] [place] [facility] [address] [facility] [address] [place] [address] WLRL [facility] IMAGINGStart: 01-30-2025 End: 63-56-3738Bxsfbdarzoeo / ancillary services njhayafozh86/02/2025 1:30 PM EDT Ancillary Procedure [facility] [address] [facility] [address] [place] [address] XVMR FNR CTStart: 01-26-2025 End: 49-03-5910XY Head WO and W contrast IVCT head w and wo IV contrast Imaging Routine Left facial numbness Nonintractable headache, unspecified chronicity pattern, unspecified headache type Expected: 01/26/2025, Expires: 01/26/2026[facility] Work Phone: Comment on above:Expected: 01/26/2025, Expires: 01/26/2026Start: 08-18-2024 End: 10-45-5848pauwecfklf70/19/2024 5:00 PM EST Treatment [facility] FB PT [address] [place] [address] Lucio Bowden, PT [address] [place] [address] N[facility]S FB PTStart: 08-11-2024 End: 37-56-4904yxpieekqagMTFU FB PTStart: 08-09-2024 End: 31-35-7464scivfiucvy70/10/2024 11:00 AM EST Treatment [facility] [address] [place] [address] Sarita Weiss, HOSPITAL ACCOUNT MANAGER [address] [place], [place] [id number] N[facility] FB PTStart: 08-04-2024 End: 68-42-9385qfwkjukepvDICN FB PTComment on above:Chronic pain of right knee (Primary Dx); Internal derangement of right kneeStart: 08-02-2024 End: 16-77-2615vywdbxqhvu75/03/2024 11:30 AM EST Treatment [facility] PT [address] [place] [phone] Meaghan Coyle PTANOMS FB PT Start: 07-26-2024 End: 88-69-2629nmuxpsxflc50/26/2024 11:30 AM EST Treatment [facility] [address] [place] [phone] Sarita Weiss, HOSPITAL ACCOUNT MANAGER [address] [place] [address] N[facility] FB PTStart: 07-18-2024 End: 68-71-8092SX Breast - bilateral ScreeningBilateral screening mammogram Imaging Routine Breast cancer screening by mammogram Expected: 07/18/2024 (Approximate), Expires: 09/17/2025[facility] Work Phone: comment on above:Expected: 07/18/2024 (Approximate), Expires: 09/17/2025Start: 93-45-0458Escdbmrzw vaccinationInfluenza Vaccine (#1) [facility] HealthcareStart: 27-90-2184Efyjumxje for malignant neoplasm of breast MammogramNOHarry S. Truman Memorial Veterans' HospitalMR Knee - left WO contrastSycamore Medical CenterTHIN PREP TIS PAP AND HR HPV DNATHIN PREP TIS PAP AND HR HPV DNA Pathology and Cytology Routine Well woman exam with routine gynecological exam Ordered: 07/18/2024[facility] HealthComment on above:Ordered: 07/18/2024 Immunizations Immunization DateImmunizationNotesCare UyoalahoRvsymiat37-16-9050dyqqugj toxoid, reduced diphtheria toxoid, and acellular pertussis vaccine, adsorbedPasylwiaia Kasia WINTER INTERN Work Phone: NOHarry [facility]. [facility] Payers DatePayer CategoryPayerPolicy ID2025Self-pay2023MedicaidANTHEM BCBS MEDICAID [place] Member Subscriber Plan / Payer (Effective 2022-Present) Name: Ira Euceda Relation to Subscriber: Self Name: Ira Euceda SubscriberID: [id number] Payer ID: Not on file Group ID: [id number] Type: Not on file Address: [facility] [address] [place] [id number] [id number] 2..1.076251.3.57[id number] 2..1.982400.3.57[id number] 2.0.1.255041.3.57[id number] 2..1.310932.3.57[id number] 2.0.1.987280.3.57[id number] 2..840.1.471695.3.57[id number] 2.840.1.665652.3.57[id number] 2.840.1.587427.3.57[id number] 2.0.1.307035.3.57[id number] 2.0.1.855582.3.579.[id number] 2.0.1.265524.3.57[id number] 2.0.1.660635.3.57[id number] 2.840.1.414052.19 [id number] 2.840.1.6[id number] 2.0.1.682501.3.579.2.531 Social History DateTypeDetailFacilityStart: 03-10-2023 End: 05-71-9760Tan Assigned At [facility] [employer] Other Start: 20-85-1704Norzkag smoking status NHISSmokes tobacco dailyNOMS HealthcareHistory of tobacco useCigarette SmokerNOMS HealthcareStart: 03-10-2023 End: 72-60-4946Fhozobh use and exposureUser of smokeless tobaccoNOMS Healthcare Start: 07-18-2024 End: 01-47-0639Wprpmpcji beverage intakeCurrent drinker of alcohol (finding)[facility] HealthcareStart: 07-18-2024 End: 42-30-4453Sfxusfsmq beverage intakeNOMS HealthcareHow often to you have a drink containing alcohol?2-4 times a monthNOCA HealthcareHow many standard drinks containing alcohol do you have on a typical day?1 or 2NOMS HealthcareHow often do you have 6 or more drinks on 1 occasion?Less than monthlyNOCA HealthcareStart: 82-27-7791Hqvdevkgi64RGAN HealthcareStart: 33-08-2963Dcrczag Commentcaffeine intake : 1-2 cups per day, soda, coffeeNOCA HealthcareStart: 36-47-4415Tca assigned at birthNot on [facility] Health SystemTobacc smoking status NHISUnknown if ever smokedSelect Medical Specialty [facility] [place] Work Phone: Start: 10-28-2024 End: 66-74-8426SydXkzsav (finding)[facility] Centertart: 30-61-9051Skt Assigned At BirthFeCleveland Clinic Marymount Hospitaltart: 16-68-0287Kcncmqb smoking status NHISEx-smokerNOCA HealthcareHistory of tobacco useCurrent smokerAMERICAN FORK HOSPITAL HealthcareStart: 33-24-6150Tvwqtod smoking status NHIS Never smoked tobaccoAMERICAN FORK HOSPITAL HealthcareHistory of tobacco usePassive smokerAMERICAN FORK HOS[facility]ITAL HealthcareStart: 01-26-2025 End: 22-90-1707Isazgkqcm beverage intakeEx-drinker (finding)[facility] Start: 84-59-2276Gfybcpj Commentcaffeine intake : 1 energy drink dailyAMERICAN FORK HOSPITAL HealthcareStart: 33-03-1287NthUewqvwSUUN Healthcare Functional Status ZbycLlrmfowrtpJcdfgxXqoypkzh08-41-7626Gkyvntk Health Questionnaire 2 item (PHQ- 2) [Reported][facility] Clinical Notes 08-03-2021 to 06-23-2025 Note Date & QojfTmknKlequumc37-37-6471 History of Present illness Narrative* Luiza Graham NP - 06/23/2025 8:00 AM EDT Images from the original note were not included. Subjective ?Quick Links Last Note in Specialty Snapshot Edit RFV/CC Edit Screenings Current Meds Patient ID: Ira Euceda is a 44 y.o. female who presents for Migraine (Discuss medications ). HPI History of Present Illness The patient is a 44-year-old female who presents for evaluation of migraines, fibromyalgia, and elevated cholesterol. She has been experiencing migraines for an extended period, with episodes occurring 2 to 3 days permonth. She has had consultations with neurology and various preventive measures. Historically, her migraines were more frequent, and could last several days at a time an occur up to 10-15 days per month. She reports that it previously took 4 weeks to obtain her Nurtec due to issues between the insurance company and this office. She was previously prescribed topiramate and valproate but has not tried beta blockers such as metoprolol or propranolol for preventative measures she reports that she has tried tricyclic antidepressants like amitriptyline and nortriptyline. She has found relief through natural remedies and vitamins. She supplements her diet with magnesium and finds this helpful. Shehas lost 80 pounds. She has been using Nurtec as needed, which she finds effective. She has identified barometric pressure changes as a trigger for her migraines and occasionally too much looking at the computer or sinus issues. She recalls a severe episode on Thursday, which was so debilitating that she was unable to work and had to sit in a dark room. The migraine subsided at 5:00 PM when it started raining. She also experienced excessive sweating during this episode. She has a history of fibromyalgia, which affects her entire body. She was previously prescribed atorvastatin for high blood pressure but discontinued it after experiencing facial numbness, jim to a stroke. She is currently managing her cholesterol levels through dietary modifications and lifestyle changes. She has a history of borderline anemia and underwent a hysterectomy 10 years ago. She is currently menopausal. She has always had low vitamin D levels. She is taking vitamin C supplements. FAMILY HISTORY Her father had a triple bypass and a prosthetic aorta. MEDICATIONS Current: Nurtec, Mobic, magnesium. ?Quick Review Review Full History Edit History Meds - Current Medications[1] --- PMH - Acute meniscal tear of left knee Anxiety Arthritis Asthma (HCC) Bipolar 1 disorder (HCC) Cataracts, bilateral Cervical cancer (HCC) chronic migraines Depression Fibromyalgia GERD (gastroesophageal reflux disease) Hypertension Objective ?Quick Links Add Vitals Timeline (Adult) Labs Imaging Results Review Trend Vitals ?? Avoid pulling in long tables of results. Comment on relevant results to support your medical decision making. BP 114/74 (BP Location: Right arm, Patient Position: Sitting, BP Cuff Size: Large adult) Pulse 77 Wt 180 lb SpO2 97% BMI 26.58 kg/m Physical Exam Vitals reviewed. Constitutional: Appearance: Normal appearance. She is normal weight. HENT: Head: Normocephalic. Cardiovascular: Rate and Rhythm: Normal rate and regular rhythm. Pulmonary: Effort: Pulmonary effort is normal. Breath sounds: Normal breath sounds. Musculoskeletal: General: Normal range of motion. Cervical back: Normal range of motion. Skin: General: Skin is warm and dry. Neurological: Mental Status: She is alert and oriented to person, place, and time. Psychiatric: Mood and Affect: Mood normal. Behavior: Behavior normal. Thought Content: Thought content normal. Judgment: Judgment normal. Physical Exam Lungs were auscultated. Heart was examined. Vital Signs Blood pressure is normal. ?Quick Links Full Problem List Allergy Chronic Pain GI Headache Assessment & Plan Other orders Follow Up In Family Medicine; Future Assessment & Plan 1. Migraines. She experiences migraines less frequently now, with only one episode in the past month. Her currenttreatment regimen, including Nurtec as needed, appears to be effective. She has tried various preventative treatments in the past without success. The insurance company recommends adding a daily preventative medication due to her history of 4-14 monthly migraine days and moderate disability. However, she is not currently experiencing more than four monthly migraine days and is managing well with her current treatment and supplements, including magnesium. The possibility of consulting with neurology for additional recommendations was discussed. A refill for Nurtec will be provided when needed. The necessary paperwork will be completed and sent to Medicaid. 2. Fibromyalgia. She reports that fibromyalgia affects her entire body, especially when there are changes in barometric pressure. She is advised to continue her current management strategies, including staying hydrated, well-rested, and keeping stress levels low. 3. Elevated cholesterol. Her cholesterol levels are elevated, but she is unable to tolerate statins due to adverse reactions. She is managing her cholesterol through dietary modifications and lifestyle changes. The potentialuse of Zetia was discussed as an alternative if needed. A lipid panel will be ordered at her next visit to monitor the response of her lifestyle interventions on her cholesterol levels. 4. Health maintenance. She has a history of borderline anemia and underwent a hysterectomy 10 years ago. She is currently menopausal. Her vitamin D levels are consistently low. She is taking vitamin C supplements. She is advised to consider lhjg-ihe-yyinlzk vitamin D supplements and increasing dietary vit-d if she doesn't want to take the prescription pills. Follow-up The patient will follow up in 3 months to monitor her migraines and follow up on her elevated cholesterol. [1] Rimegepant Sulfate (Nurtec) 75 MG tablet dispersible meloxicam (Mobic) 15 MG tablet documented in this encounterCarondelet HealthFansnreixd75-30-9737 Telephone encounter Note* Telephone Encounter - Giovanna Franklin - 02/09/2025 11:15 AM EDT Insurance company says paperwork is incomplete. It needs to have 3 the prior meds that she has fail. Must be 3 named meds that pt has failed Topamax, Amitriptaline, Topiramate Must be specific names of meds, and dates taken. Some may be from neurological assoc. [facility] Dlisywyell23-59-2534 Miscellaneous Notes* Telephone Encounter - Giovanna Franklin - 02/09/2025 11:15 AM EDT Insurance company says paperwork is incomplete. It needs to have 3 the prior meds that she has fail. Must be 3 named meds that pt has failed Topamax, Amitriptaline, Topiramate Must be specific names of meds, and dates taken. Some may be from neurological assoc. documented in this [facility]06-05-2025 History of Present illness Narrative* Ingrid Aceves NP - 02/02/2025 8:00 AM EDT Images from the original note were not included. Ira Euceda is a 44 y.o. female presents with chief complaint of Results HPI: HPI History of Present Illness The patient presents for evaluation of migraines. She has been experiencing persistent headaches, which have not subsided even with the cessation of Lipitor. Additionally, she reports episodes of hot flashes and excessive sweating. Morning numbness in her eyebrows is also noted, raising concerns about her ability to drive safely. These symptoms have resulted in her inability to attend work, necessitating a doctor's note. She has a history of unsuccessful treatments for migraines, including Imitrex, cymbalta, Topamax, and Amitriptyline, prescribed by a neurologist. She has been on Nurtec for several years, which she found effective, but is currently unable to obtain it due to insurance issues. The patient expresses frustration with the medical system and insurance companies, citing difficulties in obtaining necessary medications and records. She also mentions a recent incident where multiple unsuccessful attempts were made to draw blood, causing significant distress. Additionally, she reports a history of a denied surgical procedure due to her age and insurance complications. SUBJECTIVE: MEDICATIONS: Current Outpatient Medications Medication Instructions atorvastatin (LIPITOR) 10 mg, Oral, Nightly ergocalciferol (VITAMIN D-2) 1.25 mg, Oral, Weekly meloxicam (MOBIC) 15 mg, Oral, Daily Nurtec 75 mg, Oral, Daily PRN I have reviewed and reconciled the history and medication list with the patient today. REVIEW OF SYMPTOMS: Review of Systems Constitutional: Negative. HENT: Negative. Respiratory: Negative for cough, shortness of breath and wheezing. Cardiovascular: Negative for chest pain. Gastrointestinal: Negative for abdominal pain. Genitourinary: Negative. Musculoskeletal: Negative. Skin: Negative. Neurological: Positive for headaches. OBJECTIVE: Visit Vitals BP 112/72 Pulse 75 Ht 5' 9 Wt 186 lb 12.8 oz SpO2 97% BMI 27.59 kg/m OB Status Hysterectomy Smoking Status Passive Smoke Exposure - Never Smoker BSA 2.03 m Physical Exam Vitals reviewed. Constitutional: Appearance: Normal appearance. HENT: Head: Normocephalic and atraumatic. Right Ear: Tympanic membrane normal. Left Ear: Tympanic membrane normal. Nose: Nose normal. Eyes: Extraocular Movements: Extraocular movements intact. Conjunctiva/sclera: Conjunctivae normal. Pupils: Pupils are equal, round, and reactive to light. Cardiovascular: Rate and Rhythm: Normal rate and regular rhythm. Pulmonary: Effort: Pulmonary effort is normal. Breath sounds: Normal breath sounds. Musculoskeletal: Cervical back: Normal range of motion and neck supple. Neurological: Mental Status: She is alert. ASSESSMENT AND PLAN: Assessment/Plan Diagnoses and all orders for this visit: Nonintractable headache, unspecified chronicity pattern, unspecified headache type Migraine with aura and with status migrainosus, not intractable (CMS/HCC) Pure hypercholesterolemia (CMS/HCC) Assessment & Plan 1. Migraine. - Persistent migraines reported, with previous failures of multiple medications including Imitrex, amitriptyline and Topamax. - Successfully managed with Nurtec for several years. - Appeal in process to secure Nurtec refill due to insurance denial based on lack of records showing previous medication failures. - Work note to be provided to cover absence for the entire week. documented in this encounterCarondelet HealthZvoukvaiof56-04-0045 Telephone encounter Note* Telephone Encounter - Giovanna Franklin - 01/30/2025 12:01 PM EDT Wilfrid dillon needs the list of the other drugs their strengths, dates they were used and why they cannot be used Imitrex Ziptran nariziptran Neurtec prior auth req # [id number] Please call Ira once approved. Pt is in al lot of pain. Stating she cannot currently see d/t headaches. [facility] [id number] Miscellaneous Notes* Telephone Encounter - Giovanna Franklin - 01/30/2025 12:01 PM EDT Wilfrid dillon needs the list of the other drugs their strengths, dates they were used and why they cannot be used Imitrex Ziptran nariziptran Neurtec prior auth req # [id number] Please call Ira once approved. Pt is in al lot of pain. Stating she cannot currently see d/t headaches. documented in this [facility]06-02-2025 Telephone encounter Note* Telephone Encounter - Genetata Gilliland - 01/30/2025 11:04 AM EDT Ira asking for a call back -[phone] [facility] [id number] Miscellaneous Notes* Telephone Encounter - Gene Gilliland - 01/30/2025 11:04 AM EDT Ira asking for a call back -[phone] documented in this [facility]05-29-2025 History of Present illness Narrative* Ingrid Aceves NP - 01/26/2025 2:00 PM EDT Images from the original note were not included. Ira Euceda is a 44 y.o. female presents with chief complaint of Headache HPI: HPI History of Present Illness The patient presents for evaluation of headaches and numbness. She began her Lipitor regimen on Thursday night, which was followed by mild burping. The subsequent day, she experienced nausea, indigestion, and heartburn, culminating in a sensation of an obstruction in her throat. These symptoms were accompanied by lightheadedness, which progressively worsened throughout the day. Despite these symptoms, she continued her Lipitor intake after meals. This morning, she reported feeling lightheaded upon waking, with the onset of a headache localized to her restorationist, which later spread. She also experienced numbness, a symptom that has been present all day. She has a history of similar episodes, during which her face would also become numb. She has not sought [facility] attention for these symptoms. Her headaches typically originate from the left side and remain localized to her restorationist, but they occasionally spread. She reports no pain upon touch or exacerbation of symptoms with chewing or talking. She has been diagnosed with fibromyalgia. She has not had anyrecent CT scans or ER visits. She has been experiencing difficulty obtaining her Nurtec prescription due to a need for prior authorization. She has been in contact with Tara Yates, who has been diligent in providing updates and attempting to resolve the issue. She has been using surgical steel earrings, which she reports have been effective in preventing migraines. SUBJECTIVE: MEDICATIONS: ALLERGIES Current Outpatient Medications Medication Instructions atorvastatin (LIPITOR) 10 mg, Oral, Nightly ergocalciferol (VITAMIN D-2) 1.25 mg, Oral, Weekly meloxicam (MOBIC) 15 mg, Oral, Daily Nurtec 75 mg, Oral, Daily PRN Allergies Allergen Reactions Metronidazole Rash and Unknown STATE SHE BREAKS OUT WITH RASH AFTER SHE TAKES THE LAST DOSE PAST MEDICAL HISTORY: SOCIAL HISTORY SURGICAL HISTORY: Past Medical History: Diagnosis Date Acute meniscal tear of left knee chondromalcia Anxiety Arthritis Asthma Bipolar 1 disorder (CMS/HCC) Cataracts, bilateral Cervical cancer (CMS/HCC) chronic migraines Depression (CMS/HCC) Fibromyalgia GERD (gastroesophageal reflux disease) Hypertension ([facility]) 2022 Social History Tobacco Use Smoking status: Passive Smoke Exposure - Never Smoker Smokeless tobacco: Current Vaping Use Vaping status: Every Day Substances: Nicotine, Flavoring Substance Use Topics Alcohol use: Not Currently Alcohol/week: 6.0 standard drinks of alcohol Comment: caffeine intake : 1 energy drink daily Drug use: Not Currently Types: Marijuana Comment: smoke Past Surgical History: Procedure Laterality Date BI US GUIDED BREAST LOCALIZATION AND BIOPSY LEFT Left 11/23/2015 BI US GUIDED BREAST LOCALIZATION AND BIOPSY LEFT 11/23/2015 CATARACT EXTRACTION, BILATERAL 05/2020, 07/2020 SECTION, LOW TRANSVERSE EYE SURGERY 11/2010 HYSTERECTOMY 04/19/2021 KNEE ARTHROSCOPY W/ ACL RECONSTRUCTION Right 1999 KNEE ARTHROSCOPY W/ ACL RECONSTRUCTION Left 07/2018 PELVIC LAPAROSCOPY TONSILLECTOMY TUBAL LIGATION 04/19/2021 REVIEW OF SYMPTOMS: Review of Systems Constitutional: Negative. HENT: Negative. Respiratory: Negative for cough, shortness of breath and wheezing. Cardiovascular: Negative for chest pain. Gastrointestinal: Negative for abdominal pain. Genitourinary: Negative. Musculoskeletal: Negative. Skin: Negative. Neurological: Positive for numbness and headaches. Negative for dizziness. OBJECTIVE: Vitals: 01/26/25 1355 BP: 122/82 Pulse: 92 Temp: 97.3 F SpO2: 97% Physical Exam Vitals and nursing note reviewed. Constitutional: Appearance: Normal appearance. HENT: Head: Normocephalic and atraumatic. Right Ear: Tympanic membrane normal. Left Ear: Tympanic membrane normal. Nose: Nose normal. Eyes: Extraocular Movements: Extraocular movements intact. Conjunctiva/sclera: Conjunctivae normal. Pupils: Pupils are equal, round, and reactive to light. Cardiovascular: Rate and Rhythm: Normal rate and regular rhythm. Pulmonary: Effort: Pulmonary effort is normal. Breath sounds: Normal breath sounds. Musculoskeletal: Cervical back: Normal range of motion and neck supple. Skin: General: Skin is warm and dry. Capillary Refill: Capillary refill takes less than 2 seconds. Neurological: Mental Status: She is alert and oriented to person, place, and time. Cranial Nerves: Cranial nerves 2-12 are intact. Sensory: Sensation is intact. Motor: Motor function is intact. Coordination: Coordination is intact. Comments: Tingling pain down left side of face at times ASSESSMENT AND PLAN: Assessment/Plan Diagnoses and all orders for this visit: Left facial numbness - CT head w and wo IV contrast; Future Nonintractable headache, unspecified chronicity pattern, unspecified headache type - CT head w and wo IV contrast; Future Migraine with aura and with status migrainosus, not intractable (CMS/HCC) Assessment & Plan 1. Headache. - Symptoms include lightheadedness and headache spreading from the restorationist. - Physical exam findings include numbness around the restorationist and face. - Discussed the possibility of trigeminal neuralgia and the need for further evaluation. - A CT scan of the head [facility] be ordered[facility] The pharmacy will be contacted to resolve the prescription issue. 2. Numbness. - Numbness around the restorationist and face, with a history of similar episodes previously. - No recent ER visits or head CT scans. - Reviewed the possibility of trigeminal neuralgia and the need for further investigation. - A CT scan of the head will be ordered to investigate the cause of numbness. No follow-ups on file. documented in this encounterCarondelet [id number] Telephone encounter Note* Telephone Encounter - Gene Gilliland - 01/26/2025 8:59 AM EDT Ira called - asked for Tara to call her back - [phone] [facility] [id number] Miscellaneous Notes* Telephone Encounter - Gene Darshana - 01/26/2025 8:59 AM EDT Ira called - asked for Tara to call her back - [phone] documented in this encounterCarondelet [id number] Evaluation note* Diagnosis Onset Date Resolution Status Admit Date History of arthroscopy of left knee acuteFebruary 2024 9:58amInternal derangement of left kneeacuteFebruary 2024 9:58amLeft knee painacuteFebruary 2024 9:58am [facility] Work Phone: [phone]) 306-666511-26-2024 History of Present illness Narrative* Sarita Weiss, MARQUES - 07/26/2024 11:30 AM EST Physical Therapy Physical Therapy Evaluation Visit Patient Name: Ira Euceda Today's Date: 07/26/2024 Encounter Diagnoses Name Primary? Chronic pain of right knee Yes Internal derangement of right knee Visit number: 2 Supervised time: 27min Total time: 35min Time in: 11:34am Time out: 12:09pm Subjective Ira Euceda 43 y.o. female presents to physical [...] Continue progression as tolerated. Cosigned by Lucio Bowden PT at 07/26/2024 2:11 PM EST documented in this encounterCarondelet [id number] History of Present illness Narrative* Lucio Bowden, PT - 07/22/2024 1:00 PM EST Images from the original note were not included. Physical Therapy Physical Therapy Evaluation Visit Patient Name: Ira Euceda Today's Date: 07/22/2024 Encounter Diagnoses Name Primary? Chronic pain of right knee Yes Internal derangement of right knee Visit number: 1 Subjective Ira Euceda 43 y.o. female presents to physical [...] Please sign below. Date: documented in this encounterCarondelet [id number] History of Present illness Narrative* Tang Garrido, - 07/18/2024 11:00 AM EST Reason for Appointment: Patient ID: Ira Euceda is a 43 y.o. 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 Exam conducted with a risk management intern present. Vitals: Estimated body mass index is 25.86 kg/m as calculated from the following: Height as of 07/13/23: 5' 9 . Weight as of this [...] by Luna Mathew LPN on behalf of: Tang Garrido DO documented in this encounterCarondelet [id number] Evaluation note* Encounter Date Diagnosis Assessment Notes Treatment Notes Treatment Clinical Notes Jul, Contact with and (hussein spected) exposure to other viral communicable diseases (ICD-10 - Z20.828) Jul,Viral gastroenteritis (ICD-10 - A08.4) Nausea can be [...] decrease in urine, dry mouth, etc. I considered/discussed prescription medication with the patient. There is no evidence of acute abdomen on exam. Will give prescription for zofran. Educated about red flag symptoms and if she does develop red flag symptoms, she is advised to go to the ER. Pt understands and agrees with the plan. Jul,Other Additional time spent conducting pre-visit phone call, screening for symptoms, instructions on social distancing, application and removal of PPE, and cleaning of examination room, equipment and supplies was preformed. Patient education given for testing methodology and results. Patient care instructions given in writting by [facility] document. [employer] Other Evaluation note* Diagnosis Chronic pain of right knee- Primary Internal derangement of right knee documented in this encounter [facility] HealthcareEvaluation note* Diagnosis Well woman exam with routine gynecological exam Routine gynecological examination Breast cancer screening by mammogram documented in this encounter [facility] HealthcareEvaluation note* Diagnosis Chronic pain of right knee- Primary Internal derangement of right knee documented in this encounter [facility] HealthcareEvaluation note* Diagnosis Chronic pain of right knee- Primary Internal derangement of right knee documented in this encounter [facility] HealthcareEvaluation note* Diagnosis Vitamin D deficiency- Primary documented in this encounter [facility] HealthcareEvaluation note* Diagnosis Left facial numbness- Primary Disturbance of skin sensation Nonintractable headache, unspecified chronicity pattern, unspecified headache type Migraine with aura and with status migrainosus, not intractable (CMS/HCC) documented in this encounter [facility] HealthcareEvaluation note* Diagnosis Nonintractable headache, unspecified chronicity pattern, unspecified headache type- Primary Migraine with aura and with status migrainosus, not intractable (CMS/HCC) Pure hypercholesterolemia (CMS/HCC) Pure hypercholesterolemia documented in this encounter [facility]* Diagnosis Migraine with aura and with status migrainosus, not intractable- Primary Vitamin D deficiency Pure hypercholesterolemia Fibromyalgia Unspecified myalgia and myositis documented in this encounter [facility] HealthcareHistory general Narrative - Reported* Type Description Date Medical History fibromyalgia [facility] [employer] Other Reason for visit Narrative* Rehabilitation - Outpatient (Routine) - AuthorizedSpecialtyDiagnoses / ProceduresReferred By ContactReferred To ContactPhysical Therapy Diagnoses Other tear of medial meniscus, current injury, right knee, initial encounter Procedures ID PHYSICAL THERAPY EVALUATION HIGH COMPLEX 45 MINS A, Unknown Practice [address] [place] [address] Phone: tel: Lucio Bowden, PT [address] [place] [address] Phone: tel: fax: Referral IDStatusReasonStart DateExpiration DateVisits RequestedVisits [id number] [facility] HealthcareReason for visit Narrative* Rehabilitation - Outpatient (Routine) - AuthorizedSpecialtyDiagnoses / ProceduresReferred By ContactReferred To ContactPhysical Therapy Diagnoses Other tear of medial meniscus, current injury, right knee, initial encounter Procedures ID PHYSICAL THERAPY EVALUATION HIGH COMPLEX 45 MINS A, Unknown Practice [address] [place] [address] Phone: tel: Lucio Bowden, PT [address] [place] [address] Phone: tel: fax: Referral IDStatusReasonStart DateExpiration DateVisits RequestedVisits [id number] [facility] Healthcare Summary Purpose Family History No Family History Records FoundNo Family History Records FoundNo Family History Records FoundNo Family History Records FoundNo Family History Records Found Advance Directives No Advanced Directives Records Found Advance Directive Response Recorded Date/ Time Advance Directives No October 10:52am Advance Directive Response Recorded Date/ Time Advance Directives No October 11:52am Chief Complaint and Reason for Visit Chief Complaint Admit Date M25.561 - Pain in right knee October 272024 8:11am NEW RT KNEE PAIN MRI [facility] REPORT October 27, 2024 9:58am Reason for Visit Admit Date History of arthroscopy of left knee Febr uary 2024 9:58am Internal derangement of left knee Februa ry 2024 9:58am Left knee pain October 27, 2024 9:58am Chief Complaint Admit Date M25.561 - Pain in right knee October 272024 8:11am NEW RT KNEE PAIN MRI [facility] REPORT October 27, 2024 9:58am M23.92 Z98.890 November 23, 2024 8:3 7am Additional Source Comments INFORMATION SOURCE (unrecogn ized section and content) DATE CREATED AUTHOR 11/09/[address] [facility] DATE CREATED AUTHOR AUTHOR'S ORGANIZ ATION 04/02/2022 [facility] [employer] Account Representative DATE CREATED AUTHOR AUTHOR'S ORGANIZ ATION 06/27/2022 [facility] DATE CREATED AUTHOR AUTHOR'S ORGANIZ ATION 11/24/2024 [facility] DATE CREATED AUTHOR AUTHOR'S ORGANIZ ATION 06/25/2025 [facility] EPIC REASON FOR VISIT (unrecogniz ed section and content) ReasonCommentsWell Women VisitReasonCommentsHeadacheReasonCommentsResultsReason CommentsMigraineDiscuss medications Care Teams (unrecognized sec tion and content) Team MemberRelationshipSpecialtyStart DateEnd Date Marce Hyatt MD [address] [place] [address] PCP - GeneralFamily Medicine03/09/23Team MemberRelationshipSpecialtyStart DateEnd Date Marce Hyatt MD [address] [place] [address] PCP - GeneralFamily Medicine03/09/23Team MemberRelationshipSpecialtyStart DateEnd Date Marce Hyatt MD [address] [place] [address] PCP - GeneralFamily Medicine03/09/23Team MemberRelationshipSpecialtyStart DateEnd Date Marce Hyatt MD [address] [place] [address] PCP - GeneralFamily Medicine03/09/23Team MemberRelationshipSpecialtyStart DateEnd Date Marce Hyatt MD [address] [place] [address] PCP - GeneralFamily Medicine03/09/23Team MemberRelationshipSpecialtyStart DateEnd Date Marce Hyatt MD [address] [place] [address] PCP - GeneralFamily Medicine03/09/23Team MemberRelationshipSpecialtyStart DateEnd Date Marce Hyatt MD [address] [place] [address] PCP - GeneralFamily Medicine03/09/23Team MemberRelationshipSpecialtyStart DateEnd Date Marce Hyatt MD [address] [place] [address] PCP - GeneralFamily Medicine03/09/23Team MemberRelationshipSpecialtyStart DateEnd Date Marce Hyatt MD [address] [place] [address] PCP - GeneralFamily Medicine03/09/23Team MemberRelationshipSpecialtyStart DateEnd Date Marce Hyatt MD [address] [facility] [place] [address] PCP - General acute hospital Medicine03/09/23 Team Status: Active Member Role Status Dates Latoya Williamson MD Primary Care Provide r Active Team Status: Inactive Member Role Status Dates Latoya Williamson MD Primary Care Provider Active Start: October 272024 End: October 27, 2024Raj Arellano ProviderActiveStart: October 27, 2024 End: October 27, 2024 Team Status: Active Member Role Status Dates Latoya Williamson MD Primary Care Provider Active Start: October Raj Luis ProviderActiveStart: October 05, 2024 Team Status: Inactive Member Role Status Dates Latyoa Williamson MD Primary Care Provider Active Start: November 23, 2024 End: November 23, 2024Raj Arellano ProviderActiveStart: November 23, 2024 End: November 23, 2024Team MemberRelationshipSpecialtyStart DateEnd Date Marce Hyatt MD [address] [place] [address] PCP - [facility]03/09/23Team MemberRelationshipSpecialtyStart DateEnd Date Marce Hyatt MD [address] [place] [address] PCP - General acute hospital Medicine03/09/23Team MemberRelationshipSpecialtyStart DateEnd Date Marce Hyatt MD [address] [facility] [place] [address] PCP - General acute hospital Medicine03/09/23Team MemberRelationshipSpecialtyStart DateEnd Date Marce Hyatt MD [address] [place] [address] [facility] - [facility]03/09/23Te MemberRelationshipSpecialtyStart DateEnd Date Marce Hyatt MD [address] [place] [address] [facility] - [facility]03/09/23Te MemberRelationshipSpecialtyStart DateEnd Date Marce Hyatt MD [address] [place] [address] [facility] - [facility]03/09/23Te MemberRelationshipSpecialtyStart DateEnd Date Marce Hyatt MD [address] [facility] [place] [address] [facility] - [facility]03/09/23Te MemberRelationshipSpecialtyStart DateEnd Date aMrce Hyatt MD [address] [place] [address] [facility] - [facility]03/09/23 Goals (unrecognized section and content) Goals may be documented in a n alternate section FOR RECORDS PERTAINING TO PATIENTS WHO ARE [...] BE BASED ON THE PRIMARY CLINICAL RECORDS. [facility] [employer] [facility]. provides no warranty or guarantee of the accuracy or completeness of information in this document.
== END 2025-08-01 16:33 | disposition home or self-care (01) ==
LOC: LAB 16:32
PROVIDERS: PCP Family Medicine; Visit Provider Obstetrics & Gynecology
DX: Z01.419 Encounter for gynecological examination (general) (routine) without abnormal findings (principal)
CPT/HCPCS: 87624; 88175